=== PATIENT | female | born 1960 | race Caucasian/White ===

== ENCOUNTER 2017-06-22 10:53 | Emergency (ER) | payer BC, SELFPAY ==
[2017-06-22 10:53] VITALS: BP 147/91; PULSE 93; RESP 18; TEMP 36.6; O2SAT 95; BMI 33.1
--- NOTE | 2017-06-22 12:43 | ED.DCSUM_ITS ---
- ER Visit Summary Date of Service: 06/22/17 Chief Complaint: Nosebleed History of Present Illness: The patient is a [address] Mcnair. Reports that she began having bleeding from the left side of her nose this morning at 8 AM. This began after she blew her nose. She reports she has had a cold and has been blowing her nose frequently recently. She reports she has not had a nosebleed for quite some time. She denies any bruising or bleeding. She denies any trauma to her nose. Physical Examination: Vitals: Stable. Afebrile. General: Well-nourished and well-developed. Head: Normocephalic atraumatic. Nose: No active bleeding at this time. Dried blood in the left nares. No visualized source of the bleeding after having her blow her nose. Neck: Supple, no lymphadenopathy. No JVD. Nontender. Cardiovascular: Regular rate and rhythm. No murmurs. Respiratory: No respiratory distress. Clear to auscultation bilaterally. Abdominal: Soft, nontender, nondistended, normal bowel sounds. No guarding, rebound, or peritoneal signs. Back: Nontender. Extremities: Nontender, no edema. Skin: Normal color, no rash. Neurologic: Alert and oriented ?3. Cranial nerves II through XII are intact. Normal strength and sensation. Psych: Normal affect. Emergency Department Course and Treatment: Patient was observed over the course of 2 hours in the emergency department. She ambulated about without any difficulty. She has had no further bleeding. I did discuss with the fact that I cannot rule out she will continue to bleed at home. She is refused packing. Treatment Plan: Patient will be discharged instructions follow-up Dr. Kern as needed. Return to the emergency department for any worsening symptoms. Disposition: To home in improved and stable condition. Impression: 1. Epistaxis on left, resolved. This note was generated with [employer] dictation software. It may contain incorrect words, spelling, and punctuation that were not noted in review of the chart prior to signing ED Disposition - Plan for ED Patient: Disposition: Home or Assisted Living Chief Complaint: Nosebleed Instructions: Nosebleed Prescriptions: Oxymetazoline 0.05% [Afrin (BKC)] 1 spray NASAL BID #1 bottle Referrals: Guillermo Kern MD [STAFF PHYSICIAN] - As Needed
[2017-06-22] MEDS: Mixture 30 ML Bottle TOPICAL (12:44)
== END 2017-06-22 13:09 | disposition home or self-care (01) ==
LOC: ED 12:12
PROVIDERS: Emergency Provider Emergency Medicine; Family Provider Internal Medicine; PCP Internal Medicine
DX: R04.0 Epistaxis (principal)
CPT/HCPCS: 99282

== ENCOUNTER → 2017-06-30 10:57 | Outpatient (CLI) | payer BC, SELFPAY ==
[2017-06-30 11:56] LABS: Absolute Neutrophil Count 4.6 X10^3/uL (2.0-7.7); Basophil# 0.02 X10^3/uL; Basophil% 0.3 % (0-1); Eosinophil# 0.17 X10^3/uL; Eosinophils% 2.6 % (0-5); Hematocrit 43.1 % (37-47); Hemoglobin 13.4 g/dl (12.0-15.0); Lymphocyte % 18.6 % (19-41); Mean Corp Hgb Conc 31.1 g/gl (32-36); Mean Corpuscular Volume 93.3 fL (81-99); Mean Platelet Vol. 9.3 fl (6.2-12.0); Monocyte# 0.47 X10^3/uL; Monocyte% 7.3 % (0-10); Neutrophil # 4.59 X10^3/uL (2.7-7.7); Platelet Count 269 K/mm3 (150-450); RBC Distribution Width CV 13.7 % (11.6-14.6); RBC Distribution Width SD 46.5 fl (35.1-43.9); Red Blood Count 4.62 M/mm3 (4.2-5.4); White Blood Count 6.5 K/mm3 (4.4-11.0)
[2017-06-30 11:57] LABS: POSITIVE COUNT NO; POSITIVE DIFFERENTIAL NO
[2017-06-30 12:31] LABS: Cholesterol 211 mg/dL (200); High Density Lipoprotein 53 mg/dL; Triglycerides 147 mg/dL; Very Low Density Lipoprotein 29 mg/dL (5-40)
== END ==
PROVIDERS: Family Provider Internal Medicine; PCP Internal Medicine; Visit Provider Internal Medicine
DX: Z00.00 Encounter for general adult medical examination without abnormal findings (principal)
CPT/HCPCS: 36415; 80061; 85025

== ENCOUNTER 2017-07-28 10:41 | Day surgery (SDC) | payer BC, SELFPAY ==
--- NOTE | 2017-07-24 16:26 | EKG12_ITS ---
Test Reason : PRE-OP Blood Pressure : / mmHG Vent. Rate : 085 BPM Atrial Rate : 085 BPM P-R Int : 154 ms QRS Dur : 096 ms QT Int : 358 ms P-R-T Axes : 057 -18 045 degrees QTc Int : 426 ms Normal sinus rhythm Leftward axis Confirmed by TONJA PEÑA, LUIS MANUEL ([id number]), editor in chief ALBANIA JOYA ([id number]) on 07/27/2017 12:47:17 PM Referred By: Noemi Barrera Confirmed By:LUIS MANUEL EVANGELISTA MD
[2017-07-24 16:42] LABS: Anion Gap 5 (5-15); BUN 26 mg/dL (7-18); BUN/Creat Ratio 34.6 RATIO (10-20); Calcium,Total 9.1 mg/dL (8.5-10.1); Chloride 106 mmol/L (98-107); Creatinine, Serum 0.75 mg/dL (0.55-1.02); EST Glomerular Filtration Rate 85 mL/min (>60); Est Glom Filt Rate - Afr Amer 103 mL/min (>60); Glucose 89 mg/dL (74-106); Potassium 3.8 mmol/L (3.5-5.1); Sodium Level 140 mmol/L (136-145)
[2017-07-28] VITALS (11 sets, daily range): BP systolic 97–141; BP diastolic 65–90; PULSE 55–76; RESP 16; TEMP 36.1–36.7; O2SAT 91–100; BMI 32.8
--- NOTE | 2017-07-28 08:31 | OP.PCM_ITS ---
Problem List (1) Female stress incontinence Status: Acute (2) Uterine prolapse Status: Chronic Report of Operation Date of Procedure: 07/28/17 Pre-Operative Diagnosis: uterovaginal prolapse and female stress incontinence Post-Operative Diagnosis: same Surgery/Procedure Performed:: Total vaginal hysterectomy, bilateral salpingectomy, uterosacral ligament suspension, anterior and posterior colporrhaphy, midurethral sling and cystoscopy Description of Surgical Findings:: The patient was taken to the operating room where general anesthesia was initiated. The patient was placed in dorsal lithotomy position and prepped and draped in sterile fashion. A surgical time out occurred. A Scott catheter was placed in the patient's bladder. A weighted speculum was placed in the patient's vagina. A curved Katie was used to retract the anterior vaginal wall and bladder out of the field. The cervix was grasped with two Kriss traction forceps. The cervix was then injected with 0.25% marcaine mixed with epinephrine. A circumferential incision with a 10 blade scalpel was then made incising the vagina mucosa down to the body of the cervix. The posterior vaginal epithelium was then dissected off the cervix until the peritoneum of the pouch of Alec was reached. This was then grasped and cut with Osuna scissors entering the peritoneal cavity. A long weighted speculum was then placed in the posterior cul-de-sac. Attention was then turned to the anterior vaginal wall epithelium which was grasped with pickups and dissected, along with the bladder, off of the cervix and the uterus until the peritoneal reflection was visualized. This was then grasped with pickups and incised with Metzenbaum scissors, entering the peritoneal cavity anteriorly. The scott bulb was palpated to confirm that the bladder was not perforated. The Katie was then used to retract the bladder out of the operative field. A curved Lay clamp was then used to clamp, cut and suture ligate the uterosacral ligament on the patient's left side. This was repeated on the contralateral side. Next, the vessels of the broad ligament including the uterine vessels were clamped, cut and suture ligated bilaterally. Finally, the utero-ovarian ligament was clamped cut and suture ligated; first with a tie on a passer and then with a Lay stitch. The uterus and cervix were passed off the sterile field and sent to pathology. With two Breisky Navratil retractors placed anteriorly and posteriorly in the vagina, the bowel was packed out of the cul-de-sac using a moist Kerlex sponge. A 0-Maxon with an HGU-46 needle on a long needle gas truck driver was passed through the uterosacral ligament on the patients right side. This was followed by a 2- 0 prolene suture using an SH needle. This was repeated on the contralateral side. The instruments and packing were removed from the vagina. The patient was given 5 mg of Lasix IV and 5 cc of Indigo Rector. Cystoscopy was then performed while holding tension on the uterosacral ligament suspensions sutures. Bilateral efflux of blue urine was seen from ureteral orifices. The vaginal epithelium overlying the anterior vaginal wall was grasped with two Allis clamps, injected with 0.25% Marcaine with epinephrine and a midline incision was made over the herniation of the anterior vaginal wall. The underlying pubocervical fascia was dissected off the overlying vaginal epithelium until the herniation of the pubocervical fascia was completely exposed. Hemostasis was achieved with electrosurgical cautery. The herniation was repaired in the traditional fashion using imbricating horizontal mattress sutures of 2-O PDS on a CT-1 needle. Once the herniation was completely repaired, the redundant vaginal epithelium was excised and the incision was closed with a running, locking 3-O vicryl suture. Excellent hemostasis was noted. The sutures were then bought through the corners of the vaginal cuff. The cuff was closed with interrupted 0-vicryl sutures. The uterosacral ligament sutures were then tied, elevating the vaginal vault. The vaginal epithelium overlying the mid-urethra was grasped with two Allis clamps, injected with 0.25% Marcaine with epinephrine and a 1.5 cm midline incision was made over the mid urethra using a 15 blade scalpel. Tunnels were dissected bilaterally to the pubic rami and the Advantage Fit trocars were passed through the tunnels on the right side, through the space of Retzius and out the skin at at the pubic symphysis. This was repeated on the patient's left side. Cystoscopy was performed and there was no evidence of bladder or urethral injury. The sling was then drawn up through the space of Retzius and out the skin at the pubic symphysis. Tension was adjusted by placing a Wangensteen forceps between the sling and the urethra. Once adequate tension was adjusted, the plastic sheaths were removed. The redundant sling was trimmed at the skin edges and the skin was repaired with Indermil. The vaginal epithelium was repaired with a running 3-0 Vicryl suture. The vagina was packed with Kerlex gauze soaked in estrogen cream. Anesthesia was discontinued. All needle, instrument, and sponge counts were correct x 2. The patient was taken to recovery room in stable condition draining clear urine from her scott catheter. printed circuit board layout designer: Sofya Broussard Type of Anesthesia:: General Special Medications: .25% marcaine with epinephrine Specimen's removed: uterus, cervix and bilateral fallopian tubes Drains: Scott to PACU Estimated Blood Loss (mL): 100 mL Fluids Replaced: 1300 mL Grafts/Implants Used: Shy Desera sling - Complications none - Admit VTE Documentation VTE Present on Admission: No VTE Mechan Device Prophylaxis: SCD's VTE Pharm Prophylaxis ordered?: Yes
[2017-07-28] MEDS: Phenazopyridine 95 MG Tablet 190 MG PO (11:19)
[2017-07-28] MEDS: Cefazolin 2 GM in 0.9% Normal Saline 100 ML IV (12:36)
--- NOTE | 2017-07-28 13:20 | HYST_PTH ---
PATIENT: ELIAS CARY LOC: [facility] [place] U#:[id number] AGE/SX: 57/F ROOM: RE07/28/[address]: Dr. Noemi Barrera MD : 1960 BED: DIS: 07/28/2017 SPEC #: [id number] RECD: 07/31/17 09:18 STATUS: MIAN RERaymundo #: [id number] PAPITO: 07/28/17 13:[address]: Noemi Barrera DEPT: SURGICAL PATHOLOGY RECD BY: Cruz Childs ENTERED: 07/31/17 10:33 SP TYPE: HYSTERECT OTHR DR: Dr. Sapna Mcnair MD Tissues: Uterus, NOS Procedures: Surgery Specimen Level V HEADER OPERATION: Hysterectomy, total, vaginal salpingectomy, USLF, A&P repair PRE-OP DIAGNOSIS: Uterovaginal prolapse, stress urinary TISSUE SUBMITTED: Uterus, bilateral fallopian tubes, vaginal mucosa MICROSCOPIC DIAGNOSIS Uterus, bilateral fallopian tubes and vaginal mucosa, total vaginal hysterectomy, bilateral salpingectomy and A & P repair: Cervix ? mild chronic cystic cervicitis. Endometrium ? proliferative endometrium. Endometrial polyp ? benign endometrial polyp with simple cystic hyperplasia without atypia. Myometrium ? focal adenomyosis. - A minute intramural leiomyoma (0.2 cm in greatest dimension). Portion bilateral fallopian tubes - no pathologic diagnosis. Vaginal mucosa ? fragments of squamous mucosa with reactive changes. SJ:dee 08/01/17 MICROSCOPIC DESCRIPTION Slides are reviewed. GROSS DESCRIPTION Received in fixative is one container labeled with the patient's name and designated uterus, bilateral fallopian tubes, vaginal mucosa. The specimen consists of a hysterectomy specimen consisting of uterus with cervix, detached small pieces of bilateral fallopian tubes and two pieces of mucosal tissue. The uterus with cervix weighs 48 gm and measures 7.5 x 4.5 x 3.5 cm. The serosal surface is focally ragged. The external os is markedly stenotic. The ectocervical mucosa is unremarkable. The endocervical canal is markedly stenotic and measures 2.5 cm in length. The endocervical mucosa is unremarkable. Sections of the cervix reveal a few cysts filled with mucoid material. The endometrial canal measures 4 cm in length and up to 1.5 cm in diameter. The endometrial cavity shows a polyp which is bulbous at the distal end. The polyp measures 4 cm in length and 0.5 to 1.2 cm in diameter. The bulbous distal end measures 1 cm in diameter. The myometrial wall underneath the polyp is not indurated. The polyp is attached at the fundus. The endometrium measures <0.1 cm in thickness. One of the portions of fallopian tubes measures 1.5 x 1 x 0.5 cm. The fimbrial end is not identified. The second fallopian tube including fimbrial end measures 2 cm in length and 0.5 cm in diameter. Sections of both fallopian tubes do not reveal any mass lesion. Also received are two detached pieces of miranda mucosal tissue measuring in aggregate 4 x 3 x 0.5 cm. No mucosal lesion is identified. Numerous instrumentation segura are noted. Fountain Manager sections are submitted in 11 cassettes as follows: 1 - anterior cervix, 2 - posterior cervix, 3 & 4 - anterior uterine wall, 5 & 6 - posterior uterine wall, 7 & 8 ? entire endometrial polyp with underlying uterine wall, 9 & 10 ? bilateral fallopian tubes, entirely submitted with each cassette containing one fallopian tube, 11 ? mucosal tissue. / GARO:dee 07/31/17 TC:5 CPT: 25641
[2017-07-28] MEDS: Bupiv/Epi 0.5% Mpf 30 ML Vial (14:20)
--- NOTE | 2017-07-28 14:44 | PCM.DC.VHY ---
Discharge Activity: Return to Normal Activity May shower in (days): 1 May resume sexual activity in: 6 weeks Call your doctor if your incision/area has: Continuous Slow Oozing, Sudden Increased Bleeding, Increased Pain/ Swelling, Increased Redness, Foul Smelling Discharge, Swelling at the incision site Call your doctor if you observe: Fever of 101 or Higher, Coldness, Increased Pain, Numbness or Tingling, Change in Color, Inability to urinate, Inability to have a bowel movement, Using more than one pad per hour, Swelling in the ankles Allergies/Adverse Reactions: Allergies Sulfa (Sulfonamide Antibiotics) Allergy (Mild, Verified 07/05/17 16:59) unknown acetaminophen [From Vicodin] Allergy (Verified 07/21/17 15:04) Vomiting hydrocodone [From Vicodin] Allergy (Verified 07/21/17 15:04) Vomiting Medications to take at Discharge ibuprofen 200 mg tablet 200 mg PO ONCE PRN 03/20/17 triamterene 37.5 mg-hydrochlorothiazide 25 mg tablet 1 tab PO QDAY #90 tab 04/06/17 amlodipine 10 mg tablet 10 mg PO QDAY #90 tab 05/11/17 Primary Care Physician: Sapna Mcnair MD [Primary Care Provider] - Please Follow Up With: Noemi Barrera MD When: 6 weeks Proposed Discharge Date: 07/28/17
== END 2017-07-28 20:02 | disposition home or self-care (01) ==
LOC: SDC 10:43 → AC 10:43
PROVIDERS: Family Provider Internal Medicine; PCP Internal Medicine; Visit Provider Obstetrics & Gynecology
PROC: (CPT 58260; principal; 2017-07-28 13:00)
DX: N72 Inflammatory disease of cervix uteri (principal); N84.0 Polyp of corpus uteri; N80.0 Endometriosis of uterus; D25.1 Intramural leiomyoma of uterus; N39.3 Stress incontinence (female) (male); I10 Essential (primary) hypertension; M19.90 Unspecified osteoarthritis, unspecified site; Z87.891 Personal history of nicotine dependence; Z79.899 Other long term (current) drug therapy
CPT/HCPCS: 57260; 57288; 58262; 58400; 36415; 80048; 88307; 93005; J7120; C1758; C1771; J1940; J2405

== ENCOUNTER → 2017-08-11 11:55 | Outpatient (CLI) | payer BC, SELFPAY | PROVIDERS: Family Provider Internal Medicine; PCP Internal Medicine; Visit Provider Obstetrics & Gynecology | DX: N30.00 Acute cystitis without hematuria (principal) | CPT/HCPCS: 87077; 87086; 87088; 87186 ==

== ENCOUNTER 2018-02-24 11:57 | Emergency (ER) | payer BC, SELFPAY ==
[2018-02-24 11:57] VITALS: BMI 32.9
[2018-02-24 11:58] VITALS: BP 161/100; PULSE 106; RESP 14; TEMP 37.6; O2SAT 96; BMI 31.7
--- NOTE | 2018-02-24 12:17 | ED.VISSUMM ---
- ER Visit Summary Date of Service: 02/24/18 Chief Complaint: Fever and bilateral flank pain History of Present Illness: The patient is a 57 F with fever that is subjective but noted at an urgent care to be 101 and bilateral flank pain since yesterday. She denies any urinary symptoms other than some frequency. She has no shortness of breath she has an intermittent cough that has been chronic and has not changed. She has slight rhinorrhea. She has no rash. She has no midline back pain. No recent sick contacts. No recent travel. Physical Examination: Not appear in acute distress, she appears well and nontoxic. Slightly dry mucous membranes, no obvious facial deformity. There is postnasal drip with swollen nasal turbinates and rhinorrhea. She has bilateral TM erythema with a bulging TM on No C-spine tenderness supple neck. No lymphadenopathy Regular rate and rhythm without any obvious murmurs Clear lungs bilaterally speaking in full sentences without any obvious respiratory distress Abdomen soft and nontender no guarding or rebound Patient has bilateral CVA tenderness. She has no midline pain over her lumbar or thoracic region. Moves all extremities without any difficulty or pain. Skin does not show any obvious rashes or lesions, no trauma. Alert oriented ?3 with no gross focal deficit Emergency Department Course and Treatment: Patient had an unremarkable workup in the emergency department. Urinalysis was unremarkable chest x-ray is unremarkable. She appears well. She did have a fever therefore I will treated. She has bilateral otitis media which will also treat with a azithromycin. Disposition: Discharged stable condition Impression: Fever Upper respiratory infection This note was generated with [employer] dictation software. It may contain incorrect words, spelling, and punctuation that were not noted in review of the chart prior to signing ED Disposition - Plan for ED Patient: Chief Complaint: Fever Referrals: Sapna Mcnair MD [Primary Care Provider] -
[2018-02-24] MEDS: 0.9% Normal Saline 1,000 ML 1000 ML IV (12:46)
[2018-02-24 12:49] LABS: Absolute Lymphocyte Count 0.58 X10^3/ul (0.83-4.51); Absolute Neutrophil Count 10.2 X10^3/uL (2.0-7.7); Basophil# 0.02 X10^3/uL; Basophil% 0.2 % (0-1); Differential Indicated SCAN CRITERIA MET; Eosinophil# 0.02 X10^3/uL; Eosinophils% 0.2 % (0-5); Hematocrit 43.6 % (37-47); Hemoglobin 14.4 g/dl (12.0-15.0); Lymphocyte # 0.58 X10^3/ul (4.0); Lymphocyte % 5.1 % (19-41); Mean Corpuscular Hgb 29.6 pg (27.0-32.0); Mean Corpuscular Volume 89.5 fL (81-99); Mean Platelet Vol. 8.8 fl (6.2-12.0); Monocyte# 0.42 X10^3/uL; Monocyte% 3.7 % (0-10); Neutrophil # 10.22 X10^3/uL (2.7-7.7); Neutrophil % 90.7 % (47-70); POSITIVE COUNT NO; POSITIVE DIFFERENTIAL YES; POSITIVE MORPHOLOGY NO; Platelet Count 214 K/mm3 (150-450); RBC Distribution Width CV 13.2 % (11.6-14.6); Red Blood Count 4.87 M/mm3 (4.2-5.4); White Blood Count 11.3 K/mm3 (4.4-11.0)
[2018-02-24 13:01] LABS: ALB/GLOB Ratio 1.1 RATIO (0.9-2.4); AST(SGOT) 13 U/L (15-37); Alanine Aminotransfer ALT/SGPT 20 U/L (13-56); Alkaline Phosphatase 138 U/L (45-117); Anion Gap 7 (5-15); BUN 13 mg/dL (7-18); BUN/Creat Ratio 18.7 RATIO (10-20); Calcium,Total 9.1 mg/dL (8.5-10.1); Chloride 101 mmol/L (98-107); EST Glomerular Filtration Rate 92 mL/min (>60); Est Glom Filt Rate - Afr Amer 112 mL/min (>60); Estimated Creatinine Clearance 80.75 ml/min; Globulin 3.6 g/dL (2.2-4.2); Glucose 92 mg/dL (74-106); Potassium 3.8 mmol/L (3.5-5.1); Protein, Total 7.6 g/dL (6.4-8.2); Sodium Level 135 mmol/L (136-145)
[2018-02-24 13:03] LABS: Mucous, Urine 0 SEEN /hpf (<or=2+); Red Blood Cells-Urine 0 SEEN /hpf (0-5); White Blood Cells 0 SEEN /hpf (0-5)
[2018-02-24 13:06] LABS: Color, Urine Yellow (Yellow); Glucose, Dipstick Normal (Normal); Ketone-Dipstick Negative (Negative); Leukocyte Esterase-Dipstick Negative /ul (Negative); Nitrite-Dipstick Negative (Negative); Occult Blood-Urine Negative /ul (Negative); Protein-Dipstick Negative (Negative); Specific Gravity, Urine 1.005 (1.002-1.030); Urine Bilirubin Dipstick Negative (Negative); Urine Clarity Clear (Clear); Urine Urobilinogen Normal (Normal); Urine pH 6.5 (5.0 - 8.0)
[2018-02-24 13:14] LABS: Bacteria RARE /hpf (None Seen); Calcium Oxalate Crystals Ur RARE /hpf (<or=2+); Squamous Epithelial Cells - UA 0-5 SEEN /hpf (5-10)
--- NOTE | 2018-02-24 13:35 | RAD_ITS ---
STUDY: X-RAY CHEST REASON FOR EXAM: Female, 57 years old. Fever TECHNIQUE: Frontal and lateral views of the chest. COMPARISON: None. FINDINGS: Pulmonary hyperinflation without acute alveolar disease.. There is no demonstrated pleural abnormality. Normal size heart. Normal mediastinum and gallito. Normal visualized pulmonary arteries. Normal visualized aortic arch and descending thoracic aorta. There are diffuse degenerative changes of the visualized thoracic spine. Normal visualized ribs, clavicles, and shoulders. There is no demonstrated abnormality of the visualized soft tissue structures of the upper abdomen. RAD/Chest PA and Lateral IMPRESSION: Pulmonary hyperinflation without acute alveolar disease. Electronically Signed: Chuy Henry MD at 13:53 EST Tel , Service support ,
[2018-02-24 14:56] VITALS: BP 130/68; PULSE 88; RESP 18; O2SAT 96
[2018-02-24 15:29] VITALS: TEMP 39.2
--- NOTE | 2018-02-24 16:07 | ED.DEP ---
ED Disposition - Plan for ED Patient: Disposition: Home or Assisted Living Chief Complaint: Fever Instructions: ED Upper Resp Infec No Abx Tx Prescriptions: Azithromycin 250 mg PO DAILY #6 tab Referrals: Sapna Mcnair MD [Primary Care Provider] -
[2018-02-24] MEDS: Ibuprofen 600 MG Tablet PO (16:24)
[2018-02-24 16:31] VITALS: BP 134/75; PULSE 106; RESP 15; TEMP 39.2; O2SAT 98
== END 2018-02-24 16:32 | disposition home or self-care (01) ==
PROVIDERS: Emergency Provider Emergency Medicine; Family Provider Internal Medicine; PCP Internal Medicine
DX: J06.9 Acute upper respiratory infection, unspecified (principal); R50.9 Fever, unspecified; H66.93 Otitis media, unspecified, bilateral; I10 Essential (primary) hypertension; Z79.899 Other long term (current) drug therapy
CPT/HCPCS: 71046; 80053; 81001; 85025; 87040; 87086; 87088; 87804; 96360; 96361; 99285; J7030

== ENCOUNTER → 2018-03-23 13:49 | Outpatient (CLI) | payer BC, SELFPAY ==
[2018-03-14 17:19] VITALS: BMI 31.7
--- NOTE | 2018-03-23 13:50 | ART_ITS ---
Reason For Study: Lower Extremity Pain Procedure A bilateral lower extremity continuous wave Doppler with analog waveform analysis and ankle brachial indexes. Left Segmental Pressures Left brachial= 147mmHg. Left dorsalis pedis artery = 172mmHg. Left posterior tibial artery = 175mmHg. The left dorsalis pedis waveforms are triphasic. The left posterior tibial artery waveforms are triphasic. Right Segmental Pressures Right brachial= 137mmHg. Right posterior tibial artery = 180mmHg. Right dorsalis pedis artery = 174mmHg. The right dorsalis pedis waveforms are triphasic. The right posterior tibial artery waveforms are triphasic. Indices The right ankle brachial index by the dorsalis pedis is 1.18. The right ankle brachial index by the posterior tibial artery is 1.22. The left ankle brachial index by the dorsalis pedis is 1.17. The left ankle brachial index by the posterior tibial artery is 1.19. Interpretation Summary Triphasic waveforms are noted at ankle level bilaterally. Resting ankle-brachial indices appear bilaterally normal. There is no evidence of significant arterial occlusive disease. Ordering Physician: Sapna Mcnair Referring Physician: Sapna Mcnair Performed By: Orly Rush RDCS/RVT
== END ==
PROVIDERS: Family Provider Internal Medicine; PCP Internal Medicine; Referring Provider Internal Medicine; Visit Provider Internal Medicine
DX: I73.9 Peripheral vascular disease, unspecified (principal)
CPT/HCPCS: 93922

== ENCOUNTER → 2018-04-19 13:40 | Outpatient (CLI) | payer BC, SELFPAY ==
[2018-04-19 13:34] VITALS: BMI 31.7
--- NOTE | 2018-04-19 13:44 | RAD_ITS ---
STUDY: X-RAY - LEFT KNEE REASON FOR EXAM: Female, 58 years old. Pain TECHNIQUE: 4 view(s) of the knee. COMPARISON: None. FINDINGS: There is moderate osteoarthritis of the knee demonstrated by narrowing of the medial compartment of the knee joint and spurs from the tibial and femoral condyles and from the margins of the patella. There are no acute fractures or dislocations and no knee joint effusion. The quadriceps and patellar tendons are normal. RAD/Knee 4 or More Views IMPRESSION: Moderate osteoarthritis of the left knee. No fracture Electronically Signed: Waldo Sullivan MD at 3:16 EST Tel , Service support ,
--- NOTE | 2018-04-19 13:44 | RAD_ITS ---
STUDY: X-RAY - RIGHT KNEE REASON FOR EXAM: Female, 58 years old. Knee pain TECHNIQUE: 4 view(s) of the knee. COMPARISON: None. FINDINGS: Severe osteoarthritis of the right knee demonstrated prominent spurs from the tibial and femoral condyles and from the margins of the patella. There is also noted along the medial compartment of the knee joint. There is no knee joint effusion. The quadriceps and patellar tendons are normal. There are no fractures RAD/Knee 4 or More Views IMPRESSION: No fracture. Severe osteoarthritis of the right knee Electronically Signed: Waldo Sullivan MD at 3:14 EST Tel , Service support ,
--- OUTSIDE RECORDS SUMMARY | 2018-06-24 08:18 | XMS RPT_ITS ---
:1960 Author Organization OHIP Support Name Relationship Address Phone RANGEL DODSON Unavailable [address] + [place] [address] DEMARCUS NAIDU Unavailable [address] + [place] [address] WAYDA Unavailable [address] + [place] [address] RANGEL DODSON Unavailable [address] + [place] [address] DEMARCUS NAIDU Unavailable [address] + [place] [address] WAYDA Unavailable [address] + [place] [address] RANGEL DODSON Unavailable [address] + [place] [address] DEMARCUS NAIDU Unavailable [address] + [place] [address] WAYDA Unavailable [address] + [place] [address] RANGEL DODSON Unavailable [address] + [place] [address] DEMARCUS NAIDU Unavailable [address] + [place] [address] WAYDA Unavailable [address] + [place] [address] IVORYHAIMY Unavailable [address] + [place] [address] DEMARCUS NAIDU Unavailable [address] + [place] [address] WAYDA Unavailable [address] + [place] [address] RANGEL DODSON Unavailable [address] + [place] [address] DEMARCUS NAIDU Unavailable [address] + [place] [address] WAYDA Unavailable [address] + [address] [place] [address] RANGEL DODSON Unavailable [address] + [place] [address] DEMARCUS NAIDU Unavailable [address] + [place] [address] WAYDA Unavailable [address] + [address] [address] RANGEL DODSON Unavailable [address] + [place] [address] DEMARCUS NAIDU Unavailable [address] + [place] [address] WAYDA Unavailable [address] + [address] [place] [address] RANGEL DODSON Unavailable [address] + [place] [address] DEMARCUS NAIDU Unavailable [address] + [place] [address] WAYDA Unavailable [address] + [address] [place] [address] RANGEL DODSON Unavailable [address] + [place] [address] DEMARCUS NAIDU Unavailable [facility] [address] + [place] [address] WAYDA Unavailable [address] + [address] [place] [address] DODSONRANGEL Unavailable [address] + [place] [address] DEMARCUS NAIDU Unavailable [address] + [place] [address] WAYDA Unavailable [address] + [address] [place] [address] RANGEL DODSON Unavailable [address] + [place] [address] DEMARCUS NAIDU Unavailable [address] + [place] [address] WAYDA Unavailable [address] + [address] [place] [address] RANGEL DODSON Unavailable [address] + [place] [address] DEMARCUS NAIDU Unavailable [address] + [place] [address] WAYDA Unavailable [address] + [address] [place] [address] RANGEL DODSON Unavailable [address] + [place] [address] DEMARCUS NAIDU Unavailable [facility] [address] + [place] [address] WAYDA Unavailable [address] + [address] [place] [address] RANGEL DODSON Unavailable [address] + [place] [address] DEMARCUS NAIDU Unavailable [address] + [place] [address] WAYDA Unavailable [address] + [address] [place] [address] RANGEL DODSON Unavailable [address] + [place] [address] DEMARCUS NAIDU Unavailable [facility] [address] + [place] [address] WAYDA Unavailable [address] + [address] [place] [address] RANGEL DODSON Unavailable [address] + [place] [address] DEMARCUS NAIDU Unavailable [facility] [address] + [place] [address] WAYDA Unavailable [address] + [address] [place] [address] IVORY RANGEL Unavailable [address] + [place] [address] DEMARCUS NAIDU Unavailable Unavailable + WAYDA Unavailable [address] + [address] [place] [address] IVORY RANGEL Unavailable [address] + [place] [address] WAYDA Unavailable [address] + [address] [place] [address] DODSONRANGEL Unavailable [address] + [place] [address] WAYDA Unavailable [address] + [place] [address] Care Team Providers Name Role Phone Oleghe, Efewongbe Attending Unavailable Oleghe, Efewongbe Referring Unavailable Oleghe, Efewongbe Attending Unavailable Oleghe, Efewongbe Referring Unavailable Oleghe, Efewongbe Primary Care Unavailable Oleghe, Efewongbe Attending Unavailable Oleghe, Efewongbe Referring Unavailable Oleghe, Efewongbe Primary Care Unavailable Jean Quintero Attending Unavailable Jean Quintero Referring Unavailable Oleghe, Efewongbe Primary Care Unavailable Lui Mc Attending Unavailable Oleghe, Efewongbe Referring Unavailable Oleghe, Efewongbe Attending Unavailable Oleghe, Efewongbe Referring Unavailable Oleghe, Efewongbe Attending Unavailable Oleghe, Efewongbe Referring Unavailable Jolliff, Evelin Primary Care Unavailable Minerva Castle Attending Unavailable Oleghe, Efewongbe Referring Unavailable Jolliff, Evelin Primary Care Unavailable Beto Phan Attending Unavailable Oleghe, Efewongbe Primary Care Unavailable Oleghe, Efewongbe Attending Unavailable Oleghe, Efewongbe Referring Unavailable Oleghe, Efewongbe Primary Care Unavailable Oleghe, Efewongbe Attending Unavailable Oleghe, Efewongbe Referring Unavailable Oleghe, Efewongbe Primary Care Unavailable [facility] Attending Unavailable [facility], [facility] Referring Unavailable Oleghe, Efewongbe Primary Care Unavailable Cyndi Chang Attending Unavailable Oleghe, Efewongbe Referring Unavailable Oleghe, Efewongbe Primary Care Unavailable Cyndi Chang Attending Unavailable Oleghe, Efewongbe Primary Care Unavailable Cyndi Chang Referring Unavailable Oleghe, Efewongbe Attending Unavailable Oleghe, Efewongbe Referring Unavailable Twin Evangelista Attending Unavailable South, Noemi Referring Unavailable Oleghe, Efewongbe Attending Unavailable Oleghe, Efewongbe Referring Unavailable Oleghe, Efewongbe Primary Care Unavailable Jennifer Byrne Attending Unavailable Oleghe, Efewongbe Referring Unavailable Oleghe, Efewongbe Primary Care Unavailable Oleghe, Efewongbe Attending Unavailable Oleghe, Efewongbe Referring Unavailable Oleghe, Efewongbe Primary Care Unavailable Oleghe, Efewongbe Primary Care Unavailable Twin Oleary Attending Unavailable PROBLEMS PROBLEMS DATE TYPE CONDITION / CODE ATTENDING STATUS SOURCE 04/25/2018 Unknown I10 - Essential Oleghe, Active [place] (primary) [facility] hypertension / Hospital I10(ICD-10) Repository 04/19/2018 Unknown M25.561 - Pain in Lui Mc Active [place] right knee / Community M25.561(ICD-10) Hospital Repository 04/19/2018 Unknown M25.562 - Pain in NikkijarosoLui Active [place] left knee / Community M25.562(ICD-10) Hospital Repository 03/14/2018 Unknown I73.9 - Peripheral Oleghe, Active [place] vascular disease, [facility] unspecified / Hospital I73.9(ICD-10) Repository 12/06/2017 Unknown R06.02 - Shortness Oleghe, Active [place] of breath / [facility] R06.02(ICD-10) Hospital Repository 12/06/2017 Unknown Z12.11 - Encounter Oleghe, Active [place] for screening for [facility] malignant neoplasm Hospital of colon / Repository Z12.11(ICD-10) 09/26/2017 Unknown M17.0 - Bilateral Chicorelli, Active [place] [facility] knee / M17.0(ICD-10) Repository 08/12/2017 Unknown N30.00 - Acute Marcanthony, Active [place] cystitis without [facility] hematuria / Hospital N30.00(ICD-10) Repository 08/11/2017 Unknown R30.0 - Dysuria / Marcanthony, Active [place] R30.0(ICD-10) [facility] Hospital Repository 05/24/2017 Unknown Z12.31 - Encounter Minerva Castle Active [place] for screening [facility] mammogram for Hospital malignant neoplasm Repository of breast / Z12.31(ICD-10) 05/11/2017 Unknown N81.4 - Uterovaginal Oleghe, Active [place] prolapse, [facility] unspecified / Hospital N81.4(ICD-10) Repository PROCEDURES PROCEDURES No Procedure Records FoundRESULTS RESULTS ORTHOPEDIC VISIT Observed: 04/19/2018 Status: F Source: [place] REPORT 4:10 PM [facility] REPOSITORY [facility] Sports Medicine [address] [place] [address] OFFICE VISIT Date of Service: 04/19/18 MR#: [id number] Acct: [id number] Name: ELIAS CARY Rep #: [id number] : 1960 Provider: Lui Mc DO Age/Sex: 58/F Location: [facility] Status: Signed Intake Intake Visit Reasons: BILAT KNEES Is patient in pain?: Yes Allergies Sulfa (Sulfonamide Antibiotics) Allergy (Mild, Verified 04/19/18 14:05) unknown acetaminophen [From Vicodin] Allergy (Verified 04/19/18 14:05) Vomiting hydrocodone [From Vicodin] Allergy (Verified 04/19/18 14:05) Vomiting Medications ibuprofen 200 mg tablet 200 mg PO ONCE PRN 03/20/17 [History Confirmed 03/14/18] triamterene 37.5 mg-hydrochlorothiazide 25 mg tablet 1 tab PO QDAY #90 tab 04/06/17 [Rx Confirmed 03/14/18] amlodipine 10 mg tablet 10 mg PO QDAY #90 tab 09/13/17 [Rx Confirmed 03/14/18] PFSH Medical History Osteoarthritis (Chronic) Hypertension (Chronic) Surgical History History of (Acute) History of tonsillectomy (Acute) Total vaginal hysterectomy, bilateral salpingectomy, uterosa (Acute) S/P (Inactive) S/P tonsillectomy (Inactive) Family History Mother Heart disease Hypertension Father Heart disease Hypertension Social History Smoking Status: Former smoker how long ago did patient quit smokin alcohol intake: current alcohol intake frequency: holidays/special occasions only details: social substance use type: does not use, painkillers caffeine: Yes what type of physical activity do you participate in: none seatbelt use: always do you feel safe at home: Yes additional social history: - Phumarichuy Childs HPI BILAT KNEES: Chief Complaint: bilateral knee pain Details: ELIAS CARY is a 58 year old F here today for bilateral knee pain, left greater than right. She complains of left leg pain as well, prox and distal to the knee. She does have braces but it increases her swelling. She wear compression socks. Her last injection was September 2017, they were helpful but she is having more patella grinding with flexion. Denies numbness, tingling or other associated symptoms. She has had injections previously. Ortho Exam Left Knee Swelling: No Stability: NML: Anterior Drawer, NML: Posterior Drawer, NML: Varus 0 Patella Grind: Yes KNEE: positive patellar grind. bakers cyst. full knee extension and 100 knee flexion. 4mm medial gaping with medial stress. Supplemental Info Personally reviewed patients bilateral knee xrays from 04/19/18. Her left knee is bone on bone medial compartment with varus deformity, moderate to severe PF OA. Right knee is bone on bone medial compartment with varus deformity, moderate to severe PF OA. Assessment AND Plan Problems 1. Primary osteoarthritis of both knees M17.0 Plan Explained the total knee replacement surgery procedure and recovery with the patient. Due to failed conservative treatment she is a candidate for a TKA. She will be able to go home following her procedure or the TCU. Patient will do home PT until 2 week then she will do outpatient PT. Spoke with the patient about the importance of range of motion within the first 6 weeks post op. Patient has no active dental infections, but should have dental clearance prior to her surgery. Patient wished to proceed with surgery. Reviewed the pre-operative plans with the patient. Risks and benefits of the procedure were fully explained, including but not limited to infection, neurovascular injury, continued pain, stiffness, need for further surgery, re-injury, DVT, PE, general risks of anesthesia, and loss of limb or life. The patient understands all the risks and does wish to proceed with written consent. Follow up following her 2 week post op or sooner if pain, swelling, numbness or associated symptoms, or concerns develop. All questions answered. Patient in agreement of plan. Orders Orders: Coding Level of Care Code Off vis,est,level 3 Diagnoses Primary osteoarthritis of both knees M17.0 Osteoarthritis type: primary 04/19/18 1610 <Electronically signed by Lui Mc DO> Date Lui Mc DO Cosigner Signature: Date (if applicable) CC: KNEE 4 OR MORE Observed: 04/19/2018 Status: F Source: [place] VIEWS 1:44 PM [facility] REPOSITORY [facility] Imaging Services [address] [place] [address] Knee 4 or More Views MR#: [id number] Acct: [id number] Name: ELIAS CARY Rep #: [id number] : 1960 F 58 From: Waldo Sullivan MD PCP: Sapna Mcnair MD Status: REG CLI Study: Knee 4 or More Views Date of Exam: 04/19/18 Exam# [id number] Ordering Dr: Jean Quintero STUDY: X-RAY - RIGHT KNEE REASON FOR EXAM: Female, 58 years old. Knee pain TECHNIQUE: 4 view(s) of the knee. COMPARISON: None. FINDINGS: Severe osteoarthritis of the right knee demonstrated prominent spurs from the tibial and femoral condyles and from the margins of the patella. There is also noted along the medial compartment of the knee joint. There is no knee joint effusion. The quadriceps and patellar tendons are normal. There are no fractures RAD/Knee 4 or More Views IMPRESSION: No fracture. Severe osteoarthritis of the right knee Electronically Signed: Waldo Sullivan MD at 3:14 EST Tel , Service support , CC: DEJA Quintero; Sapna cMnair MD Icing Machine Operator: Signed KNEE 4 OR MORE Observed: 04/19/2018 Status: F Source: [place] VIEWS 1:44 PM [facility] REPOSITORY [facility] Imaging Services [address] [place] [address] Knee 4 or More Views MR#: [id number] Acct: [id number] Name: ELIAS CARY Rep #: [id number] : 1960 F 58 From: Waldo Sullivan MD PCP: Sapna Mcnair MD Status: REG CLI Study: Knee 4 or More Views Date of Exam: 04/19/18 Exam# [id number] Ordering Dr: Jean Quintero STUDY: X-RAY - LEFT KNEE REASON FOR EXAM: Female, 58 years old. Pain TECHNIQUE: 4 view(s) of the knee. COMPARISON: None. FINDINGS: There is moderate osteoarthritis of the knee demonstrated by narrowing of the medial compartment of the knee joint and spurs from the tibial and femoral condyles and from the margins of the patella. There are no acute fractures or dislocations and no knee joint effusion. The quadriceps and patellar tendons are normal. RAD/Knee 4 or More Views IMPRESSION: Moderate osteoarthritis of the left knee. No fracture Electronically Signed: Waldo Sullivan MD at 3:16 EST Tel , Service support , CC: DEJA Quintero; Sapna Mcnair MD Icing Machine Operator: Signed ARTERIAL Observed: 03/23/2018 Status: F Source: [place] 6:49 PM [facility] REPOSITORY [facility] Cardiovascular Services [address] [place] [address] Ankle Brachial Index 03/23/18 1353 MR#: [id number] Acct: [id number] Name: ELIAS CARY Rep #: [id number] : 1960 57 From: Aba Benitez MD Attending Dr: Sapna Mcnair MD Status: REG CLI Ordering Dr: Sapna Mcnair MD Date: 03/23/18 Location: [facility] Sex: F C Admitted: Reason For Study: Lower Extremity Pain Procedure A bilateral lower extremity continuous wave Doppler with analog waveform analysis and ankle brachial indexes. Left Segmental Pressures Left brachial= 147mmHg. Left dorsalis pedis artery = 172mmHg. Left posterior tibial artery = 175mmHg. The left dorsalis pedis waveforms are triphasic. The left posterior tibial artery waveforms are triphasic. Right Segmental Pressures Right brachial= 137mmHg. Right posterior tibial artery = 180mmHg. Right dorsalis pedis artery = 174mmHg. The right dorsalis pedis waveforms are triphasic. The right posterior tibial artery waveforms are triphasic. Indices The right ankle brachial index by the dorsalis pedis is 1.18. The right ankle brachial index by the posterior tibial artery is 1.22. The left ankle brachial index by the dorsalis pedis is 1.17. The left ankle brachial index by the posterior tibial artery is 1.19. Interpretation Summary Triphasic waveforms are noted at ankle level bilaterally. Resting ankle-brachial indices appear bilaterally normal. There is no evidence of significant arterial occlusive disease. Ordering Physician: Sapna Mcnair Referring Physician: Sapna Mcnair Performed By: Orly Rush RDCS/RVT 03/23/181848 Date Aba Benitez MD CC: Sapna Mcnair MD Date Dictated: 03/23/18 1353 Date Transcribed: 03/23/181848 Icing Machine Operator: Signed INTERNAL MEDICINE Observed: 03/14/2018 Status: F Source: [place] OFFICE VISIT 6:09 PM [facility] [address] [place] [address] [place] [address] OFFICE VISIT Date of Service: 03/14/18 MR#: [id number] Acct: [id number] Name: ELIAS CARY Rep #: [id number] : 1960 Provider: Sapna Mcnair MD Age/Sex: 57/F Location: [facility] Status: Signed Intake Vital Signs03/14/18 Body Mass Index (BMI) 31.7 03/14/18 Height 5 ft 5 in 03/14/18 Weight: 193 lb 03/14/18 Body Mass Index (BMI) 32.1 03/14/18 Blood Pressure 137/85 H Intake Visit Reasons: 3 MO FU Chief Complaint: 3 MO FU BP Allergies Sulfa (Sulfonamide Antibiotics) Allergy (Mild, Verified 03/14/18 17:18) unknown acetaminophen [From Vicodin] Allergy (Verified 03/14/18 17:18) Vomiting hydrocodone [From Vicodin] Allergy (Verified 03/14/18 17:18) Vomiting Medications ibuprofen 200 mg tablet 200 mg PO ONCE PRN 03/20/17 [History Confirmed 03/14/18] triamterene 37.5 mg-hydrochlorothiazide 25 mg tablet 1 tab PO QDAY #90 tab 04/06/17 [Rx Confirmed 03/14/18] amlodipine 10 mg tablet 10 mg PO QDAY #90 tab 09/13/17 [Rx Confirmed 03/14/18] PFSH Medical History Osteoarthritis (Chronic) Hypertension (Chronic) Surgical History History of (Acute) History of tonsillectomy (Acute) Total vaginal hysterectomy, bilateral salpingectomy, uterosa (Acute) S/P (Inactive) S/P tonsillectomy (Inactive) Family History Mother Heart disease Hypertension Father Heart disease Hypertension Social History Smoking Status: Former smoker how long ago did patient quit smokin alcohol intake: current alcohol intake frequency: holidays/special occasions only details: social substance use type: does not use, painkillers caffeine: Yes what type of physical activity do you participate in: none seatbelt use: always do you feel safe at home: Yes additional social history: - Phu Childs HPI HPI Chief Complaint: 3 MO FU BP Details: ELIAS CARY, is a 57yo F who presents to the office today for follow-up. Blood pressure slightly elevated compared to last visit. She does not routinely check this at home. She denies chest pain or shortness of breath. She also reports compliance with the medication. She was referred for PFT during the last visit due to episodes of shortness of breath and wheezing responsive to albuterol. She is yet to get this done she however states that she has only had to use the albuterol inhaler once since her last visit. She reports pain in her legs when walking which is relieved somewhat on standing and stretching. Prior history of smoking however stopped many years ago. No known history of peripheral arterial disease. ROS Const Constitutional: No chills, fatigue, fever(s), frequent falls, malaise, weakness, sleep problems or change in appetite Eyes Eyes: No blurry vision, change in vision, double vision, discharge or visual disturbances ENT ENT: No abnormal hearing, ear pain, ear pressure, tinnitus or dizziness/vertigo Resp Respiratory: No cough, shortness of breath or wheezing Cardio Cardiology: No chest pain at rest, chest pain with exertion, dyspnea on exertion, generalized swelling, irregular heart rhythm, lightheadedness, orthopnea, fast heart rate or palpitations Gastro GI: No abdominal pain, change in bowel habits, constipation, diarrhea, nausea/dyspepsia or vomiting Genitourinary-Female: No difficulty urinating, burning urination, painful urination, urinary incontinence, urinary frequency, urinary urgency, urinary hesitancy, urinary retention, Frequent nighttime urination/ nocturia, sexual problems, genital lesions, abnormal vaginal bleeding, pelvic pain, vaginal dryness, vaginal odor or Vaginal Itching Musc Musculoskeletal: No joint pain, back pain, joint swelling, limited range of motion, numbness, tingling or muscle weakness Skin Skin: No change in skin color, itching, rash or wounds Breast Breast: No breast lump or breast pain Neuro Neurology: No frequent falls, weakness, visual disturbances, abnormal hearing, numbness, tingling, unsteady gait/balance, dizziness, loss of vision or memory loss Psych Psychiatric: No change in appetite, No memory loss, No anxiety, No depression, No Thoughts of harming yourself/Others Endo Endocrine: No fatigue, heat intolerance, increased thirst/drinking, increased hunger or increased urination Aller/Imm Allergy/Immunologic: No wheezing, itchy eyes or seasonal allergy symptoms Jesu/Lymp Hematologic/Lymphatic: No easy bleeding, easy bruising or enlarged lymph nodes Exam Const General: cooperative, no acute distress Orientation: alert, awake, oriented x3 HENTX Head: atraumatic, normocephalic Ears: hearing grossly normal bilaterally Resp Effort AND Inspection: normal respiratory effort, able to speak in complete sentences Auscultation: Bilateral: Clear to Auscultation Cardio Rate: regular rate Rhythm: regular rhythm Heart Sounds: S1 normal, S2 normal GI Palpation: soft, no hepatosplenomegaly Musc Musculoskeletal: No muscle weakness Neuro General: alert, awake, oriented x3, moves all extremities, CN's II-XI intact bilaterally Extrem Other: Loss of hair bilaterally. Psych Appearance: grossly normal Mental Status: mental status grossly normal Affect: normal affect Assessment AND Plan 1. Shortness of breath R06.02 Plan Stable. No worsening. Has only had to use her inhaler once since her last visit. Yet to get her lung function test done, she was advised to. Advised to call with concerns or worsening symptoms. 2. Hypertension I10 Plan Appears mildly elevated. Reports compliance with her medication. Advised to keep a blood pressure log. Continue current medication for now. Continue lifestyle and dietary modifications. Follow-up at next visit. 3. Claudication I73.9 Plan Chronic history of pain on walking resolved by rest. No known history of peripheral arterial disease. SHARRI studies ordered. Follow-up with results. Orders Orders: 4. Healthcare maintenance Z00.00 Plan Recent hysterectomy secondary to uterine prolapse no Pap smears required. Mammogram ordered during her last visit yet to have this done, she was encouraged to. Again advised to follow-up for screening colonoscopy. Advised to follow-up with dermatology for yearly screening. This note was generated with [employer] software. It may contain incorrect words, spelling, and punctuation that were not noted in checking the note before signing. Coding Level of Care Code Off vis,est,level 4 Diagnoses Shortness of breath R06.02 Hypertension I10 Claudication I73.9 Healthcare maintenance Z00.00 03/14/18 1809 <Electronically signed by Sapna Mcnair MD> Date Sapna Mcnair MD Cosigner Signature: Date (if applicable) CC: EMERGENCY DEPARTMENT Observed: 02/24/2018 Status: F Source: [place] SUMMARY 5:37 PM [facility] REPOSITORY [facility] Medical Records Department [address] [place] [address] Emergency Department Summary 02/24/18 1217 MR#: [id number] Acct: [id number] Name: ELIAS CARY Rep #: [id number] : 1960 57 From: Twin Oleary MD PCP: Sapna Mcnair MD Status: DEP ER - ER Visit Summary Date of Service: 02/24/18 Chief Complaint: Fever and bilateral flank pain History of Present Illness: The patient is a 57 F with fever that is subjective but noted at an urgent care to be 101 and bilateral flank pain since yesterday. She denies any urinary symptoms other than some frequency. She has no shortness of breath she has an intermittent cough that has been chronic and has not changed. She has slight rhinorrhea. She has no rash. She has no midline back pain. No recent sick contacts. No recent travel. Physical Examination: Not appear in acute distress, she appears well and nontoxic. Slightly dry mucous membranes, no obvious facial deformity. There is postnasal drip with swollen nasal turbinates and rhinorrhea. She has bilateral TM erythema with a bulging TM on No C-spine tenderness supple neck. No lymphadenopathy Regular rate and rhythm without any obvious murmurs Clear lungs bilaterally speaking in full sentences without any obvious respiratory distress Abdomen soft and nontender no guarding or rebound Patient has bilateral CVA tenderness. She has no midline pain over her lumbar or thoracic region. Moves all extremities without any difficulty or pain. Skin does not show any obvious rashes or lesions, no trauma. Alert oriented 3 with no gross focal deficit Emergency Department Course and Treatment: Patient had an unremarkable workup in the emergency department. Urinalysis was unremarkable chest x-ray is unremarkable. She appears well. She did have a fever therefore I will treated. She has bilateral otitis media which will also treat with a azithromycin. Disposition: Discharged stable condition Impression: Fever Upper respiratory infection This note was generated with [employer] dictation software. It may contain incorrect words, spelling, and punctuation that were not noted in review of the chart prior to signing ED Disposition - Plan for ED Patient: Chief Complaint: Fever Referrals: Sapna Mcnair MD [Primary Care Provider] - What to do if you have Problems For any increased pain, shortness of breath, bleeding, nausea or vomiting, chest pain, or any unexpected problems, contact your Primary Care Provider. Call [facility] ([phone]) or report to the closest Emergency Room. Call 911 if necessary. 02/24/18 1737 <Electronically signed by Twin Oleary MD> Date Twin Oleary MD Cosigner Signature (If Indicated): Date CC: Sapna Mcnair MD DISCHARGE INSTRUCTION Observed: 02/24/2018 Status: F Source: [facility] 4:09 PM [facility] REPOSITORY [facility] Medical Records Department [address] [place] [address] Discharge Instruction 02/24/18 1607 MR#: [id number] Acct: [id number] Name: ELIAS CARY Rep #: [id number] : 1960 57 From: Twin Oleary MD PCP: Sapna Mcnair MD Status: REG ER ED Disposition - Plan for ED Patient: Disposition: Home or Assisted Living Chief Complaint: Fever Instructions: ED Upper Resp Infec No Abx Tx Prescriptions: Azithromycin 250 mg PO DAILY #6 tab Referrals: Sapna Mcnair MD [Primary Care Provider] - What to do if you have Problems For any increased pain, shortness of breath, bleeding, nausea or vomiting, chest pain, or any unexpected problems, contact your Primary Care Provider. Call [facility] ([phone]) or report to the closest Emergency Room. Call 911 if necessary. 02/24/18 1609 <Electronically signed by Twin Oleary MD> Date Twin Oleary MD Cosigner Signature (If Indicated): Date CC: Sapna Mcnair MD Observed: 02/24/2018 Status: F Source: [place] CULTURE, BLOOD (WB) 1:00 PM [facility] REPOSITORY BC No growth in 5 days. Performed By: #### M200.1000 #### [facility] [address] [place], [place], [address] Observed: 02/24/2018 Status: F Source: [place] INFLUENZA A+B (RAPID 12:50 PM [facility]) REPOSITORY FLU A/B Rapid Negative test results should be confirmed by culture. Order Rapid Viral Culture for Influenzae A+B ([id number]) if clinically indicated. Influenza Ag, Direct Presumptive NEGATIVE for Influenza A/B Antigen (See Note) Performed By: #### M101.0101 #### [facility] [address] [place], [address] URINALYSIS, COMPLETE Collected: 02/24/2018 Status: F Source: [place] 12:40 PM [facility] REPOSITORY Order Comment: Has pt arrived? Y How was Urine Obtained? CLEAN CATCH TYPE CODE TESTS RESULT OUT OF RANGE REFERENCE UNITS LAB L400.3000 Yellow COLOR Normal Yellow LAB L400.3050 Clear Normal CLARITY Clear LAB L400.3200 Normal mg/dl Normal GLUCOSE, UR Normal LAB L400.3300 Negative mg/dL Normal BILIRUBIN URINE Negative LAB L400.3400 Negative mg/dl Normal KETONE UR Negative LAB L400.3465 1.002-1.030 Normal SP.GR. DIPSTX 1.005 LAB L400.3550 5.0 - 8.0 pH UR Normal 6.5 LAB L400.3600 Negative mg/dl PROT Normal DIPSTX Negative LAB L400.3700 Normal mg/dl Normal UROBILI Normal LAB L400.3750 Negative Normal NITRITE UR Negative LAB L400.3780 Negative /ul Normal OCCULT BLOOD-UR Negative LAB L400.3800 Negative /ul LEUK Normal ESTERASE Negative LAB L400.4050 0-5 /hpf WBC 0 Normal SEEN LAB L400.4100 0-5 /hpf 0 Normal RBC-UA SEEN LAB L400.4150 5-10 /hpf SQUAM Normal EPI 0-5 SEEN LAB L400.4300 None Seen /hpf Normal BACTERIA RARE LAB L400.4350 <or=2+ /hpf 0 Normal MUCUS, URINE SEEN LAB L400.4700 <or=2+ /hpf CA OX Normal CRYSTAL RARE Performed By: #### L400.0001 #### [facility] [address] [place], [place], [address] Observed: 02/24/2018 Status: F Source: [place] CULTURE, URINE 12:40 PM [facility] REPOSITORY Has pt arrived? Y Urine Culture Below infection level. ORGANISM 1: Mixed Gram Positive Organisms Seth Count 1000-10,000 Performed By: #### M100.0650 #### [facility] [address] [place], [address] CBC W/DIFF, AUTOMATED Collected: 02/24/2018 Status: F Source: [place] 12:35 PM [facility] REPOSITORY TYPE CODE TESTS RESULT OUT OF RANGE REFERENCE UNITS LAB L100.1000 4.4-11.0 K/mm3 High WBC 11.3 LAB L100.1200 4.2-5.4 M/mm3 Normal RBC 4.87 LAB L100.1300 12.0-15.0 g/dl Normal HGB 14.4 LAB L100.1400 37-47 % Normal HCT 43.6 LAB L100.1500 81-99 fL Normal MCV 89.5 LAB L100.1600 27.0-32.0 pg Normal MCH 29.6 LAB L100.1700 32-36 g/gl Normal MCHC 33.0 LAB L100.1810 11.6-14.6 % Normal RDW CV 13.2 LAB L100.1820 35.1-43.9 fl Normal RDW SD 43.0 LAB L100.1900 150-450 K/mm3 Normal PLT 214 LAB L100.2000 6.2-12.0 fl Normal MPV 8.8 LAB L100.2100 47-70 % High NEUT% 90.7 LAB L100.2200 19-41 % Low LY% 5.1 LAB L100.2300 0-10 % Normal MONO% 3.7 LAB L100.2400 0-5 % Normal EO% 0.2 LAB L100.2500 0-1 % Normal BASO% 0.2 LAB L100.2550 0.0-0.9 % Normal IM GRAN % 0.100 Result Comment: IG% - Immature Granulocytes (promyelocytes, myelocytes and metamyelocytes) > 1% indicates that a LEFT SHIFT is Present. LAB L100.2620 2.0-7.7 X10 3/uL High Absolute Neut 10.2 LAB L100.2720 0.83-4.51 X10 3/ul Low Absolute Lymph 0.58 Performed By: #### L100.0100 #### [facility] [address] [place], [place], [address] COMPREHENSIVE METABOLIC Collected: 02/24/2018 Status: F Source: [place] CHANDRAKANT 12:35 PM [facility] REPOSITORY TYPE CODE TESTS RESULT OUT OF RANGE REFERENCE UNITS LAB L501.0100 74-106 mg/dL Normal GLU 92 Result Comment: Please note revised GLUCOSE reference range effective 2017. LAB L501.1000 7-18 mg/dL Normal BUN 13 LAB L501.1100 0.55-1.02 mg/dL Normal CREAT,SERUM 0.70 Result Comment: The validity of the calculated GFR AND GFRAA in patients over 70 years has not been determined. Clinical correlation is essential. LAB L501.1110 >60 mL/min Normal EST GFR 92 Result Comment: Non- GFR Calc LAB L501.1115 >60 mL/min Normal EST GFR - AA 112 Result Comment: GFR Calc LAB L501.1255 ml/min Normal Estimated CRCL 80.75 LAB L501.1300 10-20 RATIO Normal BUN/CRE 18.7 LAB L501.1500 6.4-8. g/dL Normal 2 T PROT 7.6 LAB L501.1800 3.2-5. g/dL Normal 0 ALB 4.0 LAB L501.1950 2.2-4. g/dL Normal 2 GLOB 3.6 LAB L501.2000 0.9-2. RATIO Normal 4 A/G 1.1 LAB L501.2200 8.5-10 mg/dL Normal .1 CA 9.1 LAB L501.4100 15-37 U/L Low AST 13 LAB L501.4305 45-117 U/L High ALK P 138 LAB L501.4405 13-56 U/L Normal ALT 20 LAB L501.4600 0.20-1 mg/dL Normal .00 T BILI 0.60 LAB L501.5300 136-14 mmol/L Low 5 NA 135 LAB L501.5600 3.5-5. mmol/L Normal 1 K 3.8 LAB L501.5900 98-107 mmol/L Normal CL 101 LAB L501.6100 21.0-3 mmol/L Normal 2.0 CO2 27.0 LAB L501.6200 5-15 Normal GAP 7 Performed By: #### L500.4050 #### [facility] [address] [place], [address] Observed: 02/24/2018 Status: F Source: [place] CULTURE, BLOOD (WB) 12:35 PM [facility] REPOSITORY BC No growth in 5 days. Performed By: #### M200.1000 #### [facility] [address] [place], [place], [id number] CHEST PA AND LATERAL Observed: 02/24/2018 Status: F Source: [place] 12:17 PM [facility] REPOSITORY [facility] Imaging Services [address] [place] [address] Chest PA and Lateral MR#: [id number] Acct: [id number] Name: ELIAS CARY Rep #: [id number] : 1960 F 57 From: Chuy Henry MD PCP: Sapna Mcnair MD Status: REG ER Study: Chest PA and Lateral Date of Exam: 02/24/18 Exam# [id number] Ordering Dr: Twin Oleary MD STUDY: X-RAY CHEST REASON FOR EXAM: Female, 57 years old. Fever TECHNIQUE: Frontal and lateral views of the chest. COMPARISON: None. FINDINGS: Pulmonary hyperinflation without acute alveolar disease.. There is no demonstrated pleural abnormality. Normal size heart. Normal mediastinum and gallito. Normal visualized pulmonary arteries. Normal visualized aortic arch and descending thoracic aorta. There are diffuse degenerative changes of the visualized thoracic spine. Normal visualized ribs, clavicles, and shoulders. There is no demonstrated abnormality of the visualized soft tissue structures of the upper abdomen. RAD/Chest PA and Lateral IMPRESSION: Pulmonary hyperinflation without acute alveolar disease. Electronically Signed: hCuy Henry MD at 13:53 EST Tel , Service support , CC: Sapna Mcnair MD; Twin Oleary MD Icing Machine Operator: Signed INTERNAL MEDICINE Observed: 12/07/2017 Status: F Source: [place] OFFICE VISIT 3:44 PM [facility] Internal Medicine [address] [place] [address] [place] [address] OFFICE VISIT Date of Service: 12/06/17 MR#: [id number] Acct: [id number] Name: ELIAS CARY Rep #: [id number] : 1960 Provider: Sapna Mcnair MD Age/Sex: 57/F Location: [facility] Status: Signed Intake Vital Signs12/06/17 Height 5 ft 5 in 12/06/17 Weight: 193 lb 12/06/17 Body Mass Index (BMI) 32.1 12/06/17 Blood Pressure 117/82 Intake Visit Reasons: 3 MO FU Chief Complaint: 3 MO FU BP Is patient in pain?: No Allergies Sulfa (Sulfonamide Antibiotics) Allergy (Mild, Verified 12/06/17 18:04) unknown acetaminophen [From Vicodin] Allergy (Verified 12/06/17 18:04) Vomiting hydrocodone [From Vicodin] Allergy (Verified 12/06/17 18:04) Vomiting Medications ibuprofen 200 mg tablet 200 mg PO ONCE PRN 03/20/17 [History Confirmed 12/06/17] triamterene 37.5 mg-hydrochlorothiazide 25 mg tablet 1 tab PO QDAY #90 tab 04/06/17 [Rx Confirmed 12/06/17] amlodipine 10 mg tablet 10 mg PO QDAY #90 tab 09/13/17 [Rx Confirmed 12/06/17] PFSH Medical History Osteoarthritis (Chronic) Hypertension (Chronic) Surgical History History of (Acute) History of tonsillectomy (Acute) Total vaginal hysterectomy, bilateral salpingectomy, uterosa (Acute) S/P (Inactive) S/P tonsillectomy (Inactive) Family History Mother Heart disease Hypertension Father Heart disease Hypertension Social History Smoking Status: Former smoker how long ago did patient quit smokin alcohol intake: current alcohol intake frequency: holidays/special occasions only details: social substance use type: does not use, painkillers caffeine: Yes what type of physical activity do you participate in: none seatbelt use: always do you feel safe at home: Yes additional social history: - Phu Childs HPI HPI Chief Complaint: 3 MO FU BP Details: ELIAS CARY, is a 57yo F who presents to the office today for follow-up of her chronic medical conditions. She reports 2 episodes of shortness of breath which was sudden in onset and she is associated with chest tightness. Relieved after using his son's inhaler. Denies any prior history of COPD or asthma. Had a prior history of smoking however, stopped smoking several years ago. 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 She feels well otherwise denies chills, fever or weight changes. She is also concerned about worsening knee pain. Currently follows up with Dr. Houston and has had knee injections ROS Const Constitutional: No chills, fatigue, fever(s), frequent falls, malaise, weakness, sleep problems or change in appetite Eyes Eyes: No blurry vision, change in vision, double vision, discharge or visual disturbances ENT ENT: No abnormal hearing, ear pain, ear pressure, tinnitus or dizziness/vertigo Resp Respiratory: Positive for cough and shortness of breath; no wheezing Cardio Cardiology: No chest pain at rest, chest pain with exertion, shortness of breath, dyspnea on exertion, generalized swelling, irregular heart rhythm, lightheadedness, orthopnea, fast heart rate or palpitations Gastro GI: No abdominal pain, change in bowel habits, constipation, diarrhea, nausea/dyspepsia or vomiting Genitourinary-Female: No difficulty urinating, burning urination, painful urination, urinary incontinence, urinary frequency, urinary urgency, urinary hesitancy, urinary retention, Frequent nighttime urination/ nocturia, sexual problems, genital lesions, abnormal vaginal bleeding, pelvic pain, vaginal dryness, vaginal odor or Vaginal Itching Musc Musculoskeletal: No joint pain, back pain, joint swelling, limited range of motion, numbness, tingling or muscle weakness Skin Skin: No change in skin color, itching, rash or wounds Breast Breast: No breast lump or breast pain Neuro Neurology: No frequent falls, weakness, abnormal hearing, numbness, tingling, unsteady gait/balance, dizziness, loss of vision, memory loss or visual disturbances Psych Psychiatric: No memory loss, No anxiety, No change in appetite, No depression, No Thoughts of harming yourself/Others Endo Endocrine: No fatigue, heat intolerance, increased thirst/drinking, increased hunger or increased urination Aller/Imm Allergy/Immunologic: No wheezing, itchy eyes or seasonal allergy symptoms Jesu/Lymp Hematologic/Lymphatic: No easy bleeding, easy bruising or enlarged lymph nodes Exam Const General: cooperative, no acute distress Orientation: alert, awake, oriented x3 HENMT Head: atraumatic, normocephalic Ears: hearing grossly normal bilaterally Resp Effort AND Inspection: normal respiratory effort, able to speak in complete sentences Auscultation: Bilateral: Clear to Auscultation Cardio Rate: regular rate Rhythm: regular rhythm Heart Sounds: S1 normal, S2 normal GI Palpation: soft, no hepatosplenomegaly Musc Musculoskeletal: No muscle weakness Neuro General: alert, awake, oriented x3, moves all extremities, CN's II-XI intact bilaterally Extrem General: pedal edema bilaterally Psych Appearance: grossly normal Mental Status: mental status grossly normal Affect: normal affect Assessment AND Plan 1. Shortness of breath R06.02 Plan She reports about 2 episodes over the past month associated with chest tightness and relieved with inhalers. No prior history or known history of asthma or COPD. 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 PFTs ordered. Albuterol inhalers as needed. Orders Orders: 2. Osteoarthritis, knee M17.10 Plan Has noted worsening right knee pain. Advised to follow-up with Ortho. May need a knee replacement at this time. 3. Hypertension I10 Plan Optimally controlled. Continue current medication and lifestyle modifications. Orders Orders: 4. Healthcare maintenance Z00.00 Plan Recent hysterectomy secondary to uterine prolapse no Pap smears required. Mammogram ordered. Again referred for screening colonoscopy. Advised to follow-up with dermatology for yearly screening. Plan Detail Other Orders Referrals: Coding Level of Care Code Off vis,est,level 4 Diagnoses Shortness of breath R06.02 Osteoarthritis, knee M17.10 Hypertension I10 Healthcare maintenance Z00.00 12/07/17 1544 <Electronically signed by Sapna Mcnair MD> Date Sapna Mcnair MD Cosigner Signature: Date (if applicable) CC: ORTHOPEDIC VISIT Observed: 09/28/2017 Status: F Source: [place] REPORT 9:10 AM [facility] REPOSITORY [facility] Orthopaedics AND Sports Medicine [address] [place] [address] OFFICE VISIT Date of Service: 09/26/17 MR#: [id number] Acct: [id number] Name: ELIAS CARY Rep #: [id number] : 1960 Provider: Jennifer Byrne DO Age/Sex: 57/F Location: [facility] Status: Signed Intake Intake Visit Reasons: bilateral knee Chief Complaint: Recheck BP Allergies Sulfa (Sulfonamide Antibiotics) Allergy (Mild, Verified 09/26/17 15:38) unknown acetaminophen [From Vicodin] Allergy (Verified 09/26/17 15:38) Vomiting hydrocodone [From Vicodin] Allergy (Verified 09/26/17 15:38) Vomiting Medications ibuprofen 200 mg tablet 200 mg PO ONCE PRN 03/20/17 [History Confirmed 09/13/17] triamterene 37.5 mg-hydrochlorothiazide 25 mg tablet 1 tab PO QDAY #90 tab 04/06/17 [Rx Confirmed 09/13/17] amlodipine 10 mg tablet 10 mg PO QDAY #90 tab 09/13/17 [Rx Confirmed 09/13/17] PFSH Medical History Osteoarthritis (Chronic) Hypertension (Chronic) Total vaginal hysterectomy, bilateral salpingectomy, uterosa (Acute) Surgical History History of (Acute) History of tonsillectomy (Acute) S/P (Inactive) S/P tonsillectomy (Inactive) Family History Mother Heart disease Hypertension Father Heart disease Hypertension Social History Smoking Status: Former smoker how long ago did patient quit smokin alcohol intake: current alcohol intake frequency: holidays/special occasions only details: social substance use type: does not use, painkillers caffeine: Yes what type of physical activity do you participate in: none seatbelt use: always do you feel safe at home: Yes additional social history: - Phu Childs HPI bilateral knee: Details: ELIAS CARY is a 57 year old F here today for bilateral knee pain. She complains of pain over her anterior knee. She has swelling, popping and clicking. Patient has a knee brace which is somewhat helpful. She had an injection on 03/23/17 which was helpful for about 3 months. Ptient has been icing her knee for relief. Patient takes advil for pain. She has a HEP which she has been doing. She would like to discuss her options. She denies any recent xrays or MRI. ROS Const Reports system reviewed and no additional complaints, except as docu Eyes Reports system reviewed and no additional complaints, except as docu ENT Reports system reviewed and no additional complaints, except as docu Card Reports system reviewed and no additional complaints, except as docu Resp Reports system reviewed and no additional complaints, except as docu GI Reports system reviewed and no additional complaints, except as docu Reports system reviewed and no additional complaints, except as docu Musc Reports joint pain, Reports joint swelling Skin/Breast Reports system reviewed and no additional complaints, except as docu Neuro Yes system reviewed and no additional complaints, except as docu Psych Reports system reviewed and no additional complaints, except as docu Endo Reports system reviewed and no additional complaints, except as docu Ortho Exam Right Knee Skin/Wound: Yes CDI Contralateral Normal: No Swelling: Yes Homans Sign: No Knee ROM: Yes ROM-Extension -20 to 0, Yes ROM-Flexion 0-140 Examination: Yes Med jt line tenderness, Yes Pain with flexion, Yes Crepitus Left Knee Skin/Wound: Yes CDI Contralateral Normal: No Swelling: No Homans Sign: No Knee ROM: Yes ROM-Flexion 0-140, Yes ROM-Extension -20 to 0 Examination: Yes med jt line tenderness, Yes Crepitus, Yes Pain with flexion Office Procedures Ortho Injections Injections Yes Knee Bilateral Details: Obtained consent for injection. Under sterile conditions, aspirated 2.5cc from the right and 3cc from the left, injected the patients right and left knee with a 10cc cocktail of 8cc bupivacaine and 2cc kenalog. The patient tolerated the injection well without any noted complication. Patient should call our office if redness develops, pain worsens or if they have any concerns. Office Meds Kenalog Performing Provider: Jennifer Byrne DO Administered by: Jennifer Byrne DO on 09/26/17 16:08 Dose Route Admin Location Lot Number Expiration DateNDC Transportation Broker 2 mg Intra-Articularbilateral knee [id number] 08/01/18 [id number] [employer] Assessment AND Plan 1. Primary osteoarthritis of both knees M17.0 Plan Treatment options today are another steroid injections, need brace for comfort. Gave options for surgeons for TK[facility], Dr Hernandez for staying [place] or Dr Silva at [facility] Follow up in 3-4 months or sooner if pain, swelling, numbness or associated symptoms, or concerns develop. All questions answered. Patient in agreement of plan. Orders Orders: Medications Discontinued: Kenalog (triamcinolone acetonide) Disc2 mg (0.2 mL) Intra- Articular ONCE NS Coleman Elise ontinued Reason: Office Medication has b een Documented as given Coding Level of Care Code Off vis,est,level 3 Diagnoses Primary osteoarthritis of both knees M17.0 Osteoarthritis type: primary Additional Codes athletic training internship.knee ([id number]) 09/28/17 09 <Electronically signed by Jennifer Byrne DO> Date Jennifer Byrne DO Cosigner Signature: Date (if applicable) CC: INTERNAL MEDICINE Observed: 09/14/2017 Status: F Source: [place] OFFICE VISIT 7:03 PM [facility] Internal Medicine [facility] [place] [address] OFFICE VISIT Date of Service: 09/13/17 MR#: [id number] Acct: [id number] Name: ELIAS CARY Rep #: [id number] : 1960 Provider: Sapna Mcnair MD Age/Sex: 57/F Location: [facility] Status: Signed Intake Vital Signs09/13/17 Height 5 ft 5 in 09/13/17 Weight: 201 lb 09/13/17 Body Mass Index (BMI) 33.4 09/13/17 Blood Pressure 148/96 Intake Visit Reasons: 2 MO FU R/S FROM 09/06/17 Chief Complaint: Recheck BP Is patient in pain?: Yes (Knees) Pain scale (1-10): 8 Allergies Sulfa (Sulfonamide Antibiotics) Allergy (Mild, Verified 09/13/17 18:01) unknown acetaminophen [From Vicodin] Allergy (Verified 09/13/17 18:01) Vomiting hydrocodone [From Vicodin] Allergy (Verified 09/13/17 18:01) Vomiting Medications ibuprofen 200 mg tablet 200 mg PO ONCE PRN 03/20/17 [History Confirmed 09/13/17] triamterene 37.5 mg-hydrochlorothiazide 25 mg tablet 1 tab PO QDAY #90 tab 04/06/17 [Rx Confirmed 09/13/17] amlodipine 10 mg tablet 10 mg PO QDAY #90 tab 09/13/17 [Rx Confirmed 09/13/17] PFSH Medical History Osteoarthritis (Chronic) Hypertension (Chronic) Total vaginal hysterectomy, bilateral salpingectomy, uterosa (Acute) Surgical History History of (Acute) History of tonsillectomy (Acute) S/P (Inactive) S/P tonsillectomy (Inactive) Family History Mother Heart disease Hypertension Father Heart disease Hypertension Social History Smoking Status: Former smoker how long ago did patient quit smokin alcohol intake: current alcohol intake frequency: holidays/special occasions only details: social substance use type: does not use, painkillers caffeine: Yes what type of physical activity do you participate in: none seatbelt use: always do you feel safe at home: Yes additional social history: - Phu Childs HPI HPI Chief Complaint: Recheck BP Details: ELIAS CARY, is a 57yo F who presents to the office today for follow-up of her blood pressure. She has no acute complaints at this time. Blood pressure appears to be little better controlled today. ROS Const Constitutional: No chills, fatigue, fever(s), frequent falls, malaise, weakness, sleep problems or change in appetite Eyes Eyes: No blurry vision, change in vision, double vision, discharge or visual disturbances ENT ENT: No abnormal hearing, ear pain, ear pressure, tinnitus or dizziness/vertigo Resp Respiratory: No cough, shortness of breath or wheezing Cardio Cardiology: Positive for dyspnea on exertion; no chest pain at rest, chest pain with exertion, shortness of breath, generalized swelling, irregular heart rhythm, lightheadedness, orthopnea, fast heart rate or palpitations Gastro GI: No abdominal pain, change in bowel habits, constipation, diarrhea, nausea/dyspepsia or vomiting Genitourinary-Female: No difficulty urinating, burning urination, painful urination, urinary incontinence, urinary frequency, urinary urgency, urinary hesitancy, urinary retention, Frequent nighttime urination/ nocturia, sexual problems, genital lesions, abnormal vaginal bleeding, pelvic pain, vaginal dryness, vaginal odor or Vaginal Itching Musc Musculoskeletal: Positive for joint pain (Knees); no back pain, joint swelling, limited range of motion, numbness, tingling or muscle weakness Skin Skin: No change in skin color, itching, rash or wounds Breast Breast: No breast lump or breast pain Neuro Neurology: No frequent falls, weakness, abnormal hearing, numbness, tingling, unsteady gait/balance, dizziness, loss of vision, memory loss or visual disturbances Psych Psychiatric: No memory loss, No anxiety, No change in appetite, No depression, No Thoughts of harming yourself/Others Endo Endocrine: No fatigue, heat intolerance, increased thirst/drinking, increased hunger or increased urination Aller/Imm Allergy/Immunologic: No wheezing, itchy eyes or seasonal allergy symptoms Jesu/Lymp Hematologic/Lymphatic: No easy bleeding, easy bruising or enlarged lymph nodes Exam Const General: cooperative, no acute distress Orientation: alert, awake, oriented x3 HENMT Head: atraumatic, normocephalic Ears: hearing grossly normal bilaterally Resp Effort AND Inspection: normal respiratory effort, able to speak in complete sentences Auscultation: Bilateral: Clear to Auscultation Cardio Rate: regular rate Rhythm: regular rhythm Heart Sounds: S1 normal, S2 normal GI Palpation: soft, no hepatosplenomegaly Musc Musculoskeletal: No muscle weakness Neuro General: alert, awake, oriented x3, moves all extremities, CN's II-XI intact bilaterally Extrem General: pedal edema bilaterally Psych Appearance: grossly normal Mental Status: mental status grossly normal Affect: normal affect Assessment AND Plan 1. Hypertension I10 Plan Repeat blood pressure taken by me was 130/80 mmHg. Continue current medications. Continue lifestyle modifications. Follow-up in 3 months. 2. Osteoarthritis M1. Plan Follows up with Dr. Millan. Has noticed some worsening of the bilateral knee arthritis. Advised to follow-up with Ortho. Will follow. This note was generated with [employer] dictation software. It may contain incorrect words, spelling, and punctuation that were not noted in checking the note before signing. Plan Detail Other Medications Refilled: Follow Up 3 Months Coding Level of Care Code Off vis,est,level 3 Diagnoses Hypertension I10 Osteoarthritis M19.90 09/14/17 1903 <Electronically signed by Sapna Mcnair MD> Date Sapna Mcnair MD Cosigner Signature: Date (if applicable) CC: Observed: 08/11/2017 Status: F Source: [place] CULTURE, URINE 11:56 AM [facility] REPOSITORY Urine Culture ORGANISM 1: Escherichia coli Seth Count >100,000 Escherichia coli: REACTION Amoxacillin/Clavulanic Acid $ 4 S Ampicillin $ >=32 R Ampicillin/Sulbactam $ 8 S Cefazolin $ <=4 S Cefepime $ <=1 S Ceftriaxone $ <=1 S Ciprofloxacin $ <=0.25 S ESBL - Ertapenim $$$ <=0.5 S Gentamicin $ <=1 S Imipenem *NF <=0.25 S Levofloxacin $ <=0.12 S Nitrofurantoin $ <=16 S Piperacillin/Tazobactam $$ <=4 S Tobramycin $ <=1 S Trimethoprim/Sulfametho $ >=320 R (NF) indicates non-formulary drug at [facility]. Approval by Infectious Disease Specialist required before non-formulary drugs may be ordered and/or dispensed. Performed By: #### M100.0650 #### [facility] [address] [place], [address] APPEALS OFFICER OFFICE VISIT Observed: 08/11/2017 Status: F Source: [place] REPORT 10:32 AM [facility] [address] [place] [address] OFFICE VISIT Date of Service: 08/11/17 MR#: [id number] Acct: [id number] Name: ELIAS CARY Rep #: [id number] : 1960 Provider: Cyndi Chang MD Age/Sex: 57/F [place] [facility] [place]: Signed Intake Vital Signs08/11/17 Height 5 ft 5 in 08/11/17 Weight: 194 lb 08/11/17 Body Mass Index (BMI) 32.3 08/11/17 Blood Pressure 126/86 08/11/17 Temperature 100.0 F Intake Visit Reasons: Dysuria- 2 weeks post op hyst Chief Complaint: Dysuria, 2 week post op ([facility]) Auto Hauler Required: No Is patient in pain?: Yes Allergies Sulfa (Sulfonamide Antibiotics) Allergy (Mild, Verified 08/11/17 09:47) unknown acetaminophen [From Vicodin] Allergy (Verified 08/11/17 09:47) Vomiting hydrocodone [From Vicodin] Allergy (Verified 08/11/17 09:47) Vomiting Medications ibuprofen 200 mg tablet 200 mg PO ONCE PRN 03/20/17 [History Confirmed 08/11/17] triamterene 37.5 mg-hydrochlorothiazide 25 mg tablet 1 tab PO QDAY #90 tab 04/06/17 [Rx Confirmed 08/11/17] amlodipine 10 mg tablet 10 mg PO QDAY #90 tab 05/11/17 [Rx Confirmed 08/11/17] ciprofloxacin 500 mg tablet 500 mg PO BID 7 Days #14 tab 08/11/17 [Rx Confirmed 08/11/17] Is last menstrual period known: No Post menopausal: No Patient : No : No PFSH Medical History Osteoarthritis (Chronic) Hypertension (Chronic) Total vaginal hysterectomy, bilateral salpingectomy, uterosa (Acute) Surgical History History of (Acute) History of tonsillectomy (Acute) S/P (Inactive) S/P tonsillectomy (Inactive) Family History Mother Heart disease Hypertension Father Heart disease Hypertension Social History Smoking Status: Former smoker how long ago did patient quit smokin alcohol intake: current alcohol intake frequency: holidays/special occasions only details: social substance use type: does not use, painkillers caffeine: Yes what type of physical activity do you participate in: none seatbelt use: always do you feel safe at home: Yes additional social history: - Phu Childs HPI Dysuria- 2 weeks post op hyst: Details: ELIAS CARY is a 57 year old who presents for uti symptoms post hyst and prolapse repair. low grade fever tolerating po with minimal nausea. no cva tenderness Pregancy History 7 Elective abortions Hx Para 6 Spontaneous abortions Past Pregnancies Del. DateName GA/Weeks Outcome Route Bth WeighInfant GeLabor LgtAnesthesiDel LocatProvider FOB t n h a n Exam Const General: cooperative, healthy appearing, comfortable, no acute distress GI Inspection: normal to inspection Palpation: soft, nontender Results BMSUA Office Urine Color STRAW Last Edit by Radha Quiles on 08/11/17 10:08 Office Urine Clarity Cloudy Last Edit by Radha Quiles on 08/11/17 10:08 Assessment AND Plan Problems 1. Acute cystitis without hematuria N30.00 Plan urine culture sent. cipro ordered. ouptatin versus inpatient management discussed phenergan offered and delcined. Orders Orders: Medications New: Coding Level of Care Code Off vis,est,level 3 Diagnoses Acute cystitis without hematuria N30.00 Urinary tract infection type: acute cystitis Hematuria presence: without hematuria 08/11/17 1032 <Electronically signed by Cyndi Chang MD> Date Cyndi Chang MD Cosigner Signature: Date (if applicable) CC: OPERATIVE REPORT Observed: 07/28/2017 Status: F Source: [place] 2:51 PM [facility] REPOSITORY [facility] Medical Records Department [address] [place] [address] Operative Report 07/28/17 0830 MR#: [id number] Acct: [id number] Name: ELIAS CARY Rep #: [id number] : 1960 57 From: Noemi Barrera MD PCP: Sapna Mcnair MD Status: REG [facility] [place] Location: [facility] [place] [id number] Problem List (1) Female stress incontinence Status: Acute (2) Uterine prolapse Status: Chronic Report of Operation Date of Procedure: 07/28/17 Pre-Operative Diagnosis: uterovaginal prolapse and female stress incontinence Post-Operative Diagnosis: same Surgery/Procedure Performed:: Total vaginal hysterectomy, bilateral salpingectomy, uterosacral ligament suspension, anterior and posterior colporrhaphy, midurethral sling and cystoscopy Description of Surgical Findings:: The patient was taken to the operating room where general anesthesia was initiated. The patient was placed in dorsal lithotomy position and prepped and draped in sterile fashion. A surgical time out occurred. A Scott catheter was placed in the patient's bladder. A weighted speculum was placed in the patient's vagina. A curved [place] was used to retract the anterior vaginal wall and bladder out of the field. The cervix was grasped with two Kriss traction forceps. The cervix was then injected with 0.25% marcaine mixed with epinephrine. A circumferential incision with a 10 blade scalpel was then made incising the vagina mucosa down to the body of the cervix. The posterior vaginal epithelium was then dissected off the cervix until the peritoneum of the pouch of Alec was reached. This was then grasped and cut with Osuna scissors entering the peritoneal cavity. A long weighted speculum was then placed in the posterior cul-de-sac. Attention was then turned to the anterior vaginal wall epithelium which was grasped with pickups and dissected, along with the bladder, off of the cervix and the uterus until the peritoneal reflection was visualized. This was then grasped with pickups and incised with Metzenbaum scissors, entering the peritoneal cavity anteriorly. The scott bulb was palpated to confirm that the bladder was not perforated. The [place] was then used to retract the bladder out of the operative field. A curved Lay clamp was then used to clamp, cut and suture ligate the uterosacral ligament on the patient's left side. This was repeated on the contralateral side. Next, the vessels of the broad ligament including the uterine vessels were clamped, cut and suture ligated bilaterally. Finally, the utero-ovarian ligament was clamped cut and suture ligated; first with a tie on a passer and then with a Lay stitch. The uterus and cervix were passed off the sterile field and sent to pathology. With two Breisky Navratil retractors placed anteriorly and posteriorly in the vagina, the bowel was packed out of the cul-de-sac using a moist Kerlex sponge. A 0-Maxon with an HGU-46 needle on a long needle front loader residential driver was passed through the uterosacral ligament on the patients right side. This was followed by a 2-0 prolene suture using an SH needle. This was repeated on the contralateral side. The instruments and packing were removed from the vagina. The patient was given 5 mg of Lasix IV and 5 cc of Indigo Bethel. Cystoscopy was then performed while holding tension on the uterosacral ligament suspensions sutures. Bilateral efflux of blue urine was seen from ureteral orifices. The vaginal epithelium overlying the anterior vaginal wall was grasped with two Allis clamps, injected with 0.25% Marcaine with epinephrine and a midline incision was made over the herniation of the anterior vaginal wall. The underlying pubocervical fascia was dissected off the overlying vaginal epithelium until the herniation of the pubocervical fascia was completely exposed. Hemostasis was achieved with electrosurgical cautery. The herniation was repaired in the traditional fashion using imbricating horizontal mattress sutures of 2-O PDS on a CT-1 needle. Once the herniation was completely repaired, the redundant vaginal epithelium was excised and the incision was closed with a running, locking 3-O vicryl suture. Excellent hemostasis was noted. The sutures were then bought through the corners of the vaginal cuff. The cuff was closed with interrupted 0-vicryl sutures. The uterosacral ligament sutures were then tied, elevating the vaginal vault. The vaginal epithelium overlying the mid-urethra was grasped with two Allis clamps, injected with 0.25% Marcaine with epinephrine and a 1.5 cm midline incision was made over the mid urethra using a 15 blade scalpel. Tunnels were dissected bilaterally to the pubic rami and the Advantage Fit trocars were passed through the tunnels on the right side, through the space of Retzius and out the skin at at the pubic symphysis. This was repeated on the patient's left side. Cystoscopy was performed and there was no evidence of bladder or urethral injury. The sling was then drawn up through the space of Retzius and out the skin at the pubic symphysis. Tension was adjusted by placing a Wangensteen forceps between the sling and the urethra. Once adequate tension was adjusted, the plastic sheaths were removed. The redundant sling was trimmed at the skin edges and the skin was repaired with Indermil. The vaginal epithelium was repaired with a running 3-0 Vicryl suture. The vagina was packed with Kerlex gauze soaked in estrogen cream. Anesthesia was discontinued. All needle, instrument, and sponge counts were correct x 2. The patient was taken to recovery room in stable condition draining clear urine from her scott catheter. cook dinner: Sofya Broussard Type of Anesthesia:: General Special Medications: .25% marcaine with epinephrine Specimen's removed: uterus, cervix and bilateral fallopian tubes Drains: Scott to PACU Estimated Blood Loss (mL): 100 mL Fluids Replaced: 1300 mL Grafts/Implants Used: Shy Desera sling - Complications none - Admit VTE Documentation VTE Present on Admission: No VTE Mechan Device Prophylaxis: SCD's VTE Pharm Prophylaxis ordered?: Yes 07/28/17 1451 <Electronically signed by Noemi Barrera MD> Date Noemi Barrera MD CC: Sapna Mcnair MD; MD Noemi Barrera Signed DISCHARGE INSTRUCTION Observed: 07/28/2017 Status: F Source: [place] 2:46 PM [facility] REPOSITORY [facility] Medical Records Department [address] [place] [address] Instructions for Home/Discharge Instructions 07/28/17 1444 MR#: [id number] Acct: [id number] Name: ELIAS CARY Rep #: [id number] : 1960 57 From: Noemi Barrera MD PCP: Sapna Mcnair MD Status: REG [facility] [place] Discharge Activity: Return to Normal Activity May shower in (days): 1 May resume sexual activity in: 6 weeks Call your doctor if your incision/area has: Continuous Slow Oozing, Sudden Increased Bleeding, Increased Pain/ Swelling, Increased Redness, Foul Smelling Discharge, Swelling at the incision site Call your doctor if you observe: Fever of 101 or Higher, Coldness, Increased Pain, Numbness or Tingling, Change in Color, Inability to urinate, Inability to have a bowel movement, Using more than one pad per hour, Swelling in the ankles Allergies/Adverse Reactions: Allergies Sulfa (Sulfonamide Antibiotics) Allergy (Mild, Verified 07/05/17 16:59) unknown acetaminophen [From Vicodin] Allergy (Verified 07/21/17 15:04) Vomiting hydrocodone [From Vicodin] Allergy (Verified 07/21/17 15:04) Vomiting Medications to take at Discharge ibuprofen 200 mg tablet 200 mg PO ONCE PRN 03/20/17 triamterene 37.5 mg-hydrochlorothiazide 25 mg tablet 1 tab PO QDAY #90 tab 04/06/17 amlodipine 10 mg tablet 10 mg PO QDAY #90 tab 05/11/17 Primary Care Physician: Sapna Mcnair MD [Primary Care Provider] - Please Follow Up With: Noemi Barrera MD When: 6 weeks Proposed Discharge Date: 07/28/17 07/28/17 1446 <Electronically signed by Noemi Barrera MD> Date Noemi Barrera MD CC: Sapna Mcnair MD HYSTERECTOMY SPECIMEN Observed: 07/28/2017 Status: F Source: [place] 1:20 PM [facility] REPOSITORY Patient: ELIAS CARY : 1960 (57/F) Acct Num: [id number] Phys: Noemi Barrera MD Unit Num: [id number] Loc: [facility] [place] Specimen: [id number] Received: 07/31/17917 Spec Type: HYSTERECT TISSUES TISSUES: Uterus, NOS GROSS DESCRIPTION Received in fixative is one container labeled with the patient's name and designated uterus, bilateral fallopian tubes, vaginal mucosa. The specimen consists of a hysterectomy specimen consisting of uterus with cervix, detached small pieces of bilateral fallopian tubes and two pieces of mucosal tissue. The uterus with cervix weighs 48 gm and measures 7.5 x 4.5 x 3.5 cm. The serosal surface is focally ragged. The external os is markedly stenotic. The ectocervical mucosa is unremarkable. The endocervical canal is markedly stenotic and measures 2.5 cm in length. The endocervical mucosa is unremarkable. Sections of the cervix reveal a few cysts filled with mucoid material. The endometrial canal measures 4 cm in length and up to 1.5 cm in diameter. The endometrial cavity shows a polyp which is bulbous at the distal end. The polyp measures 4 cm in length and 0.5 to 1.2 cm in diameter. The bulbous distal end measures 1 cm in diameter. The myometrial wall underneath the polyp is not indurated. The polyp is attached at the fundus. The endometrium measures <0.1 cm in thickness. One of the portions of fallopian tubes measures 1.5 x 1 x 0.5 cm. The fimbrial end is not identified. The second fallopian tube including fimbrial end measures 2 cm in length and 0.5 cm in diameter. Sections of both fallopian tubes do not reveal any mass lesion. Also received are two detached pieces of miranda mucosal tissue measuring in aggregate 4 x 3 x 0.5 cm. No mucosal lesion is identified. Numerous instrumentation segura are noted. Taker Down sections are submitted in 11 cassettes as follows: 1 - anterior cervix, 2 - posterior cervix, 3 AND 4 - anterior uterine wall, 5 AND 6 - posterior uterine wall, 7 AND 8 entire endometrial polyp with underlying uterine wall, 9 AND 10 bilateral fallopian tubes, entirely submitted with each cassette containing one fallopian tube, 11 mucosal tissue. / GARO:dee 07/31/17 TC:5 CPT: 81592 HEADER OPERATION: Hysterectomy, total, vaginal salpingectomy, USLF, A AND P repair PRE-OP DIAGNOSIS: Uterovaginal prolapse, stress urinary TISSUE SUBMITTED: Uterus, bilateral fallopian tubes, vaginal mucosa MICROSCOPIC DESCRIPTION Slides are reviewed. MICROSCOPIC DIAGNOSIS Uterus, bilateral fallopian tubes and vaginal mucosa, total vaginal hysterectomy , bilateral salpingectomy and A AND P repair: Cervix mild chronic cystic cervicitis. Endometrium proliferative endometrium. Endometrial polyp benign endometrial polyp with simple cystic hyperplasia without atypia. Myometrium focal adenomyosis. - A minute intramural leiomyoma (0.2 cm in greatest dimension). Portion bilateral fallopian tubes - no pathologic diagnosis. Vaginal mucosa fragments of squamous mucosa with reactive changes. SJ:dee 08/01/17 Signed Titi Jain 08/01/17 <signature on file> Performed By: #### PHYST #### [facility] [address] [place], [address] 12 LEAD ELECTROCARDIOGRAM Observed: 07/27/2017 Status: F Source: [place] 12:47 PM [facility] REPOSITORY [facility] Cardiovascular Services [address] [place] [address] 12 Lead EKG 07/24/17 1608 MR#: [id number] Acct: [id number] Name: ELIAS CARY Rep #: [id number] : 1960 57 From: Twin Evangelista MD Attending Dr: Noemi Barrera MD Status: PRE NCC Ordering Dr: Sapna Mcnair MD Date: 07/24/17 Location: [facility] [place] Sex: F C Admitted: Test Reason : PRE-OP Blood Pressure : / mmHG Vent. Rate : 085 BPM Atrial Rate : 085 BPM P-R Int : 154 ms QRS Dur : 096 ms QT Int : 358 ms P-R-T Axes : 057 -18 045 degrees QTc Int : 426 ms Normal sinus rhythm Leftward axis Confirmed by TONJA PEÑA, TWIN ([id number]), film editor ALBAN[place] JOYA ([id number]) on 07/27/2017 12:47:17 PM Referred By: Noemi Barrera Confirmed By:TWIN EVANGELISTA MD 07/27/17 1247 Date Twin Evangelista MD CC: Sapna Mcnair MD; MD Noemi Barrera Signed BASIC METABOLIC Collected: 07/24/2017 Status: F Source: [place] PROFILE (BMP) 3:53 PM [facility] REPOSITORY TYPE CODE TESTS RESULT OUT OF RANGE REFERENCE UNITS LAB L501.0100 74-106 mg/dL Normal GLU 89 Result Comment: Please note revised GLUCOSE reference range effective 2017. LAB L501.1000 7-18 mg/dL High BUN 26 LAB L501.1100 0.55-1.02 mg/dL Normal CREAT,SERUM 0.75 Result Comment: The validity of the calculated GFR AND GFRAA in patients over 70 years has not been determined. Clinical correlation is essential. LAB L501.1110 >60 mL/min Normal EST GFR 85 Result Comment: Non- GFR Calc LAB L501.1115 >60 mL/min Normal EST GFR - AA 103 Result Comment: GFR Calc LAB L501.1300 10-20 RATIO High BUN/CRE 34.6 LAB L501.2200 8.5-10.1 mg/dL CA Normal 9.1 LAB L501.5300 136-145 mmol/L NA Normal 140 LAB L501.5600 3.5-5.1 mmol/L K Normal 3.8 LAB L501.5900 98-107 mmol/L CL Normal 106 LAB L501.6100 21.0-32.0 mmol/L Normal CO2 29.0 LAB L501.6200 5-15 Normal GAP 5 Performed By: #### L500.2500 #### [facility] [address] [place], [address] INTERNAL MEDICINE Observed: 07/07/2017 Status: F Source: [place] OFFICE VISIT 1:04 PM [facility] REPOSITORY [facility] [address] [place] [address] [place] [address] OFFICE VISIT Date of Service: 07/05/17 MR#: [id number] Acct: [id number] Name: ELIAS CARY Kareem Rep #: [id number] : 1960 Provider: Sapna Mcnair MD Age/Sex: 57/F Location: [facility] [place] Status: Signed Intake Vital Signs07/05/17 Body Mass Index (BMI) 32.9 07/05/17 Blood Pressure 151/99 04/04/18 Height 5 ft 5 in 07/05/17 Weight: 205 lb 07/05/17 Body Mass Index (BMI) 34.1 07/05/17 Blood Pressure 137/84 Intake Visit Reasons: 6 WK F/U Chief Complaint: Follow up BP Is patient in pain?: No Allergies Sulfa (Sulfonamide Antibiotics) Allergy (Mild, Verified 07/05/17 16:59) unknown Medications ibuprofen 200 mg tablet 200 mg PO ONCE PRN 03/20/17 [History Confirmed 07/05/17] triamterene 37.5 mg-hydrochlorothiazide 25 mg tablet 1 tab PO QDAY #90 tab 04/06/17 [Rx Confirmed 07/05/17] amlodipine 10 mg tablet 10 mg PO QDAY #90 tab 05/11/17 [Rx Confirmed 07/05/17] omeprazole 40 mg capsule,delayed release 40 mg PO ONCE PRN 05/11/17 [History Confirmed 07/05/17] PFSH Medical History Osteoarthritis (Chronic) Hypertension (Chronic) Surgical History History of (Acute) History of tonsillectomy (Acute) S/P (Inactive) S/P tonsillectomy (Inactive) Family History Mother Heart disease Hypertension Father Heart disease Hypertension Social History Smoking Status: Former smoker how long ago did patient quit smokin alcohol intake: current alcohol intake frequency: holidays/special occasions only substance use type: does not use what type of physical activity do you participate in: none HPI HPI Chief Complaint: Follow up BP Details: ELIAS CARY, is a 57yo F who presents to the office today for follow-up. She has no acute complaints at this time. Blood pressure today is better controlled at 137/84 mmHg. She is currently on amlodipine and hydrochlorothiazide triamterene. She reports compliance with her medication and for the most part her diet. ROS Const Constitutional: Positive for sleep problems; no anorexia, body ache, chills, fever(s), decreased energy, malaise, night sweats, weight change, other, snoring, weakness, frequent falls, headache(s), abnormal sleep pattern, change in appetite, excessive sweating or fatigue Eyes Eyes: No blurry vision, change in vision, double vision, discharge, dry eyes, bulging eyes, floaters, eye pain, light sensitivity, spots in vision, tunnel vision, other or visual disturbances ENT ENT: Positive for sore throat and ear pressure; no ear pain, ear discharge, hearing loss, tinnitus, dizziness/vertigo, balance problems, nosebleed/epistaxis, nasal congestion, nasal obstruction, nose pain, sinus pressure, sinus pain, nasal discharge, post nasal drip, facial pain, dental pain, dry mouth, bad breath, hoarseness, mouth lesions, mouth pain, difficulty swallowing, neck pain, abnormal hearing, headache(s), other, lip swelling, throat swelling or tongue swelling Resp Respiratory: Positive for cough; no chest congestion, excessive phlegm production, hemoptysis, pain on inspiration, shortness of breath, pain with cough, snoring, stridor, other, wheezing or change in phlegm color Cardio Cardiology: No chest pain at rest, chest pain with exertion, leg pain with exertion, dyspnea on exertion, generalized swelling, irregular heart rhythm, lightheadedness, orthopnea, radiating jaw, neck or arm pain, fast heart rate, slow heart rate, palpitations, other, excessive sweating or shortness of breath Gastro GI: No abdominal pain, belching, bloating, change in bowel habits, change in stool character, coffee ground emesis, constipation, cramping, diarrhea, heartburn, difficulty swallowing, feeling full early, excessive flatus, incontinent of stools, Vomiting blood/hematemesis, blood in stool, loose stools, Black,tarry stools, nausea/dyspepsia, pain with swallowing, vomiting or other Genitourinary-Female: No difficulty urinating, burning urination, painful urination, urinary incontinence, urinary frequency, urinary urgency, urinary hesitancy, urinary retention, blood in urine, Frequent nighttime urination/ nocturia, post void dribbling, suprapubic fullness, side pain, sexual problems, genital lesions, genital itching, hot flashes, abnormal periods, abnormal vaginal bleeding, absent period, painful periods, light periods, heavy periods, difficulty getting , painful intercourse, pelvic pain, vaginal dryness, vaginal odor, Vaginal Itching or other Musc Musculoskeletal: Positive for back pain and joint pain; no deformity, joint swelling, limited range of motion, loss of height, muscle cramps, muscle weakness, decreased muscle mass, body aches, neck pain, radiating pain into limb, stiffness, other, abnormal walking, numbness or tingling Skin Skin: No acne, hair loss, change in hair, nail changes, boil, change in skin color, dry skin, redness, excessive hair growth, yellowing of the skin, lesions, rash, skin pain, skin ulcer, sores, skin swelling, wounds, other or itching Breast Breast: No change in breast shape, breast lump, breast pain, breast skin changes, breast swelling, nipple discharge or other Neuro Neurology: Positive for dizziness; no abnormal walking, abnormal hearing, abnormal movements, abnormal speech, unsteady gait/balance, weakness, frequent falls, headache(s), lack of coordination, loss of vision, numbness, tingling, visual disturbances, restless legs, fainting, tremor(s), other, behavioral changes, confusion or memory loss Psych Psychiatric: No abnormal sleep pattern, No lack of enjoyment, No anxiety, No behavioral changes, No change in appetite, No confusion, No depression, No difficulty concentrating, No hopelessness, No irritability, No memory loss, No mood swings, No panic attacks, No paranoia, No Thoughts of harming yourself/Others, No hallucinations, No other Endo Endocrine: No change in body appearance, cold intolerance, excessive sweating, fatigue, flushing, heat intolerance, increased thirst/drinking, increased hunger, increased urination or other Aller/Imm Allergy/Immunologic: No food intolerance, itchy eyes, lip swelling, seasonal allergy symptoms, throat swelling, tongue swelling, hives, wheezing or other Jesu/Lymp Hematologic/Lymphatic: No easy bleeding, easy bruising, enlarged lymph nodes or other Exam Const General: cooperative, no acute distress Orientation: alert, awake, oriented x3 HENMT Head: atraumatic, normocephalic Ears: hearing grossly normal bilaterally Resp Effort AND Inspection: normal respiratory effort, able to speak in complete sentences Auscultation: Bilateral: Clear to Auscultation Cardio Rate: regular rate Rhythm: regular rhythm Heart Sounds: S1 normal, S2 normal GI Palpation: soft, no hepatosplenomegaly Musc Musculoskeletal: No muscle weakness Neuro General: alert, awake, oriented x3, moves all extremities, CN's II-XI intact bilaterally Extrem General: pedal edema bilaterally Psych Appearance: grossly normal Mental Status: mental status grossly normal Affect: normal affect Assessment AND Plan 1. Hypertension I10 Plan Better controlled, however still room for improvement. Continue current medications. Lifestyle modifications again discussed. EKG ordered Follow-up in 2 months. Orders Orders: 2. Uterine prolapse N81.4 Plan Following up with APPEALS OFFICER. Scheduled for surgery on 28 July. Will follow 3. Osteoarthritis M19.90 Plan Of heat and knees. Follows up with Ortho. Continue current management. This note was generated with [employer] software. It may contain incorrect words, spelling, and punctuation that were not noted in checking the note before signing. Plan Detail Follow Up 2 Months Coding Level of Care Code Off vis,est,level 3 Diagnoses Hypertension I10 Uterine prolapse N81.4 Osteoarthritis M19.90 07/07/17 1304 <Electronically signed by Sapna Mcnair MD> Date Sapna Mcnair MD Cosigner Signature: Date (if applicable) CC: CBC W/DIFF, AUTOMATED Collected: 06/30/2017 Status: F Source: [place] 11:04 AM [facility] REPOSITORY Order Comment: Order Date: 02/02/17 Order Info: [id number] - *CBC with Differential Comments: Reason: TYPE CODE TESTS RESULT OUT OF RANGE REFERENCE UNITS LAB L100.1000 4.4-11.0 K/mm3 Normal WBC 6.5 LAB L100.1200 4.2-5.4 M/mm3 Normal RBC 4.62 LAB L100.1300 12.0-15.0 g/dl Normal HGB 13.4 LAB L100.1400 37-47 % Normal HCT 43.1 LAB L100.1500 81-99 fL Normal MCV 93.3 LAB L100.1600 27.0-32.0 pg Normal MCH 29.0 LAB L100.1700 32-36 g/gl Low MCHC 31.1 LAB L100.1810 11.6-14.6 % Normal RDW CV 13.7 LAB L100.1820 35.1-43.9 fl High RDW SD 46.5 LAB L100.1900 150-450 K/mm3 Normal PLT 269 LAB L100.2000 6.2-12.0 fl Normal MPV 9.3 LAB L100.2100 47-70 % High NEUT% 71.0 LAB L100.2200 19-41 % Low LY% 18.6 LAB L100.2300 0-10 % Normal MONO% 7.3 LAB L100.2400 0-5 % Normal EO% 2.6 LAB L100.2500 0-1 % Normal BASO% 0.3 LAB L100.2550 0.0-0.9 % Normal IM GRAN % 0.200 Result Comment: IG% - Immature Granulocytes (promyelocytes, myelocytes and metamyelocytes) > 1% indicates that a LEFT SHIFT is Present. LAB L100.2620 2.0-7.7 X10 3/uL Normal Absolute Neut 4.6 LAB L100.2720 0.83-4.51 X10 3/ul Normal Absolute Lymph 1.20 Performed By: #### L100.0100 #### [facility] [address] [place], [address] LIPID PROFILE Collected: 06/30/2017 Status: F Source: [place] 11:04 AM [facility] REPOSITORY Order Comment: Order Date: 02/02/17 Order Info: [id number] - *Lipid Profile Comments: Fasting 12 hours, may have water. TYPE CODE TESTS RESULT OUT OF RANGE REFERENCE UNITS LAB L501.4900 200 mg/dL High CHOL 211 Result Comment: <200 mg/dL Desirable 200-240 mg/dL Borderline >240 mg/dL High Risk LAB L501.5000 mg/dL Normal TRIG 147 Result Comment: The drugs N-Acetylcysteine and Metamizole may falsely depress this assay. Serum Triglycerides Reference Interval Normal <150 mg/dL Borderline high 150 - 199 mg/dL High 200 - 499 mg/dL Very High > or = 500 mg/dL LAB L501.6400 mg/dL Normal HDL 53 Result Comment: The drugs N-Acetylcysteine and Metamizole may falsely depress this assay. Reference Range HDL <40 mg/dL Low HDL Cholesterol HDL >or= 60 mg/dL High HDL Cholesterol LAB L501.6500 0-130 mg/dL Normal LDL 129 LAB L501.6600 5-40 mg/dL Normal VLDL 29 Performed By: #### L500.4100 #### [facility] [address] [place], [address] EMERGENCY DEPARTMENT Observed: 06/22/2017 Status: F Source: [place] SUMMARY 5:05 PM [facility] REPOSITORY [facility] Medical Records Department [address] [place] [address] Emergency Department Summary 06/22/17 1241 MR#: [id number] Acct: [id number] Name: ELIAS CARY Rep #: [id number] : 1960 57 From: Beto Phan MD PCP: Sapna Mcnair MD Status: DEP ER - ER Visit Summary Date of Service: 06/22/17 Chief Complaint: Nosebleed History of Present Illness: The patient is a [address] Mcnair. Reports that she began having bleeding from the left side of her nose this morning at 8 AM. This began after she blew her nose. She reports she has had a cold and has been blowing her nose frequently recently. She reports she has not had a nosebleed for quite some time. She denies any bruising or bleeding. She denies any trauma to her nose. Physical Examination: Vitals: Stable. Afebrile. General: Well-nourished and well-developed. Head: Normocephalic atraumatic. Nose: No active bleeding at this time. Dried blood in the left nares. No visualized source of the bleeding after having her blow her nose. Neck: Supple, no lymphadenopathy. No JVD. Nontender. Cardiovascular: Regular rate and rhythm. No murmurs. Respiratory: No respiratory distress. Clear to auscultation bilaterally. Abdominal: Soft, nontender, nondistended, normal bowel sounds. No guarding, rebound, or peritoneal signs. Back: Nontender. Extremities: Nontender, no edema. Skin: Normal color, no rash. Neurologic: Alert and oriented 3. Cranial nerves II through XII are intact. Normal strength and sensation. Psych: Normal affect. Emergency Department Course and Treatment: Patient was observed over the course of 2 hours in the emergency department. She ambulated about without any difficulty. She has had no further bleeding. I did discuss with the fact that I cannot rule out she will continue to bleed at home. She is refused packing. Treatment Plan: Patient will be discharged instructions follow- up Dr. Kern as needed. Return to the emergency department for any worsening symptoms. Disposition: To home in improved and stable condition. Impression: 1. Epistaxis on left, resolved. This note was generated with [employer] dictation software. It may contain incorrect words, spelling, and punctuation that were not noted in review of the chart prior to signing ED Disposition - Plan for ED Patient: Disposition: Home or Assisted Living Chief Complaint: Nosebleed Instructions: Nosebleed Prescriptions: Oxymetazoline 0.05% [Afrin (BKC)] 1 spray NASAL BID #1 bottle Referrals: Guillermo Kern MD [STAFF PHYSICIAN] - As Needed What to do if you have Problems For any increased pain, shortness of breath, bleeding, nausea or vomiting, chest pain, or any unexpected problems, contact your Primary Care Provider. Call [facility] ([phone]) or report to the closest Emergency Room. Call 911 if necessary. 06/22/17 9542 <Electronically signed by Beto Phan MD> Date Beto Phan MD Cosigner Signature (If Indicated): Date CC: Sapna Mcnair MD APPEALS OFFICER OFFICE VISIT Observed: 05/24/2017 Status: F Source: [place] REPORT 3:34 PM [facility] REPOSITORY [facility] [address] [place] [address]. [address] [place] [address] OFFICE VISIT Date of Service: 05/24/17 MR#: [id number] Acct: [id number] Name: ELIAS CARY Rep #: [id number] : 1960 Provider: NINI Castle Age/Sex: 57/F Location: [facility] Status: Signed Intake Vital Signs05/24/17 Height 5 ft 5 in 05/24/17 Weight: 199 lb 2 oz 05/24/17 Body Mass Index (BMI) 33.1 05/24/17 Blood Pressure 161/103 Intake Visit Reasons: UTERUS IS HANGING DOWN LOW Chief Complaint: Uterus issues Is patient in pain?: Yes (pubic pressure ) Pain scale (1-10): 2 Allergies Sulfa (Sulfonamide Antibiotics) Allergy (Mild, Verified 03/23/17 09:50) unknown Medications ibuprofen 200 mg tablet 200 mg PO ONCE PRN 03/20/17 [History Confirmed 05/10/17] triamterene 37.5 mg-hydrochlorothiazide 25 mg tablet 1 tab PO QDAY #90 tab 04/06/17 [Rx Confirmed 05/10/17] amlodipine 10 mg tablet 10 mg PO QDAY #90 tab 05/11/17 [Rx Confirmed 05/11/17] omeprazole 40 mg capsule,delayed release 40 mg PO ONCE PRN 05/11/17 [History Confirmed 05/10/17] Is last menstrual period known: No Post menopausal: Yes PFSH Medical History Osteoarthritis (Chronic) Hypertension (Chronic) Surgical History History of (Acute) History of tonsillectomy (Acute) S/P (Inactive) S/P tonsillectomy (Inactive) Family History Mother Heart disease Hypertension Father Heart disease Hypertension Social History Smoking Status: Former smoker how long ago did patient quit smokin alcohol intake: current alcohol intake frequency: holidays/special occasions only substance use type: does not use what type of physical activity do you participate in: none HPI UTERUS IS HANGING DOWN LOW: Details: ELIAS CARY is a 57 year old who presents for protrusion from vagina X 1 month. Denies discomfort or bleeding. 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 No longer sexually active. Pregancy History 7 Elective abortions Hx Para 6 Spontaneous abortions Exam Const General: cooperative, no acute distress Nutritional Appearance: average body habitus Orientation: oriented x3 External Female Exam: normal external appearance Other: Anterior vaginal wall noted at introitus. Midline cystocele with enterocele. Cervix 4cm above introitus. Uterus and adnexa normal. Assessment AND Plan Problems 1. Cystocele with incomplete uterovaginal prolapse N81.2 Plan Discussed with patient pessary vs surgical intervention. She is not interested in pessary use. Will refer to Dr. Noemi Barrera and will make arrangement for Dr. Chang to do case with her if they proceed with surgery. Orders Orders: Referrals: Coding Level of Care Code Off vis,new,level 3 Diagnoses Cystocele with incomplete uterovaginal prolapse N81.2 05/24/17 1534 <Electronically signed by Minerva GONSALEZ> Date Minerva GONSALEZ Cosigner Signature: Date (if applicable) CC: INTERNAL MEDICINE Observed: 05/12/2017 Status: F Source: [place] OFFICE VISIT 1:48 PM [facility] Internal Medicine [address] [place] [address] OFFICE VISIT Date of Service: 05/11/17 MR#: [id number] Acct: [id number] Name: ELIAS CARY Rep #: [id number] : 1960 Provider: Sapna Mcnair MD Age/Sex: 57/F Location: [facility] Status: Signed Intake Vital Signs05/11/17 Height 5 ft 5 in Intake Visit Reasons: 3 M FU Chief Complaint: follow-up visit Is patient in pain?: No Allergies Sulfa (Sulfonamide Antibiotics) Allergy (Mild, Verified 03/23/17 09:50) unknown Medications ibuprofen 200 mg tablet 200 mg PO ONCE PRN 03/20/17 [History Confirmed 05/10/17] triamterene 37.5 mg-hydrochlorothiazide 25 mg tablet 1 tab PO QDAY #90 tab 04/06/17 [Rx Confirmed 05/10/17] amlodipine 10 mg tablet 10 mg PO QDAY #90 tab 05/11/17 [Rx Confirmed 05/11/17] omeprazole 40 mg capsule,delayed release 40 mg PO ONCE PRN 05/11/17 [History Confirmed 05/10/17] PFSH Medical History Osteoarthritis (Chronic) Hypertension (Chronic) Surgical History History of (Acute) History of tonsillectomy (Acute) S/P (Inactive) S/P tonsillectomy (Inactive) Family History Mother Heart disease Hypertension Father Heart disease Hypertension Social History Smoking Status: Former smoker how long ago did patient quit smokin alcohol intake: current alcohol intake frequency: holidays/special occasions only substance use type: does not use what type of physical activity do you participate in: none HPI HPI Chief Complaint: follow-up visit Details: ELIAS CARY, is a 57yo F who presents to the office today for follow up of her chronic medical conditions. She has a history of hypertension and is currently on Amlodipine and Triamterene - HCTZ. She reports compliance with her medication however, her blood pressure is still not optimally controlled. She however is concerned about a fullness in her perineal area. This is notes particularly on wiping. She denies any known precipitating factors ans also denies any history of bleeding. She has noted slight increase in her frequency of urination but denies burning or incontinence. ROS Const Constitutional: No weight change, body ache, chills, fatigue, sleep problems, fever(s), change in appetite, snoring, weakness, frequent falls, headache(s) or excessive sweating Eyes Eyes: No change in vision, eye pain, light sensitivity or blurry vision ENT ENT: Positive for nasal congestion; no headache(s), abnormal hearing, tinnitus, sore throat or neck pain Resp Respiratory: No snoring, shortness of breath or wheezing Cardio Cardiology: No excessive sweating, chest pain at rest, chest pain with exertion, shortness of breath, dyspnea on exertion, palpitations, orthopnea or lightheadedness Gastro GI: Positive for diarrhea; no abdominal pain, change in bowel habits, constipation, vomiting, nausea/dyspepsia or cramping Genitourinary-Female: Positive for urinary frequency Musc Musculoskeletal: No neck pain, abnormal walking, joint pain, back pain, limited range of motion, numbness or tingling Skin Skin: Positive for lesions (lump close to her vaginal opening); no redness, dry skin, itching, wounds or rash Neuro Neurology: No weakness, frequent falls, headache(s), abnormal hearing, abnormal walking, numbness, tingling, abnormal speech, dizziness or memory loss Psych Psychiatric: No change in appetite, No memory loss, No anxiety, No depression, No Thoughts of harming yourself/Others Endo Endocrine: No fatigue, excessive sweating, cold intolerance, increased thirst/drinking, heat intolerance, flushing or increased hunger Aller/Imm Allergy/Immunologic: No wheezing, itchy eyes, hives or seasonal allergy symptoms Jesu/Lymp Hematologic/Lymphatic: No easy bleeding, easy bruising or enlarged lymph nodes Exam Const General: cooperative, comfortable, no acute distress Orientation: alert, awake, oriented x3 HENMT Head: normal to inspection, atraumatic, normocephalic Ears: hearing grossly normal bilaterally Resp Effort AND Inspection: able to speak in complete sentences, normal respiratory effort Auscultation: Bilateral: Clear to Auscultation Cardio Rate: regular rate Heart Sounds: S1 normal, S2 normal GI Palpation: soft, no hepatosplenomegaly Other: Protrusion noted through vaginal Os. Reducible. Neuro General: awake, alert, oriented x3, moves all extremities, CN's II-XI intact bilaterally Extrem General: no clubbing, cyanosis or edema Psych Appearance: grossly normal Mental Status: mental status grossly normal Mood: congruent mood Affect: normal affect Assessment AND Plan 1. Uterine prolapse N81.4 Plan Protrusion noted through the viagina. Non tender and reducible. Referred to Dr. Chang. Will follow. Orders Referrals: 2. Hypertension I10 Plan Not optimally controlled. Will increase Amlodipine to 10mg daily. Continue other medications. Life style modification discussed. Follow up at next visit. This note was generated with [employer] software. It may contain incorrect words, spelling, and punctuation that were not noted in checking the note before signing. Patient Instructions Plan Detail Other Medications Changed: Follow Up 6 Weeks Coding Level of Care Code Off vis,est,level 3 Diagnoses Uterine prolapse N81.4 Hypertension I10 05/12/17 1348 <Electronically signed by Sapna Mcnair MD> Date Sapna Mcnair MD Cosigner Signature: Date (if applicable) CC: ALLERGIES ALLERGIES DATE TYPE / CODE NAME / CODE REACTION SEVERITY SOURCE 04/25/2018 Drug Sulfa Unknown [place] [facility] Allergy/4160 (Sulfonamide Hospital 23993(SNOMED Antibiotics)/ Repository CT) [id number](RX NORM) 04/25/2018 Drug hydrocodone/F Vomiting Unknown [facility] Allergy/4160 [id number](RXN Hospital 46615(SNOMED ORM) Repository CT) 04/25/2018 Drug acetaminophen Vomiting Unknown [facility] Allergy/4160 /[id number](R Hospital 59458(SNOMED XNORM) Repository CT) ENCOUNTERS ENCOUNTERS ADMIT/DISCHARGE ACCOUNT ADMITTING ENCOUNTER LOCATION SOURCE NUMBER CLASS 04/25/2018/ [id number] Ambulatory BMSBuilding:B [place] 9 4 [facility] Repository 04/19/2018/ [id number] Ambulatory BMSBuilding:B [place] 9 3 [facility] Repository 04/19/2018 [id number] Ambulatory [place] 5 [facility] ing:HPRAD Repository 03/28/2018 [id number] Ambulatory [place] 1 [facility] ing:PSN Repository 03/23/2018 [id number] Ambulatory [place]ie [place] 0 [facility] ing:CVS Repository 03/14/2018/ [id number] Ambulatory BMSBuilding:B [place] 8 3 [facility] Repository 02/24/2018/ [id number] Emergency [place] 8 2 [facility] ing:ED Repository 12/06/2017/ [id number] Ambulatory BMSBuilding:B [place] 8 5 [place] Repository 09/26/2017/ [id number] Ambulatory BMSBuilding:B [place] 8 2 [place] Repository 09/13/2017/ [id number] Ambulatory BMSBuilding:B [place] 8 2 [place] Repository 09/06/2017 [id number] Ambulatory BMSBuilding:B [place] 8 [place] Repository 08/11/2017 [id number] Ambulatory [place] 0 [facility] ing:LABSPEC Repository 08/11/2017/ [id number] Ambulatory BMSBuilding:B [place] 8 1 [place] Repository 07/28/2017/ [id number] Ambulatory [place] 8 6 [facility] ing:SDCRoom: Repository MS315 07/24/2017 [id number] Ambulatory BMSBuilding:W [place] 5 [facility] Repository 07/05/2017/ [id number] Ambulatory BMSBuilding:B [place] 8 1 [place] Repository 06/30/2017 [id number] Ambulatory [place] 5 [facility] ing:MTLAB Repository 06/22/2017/ [id number] Emergency E[place]ie [place] 8 4 [facility] ing:ED Repository 05/24/2017/ [id number] Ambulatory BMSBuilding:B [place] 8 2 [place] Repository 05/11/2017/ [id number] Ambulatory BMSBuilding:B [place] 8 1 [place] Repository PAYERS PAYERS ENCOUNTER GUARANTOR PAYER SUBSCRIBER SOURCE 04/25/2018 ELIAS CARY702 Primary [facility] RADHA[facility] [address]Wbq: y Number: [id number] Hospital [id number] Repository () Date:4791-53-03[id number] [place] [address]WQ: 04/25/2018 Secondary NOT GIVENUNK [place] Insurance:SELF PAY [facility] Number: Effective Repository Date:2018-04-20 04/19/2018 ELIAS DAMON Primary ELIAS A [place] [address], Insurance:ANTHEMPolic [place]: [place] [address]Vhs: y Number: [id number] Hospital [id number] Repository (HP) Date:4443-28-58[id number] [place] [address]HK: 04/19/2018 Secondary NOT GIVENUNK [place] Insurance:SELF PAY [facility] Number: Effective Repository Date:2018-04-04 04/19/2018 ELIAS DAMON Primary ELIAS A [place] [address], Insurance:ANTHEMPolic [place]: [place] [address]Qzx: y Number: [id number] Hospital [id number] Repository (HP) Date:6545-27-72[address], [place] [address]LS: 04/19/2018 Secondary NOT GIVENUNK [place] Insurance:SELF PAY [facility] Number: Effective Repository Date:2018-04-19 03/28/2018 ELIAS DAMON Primary ELIAS A [place] [address], Insurance:ANTHEMPolic [place]: [place] [address]Qsu: y Number: [id number] Hospital [id number] Repository (HP) Date:6695-33-31[id number] [place] [address]UC: 03/28/2018 Secondary NOT GIVENUNK [place] Insurance:SELF PAY [facility] Number: Effective Repository Date:2017-12-11 03/23/2018 ELIAS DAMON Primary ELIAS A [place] [address], Insurance:ANTHEMPolic [place]: [place] [address]Byf: y Number: [id number] Hospital [id number] Repository (HP) Date:8677-30-01[id number] [place] [address]YC: 03/23/2018 Secondary NOT GIVENUNK [place] Insurance:SELF PAY [facility] Number: Effective Repository Date:2018-03-15 03/14/2018 ELIAS DAMON Primary ELIAS A [place] [address], Insurance:ANTHEMPolic [place]: [place] [address]Ctm: y Number: [id number] Hospital [id number] Repository (HP) Date:4318-85-92[address]NC[address] [place] [address]KS: 03/14/2018 Secondary NOT GIVENUNK [place] Insurance:SELF PAY [facility] Number: Effective Repository Date:2018-03-14 02/24/2018 ELIAS JAMESON2 Primary ELIAS A [place] [address], Insurance:ANTHEMPolic [place]: [place] [address]Zjp: y Number: [id number] Hospital [id number] Repository (HP) Date:7198-94-81[address]ZDTIYZO [place] [address]GW: 02/24/2018 Secondary NOT GIVENUNK [place] Insurance:SELF PAY [facility] Number: Effective Repository Date:2018-02-24 12/06/2017 ELIAS DAMON Primary ELIAS A [place] [address], Insurance:ANTHEMPolic [place]: [place] [address]Sic: y Number: [id number] [facility] [id number] Repository (HP) Date:3574-14-54WL [address]ZXBZG, [place] [address]UX: 12/06/2017 Secondary NOT GIVENUNK [place] Insurance:SELF PAY [facility] Number: Effective Repository Date:2017-12-06 09/26/2017 ELIAS DAMON Primary ELIAS A Estephanie [place], Insurance:ANTHEMPolic [place]: [place] [address]Tua: y Number: [id number] Hospital [id number] Repository (HP) Date:2520-58-59JP [address] [address]EC: 09/26/2017 Secondary NOT GIVENUNK [place] Insurance:SELF PAY [facility] Number: Effective Repository Date:2017-09-26 09/13/2017 ELIAS CARY702 Primary ELIAS A Estephanie [place], Insurance:ANTHEMPolic [place]: [place] [address]Zpp: y Number: [id number] Hospital [id number] Repository (HP) Date:5656-53-98YX [address] [address]QN: 09/13/2017 Secondary NOT GIVENUNK [place] Insurance:SELF PAY [facility] Number: Effective Repository Date:2017-09-13 09/06/2017 ELIAS CARY702 Primary ELIAS A [place], Insurance:ANTHEMPolic [place]: [place] [address]Zov: y Number: [id number] Hospital [id number] Repository (HP) Date:0845-75-27PI [address]IKQJLWO, [place] [address]AK: 09/06/2017 Secondary NOT GIVENUNK Estephanie Insurance:SELF PAY [facility] Number: Effective Repository Date:2017-07-05 08/11/2017 ELIAS CARY702 Primary ELIAS A [place], Insurance:ANTHEMPolic [place]: [place] [address]Lhr: y Number: [id number] Hospital [id number] Repository (HP) Date:0585-32-63VA [address]VNYCDCI, [place] [address]UV: 08/11/2017 Secondary NOT GIVENUNK Estephanie Insurance:SELF PAY [facility] Number: Effective Repository Date:2017-08-11 08/11/2017 ELIAS DAMON Primary ELIAS A [place], Insurance:ANTHEMPolic [place]: [place] [address]Ian: y Number: [id number] Hospital [id number] Repository (HP) Date:3170-20-60VJ [address]DSMJXXJ, [place] [address]RS: 08/11/2017 Secondary NOT GIVENUNK Estephanie Insurance:SELF PAY [facility] Number: Effective Repository Date:2017-08-11 07/28/2017 ELIAS DAMON Primary ELIAS A [place], Insurance:ANTHEMPolic [place]: [place] [address]Tpx: y Number: [id number] Hospital [id number] Repository (HP) Date:4600-18-99XE [address]VYZSTX[address] [address]FQ: 07/28/2017 Secondary NOT GIVENUNK [place] Insurance:SELF PAY [facility] Number: Effective Repository Date:2017-06-05 07/24/2017 ELIAS DAMON Primary ELIAS A [place], Insurance:ANTHEMPolic [place]: [place] [address]Xqt: y Number: [id number] Hospital [id number] Repository (HP) Date:8631-62-29TD [address]MFPWUJ[address] [address]XI: 07/24/2017 Secondary NOT GIVENUNK [place] Insurance:SELF PAY [facility] Number: Effective Repository Date:2017-07-24 07/05/2017 ELIAS DAMON Primary ELIAS A Estephanie [place], Insurance:ANTHEMPolic [place]: [place] [address]Fqm: y Number: [id number] Hospital [id number] Repository (HP) Date:6361-10-15AE [address]KPXVRRRT[address] [address]PY: 07/05/2017 Secondary NOT GIVENUNK [place] Insurance:SELF PAY [facility] Number: Effective Repository Date:2017-07-05 06/30/2017 ELIAS DAMON Primary ELIAS A E[place]phan[place], Insurance:ANTHEMPolic [place]: [place] [address]Avq: y Number: [id number] Hospital [id number] Repository () Date:9828-48-94YT [address] [place] [address]QJ: 06/30/2017 Secondary NOT GIVENUNK [place] Insurance:SELF PAY [facility] Number: Effective Repository Date:2017-06-30 06/22/2017 ELIAS DAMON Primary ELIAS A [place], Insurance:ANTHEMPolic [place]: [place] [address]Mdo: y Number: [id number] Hospital [id number] Repository (HP) Date:5702-92-30UW [address]GQQSZPA, [place] [address]IZ: 06/22/2017 Secondary NOT GIVENUNK [place] Insurance:SELF PAY [facility] Number: Effective Repository Date:2017-06-22 05/24/2017 ELIAS DAMON Primary ELIAS CARYDOB: [place], Insurance:ANTHEMPolic [id number] [facility] [place] [address]Ewy: y Number: [facility] [id number] Repository (HP) Date:7683-49-56CJ [address]ZJZLZ[address], [place] [address]QD: 05/24/2017 Secondary NOT GIVENUNK Estephanie Insurance:SELF PAY [facility] Number: Effective Repository Date:2017-05-15 05/11/2017 ELIAS DAMON Primary ELIAS CARYDOB: [place], Insurance:ANTHEMPolic [id number] [facility] [place] [address]Rrf: y Number: [facility] [id number] Repository (HP) Date:6925-24-91VH [address]WAY, [place] [address]BP: 05/11/2017 Secondary NOT GIVENUNK Estephanie Insurance:SELF PAY [facility] Number: Effective Repository Date:2017-03-04
== END ==
PROVIDERS: Family Provider Internal Medicine; PCP Internal Medicine; Referring Provider Physician Assistant; Visit Provider Physician Assistant
DX: M25.561 Pain in right knee (principal); M25.562 Pain in left knee
CPT/HCPCS: 73564

== ENCOUNTER 2018-07-16 05:28 | Emergency (ER) | payer BC, SELFPAY ==
[2018-07-10 14:22] VITALS: BMI 31.6
[2018-07-16 05:29] VITALS: BP 174/104; PULSE 104; RESP 15; TEMP 36.7; O2SAT 97; BMI 31.6
[2018-07-16 05:41] LABS: Bedside Glucose 113 mg/dL (70-110)
[2018-07-16 05:42] VITALS: BP 131/90; PULSE 93; RESP 17; O2SAT 95
--- NOTE | 2018-07-16 05:43 | CT_ITS ---
STUDY: CT BRAIN WITHOUT CONTRAST REASON FOR EXAM: Female, 58 years old. Right-sided facial numbness and droop this morning. Right shoulder and neck pain last night. RADIATION DOSAGE (If Supplied By Facility): CTDIvol = ( 44.99 ) mGy, DLP = ( 779.24 ) mGycm TECHNIQUE: Transaxial CT imaging of the brain was performed without administration of intravenous contrast material. Individualized dose optimization techniques were used for this CT. COMPARISON: No relevant priors. FINDINGS: Normal soft tissue structures. Normal calvarium. Normal size ventricles and extra-axial spaces for the patient's age. Normal white matter tracts of the cerebral hemispheres. Normal basal ganglia and thalami. Normal brainstem. Normal cerebellum. There is no intracranial hemorrhage. There are no findings of an acute ischemic infarction. Normal visualized paranasal sinuses. CT/Brain/Head without Contrast IMPRESSION: Normal unenhanced CT scan of the brain. If there is a high clinical suspicion of an acute infarction and further imaging is warranted, consider MRI with diffusion weighted images. N.B. : The above information has been verbally conveyed by Daniel Chi MD to Guillermo Franco MD, on 07/16/2018 06:07:43 (ET). Electronically Signed: Daniel Chi MD at 6:08 EDT , Service support ,
[2018-07-16 05:54] LABS: Absolute Lymphocyte Count 1.78 X10^3/ul (0.83-4.51); Absolute Neutrophil Count 6.2 X10^3/uL (2.0-7.7); Basophil# 0.03 X10^3/uL; Basophil% 0.3 % (0-1); Eosinophil# 0.27 X10^3/uL; Hematocrit 41.1 % (37-47); Hemoglobin 13.1 g/dl (12.0-15.0); Lymphocyte # 1.78 X10^3/ul (4.0); Mean Corp Hgb Conc 31.9 g/gl (32-36); Mean Corpuscular Hgb 29.4 pg (27.0-32.0); Mean Corpuscular Volume 92.2 fL (81-99); Mean Platelet Vol. 8.9 fl (6.2-12.0); Monocyte# 0.64 X10^3/uL; Monocyte% 7.2 % (0-10); Neutrophil # 6.17 X10^3/uL (2.7-7.7); Neutrophil % 69.4 % (47-70); POSITIVE COUNT NO; POSITIVE DIFFERENTIAL NO; POSITIVE MORPHOLOGY NO; Platelet Count 241 K/mm3 (150-450); RBC Distribution Width CV 14.2 % (11.6-14.6); RBC Distribution Width SD 47.5 fl (35.1-43.9); Red Blood Count 4.46 M/mm3 (4.2-5.4); White Blood Count 8.9 K/mm3 (4.4-11.0)
[2018-07-16 05:58] VITALS: BP 136/86; PULSE 89; RESP 18; O2SAT 95
[2018-07-16 06:02] LABS: Prothrombin Time (Protime)PT. 13.2 SECONDS (11.7-14.9)
[2018-07-16 06:12] LABS: ALB/GLOB Ratio 1.1 RATIO (0.9-2.4); AST(SGOT) 20 U/L (15-37); Alanine Aminotransfer ALT/SGPT 32 U/L (13-56); Albumin, Serum 3.9 g/dL (3.2-5.0); Alkaline Phosphatase 127 U/L (45-117); Anion Gap 7 (5-15); BUN 25 mg/dL (7-18); BUN/Creat Ratio 34.7 RATIO (10-20); Calcium,Total 8.8 mg/dL (8.5-10.1); Chloride 108 mmol/L (98-107); Creatinine, Serum 0.72 mg/dL (0.55-1.02); EST Glomerular Filtration Rate 89 mL/min (>60); Est Glom Filt Rate - Afr Amer 107 mL/min (>60); Estimated Creatinine Clearance 77.57 ml/min; Globulin 3.7 g/dL (2.2-4.2); Glucose 114 mg/dL (74-106); Potassium 3.6 mmol/L (3.5-5.1); Protein, Total 7.6 g/dL (6.4-8.2); Sodium Level 143 mmol/L (136-145)
--- NOTE | 2018-07-16 06:23 | ED.VISSUMM ---
- ER Visit Summary Date of Service: 07/16/18 Chief Complaint: Right facial weakness History of Present Illness: The patient is a 58 F who presents with right facial weakness that began today. Patient states she woke up at approximately 4 AM and noted some weakness in the right side of her face. Patient denies any extremity weakness or paresthesias. Patient states she is having difficulty closing her right eye. Patient denies any visual changes. Patient denies any chest pain or shortness of breath. Patient does admit to mild headache. Physical Examination: Vital signs are stable. Patient is afebrile. Patient is in no acute distress. Cranial nerves II through XII are intact except for right facial weakness including the forehead. There are no sensory deficits noted. There are no visual changes or deficits noted. Strength is 5/5 bilaterally upper and lower extremities. There are no sensory deficits noted. Heart was regular rate and rhythm. Lungs are clear and equal bilaterally. Abdomen is soft and nontender. Test Results: CT scan of the brain was obtained. There is no acute intracranial abnormality. This was interpreted by the radiologist. CBC, conference of metabolic profile, and PT with INR were obtained and were all essentially within normal limits. Emergency Department Course and Treatment: Patient was given a dose of prednisone here. Since the patient is scheduled for a left total knee replacement with Dr. Mc tomorrow, I discussed the case with Dr. John. He will reschedule the patient's surgery. Patient was instructed to call the office today and reschedule her knee surgery. Patient understood and was agreeable with the plan. All questions were answered. Disposition: Discharge home Impression: Hahn's palsy This note was generated with [employer] dictation software. It may contain incorrect words, spelling, and punctuation that were not noted in review of the chart prior to signing ED Disposition - Plan for ED Patient: Disposition: Home or Assisted Living Diagnosis: Hahn's palsy Instructions: ED [place] Palsy Prescriptions: predniSONE tablet 60 mg PO DAILY #15 tab Referrals: Sapna Mcnair MD [Primary Care Provider] - 3-5 Days Additional Instructions: Call Dr. John's office today to reschedule your knee surgery.
[2018-07-16 06:45] VITALS: BP 130/92; PULSE 89; RESP 18; O2SAT 93
[2018-07-16 07:09] VITALS: BP 133/89; PULSE 89; RESP 18; O2SAT 93
[2018-07-16] MEDS: predniSONE 20 MG Tablet 60 MG PO (07:13)
[2018-07-16 07:14] VITALS: BP 133/89; PULSE 85; RESP 18; O2SAT 95
== END 2018-07-16 07:15 | disposition home or self-care (01) ==
PROVIDERS: Emergency Provider Emergency Medicine; Family Provider Internal Medicine; PCP Internal Medicine
DX: G51.0 Bell's palsy (principal); I10 Essential (primary) hypertension; Z79.899 Other long term (current) drug therapy
CPT/HCPCS: 70450; 80053; 82962; 85025; 85610; 99285; A4216

== ENCOUNTER 2018-08-07 10:19 | Inpatient (IN) | payer BC, SELFPAY ==
[2018-06-20 17:25] VITALS: BMI 31.7
[2018-07-10 14:22] VITALS: BP 107/68; PULSE 89; RESP 16; TEMP 36.5; O2SAT 94; BMI 31.6
--- NOTE | 2018-07-10 14:29 | SDCEKG_ITS ---
Test Reason : Blood Pressure : / mmHG Vent. Rate : 080 BPM Atrial Rate : 080 BPM P-R Int : 152 ms QRS Dur : 094 ms QT Int : 368 ms P-R-T Axes : 044 -18 027 degrees QTc Int : 424 ms Normal sinus rhythm Leftward [place] Poor R-Wave Progression Confirmed by TONJA PEÑA, LUIS MANUEL ([id number]), news videotape editor NELLA MOLINA ([id number]) on 07/11/2018 1:22:01 PM Referred By: Lui Mc Confirmed By:LUIS MANUEL EVANGELISTA MD
[2018-07-10 14:55] LABS: Hematocrit 40.4 % (37-47); Hemoglobin 13.1 g/dl (12.0-15.0); Mean Corp Hgb Conc 32.4 g/gl (32-36); Mean Corpuscular Hgb 29.4 pg (27.0-32.0); Mean Corpuscular Volume 90.8 fL (81-99); Mean Platelet Vol. 8.9 fl (6.2-12.0); Platelet Count 290 K/mm3 (150-450); RBC Distribution Width CV 14.1 % (11.6-14.6); RBC Distribution Width SD 46.5 fl (35.1-43.9); Red Blood Count 4.45 M/mm3 (4.2-5.4); White Blood Count 8.6 K/mm3 (4.4-11.0)
[2018-07-10 14:57] LABS: Scan Indicated on CBC? Y/N NO
[2018-07-10 15:42] LABS: Anion Gap 4 (5-15); BUN 23 mg/dL (7-18); BUN/Creat Ratio 31.2 RATIO (10-20); Chloride 105 mmol/L (98-107); Creatinine, Serum 0.74 mg/dL (0.55-1.02); EST Glomerular Filtration Rate 86 mL/min (>60); Est Glom Filt Rate - Afr Amer 104 mL/min (>60); Estimated Creatinine Clearance 75.48 ml/min; Glucose 84 mg/dL (74-106); Sodium Level 137 mmol/L (136-145)
[2018-07-27 15:54] VITALS: BMI 31.4
[2018-08-07] VITALS (12 sets, daily range): BP systolic 104–128; BP diastolic 67–84; PULSE 70–88; RESP 14–18; TEMP 36.3–36.9; O2SAT 93–98; BMI 31.6
[2018-08-07] MEDS: Meloxicam 7.5 MG Tablet PO (06:55)
[2018-08-07] MEDS: Pregabalin 75 MG Capsule PO (06:55)
[2018-08-07] MEDS: Acetaminophen 500 MG Tablet PO (06:55)
[2018-08-07] MEDS: oxyCODONE HCl Cr 10 MG Tablet PO (07:02)
[2018-08-07] MEDS: Cefazolin 2 GM in 0.9% Normal Saline 100 ML IV ×2 (08:28→17:07)
[2018-08-07] MEDS: Bupivacaine Mpf 0.5% 30 ML VIAL (09:40)
[2018-08-07] MEDS: Betamethasone/Betamethasone 30 MG/5 ML Vial (09:40)
[2018-08-07] MEDS: Morphine 4 MG/ML Syringe (09:40)
--- NOTE | 2018-08-07 10:21 | RAD_ITS ---
STUDY: X-RAY - LEFT KNEE REASON FOR EXAM: Female, 58 years old. Total knee replacement. TECHNIQUE: AP and lateral view(s) of the knee. COMPARISON: Comparison is made with prior study dated October 17, 2018. FINDINGS: The patient is status post total knee replacement. There is good alignment. Postoperative soft tissue changes. RAD/Knee 1 or 2 Views IMPRESSION: Status post total knee replacement. There is good alignment. Postoperative changes. Electronically Signed: Wu Silver, at 12:39 EDT , Service support ,
--- NOTE | 2018-08-07 10:39 | OP.PCM_ITS ---
Report of Operation Date of Procedure: 08/07/18 Description of Surgical Findings:: Preoperative diagnosis: Left knee DJD Postoperative diagnosis: Same Procedure: Left total knee arthroplasty Implant: [place] triathlon cemented left femoral component size 4, cemented tibial baseplate size 4, cemented asymmetric patella size 0.9, polyethylene X3 size 9 CS Anesthesia: Spinal with adductor canal block Tourniquet time: 67 minutes at 300 mmHg Complications: None Condition: Stable to PACU Estimated blood loss: 75 cc Indication for procedure: This is a 58 with long standing degenerative joint disease of the knee who has failed conservative treatment and wished to proceed with elective total knee arthroplasty. Risk benefits and alternatives were reviewed including; risk of bleeding, infection, nerve artery and tissue damage, continued pain, postoperative stiffness, venous thromboembolism, need for postoperative rehabilitation, mechanical feel to the knee, and expected postoperative course. Procedure: The patient was met in the preoperative holding area. The operative extremity was identified by both patient and physician and was marked. Patient was met by anesthesia. An adductor canal block was placed by anesthesia was postoperatively the patient was brought back to the operating room on a wheeled cart and transferred to the operating table in the supine position. Anesthesia was started. A well-padded tourniquet was placed on the operative extremity. The patient was prepped and draped in the usual sterile fashion. A timeout was called to ensure the proper patient procedure and extremity were being contemplated. An Esmarch was used to exsanguinate the extremity. The tourniquet was inflated. A 10 blade scalpel was used to make a midline incision down through the skin and subcutaneous tissue. Skin retractors placed. Bovie was used to perform meticulous hemostasis. full-thickness flaps were elevated medial and lateral along the joint capsule. A deep blade scalpel was used to perform a medial parapatellar arthrotomy. The knee was brought to full extension. A Bovie was used to release the soft tissues off the most proximal aspect of the medial tibial plateau a three-quarter inch curved osteotome was also used for this process. The infrapatellar fat pad was excised. The fat pad was excised partially anterior lateral portion the anterior medial was elevated from the femur. the patella was everted. The knee was brought into flexion. An intramedullary drill was used followed by flexible intramedullary guide patrick. The distal femoral cutting block was placed and set to remove 8 mm of bone and 5 degrees of valgus. The block was secured with pins and an oscillating saw was used to complete the distal femoral cut. During this, and all bony cuts retractors were used to protect the collateral ligaments. At this point a femoral sizer was used to measure the AP dimension of the femur. The sizer block was pinned in 3 degrees of external rotation. The sizing block was removed and the appropriately sized 4-in-1 cutting block was placed over the previously made pinholes. It was checked with an iram wing and the block was secured with pins. An oscillating saw was used to complete the anterior cut followed by the posterior cut followed by the posterior chamfer cut followed by the anterior chamfer cut. The block was removed as well as the fragments. A ronguer was used to remove excess osteophytes. The medial and lateral meniscus were excised as well as the ACL. At this point a PCL retractor was placed and an intramedullary drill was passed down the tibial canal followed by a solid intramedullary guide patrick. The tibial cutting block was attached and set to remove 9 mm of bone from the high side. This was checked with an external alignment drop patrick for slope and tilt. It was pinned into place. An oscillating saw was used to complete the tibial plateau cut and the block was removed. A large osteotome was used to elevate the fragment and a Keri and a Bovie were used to free the fragment from the surrounding soft tissue. A rongeur was once again used to remove osteophytes a lamina canvas goods maker was used to evaluate the posterior capsular structures. A three-quarter inch curved osteotome was used to remove posterior osteophytes. A spacer block was inserted in both extension and flexion to ensure adequate spacing. Trials were inserted full extension and flexion were achieved in varus and valgus stability throughout range of motion were seen, balancing techniques were performed. At this point the attention was turned towards the patella. A caliper was used to ensure sufficient bone stock to remove 10 mm of bone. A reamer was used to perform this task. Lug holes were made for the appropriate-sized patella. The patella trial was inserted and there was good patellar tracking with knee range of motion. The tibial baseplate was allowed to float into rotation and was marked on the tibial plateau with a Bovie. Lug holes were made in the femur and trials were removed. The tibial baseplate was then sized and its preparation was completed with a fin punch. The knee was thoroughly irrigated. A posterior capsular injection was performed with our standard cocktail. The knee was brought into flexion and irrigated again. The tibial baseplate was cemented. Excess cement was removed with curettes. The polyethylene component was inserted. The femoral component was cemented. The knee was brought into full extension and placed on a bump. The patellar component was cemented. At this point a Betadine rinse was placed and thoroughly irrigated after a few minutes. This was followed by an Iricept rinse which was allowed to sit for 1 minute and then thoroughly irrigated.At this point all gloves were changed. The knee was thoroughly irrigated the joint capsule was closed with #1 Ethibond. Tourniquet was let down followed by 0 Vicryl and 2-0 Vicryl in the subcutaneous tissues. followed by elijah in the skin. Dressing was applied in the form of Xeroform 4 x 4 ABD web roll and an Marc wrap from the foot to the groin. The patient tolerated the procedure well, all counts were correct patient was brought back to the PACU in stable condition.
[2018-08-07] MEDS: Lactated Ringers 1,000 ML 125 ML IV ×2 (11:23→20:37)
[2018-08-07] MEDS: Acetaminophen 500 MG Tablet 1000 MG PO ×2 (13:20→21:23)
[2018-08-07] MEDS: oxyCODONE 5 MG Tablet PO (13:21)
[2018-08-07] MEDS: Ondansetron 4 MG/2 ML Vial IV (15:27)
[2018-08-07] MEDS: Ketorolac 15 MG/ML Vial IV (20:36)
[2018-08-07] MEDS: Senna/Docusate Sodium 1 Tablet 2 TABLET PO (21:23)
[2018-08-07] MEDS: Gabapentin 100 MG Capsule PO (21:30)
[2018-08-08] VITALS (8 sets, daily range): BP systolic 102–122; BP diastolic 58–72; PULSE 66–94; RESP 16–18; TEMP 36.6–37.3; O2SAT 94–97
[2018-08-08] MEDS: Cefazolin 2 GM in 0.9% Normal Saline 100 ML IV (00:43)
[2018-08-08] MEDS: Lactated Ringers 1,000 ML 125 ML IV (04:54)
[2018-08-08] MEDS: Acetaminophen 500 MG Tablet 1000 MG PO ×3 (05:03→21:22)
[2018-08-08] MEDS: Gabapentin 100 MG Capsule PO ×3 (05:04→21:22)
[2018-08-08 06:01] LABS: Hematocrit 31.6 % (37-47); Hemoglobin 9.8 g/dl (12.0-15.0); Mean Corpuscular Hgb 28.9 pg (27.0-32.0); Mean Corpuscular Volume 93.2 fL (81-99); Mean Platelet Vol. 8.8 fl (6.2-12.0); Platelet Count 230 K/mm3 (150-450); RBC Distribution Width CV 13.7 % (11.6-14.6); Red Blood Count 3.39 M/mm3 (4.2-5.4); White Blood Count 8.6 K/mm3 (4.4-11.0)
[2018-08-08 06:04] LABS: Scan Indicated on CBC? Y/N NO
[2018-08-08 06:30] LABS: Anion Gap 5 (5-15); BUN 15 mg/dL (7-18); BUN/Creat Ratio 24.2 RATIO (10-20); Calcium,Total 8.5 mg/dL (8.5-10.1); Chloride 106 mmol/L (98-107); Creatinine, Serum 0.62 mg/dL (0.55-1.02); EST Glomerular Filtration Rate 106 mL/min (>60); Est Glom Filt Rate - Afr Amer 128 mL/min (>60); Estimated Creatinine Clearance 90.08 ml/min; Glucose 106 mg/dL (74-106); Potassium 4.2 mmol/L (3.5-5.1); Sodium Level 141 mmol/L (136-145)
[2018-08-08] MEDS: Glucerna Shake 120 ML LIQUID PO ×2 (07:55→18:21)
--- NOTE | 2018-08-08 10:09 | PCM.PN.ORT ---
Subjective: Patient seen and examined. Complains of upper posterior calf tenderness over the night dressing was taken down by nursing. She still has hypersensitivity in the area she denies any chest pain shortness of breath fevers or chills her pain is otherwise controlled - Physical Exam General: Alert, Oriented x3, Cooperative Extremities: - - Dressing removed incision well approximated elijah intact no significant drainage no significant ecchymosis she is hypersensitivity to the skin in the posterior calf her compartment however is soft she has only mild discomfort with ankle range of motion neurovascular intact EHL tibialis anterior gastrocsoleus intact sensation to light touch there is no sign of infection Vital Signs Temp Pulse Resp BP Pulse Ox 98.7 F 71 16 107/66 97 08/08/18 07:57 08/08/18 07:57 08/08/18 07:57 08/08/18 07:57 08/08/18 07:57 Oxygen Flow Rate (L/min) 2 Oxygen Delivery Method Nasal Cannula Weight: 190 lb 4.143 oz Body Mass Index (BMI) 31.6 Finger Stick Blood Glucose 113 Intake and Output for Last 24 Hours 08/06/18 08/07/18 08/08/18 23:59 23:59 23:59 Intake Total 3421 / 3421 1778 / 1778 Output Total 850 / 850 Balance 2571 / 2571 1778 / 1778 Laboratory Tests Past 24 Hrs 08/08/18 08/08/18 05:38 05:38 WBC 8.6 RBC 3.39 L Hgb 9.8 L Hct 31.6 L MCV 93.2 MCH 28.9 MCHC 31.0 L RDW 13.7 RDW Differential 45.0 H Plt Count 230 MPV 8.8 Sodium 141 Potassium 4.2 Chloride 106 Carbon Dioxide 30.0 Anion Gap 5 BUN 15 Creatinine 0.62 Estim Creat Clear Calc 90.08 Est GFR (MDRD) Af Amer 128 Est GFR (MDRD) Non-Af 106 BUN/Creatinine Ratio 24.2 H Glucose 106 Calcium 8.5 Medical Necessity - Tobacco Use Smoking Status: Former smoker Tobacco Use: Non-smoker Assessment/Plan All Active Problems (Last Reviewed 07/27/18 @ 15:54 by Amy Carmona) Female stress incontinence (Acute) Postop day #1 left total knee arthroplasty begin daily dressing changes since dressing was taken down cleaned with Betadine and replace ABD pad daily Will reevaluate calf tenderness tomorrow if worsens may consider ultrasound Vital signs stable labs reviewed PT OT weightbearing as tolerated we will continue SCDs NAHUN townsend and Eliquis 2.5 mg twice daily plan for likely discharge tomorrow home health care
[2018-08-08] MEDS: Triamterene 37.5MG/Hctz 25MG Capsule 1 CAP PO (10:20)
[2018-08-08] MEDS: 0.9% NaCl Peripheral Flush Adult/Peds IV ×2 (10:20→18:21)
[2018-08-08] MEDS: amLODIPine 10 MG Tablet PO (10:20)
[2018-08-08] MEDS: Ketorolac 15 MG/ML Vial IV ×2 (10:20→18:21)
[2018-08-08] MEDS: Senna/Docusate Sodium 1 Tablet 2 TABLET PO ×2 (10:20→21:22)
[2018-08-08] MEDS: Lisinopril 10 MG Tablet PO (10:20)
[2018-08-08] MEDS: APIXABAN 2.5 MG TABLET PO ×2 (10:20→21:22)
[2018-08-08] MEDS: oxyCODONE 5 MG Tablet PO ×3 (10:32→21:21)
--- NOTE | 2018-08-08 11:15 | CASEMGMT ---
BO TORRES Face to Face with patient for initial transition planning/care coordination assessment. RN CM introduced self and role at [facility]. Patient lying in bed, alert and oriented. Patient willing to participate in assessment and is able to answer all questions appropriately. Care providers, pharmacy, and demographics verified. Patient wishes to discharge home with [facility] for therapy. Patient would like [facility]. Patient states she has no further needs or concerns at this time. CM to follow for discharge planning needs that may arise. RN MELISSA sent referral to [facility] and they are able to accept the patient. PCP: Xu Specialists: yoon Mc Pharmacy: [facility] Insurance: [employer] Prescription Benefit: yes Living Will/HPOA: none LNOK: Daughter Living Arrangements: Patient lives with family in 2 story home with bed and bath on first floor. Patient was independent prior to surgery Transportation: family DME/HHC: Patient has walker. Denied previous HHC. Disposition Plan: Patient to discharge home with [facility], family support, and follow-up plans in place. Pati CHOWDARY, RN, CM
[2018-08-09 03:04] VITALS: BP 114/71; PULSE 71; RESP 18; TEMP 36.6; O2SAT 98
[2018-08-09 05:49] LABS: Hematocrit 29.9 % (37-47); Hemoglobin 9.2 g/dl (12.0-15.0); Mean Corp Hgb Conc 30.8 g/gl (32-36); Mean Corpuscular Hgb 29.3 pg (27.0-32.0); Mean Corpuscular Volume 95.2 fL (81-99); Mean Platelet Vol. 8.8 fl (6.2-12.0); Platelet Count 203 K/mm3 (150-450); RBC Distribution Width CV 13.9 % (11.6-14.6); RBC Distribution Width SD 45.9 fl (35.1-43.9); Red Blood Count 3.14 M/mm3 (4.2-5.4)
[2018-08-09] MEDS: Gabapentin 100 MG Capsule PO (05:49)
[2018-08-09] MEDS: Acetaminophen 500 MG Tablet 1000 MG PO (05:49)
[2018-08-09 05:59] LABS: Scan Indicated on CBC? Y/N NO
[2018-08-09] MEDS: oxyCODONE 5 MG Tablet PO ×2 (07:16→11:18)
--- NOTE | 2018-08-09 07:26 | VDLE_ITS ---
Procedure LEFT Exam performed portable in patient room. GSV is normal. A preliminary report was called and/or faxed CFV is compressible, spontaneous, phasic, to MS3. competent, and demonstrates normal augmentation. FV is compressible, spontaneous, phasic, competent and demonstrates normal augmentation. POP V is compressible, spontaneous, phasic, competent and demonstrates normal augmentation. T/P Trunk is compressible. PTV is compressible. LT PerV is compressible. Interpretation Summary Deep veins of the left lower extremity are patent and compressible segmentally. There is no evidence of left lower extremity deep vein thrombosis. Valvular competence appears intact within the proximal deep venous system on the left . The left greater saphenous vein appears patent and compressible segmentally. Ordering Physician: Lui Mc Referring Physician: Sapna Mcnair Performed By: Pati Nash RVT
--- NOTE | 2018-08-09 07:35 | DCINST_ITS ---
Discharge Diet: No Restrictions Additional Activity Instructions:: Ice and elevate next week while not ambulating. Encourage ambulation weightbearing as tolerated. Encourage FULL knee extension and flexion 1 time EVERY time you get up and down and MULTIPLE times per day. Begin showering postop day #3. Remove the dressing prior to s hower gently wash with warm water and antibacterial soap then pat dry place ABD pad and NAHUN hose over top. This is to be done daily. If not showering daily must clean incision and change dressing daily. Do not allow animals near incision keep clean. Follow anticoagulation recommendations. Call Dr. Mc with any concerns. Call your doctor if you observe: Fever of 101 or Higher, Change in Color, Shortness of breath, Chest pain Allergies/Adverse Reactions: Allergies Sulfa (Sulfonamide Antibiotics) Allergy (Mild, Verified 07/27/18 15:52) unknown acetaminophen [From Vicodin] Allergy (Verified 07/27/18 15:52) Vomiting hydrocodone [From Vicodin] Allergy (Verified 07/27/18 15:52) Vomiting Medications to take at Discharge Amlodipine Besylate [Norvasc] 10 mg PO QDAY 07/10/18 Lisinopril [Prinivil] 10 mg PO DAILY 07/10/18 Triamterene 37.5MG/Hctz 25MG [Maxzide 37.5 mg-25 mg Tablet] 1 tab PO QDAY 07/10/18 Gabapentin [Neurontin] 100 mg PO TID 08/07/18 Apixaban [Eliquis] 2.5 mg PO BID 14 Days #28 tablet 08/09/18 Oxycodone [Oxyir] 5 - 10 mg PO Q4H PRN PRN #60 tablet 08/09/18 The following prescriptions were given: Oxycodone [Oxyir] 5 - 10 mg PO Q4H PRN PRN #60 tablet PRN Reason: Mod-Severe Pain (4-01/10) Apixaban [Eliquis] 2.5 mg PO BID 14 Days #28 tablet Primary Care Physician: Sapna Mcnair MD [Primary Care Provider] - Test Results: Test results from this visit will be discussed in further detail at your follow- up appointment, if applicable. Please Follow Up With: Lui Mc DO - 2 weeks
--- NOTE | 2018-08-09 07:35 | PCM.DC.SUM ---
Discharge Date and Diagnosis Date of Admission: 08/07/18 Date of Discharge: 08/09/18 - Secondary Discharge Diagnosis Chronic Problems (Last Reviewed 07/27/18 @ 15:54 by Amy Carmona) Osteoarthritis of left knee (Chronic) Claudication (Chronic) Shortness of breath (Chronic) Uterine prolapse (Chronic) Osteoarthritis (Chronic) Hypertension (Chronic) Bilateral knee pain (Chronic) Prepatellar bursitis, unspecified knee (Chronic) Chondromalacia of both patellae (Chronic) Osteoarthritis, knee (Chronic) Polyosteoarthritis (Chronic) Hospital Course and Treatment Summary of Care Provided: The patient is a 58 year old F who has long history of degenerative joint disease to the knee who has failed conservative treatment and wished to undergo elective total knee arthroplasty. Patient underwent the A4 mentioned procedure on the admission date without any intraoperative complications. She did receive pre-and postoperative antibiotics which were discontinued within 23 hours postoperatively. She did receive spinal anesthesia as well as an adductor canal block postoperatively her pain was controlled with IV and transition to p.o. pain medication she will be discharged home with oxycodone and will continue Tylenol as well. She had minimal intraoperative blood loss and tranexamic acid was administered there was no need for postoperative blood transfusion her vital signs remained stable. She was started on both mechanical and chemical DVT per prophylaxis postoperatively in the form of SCDs NAHUN hose and Eliquis 2.5 mg twice daily for which she will continue for 2 additional weeks post hospital discharge. Her dressing was changed on postop day 1 without any concerning signs she will begin showering on postop day #3 and will change her dressing daily at this point. She will follow-up in the office in 2 weeks. she was having upper posterior calf tenderness on day number one that continued to day number 2 so we will check and ultrasound prior to discharge if positive we will adjust her anticoagulation. t No intrahospital complications. [] - Physical Exam Vital Signs Temp Pulse Resp BP Pulse Ox 97.8 F 71 18 114/71 98 08/09/18 03:04 08/09/18 03:04 08/09/18 03:04 08/09/18 03:04 08/09/18 03:04 Oxygen Flow Rate (L/min) 2 Oxygen Delivery Method Nasal Cannula Weight: 190 lb 4.143 oz Body Mass Index (BMI) 31.6 Finger Stick Blood Glucose 113 Intake and Output for Last 24 Hours 08/07/18 08/08/18 08/09/18 23:59 23:59 23:59 Intake Total 3421 / 3421 2778 / 2778 500 / 500 Output Total 850 / 850 Balance 2571 / 2571 2778 / 2778 500 / 500 Laboratory Tests Past 24 Hrs 08/09/18 05:24 WBC 7.0 RBC 3.14 L Hgb 9.2 L Hct 29.9 L MCV 95.2 MCH 29.3 MCHC 30.8 L RDW 13.9 RDW Differential 45.9 H Plt Count 203 MPV 8.8 Discharge Diet: No Restrictions May shower in (days): 1 Weight Bearing Status: Weight bearing as tolerated Additional Activity Instructions:: Ice and elevate next week while not ambulating. Encourage ambulation weightbearing as tolerated. Encourage FULL knee extension and flexion 1 time EVERY time you get up and down and MULTIPLE times per day. Begin showering postop day #3. Remove the dressing prior to shower gently wash with warm water and antibacterial soap then pat dry place ABD pad and NAHUN hose over top. This is to be done daily. If not showering daily must clean incision and change dressing daily. Do not allow animals near incision keep clean. Follow anticoagulation recommendations. Call Dr. Mc with any concerns. Call your doctor if you observe: Fever of 101 or Higher, Change in Color, Shortness of breath, Chest pain Suture Line Care: Avoid Pulling/Pushing Home Medications: Medications to take at Discharge Amlodipine Besylate [Norvasc] 10 mg PO QDAY 07/10/18 Lisinopril [Prinivil] 10 mg PO DAILY 07/10/18 Triamterene 37.5MG/Hctz 25MG [Maxzide 37.5 mg-25 mg Tablet] 1 tab PO QDAY 07/10/18 Gabapentin [Neurontin] 100 mg PO TID 08/07/18 Apixaban [Eliquis] 2.5 mg PO BID 14 Days #28 tablet 08/09/18 Oxycodone [Oxyir] 5 - 10 mg PO Q4H PRN PRN #60 tablet 08/09/18 Following Prescrptions Were Given to Patient: Oxycodone [Oxyir] 5 - 10 mg PO Q4H PRN PRN #60 tablet PRN Reason: Mod-Severe Pain (4-01/10) Apixaban [Eliquis] 2.5 mg PO BID 14 Days #28 tablet Primary Care Physician: Sapna Mcnair MD [Primary Care Provider] - Please Follow Up With: Lui Mc DO - 2 weeks Medical Necessity - Tobacco Use Smoking Status: Former smoker Tobacco Use: Non-smoker Meaningful Use Info Meaningful Use Diagnoses (Choose all that apply): None applicable
--- NOTE | 2018-08-09 07:41 | PCM.PN.ORT ---
Subjective: Seen and examined doing well. Denies chest pain shortness of breath fevers chills nausea vomiting. Continues to have posterior calf tenderness and pain - Physical Exam Musculoskeletal: - - Incision looks well no signs of infection no significant drainage no significant joint effusion she is exquisitely tender in the posterior calf and the superficial skin she is neurovascularly intact her compartments are soft Vital Signs Temp Pulse Resp BP Pulse Ox 97.8 F 71 18 114/71 98 08/09/18 03:04 08/09/18 03:04 08/09/18 03:04 08/09/18 03:04 08/09/18 03:04 Oxygen Flow Rate (L/min) 2 Oxygen Delivery Method Nasal Cannula Weight: 190 lb 4.143 oz Body Mass Index (BMI) 31.6 Finger Stick Blood Glucose 113 Intake and Output for Last 24 Hours 08/07/18 08/08/18 08/09/18 23:59 23:59 23:59 Intake Total 3421 / 3421 2778 / 2778 500 / 500 Output Total 850 / 850 Balance 2571 / 2571 2778 / 2778 500 / 500 Laboratory Tests Past 24 Hrs 08/09/18 05:24 WBC 7.0 RBC 3.14 L Hgb 9.2 L Hct 29.9 L MCV 95.2 MCH 29.3 MCHC 30.8 L RDW 13.9 RDW Differential 45.9 H Plt Count 203 MPV 8.8 Medical Necessity - Tobacco Use Smoking Status: Former smoker Tobacco Use: Non-smoker Assessment/Plan All Active Problems (Last Reviewed 07/27/18 @ 15:54 by Amy Carmona) Female stress incontinence (Acute) POD#2 left tka will check doppler US prior to Discharge anticoagulation may need to be adjusted if positive. Continue current care with DC planning home HHC FU 2wk nursing to call me with US results prior to discharge.
[2018-08-09 07:55] VITALS: O2SAT 92
[2018-08-09 08:06] VITALS: BP 93/75; PULSE 88; RESP 18; TEMP 36.9; O2SAT 97
[2018-08-09] MEDS: Glucerna Shake 120 ML LIQUID PO ×2 (08:12→11:20)
[2018-08-09 09:05] VITALS: PULSE 92
--- NOTE | 2018-08-09 09:40 | NURSING ---
CALLED WITH U/S RESULTS ON LT LEG: NEGATIVE. NO NEW ORDERS.
[2018-08-09 10:11] VITALS: BP 127/82
[2018-08-09] MEDS: Triamterene 37.5MG/Hctz 25MG Capsule 1 CAP PO (10:13)
[2018-08-09] MEDS: Lisinopril 10 MG Tablet PO (10:13)
[2018-08-09] MEDS: APIXABAN 2.5 MG TABLET PO (10:13)
[2018-08-09] MEDS: amLODIPine 10 MG Tablet PO (10:13)
[2018-08-09] MEDS: Senna/Docusate Sodium 1 Tablet 2 TABLET PO (10:13)
[2018-08-09 10:16] VITALS: BP 103/69; PULSE 88; RESP 18; O2SAT 98
== END 2018-08-09 13:12 | disposition home or self-care (01) | DRG 470 ==
PROVIDERS: Anesthesiology; Admitting Provider Orthopaedic Surgery; Family Provider Internal Medicine; PCP Internal Medicine; Referring Provider Orthopaedic Surgery; Visit Provider Orthopaedic Surgery
PROC: 0SRD0J9 Replacement of Left Knee Joint with Synthetic Substitute, Cemented, Open Approach (ICD-10-PCS; CPT 27447; principal; 2018-08-07 07:45)
DX: M17.12 Unilateral primary osteoarthritis, left knee (principal); I10 Essential (primary) hypertension; Z87.891 Personal history of nicotine dependence
CPT/HCPCS: 36415; 73560; 80048; 85027; 87081; 93005; 93971; 97110; 97162; 97166; 97530; 97535; C1776; J7120; A4216; J0702; J2405; J3490

== ENCOUNTER → 2018-09-12 | Outpatient (CLI) | payer BC, SELFPAY ==
[2018-08-28 13:53] VITALS: BMI 31.6
[2018-09-12 15:54] LABS: Absolute Lymphocyte Count 1.38 X10^3/ul (0.83-4.51); Absolute Neutrophil Count 6.4 X10^3/uL (2.0-7.7); Basophil# 0.03 X10^3/uL; Basophil% 0.4 % (0-1); Eosinophil# 0.22 X10^3/uL; Eosinophils% 2.6 % (0-5); Hematocrit 39.5 % (37-47); Hemoglobin 12.4 g/dl (12.0-15.0); Lymphocyte # 1.38 X10^3/ul (4.0); Lymphocyte % 16.1 % (19-41); Mean Corp Hgb Conc 31.4 g/gl (32-36); Mean Corpuscular Hgb 29.1 pg (27.0-32.0); Mean Corpuscular Volume 92.7 fL (81-99); Monocyte# 0.56 X10^3/uL; Monocyte% 6.5 % (0-10); Neutrophil # 6.36 X10^3/uL (2.7-7.7); Neutrophil % 74.3 % (47-70); POSITIVE COUNT NO; POSITIVE DIFFERENTIAL NO; POSITIVE MORPHOLOGY NO; Platelet Count 292 K/mm3 (150-450); RBC Distribution Width CV 13.4 % (11.6-14.6); RBC Distribution Width SD 45.1 fl (35.1-43.9); Red Blood Count 4.26 M/mm3 (4.2-5.4); White Blood Count 8.6 K/mm3 (4.4-11.0)
[2018-09-12 18:40] LABS: Anion Gap 7 (5-15); BUN 18 mg/dL (7-18); Calcium,Total 9.2 mg/dL (8.5-10.1); Chloride 106 mmol/L (98-107); Creatinine, Serum 0.86 mg/dL (0.55-1.02); EST Glomerular Filtration Rate 73 mL/min (>60); Est Glom Filt Rate - Afr Amer 88 mL/min (>60); Glucose 90 mg/dL (74-106); Potassium 3.8 mmol/L (3.5-5.1); Sodium Level 143 mmol/L (136-145)
== END | disposition home or self-care (01) ==
LOC: MTLAB 14:34
PROVIDERS: Family Provider Internal Medicine; PCP Internal Medicine; Referring Provider Internal Medicine; Visit Provider Internal Medicine
DX: I10 Essential (primary) hypertension (principal); D64.9 Anemia, unspecified
CPT/HCPCS: 36415; 80048; 85025

== ENCOUNTER 2018-10-17 11:00 | Outpatient (RCR) | payer BC, SELFPAY ==
[2018-08-22 10:25] VITALS: BMI 31.6
--- NOTE | 2018-08-30 11:20 | HP.PTEVAL_ITS ---
Patient's Visit Information ELIAS CARY is a 58 year old F referred to Physical Therapy by Lui Mc DO with a diagnosis of L TKA. Date of Evaluation: 08/22/18 Physical Therapist: Javon Alejandre DPT - Visit Plan Frequency: 2-3x /Week Duration: 4-6 Weeks Plan: Start with ROM, edema control, quad/glute med activation. Progress to functional strengthening and tolerance as able. May use vaso/ice. - Subjective Findings: Pt. is here today for her initial evaluation with diagnosis of L TKA. DOS: 08/07/18. Pt. was recieving HH PT for ~2 weeks. Pt. arrives today using FWW. PT. reports she is not taking any pain meds at this point in time. Pt. has had her elijah removed. Pt. reports having increased pain with walking, and difficulty sleeping. No calf pain noted. Pt. denies fever and chills. Pt. reports being compliant with walking and exercises in her home. Pt. works on [employer]. Pt. lives by her self, but is getting rides with sister. Pt. is hopeful to increase her strength and progress back to all recreational/work activties without limitations. - Pain L knee Pain Intensity (Out of 10): 3 Pain Intensity Range: 2, 8 - Objective POSTURE: Pt. stands with FWW, but is able to stand without. Pt. does have increased wt. shift to R side. PALPATION: Pt. has mild redness along incision, no signs of infection. Pt. has no calf pain, negative madhavi's sign. Pt. has well healing incision. NEURO: normal throughout bilateral LEs. Normal senstaion and DTR bilaterally. ROM: L knee 0-5-92deg. PT. has tight HS bilaterally. MMT: RLE- 4/5 throughout. LLE- ankle 5/5 throughout; knee- ext 3/5 (did not add in over pressure), flexon 4/5; hip- flexion 3/5, abd 3+/5, ext 3+/5. GAIT: Pt. a mbulates with proper wt. shift between bilateral LEs. Pt. has decreased knee flexon during swing phase of LLE and decreased TKE during stance phase of LLE. STAIRS: Pt. completes with step to pattern loading RLE only. - Goals Goal 1:: Pt. to be I with HEP. Goal Time Frame: 4-6 Weeks Goal 2:: Pt. to have increased L knee ROM to 0-0-120deg allowing for increased tolerance to stair negotiation. Goal Time Frame: 4-6 Weeks Goal 3:: Pt. to have increased LLE strength increased to atleast 4/5 throughout allowing for icnreased ability to complete all functional mobility. Goal Time Frame: 4-6 Weeks Goal 4:: Pt. to ambulate with least RD vs no AD with normal gait pattern. Goal Time Frame: 4-6 Weeks Goal 5:: Pt. to negotiate steps with reciprocal pattern with use of 1 HR without LOB. Goal Time Frame: 4-6 Weeks Goal 6:: Pt. to sleep throughout the night without increase in symptoms. Goal Time Frame: 2-4 Weeks - Rehabilitation Potential Physical Therapy Diagnosis: Pt. has signs and symptoms consistent with L TKA, DOS 08/07/18. Pt. has subsequent hypomobility, weakness, and difficutly walking. Pt. would benefit from PT to address above limiitations progressing back to work and recreational activities. Rehabilitation Potential: Good - Anticipated Interventions Patient/Client Instruction: Educate patient on: Condition, Plan of Care, Risk Factors, Benefits of Fitness Program For the Purpose of:: To improve decision making, To facilitate caregiver knowledge, To improve self management, To prevent re-injury, To improve ability to perform tasks related to life management, To improve tolerance to ADL's Therapeutic Exercise to Include: Strength training, Power training, Endurance training, Balance training, Postural training, Flexibilty training, Gait and locomotor training, Passive ROM, Active ROM, Dynamic Lumbar Stabilization For the Purpose of:: To decrease pain, To decrease swelling/inflammation, To increase ROM, To improve nutrient delivery to tissue, To increase oxygenation perfusion, To improve muscle performance and motor function, To improve gait and locomotor functions, To improve health of tissue, To decrease soft tissue restriction, To increase flexibility/ROM, To improve balance, To improve safety with gait, To assume or resume ADL's Manual Therapy Techniques to Include: Mobilization, Passive ROM For the Purpose of:: To decrease pain, To decrease swelling/inflammation IF ES: Yes Cryotherapy (ice pack, ice massage): Yes For the Purpose of:: To decrease pain, To decrease swelling/inflammation, To increase ROM, To improve nutrient delivery to tissue Thank you for the opportunity to evaluate your patient. For Medicare and Medicare HMO plans, please review the plan of care and approve it. It will need to be FAXED BACK to us at [phone] for Medicare purposes. For Medicare only, by signing this I certify the plan of care. Please let me know if there are questions or concerns regarding this plan of care. Physician Signature: Date:
--- NOTE | 2019-03-06 14:31 | HP.PTDCSUM ---
HP - PT D/C Summary It has been my pleasure to treat ELIAS CARY under orders from Lui Mc DO, for the diagnosis of L TKA for a total of 20 visit(s). Discharge Date: Please see the following information for a summary of their discharge status. - Subjective Subjective: Pt. repoirts being 95% better overall. Pt. reports no issues with walking. Pt. is HEP compliant. - Pain L knee Pain Intensity (Out of 10): 0 knee Pain Intensity (Out of 10): 0 - Overall Improvement % Improvement: 95 - Objective Objective/Function: ROM: 0-0-119deg. MMT: 4+/5 throughout without increase in symptoms. Pt. is walking without AD with good mechanics. Pt. reports occassional 1/10 pain with taking a bad step. STAIRS: reciprocal pattern with use of 1 HR. Pt. reports mild increas in symptoms with descending. Pt. is sleeping without issues. - Goals Goal 1:: Pt. to be I with HEP. Goal Progress: Goal Met Goal 2:: Pt. to have increased L knee ROM to 0-0-120deg allowing for increased tolerance to stair negotiation. Goal 3:: Pt. to have increased LLE strength increased to atleast 4/5 throughout allowing for icnreased ability to complete all functional mobility. Goal Progress: Progressing Goal 4:: Pt. to ambulate with least RD vs no AD with normal gait pattern. Goal Progress: Goal Met Goal 5:: Pt. to negotiate steps with reciprocal pattern with use of 1 HR without LOB. Goal Progress: Goal Met Goal 6:: Pt. to sleep throughout the night without increase in symptoms. Goal Progress: Goal Met - Plan Plan: DC to HEP at this point in time. - D/C Information Discharge Comments: Pt. did very well with PT. She has good ROM and good strengthen. Pt. is back to most functional mobility and is steadily improving. Pt. will be DC to HEP at this point in time. If there are questions or concerns regarding this patient's physical therapy, please feel free to call me at [phone]. Thank you for the referral of this patient. Sincerely, Javon Alejandre DPT
== END 2018-10-17 19:00 | disposition home or self-care (01) ==
LOC: PT 11:00
PROVIDERS: Family Provider Internal Medicine; PCP Internal Medicine; Referring Provider Orthopaedic Surgery; Visit Provider Orthopaedic Surgery
DX: Z96.652 Presence of left artificial knee joint (principal)
CPT/HCPCS: 97014; 97016; 97110; 97161; 97530; G0283

== ENCOUNTER → 2019-05-21 | Outpatient (CLI) | payer BC, SELFPAY ==
[2019-05-21 08:28] VITALS: BMI 31.9
[2019-05-21 10:43] LABS: White Blood Cells 0 SEEN /hpf (0-5)
--- NOTE | 2019-05-21 10:58 | VDLE_ITS ---
Reason For Study: Swelling RIGHT LEFT CFV is compressible, spontaneous, phasic, GSV is normal. competent and demonstrates normal CFV is compressible, spontaneous, phasic, augmentation. competent, and demonstrates normal Procedure augmentation. Exam performed in department. FV is compressible, spontaneous, phasic, A preliminary report was called and/or faxed competent and demonstrates normal to Mumtaz. augmentation. POP V is compressible, spontaneous, phasic, competent and demonstrates normal augmentation. T/P Trunk is compressible. PTV is compressible. LT PerV is compressible. Interpretation Summary Deep veins of the left lower extremity are patent and compressible segmentally. There is no evidence of left lower extremity deep vein thrombosis. Valvular competence appears intact within the proximal deep venous system on the left . The left great saphenous vein appears patent and compressible segmentally. Ordering Physician: Trino Pandya Referring Physician: Sapna Mcnair Performed By: Pati Nash RVT
[2019-05-21 12:29] LABS: Color, Urine Yellow (Yellow); Glucose, Dipstick Normal (Normal); Ketone-Dipstick Negative (Negative); Leukocyte Esterase-Dipstick Negative /ul (Negative); Nitrite-Dipstick Negative (Negative); Occult Blood-Urine 10 /ul (Negative); Protein-Dipstick 15 mg/dl (Negative); Urine Bilirubin Dipstick Negative (Negative); Urine Clarity Clear (Clear); Urine Urobilinogen Normal (Normal)
[2019-05-21 13:05] LABS: Bacteria RARE /hpf (None Seen); Mucous, Urine RARE /hpf (<or=2+); Red Blood Cells-Urine 0-5 SEEN /hpf (0-5); Squamous Epithelial Cells - UA 0-5 SEEN /hpf (5-10)
== END | disposition home or self-care (01) ==
PROVIDERS: PCP Internal Medicine; Visit Provider Nurse Practitioner Family
DX: M79.662 Pain in left lower leg (principal); R30.0 Dysuria
CPT/HCPCS: 81001; 87086; 93971

== ENCOUNTER → 2019-08-28 | Outpatient (CLI) | payer BC, SELFPAY ==
[2019-05-21 08:28] VITALS: BMI 31.9
--- NOTE | 2019-08-28 13:12 | RAD_ITS ---
STUDY: X-RAY - RIGHT KNEE REASON FOR EXAM: Female, 59 years old. Bilateral knee pain TECHNIQUE: 4 view(s) of the knee. COMPARISON: April 19, 2018 FINDINGS: Normal visualized distal femur. Normal visualized proximal tibia and fibula. Normal proximal tibiofibular articulation. There is severe degenerative arthrosis of the medial femorotibial compartment with severe joint space narrowing. There is mild degenerative arthrosis of the lateral femorotibial compartment. There is moderate degenerative arthrosis of the patellofemoral articulation. The soft tissue structures are unremarkable. RAD/Knee 4 or More Views IMPRESSION: Degenerative arthrosis. Electronically Signed: Isi Thurman MD at 22:30 EDT Tel , Service support ,
--- NOTE | 2019-08-28 13:12 | RAD_ITS ---
STUDY: X-RAY - LEFT KNEE REASON FOR EXAM: Bilateral knee pain. TECHNIQUE: 4 view(s) of the knee. COMPARISON: Radiographs 08/07/2018. FINDINGS: There is a left total knee arthroplasty without evidence of complication. There is soft tissue swelling. RAD/Knee 4 or More Views IMPRESSION: Uncomplicated left total knee arthroplasty. Electronically Signed: Yung Mata MD at 10:01 EDT Tel , Service support ,
== END | disposition home or self-care (01) ==
LOC: HPRAD 13:12
PROVIDERS: PCP Internal Medicine; Referring Provider Orthopaedic Surgery; Visit Provider Orthopaedic Surgery
DX: M25.561 Pain in right knee (principal); M25.562 Pain in left knee
CPT/HCPCS: 73564

== ENCOUNTER → 2019-09-11 | Outpatient (CLI) | payer BC, SELFPAY ==
[2019-09-11 15:50] VITALS: BMI 31.9
[2019-09-12 07:47] LABS: SARS-COV-2 TOTAL ABS Nonreactive (Nonreactive)
== END | disposition home or self-care (01) ==
LOC: BIMLAB 16:34
PROVIDERS: PCP Internal Medicine; Referring Provider Nurse Practitioner Family; Visit Provider Nurse Practitioner Family
DX: Z11.59 Encounter for screening for other viral diseases (principal)
CPT/HCPCS: 86769; G2023

== ENCOUNTER → 2019-09-18 | Outpatient (CLI) | payer BC, SELFPAY ==
[2019-05-21 08:28] VITALS: BMI 31.9
[2019-09-13 14:50] VITALS: BMI 31.9
--- NOTE | 2019-09-18 16:48 | CT_ITS ---
Study: CT of the right lower extremity without contrast Previous study: None. CLINICAL HISTORY: Right knee pain PROCEDURE: Multiple computed tomographic images of the right lower extremity were obtained at 0.625 mm thick slices in the direct axial projection. 2.5 mm coronal and sagittal reconstructions of the right hip were obtained. Radiation dose: Total exam DLP: 1153.42 FINDINGS: The osseous structures and articular surfaces of the right hip appear within normal limits. Soft tissues of the right hip area are unremarkable. Coronal and sagittal reconstructed images of the knee region were not obtained. Axial images demonstrate hypertrophic changes of the anterior and posterior femoral condylar regions. There are degenerative changes with joint space narrowing of the patellofemoral compartment. There are hypertrophic degenerative changes of the medial and lateral aspects of the tibial plateau. No suprapatellar effusion is seen. There is no evidence of fracture or lytic or blastic osseous process. Soft tissues of the visualized leg appear within normal limits. CT/Extremity Lower without Contra IMPRESSION: Degenerative changes of the right knee as detailed above. No free intraarticular calcifications are seen. Electronically Signed: Casper Arce MD at 20:32 EDT , Service support ,
== END | disposition home or self-care (01) ==
LOC: CT 16:48
PROVIDERS: PCP Internal Medicine; Referring Provider Orthopaedic Surgery; Visit Provider Orthopaedic Surgery
DX: M17.10 Unilateral primary osteoarthritis, unspecified knee (principal)
CPT/HCPCS: 73700

== ENCOUNTER 2019-09-26 05:30 | Day surgery (SDC) | payer BC, SELFPAY ==
[2019-05-21 08:28] VITALS: BMI 31.9
[2019-09-11 17:16] LABS: Absolute Lymphocyte Count 1.44 X10^3/uL (0.83-4.51); Absolute Neutrophil Count 4.4 X10^3/uL (2.0-7.7); Basophil# 0.03 X10^3/uL; Basophil% 0.5 % (0-1); Eosinophil# 0.14 X10^3/uL; Eosinophils% 2.2 % (0-5); Hematocrit 40.9 % (37-47); Lymphocyte # 1.44 X10^3/ul (4.0); Lymphocyte % 22.3 % (19-41); Mean Corp Hgb Conc 31.8 g/dL (32-36); Mean Corpuscular Hgb 29.5 pg (27.0-32.0); Mean Corpuscular Volume 92.7 fL (81-99); Mean Platelet Vol. 9.4 fl (6.2-12.0); Monocyte# 0.46 X10^3/uL; Monocyte% 7.1 % (0-10); NRBC Flagged by Analyzer 0 % (0-5); Neutrophil # 4.38 X10^3/uL (2.7-7.7); Neutrophil % 67.6 % (47-70); Platelet Count 276 K/mm3 (150-450); RBC Distribution Width CV 13.3 % (11.6-14.6); RBC Distribution Width SD 45.6 fl (35.1-43.9); Red Blood Count 4.41 M/mm3 (4.2-5.4); White Blood Count 6.5 K/mm3 (4.4-11.0)
[2019-09-11 17:40] LABS: Prothrombin Time (Protime)PT. 12.5 SECONDS (11.7-14.9)
[2019-09-11 17:41] LABS: Partial Thromboplast Time 29.1 Seconds (24.1-36.2)
[2019-09-11 18:30] LABS: AST(SGOT) 10 U/L (15-37); Alanine Aminotransfer ALT/SGPT 20 U/L (13-56); Albumin, Serum 3.9 g/dL (3.2-5.0); Alkaline Phosphatase 109 U/L (45-117); Bilirubin, Direct 0.09 mg/dL (0.00-0.30); Globulin 3.3 g/dL (2.2-4.2); Magnesium 2.3 mg/dL (1.6-2.6); Protein, Total 7.2 g/dL (6.4-8.2)
[2019-09-11 18:31] LABS: Anion Gap 7 (5-15); BUN 27 mg/dL (7-18); BUN/Creat Ratio 30.6 RATIO (10-20); Calcium,Total 9.2 mg/dL (8.5-10.1); Chloride 110 mmol/L (98-107); Creatinine, Serum 0.88 mg/dL (0.55-1.02); EST Glomerular Filtration Rate 70 mL/min (>60); Est Glom Filt Rate - Afr Amer 84 mL/min (>60); Glucose 127 mg/dL (74-106); Potassium 3.8 mmol/L (3.5-5.1); Sodium Level 144 mmol/L (136-145)
[2019-09-13 14:50] VITALS: BMI 31.9
[2019-09-26] VITALS (20 sets, daily range): BP systolic 91–139; BP diastolic 61–83; PULSE 74–99; RESP 16; TEMP 35.9–36.6; O2SAT 90–98; BMI 32.1
[2019-09-26] MEDS: Lactated Ringers 1,000 ML 100 ML IV (06:16)
[2019-09-26] MEDS: Scopolamine 1mg/72hr Patch 1 PATCH TRANSDERM. (06:17)
[2019-09-26] MEDS: Acetaminophen 500 MG Tablet 1000 MG PO ×2 (06:17→13:58)
[2019-09-26] MEDS: Gabapentin 600 MG Tablet PO (06:17)
[2019-09-26 06:31] LABS: Bedside Glucose 79 mg/dL (70-110)
[2019-09-26 06:49] LABS: Magnesium 1.9 mg/dL (1.6-2.6)
[2019-09-26] MEDS: Cefazolin 2 GM in 0.9% Normal Saline 100 ML IV (07:26)
[2019-09-26] MEDS: Lidocaine/D5W 2,000 MG/250 ML IV.SOLN 2000 MG (07:42)
[2019-09-26] MEDS: Epinephrine (1 mg/ml) 1 MG/ML VIAL (09:26)
[2019-09-26] MEDS: Bupivacaine Mpf 0.5% 30 ML VIAL (09:26)
[2019-09-26] MEDS: Betamethasone/Betamethasone 30 MG/5 ML Vial (09:26)
[2019-09-26] MEDS: 0.9% Normal Saline (Pres. free 10 ML Vial (09:26)
[2019-09-26] MEDS: Lactated Ringers 1,000 ML 500 ML IV (09:50)
--- NOTE | 2019-09-26 09:54 | DCINST_ITS ---
Discharge Diet: No Restrictions Weight Bearing Status: Weight bearing as tolerated Call your doctor if you observe: Shortness of breath, Chest pain Additional Instructions: Ice and elevate one week while not ambulating. Ambulation is encouraged. Weightbearing as tolerated. Use assistive devise for stability. Encourage FULL knee extension and flexion 1 time EVERY time you get up and down and MULTIPLE times per day. No showering 72 hours after surgery. Begin showering postop day #3. Remove the dressing prior to shower and gently wash with warm water and antibacterial soap then pat dry and place abdominal pad (or plain gauze) and NAHUN hose over top. This is to be done daily. Do not submerge for 3 weeks. If not showering daily after the initial 72 hours then you must clean incision and change dressing daily. Do not allow animals near the incision area. Keep clean. Follow anticoagulation recommendations as prescribed. Do not take any NSAIDs while on blood thinner. Do not take any additional narcotic pain medication other than what was perscribed on you surgery day without discussing with physician. Start physical therapy. If you are not currently scheduled for physical therapy or you are unsure of appointment time please call office [facility] to arrange. Call Dr. Mc with any concerns. Allergies/Adverse Reactions: Allergies Sulfa (Sulfonamide Antibiotics) Allergy (Mild, Verified 09/26/19 05:42) unknown hydrocodone [From Vicodin] Allergy (Verified 09/26/19 05:42) Vomiting Medications to take at Discharge Triamterene 37.5MG/Hctz 25MG [Maxzide 37.5 mg-25 mg Tablet] 1 tab PO QDAY 07/10/18 lisinopril 10 mg tablet 10 mg PO DAILY #90 tab 09/07/18 comp.stocking,thigh,long,large See Rx Instructions .ROUTE .MEDSUPPLY #2 ea 11/21/18 amlodipine 10 mg tablet 10 mg PO QDAY #90 tab 12/28/18 Oxybutynin [Ditropan] 5 mg PO QHS 09/10/19 Acetaminophen [Tylenol] 1,000 mg PO Q8 #100 tab 09/26/19 Apixaban [Eliquis] 2.5 mg PO BID #30 tab 09/26/19 Cephalexin [Keflex] 1,000 mg PO Q8 #4 cap 09/26/19 Ondansetron HCl [Zofran] 4 mg PO Q6H PRN PRN 5 Days #20 tab 09/26/19 Oxycodone [Oxyir] 5 - 10 mg PO Q4H PRN PRN #60 tab 09/26/19 The following prescriptions were given: Apixaban [Eliquis] 2.5 mg PO BID #30 tab Transmission Status: Sent to [id number] Cephalexin [Keflex] 1,000 mg PO Q8 #4 cap Transmission Status: Sent to [id number] Oxycodone [Oxyir] 5 - 10 mg PO Q4H PRN PRN #60 tab PRN Reason: Pain Score 4-10/10 Transmission Status: Sent to [facility] Acetaminophen [Tylenol] 1,000 mg PO Q8 #100 tab Transmission Status: Sent to [facility] Ondansetron HCl [Zofran] 4 mg PO Q6H PRN PRN 5 Days #20 tab PRN Reason: Nausea Transmission Status: Sent to [id number] Primary Care Physician: Sapna Mcnair MD [Primary Care Provider] - Test Results: Test results from this visit will be discussed in further detail at your follow- up appointment, if applicable. Please Follow Up With: Lui Mc DO - 2 weeks
--- NOTE | 2019-09-26 09:54 | HP.PCM_ITS ---
History and Physical Date of Admission: 09/26/19 Intake Intake Visit Reasons: LEFT KNEE Is patient in pain?: Yes Allergies Sulfa (Sulfonamide Antibiotics) Allergy (Mild, Verified 08/28/19 13:03) unknown acetaminophen [From Vicodin] Allergy (Verified 08/28/19 13:03) Vomiting hydrocodone [From Vicodin] Allergy (Verified 08/28/19 13:03) [facility]iting [facility] Social History (Updated 08/28/19 @ 13:[address] Lui Mc, ) Smoking Status: Former smoker Tobacco: How many years used: 20 how long ago did patient quit smokin alcohol intake: never details: social substance use type: does not use, painkillers caffeine: Yes what type of physical activity do you participate in: none seatbelt use: always do you feel safe at home: Yes additional social history: - [employer] HPI LEFT KNEE: Chief Complaint: New complaint is right knee pain 1 year follow-up left knee total knee Details: Parts of this documentation were recorded by a scribe, this documentation accurately reflects the service provided and the decisions made by me, Dr. Lui Mc DO 08/28/19 [id number]. ELIAS CARY is a 59 year old F here today for s/p Left total knee arthroplasty dos 08/07/18. Patient notes that she is doing well. She continues to have some painAnd stiffness however it is much better than preoperatively and she is happy with it. She notes that she continues to have Intermittent swelling. Patient also has a numb patch over her lateral knee. She notes that she has Severe right knee pain. Patient notes that she has had right knee pain for many years with no known injury. She has pain over her anterior knee. She has popping in her right knee. Patient has increased pain with ambulation.She complains of knee instability. She denies any bracing. Patient denies any physical therapy or injection. Patients last xrays were in 04/2018. ROS Musc Reports joint pain, Reports joint swelling, Reports limited joint movement, Reports stiffness Skin/Breast Reports system reviewed and no additional complaints, except as docu Neuro Yes system reviewed and no additional complaints, except as docu Ortho Exam Right Knee Skin/Wound: Yes CDI, No erythema, No ecchymosis, No swelling Knee ROM: Yes ROM-Flexion 0-140 (120) Examination: Yes Med jt line tenderness Stability: NML: Anterior Drawer, NML: Posterior Drawer, 2+: Valgus 0 Apprehension with Lateral Translation: No Patella Grind: Yes KNEE: prominent varicose veins Left Knee Skin/Wound: Yes healed, Yes swelling Knee ROM: Yes ROM-Extension -20 to 0, Yes ROM-Flexion 0-140 (113) KNEE: no signs of infection Supplemental Info 08/28/2019 x-ray right knee advanced arthrosis [id number] worse medial and patellofemoral compartment 08/28/2019 x-ray left knee: Status post total knee arthroplasty without any concerning signs Assessment & Plan Problems 1. Primary osteoarthritis of right knee M17.11 2. History of arthroplasty of left knee Z96.652 Plan Spoke with her about the numbness over her lateral left knee and it will continue to improve over time. Spoke with the patient about the surgery procedure and the advancements since her left total knee replacement. Patient wanted to proceed with surgery. Spoke with her about the iovera. She will need a CT scan for robotic templating for TKA. Reviewed the pre-operative plans with the patient. Risks and benefits of the procedure were fully explained, including but not limited to infection, ne urovascular injury, continued pain, arthritis, stiffness, need for further surgery, re-injury, DVT, PE, general risks of anesthesia, and loss of limb or life. The patient understands all the risks and does wish to proceed with written consent. She is unable to take nsaids 7 days prior to surgery. Patient is a candidate for the same day surgery. She has no new dental issues. Follow up for 2 week post op appt or sooner if pain, swelling, numbness or associated symptoms, or concerns develop. All questions answered. Patient in agreement of plan. Orders Orders: Knee 4 or More Views Today M25.561, M25.562 Knee 4 or More Views Today M25.561, M25.562 Knee 4 or More Views Today M25.561, M25.562 Coding Level of Care Code Off vis,est,level 4 Diagnoses Primary osteoarthritis of right knee M17.11 ??Osteoarthritis type: primary History of arthroplasty of left knee Z96.652 I have re-examined the patient. There are no clinical changes since date of exam Procedure Criteria COVID Risk Discussion: [In addition to standard risk risk of COVID-19 exposure and potential consequences including respiratory failure ventilation and patient wishes to assume this risk secondary to ongoing progressive worsening symptoms that are limiting activities of daily living.]
--- NOTE | 2019-09-26 10:40 | RAD_ITS ---
STUDY: X-RAY - RIGHT KNEE REASON FOR EXAM: Female, 59 years old. Post op right knee TECHNIQUE: 2 view(s) of the knee. COMPARISON: 08/28/2019 FINDINGS: Patient is status post replacement of the right knee. Components demonstrate anatomic alignment. No plain film evidence of postoperative complication. Normal postoperative soft tissue swelling and subcutaneous emphysema. RAD/Knee 1 or 2 Views IMPRESSION: Replaced right knee joint demonstrates anatomic alignment. No plain film evidence of postoperative complication Electronically Signed: Josh Lacy MD at 11:03 EDT , Service support ,
[2019-09-26] MEDS: Ketorolac 30 MG/ML Syringe IV (10:43)
[2019-09-26] MEDS: Cefazolin 1 GM/50 ML BAG IV (10:58)
--- NOTE | 2019-09-26 14:31 | OP.PCM_ITS ---
Report of Operation Date of Procedure: 09/26/19 Description of Surgical Findings:: Preoperative diagnosis: Right knee DJD Postoperative diagnosis: Same Procedure: Right total knee arthroplasty CT guided Robotic Assisted Implant: Brian triathlon press fit femoral component size 2, press-fit tibial baseplate size 3, press fit asymmetric patella size , polyethylene X3 size 11 Anesthesia: Spinal with adductor canal block Tourniquet time: 12 minutes at 300 mmHg Complications: None Condition: Stable to PACU Estimated blood loss: 125 cc Indication for procedure: This is a 59-year-old female with long standing degenerative joint disease of the knee, who had a 14 degree varus deformity and flexion contracture preoperatively who has failed conservative treatment and wished to proceed with elective total knee arthroplasty. Risk benefits and alternatives were reviewed including; risk of bleeding, infection, nerve artery and tissue damage, continued pain, postoperative stiffness, venous thromboembolism, need for postoperative rehabilitation, mechanical feel to the knee, and expected postoperative course. The operative CT and templating was performed with component sizing Procedure: The patient was met in the preoperative holding area. The operative extremity was identified by both patient and physician and was marked. Patient was met by anesthesia. An adductor canal block was placed by anesthesia postoperatively the patient was brought back to the operating room on a wheeled cart and transferred to the operating table in the supine position. Anesthesia was started. A well-padded tourniquet was placed on the operative extremity. The patient was prepped and draped in the usual sterile fashion. A timeout was called to ensure the proper patient procedure and extremity were being contemplated. An Esmarch was used to exsanguinate the extremity. The tourniquet was inflated. A 10 blade scalpel was used to make a midline incision down through the skin and subcutaneous tissue. Skin retractors placed. Bovie was used to perform meticulous hemostasis. full-thickness flaps were elevated medial and lateral along the joint capsule. A deep blade scalpel was used to perform a medial parapatellar arthrotomy. The knee was brought to full extension. A Bovie was used to release the soft tissues off the most proximal aspect of the medial tibial plateau a three-quarter inch curved osteotome was also used for this process. The infrapatellar fat pad was excised. The fat pad was excised partially anterior lateral portion the anterior medial was elevated from the femur. At this point our intra-articular femoral array was placed of a 45 degree angle proximal and posterior to the medial epicondyle. Our tibial array was placed greater than 1 hands breath below the incision at a 20 degree angle stab incisions were used for this case were attached and checked with the robotic software. Tourniquet was let down. At this point registration segura were taken throughout the knee as well as checkpoints placed in the femur and tibia once the knee was registered then tensioned the medial and lateral ligaments in extension and 90 degrees of flexion. We then used these numbers to adjust our components within parameters to balance the knee in both flexion and extension once this was done on our monitor we then proceeded with using the robotic arm to make our tibial plateau cut and anterior posterior and chamfer cuts on the femur we then trialed and achieved the desired plan with a well- balanced knee. Lug holes were drilled in the femur the tibia preparation was completed with a fin punch and the patella was prepared by first using a caliper to ensure sufficient bone stock and a patellar reamer to remove the desired amount of bone locals were drilled for an asymmetric poly-. We then brought the knee through range of motion with excellent patellar tracking. We thoroughly irrigated the knee with a trial components were removed a posterior capsular injection with her standard cocktail was performed the aqua Mantis was also used to aid in hemostasis. Betadine rinse was allowed to sit and washed out components were press-fit into place. Aricept rinse was then used followed by several more rate liters of irrigation after it was allowed to sit. Joint capsule was closed with #1 Ethibond [id number] followed by Vicryl in the subcutaneous tissues staple in the skin arrays and checkpoints were removed prior to closure all counts were correct stab incisions were closed with a stable standard dressing in the form of Mepilex for the main incision Xeroform 4 x 4 and Tegaderm over pin site holes. Thigh-high NAHUN hose applied over top of dressing. Patient tolerated the procedure well and was directed to PACU in stable condition no intraoperative complications
[2019-09-26] MEDS: Lactated Ringers 1,000 ML 125 ML IV (14:39)
--- NOTE | 2019-09-26 16:14 | SUR.PHASEII ---
PT. UP WORKING WITH PHYSICAL THERAPY IN BATHROOM AND HAD EMESIS.
[2019-09-26] MEDS: Ondansetron 4 MG/2 ML Vial IV (16:33)
--- NOTE | 2019-09-26 16:38 | SUR.PHASEII ---
500 cc lr bolus running. using bag already hanging
[2019-09-26] MEDS: oxyCODONE 5 MG Tablet PO (18:19)
== END 2019-09-26 18:39 | disposition home or self-care (01) ==
LOC: SDC 05:31 → AC 05:31
PROVIDERS: Anesthesiology; PCP Internal Medicine; Referring Provider Orthopaedic Surgery; Visit Provider Orthopaedic Surgery
PROC: 0SRC0JZ Replacement of Right Knee Joint with Synthetic Substitute, Open Approach (ICD-10-PCS; CPT 27447; principal; 2019-09-26 07:00)
DX: M17.11 Unilateral primary osteoarthritis, right knee (principal); I10 Essential (primary) hypertension; Z11.59 Encounter for screening for other viral diseases; Z87.891 Personal history of nicotine dependence; Z96.652 Presence of left artificial knee joint; Z79.899 Other long term (current) drug therapy
CPT/HCPCS: 01402; 27447; 36415; 73560; 80048; 80076; 82962; 83735; 85025; 85610; 85730; 86850; 86900; 86901; 87081; 87635; 93005; 97161; 97166; C1776; G2023; J7120; J0702; J2405; J3475; J3490; U0003

== ENCOUNTER → 2019-11-06 10:45 | Outpatient (CLI) | payer BC, SELFPAY ==
[2019-10-09 10:55] VITALS: BMI 32.1
--- NOTE | 2019-11-06 10:46 | RAD_ITS ---
STUDY: X-RAY - RIGHT KNEE REASON FOR EXAM: Female, 59 years old. Postop TECHNIQUE: 4 view(s) of the knee. COMPARISON: 09/26/19 FINDINGS: There is no evidence of fracture or dislocation. There are stable postsurgical changes from right knee arthroplasty with intact hardware in satisfactory alignment. There are no radiodense foreign bodies. RAD/Knee 4 or More Views IMPRESSION: Stable postsurgical changes from right knee arthroplasty with intact hardware in satisfactory alignment. No fracture or dislocation. Electronically Signed: Randall Mcduffie, at 19:29 EDT Tel , Service support ,
== END ==
PROVIDERS: PCP Internal Medicine; Referring Provider Orthopaedic Surgery; Visit Provider Orthopaedic Surgery
DX: Z47.89 Encounter for other orthopedic aftercare (principal)
CPT/HCPCS: 73564

== ENCOUNTER 2019-12-16 10:00 | Outpatient (RCR) | payer BC, SELFPAY ==
[2019-05-21 08:28] VITALS: BMI 31.9
[2019-09-26 06:09] VITALS: BMI 32.1
--- NOTE | 2019-09-27 14:09 | HP.PTEVAL ---
Patient's Visit Information ELIAS CARY is a 59 year old F referred to Physical Therapy by Dr. Lui Mc DO with a diagnosis of S/P R TKR on 09-26-2019. Date of Evaluation: 09/27/19 Physical Therapist: CHUCK Cox - Visit Plan Frequency: 3x /Week Duration: 2 Months Plan: 3X/ week for 8 weeks for R knee AROM, PROM, AAROM, strengthening of hip and knee, gait training, functional activities such as stairs or curb steps with HEP and ice as needed. HEP: heel slides, QS, AP, and SLR - Subjective Pt has surgery yesterday, September 26, 2019. She had a nerve block as well. She went home last night about 6:30 and did ok. She has 4 steps into the house with a railing or her walker. Everything else is on one floor. She has grown kids that live with her and help her out. She sleeps in her chair right now in the living room. Pt reports that she is able to bend this knee easier than her L TKR and this one was done with the robot. She is sleeping as usual. SHe is taking her pain meds and blood thinner. She has been doing some ankle pumps at home. - Pain R knee pain Pain Intensity (Out of 10): 8 - Objective Gait: walked back to the treatment area with a rolling walker and good stride, good heel to toe pattern and some bend of the R knee with gait. R knee girth measurments: 39.6, 44.6, 48.6. L knee girth measurements: 37.3, 42.9, 43.8. Pt is able to light AA SLR 2 X 10 with some increase muscle burn. R knee AROM: -2 degrees from full extension and 82 degrees flexion. Pt was able to ride the nu-step X 5 min to increase circulation - Goals Goal 1:: I HEP Goal Time Frame: 6-8 Weeks Goal 2:: Increase R knee AROM 0-120 degrees R knee flexion Goal Time Frame: 6-8 Weeks Goal 3:: Be able to walk without an AD with normal stride and equal weightbearing through B LE's Goal Time Frame: 6-8 Weeks Goal 4:: Be able to go up and down stairs recip with 1 handrail wtih no signs of weakness Goal Time Frame: 6-8 Weeks - Rehabilitation Potential Rehabilitation Potential: Good - Anticipated Interventions Patient/Client Instruction: Educate patient on: Condition, Plan of Care For the Purpose of:: To decrease pain, To decrease swelling/inflammation, To increase ROM, To improve nutrient delivery to tissue, To increase oxygenation perfusion, To improve muscle performance and motor function, To improve ability to perform ADL's, To increase tolerance to activity/condition/position, To improve performance and independence with ADL's, To decrease level of supervision to perform tasks, To improve ability of physical actions for home/community/work/leisure, To improve gait and locomotor functions, To improve health of tissue, To decrease soft tissue restriction, To increase flexibility/ROM, To improve balance Therapeutic Exercise to Include: Strength training, Balance training, Postural training, Flexibilty training, Gait and locomotor training, Passive ROM, Active ROM For the Purpose of:: To decrease pain, To decrease swelling/inflammation, To increase ROM, To improve nutrient delivery to tissue, To increase oxygenation perfusion, To improve muscle performance and motor function, To improve ability to perform ADL's, To increase tolerance to activity/condition/position, To improve performance and independence with ADL's, To decrease level of supervision to perform tasks, To improve ability of physical actions for home/community/work/leisure, To improve gait and locomotor functions, To decrease soft tissue restriction, To increase flexibility/ROM, To improve endurance, To improve balance Functional Training to Include: Gait training For the Purpose of:: To improve gait and locomotor functions Cryotherapy (ice pack, ice massage): Yes For the Purpose of:: To decrease pain, To decrease swelling/inflammation Thank you for the opportunity to evaluate your patient. For Medicare and Medicare HMO plans, please review the plan of care and approve it. It will need to be FAXED BACK to us at [phone] for Medicare purposes. For Medicare only, by signing this I certify the plan of care. Please let me know if there are questions or concerns regarding this plan of care. Physician Signature: Date:
--- NOTE | 2019-10-28 12:11 | HP.PTREVAL_ITS ---
Dr. Lui Mc, DO, It has been my pleasure to treat ELIAS CARY over the last 14 visits for S/P R TKR on 09-26-2019. Please see the progress note below for an update on the physical therapy plan of care! Subjective: Pt reports that she has no pain but her knee feels heavy and stiff today. She is walking around at home and into the dept today without the walker. RTD on the . Last couple of nights it has hurt at night but she is up on her feet more. Objective/Function: 0-115 degrees. stairs up and down recip with 2 hand rails with some hesitency. Walks with decrease knee flexion with gait Plan Plan: Add Leg Press and squats next visit. 3X/ week for 8 weeks for R knee AROM, PROM, AAROM, strengthening of hip and knee, gait training, functional activities such as stairs or curb steps with HEP and ice as needed. HEP: heel slides, QS, AP, and SLR Goals Goal 1:: I HEP Goal Time Frame: 6-8 Weeks Goal 2:: Increase R knee AROM 0-120 degrees R knee flexion Goal Time Frame: 6-8 Weeks Goal Progress: Progressing Goal 3:: Be able to walk without an AD with normal stride and equal weightbearing through B LE's Goal Time Frame: 6-8 Weeks Goal Progress: Progressing Goal 4:: Be able to go up and down stairs recip with 1 handrail wtih no signs of weakness Goal Time Frame: 6-8 Weeks Goal Progress: Progressing Anticipated Interventions Patient/Client Instruction: Educate patient on: Condition, Plan of Care For the Purpose of:: To decrease pain, To decrease swelling/inflammation, To increase ROM, To improve nutrient delivery to tissue, To increase oxygenation perfusion, To improve muscle performance and motor function, To improve ability to perform ADL's, To increase tolerance to activity/condition/position, To impro ve performance and independence with ADL's, To decrease level of supervision to perform tasks, To improve ability of physical actions for home/community/work/leisure, To improve gait and locomotor functions, To improve health of tissue, To decrease soft tissue restriction, To increase flexibility/ROM, To improve balance Therapeutic Exercise to Include: Strength training, Balance training, Postural training, Flexibilty training, Gait and locomotor training, Passive ROM, Active ROM For the Purpose of:: To decrease pain, To decrease swelling/inflammation, To increase ROM, To improve nutrient delivery to tissue, To increase oxygenation perfusion, To improve muscle performance and motor function, To improve ability to perform ADL's, To increase tolerance to activity/condition/position, To improve performance and independence with ADL's, To decrease level of supervision to perform tasks, To improve ability of physical actions for home/community/work/leisure, To improve gait and locomotor functions, To decrease soft tissue restriction, To increase flexibility/ROM, To improve endurance, To improve balance Functional Training to Include: Gait training For the Purpose of:: To improve gait and locomotor functions Cryotherapy (ice pack, ice massage): Yes For the Purpose of:: To decrease pain, To decrease swelling/inflammation Please do not hesitate to contact me at [phone] by phone or if you have questions or concerns regarding this new plan of care! Sincerely, Emilee Massey, MPT
--- NOTE | 2019-12-16 10:28 | HP.PTEVAL ---
Patient's Visit Information ELIAS CARY is a 59 year old F referred to Physical Therapy by Dr. Lui Mc DO with a diagnosis of S/P R TKR on 09-26-2019. Date of Evaluation: 09/27/19 Physical Therapist: CHUCK Cox - Visit Plan Frequency: 3x /Week Duration: 2 Months Plan: DC PT to HEP - Subjective Pt has surgery yesterday, September 26, 2019. She had a nerve block as well. She went home last night about 6:30 and did ok. She has 4 steps into the house with a railing or her walker. Everything else is on one floor. She has grown kids that live with her and help her out. She sleeps in her chair right now in the living room. Pt reports that she is able to bend this knee easier than her L TKR and this one was done with the robot. She is sleeping as usual. SHe is taking her pain meds and blood thinner. She has been doing some ankle pumps at home. - Pain R knee pain Pain Intensity (Out of 10): 1 Comment: stiff and sore - Objective Gait: walked back to the treatment area with a rolling walker and good stride, good heel to toe pattern and some bend of the R knee with gait. R knee girth measurments: 39.6, 44.6, 48.6. L knee girth measurements: 37.3, 42.9, 43.8. Pt is able to light AA SLR 2 X 10 with some increase muscle burn. R knee AROM: -2 degrees from full extension and 82 degrees flexion. Pt was able to ride the nu-step X 5 min to increase circulation - Goals Goal 1:: I HEP Goal Time Frame: 6-8 Weeks Goal 2:: Increase R knee AROM 0-120 degrees R knee flexion Goal Time Frame: 6-8 Weeks Goal 3:: Be able to walk without an AD with normal stride and equal weightbearing through B LE's Goal Time Frame: 6-8 Weeks Goal 4:: Be able to go up and down stairs recip with 1 handrail wtih no signs of weakness Goal Time Frame: 6-8 Weeks - Rehabilitation Potential Rehabilitation Potential: Good - Anticipated Interventions Patient/Client Instruction: Educate patient on: Condition, Plan of Care For the Purpose of:: To decrease pain, To decrease swelling/inflammation, To increase ROM, To improve nutrient delivery to tissue, To increase oxygenation perfusion, To improve muscle performance and motor function, To improve ability to perform ADL's, To increase tolerance to activity/condition/position, To improve performance and independence with ADL's, To decrease level of supervision to perform tasks, To improve ability of physical actions for home/community/work/leisure, To improve gait and locomotor functions, To improve health of tissue, To decrease soft tissue restriction, To increase flexibility/ROM, To improve balance Therapeutic Exercise to Include: Strength training, Balance training, Postural training, Flexibilty training, Gait and locomotor training, Passive ROM, Active ROM For the Purpose of:: To decrease pain, To decrease swelling/inflammation, To increase ROM, To improve nutrient delivery to tissue, To increase oxygenation perfusion, To improve muscle performance and motor function, To improve ability to perform ADL's, To increase tolerance to activity/condition/position, To improve performance and independence with ADL's, To decrease level of supervision to perform tasks, To improve ability of physical actions for home/community/work/leisure, To improve gait and locomotor functions, To decrease soft tissue restriction, To increase flexibility/ROM, To improve endurance, To improve balance Functional Training to Include: Gait training For the Purpose of:: To improve gait and locomotor functions Cryotherapy (ice pack, ice massage): Yes For the Purpose of:: To decrease pain, To decrease swelling/inflammation Thank you for the opportunity to evaluate your patient. For Medicare and Medicare HMO plans, please review the plan of care and approve it. It will need to be FAXED BACK to us at [phone] for Medicare purposes. For Medicare only, by signing this I certify the plan of care. Please let me know if there are questions or concerns regarding this plan of care. Physician Signature: Date:
--- NOTE | 2020-01-22 12:37 | HP.PTDCSUM ---
It has been my pleasure to treat ELIAS CARY referred by Dr. Lui Mc DO, with the diagnosis of S/P R TKR on 09-26-2019 for a total of 30 visit(s). Discharge Date: 12/16/19 Please see the following information for a summary of their discharge status. Subjective: Pt RTD on Mon and she will probably be ready to go back on . Her R is still stiff and swells from time to time. She can do most things but still painful and swollen. It also bothers her across her LB. Her back catches. 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 R knee pain Pain Intensity (Out of 10): 1 % Improvement: 90 Objective/Function: R knee AROM: 0-120 degrees R knee flexion. Stairs : up and down recip with 1 hand rail.... seems to be a little harder to ascend leading with her L. Gait: normal gait pattern with smooth non antalgic gait. Goal 1:: I HEP Goal Progress: Goal Met Goal 2:: Increase R knee AROM 0-120 degrees R knee flexion Goal Progress: Goal Met Goal 3:: Be able to walk without an AD with normal stride and equal weightbearing through B LE's Goal Progress: Goal Met Goal 4:: Be able to go up and down stairs recip with 1 handrail wtih no signs of weakness Goal Progress: Progressing Plan: DC PT to HEP Discharge Comments: DC PT to HEP If there are questions or concerns regarding this patient's physical therapy, please feel free to call me at [phone]. Thank you for the referral of this patient. Sincerely, Emilee Massey, MPT
== END 2019-12-16 19:00 | disposition home or self-care (01) ==
LOC: PT 10:00
PROVIDERS: PCP Internal Medicine; Referring Provider Orthopaedic Surgery; Visit Provider Orthopaedic Surgery
DX: Z47.1 Aftercare following joint replacement surgery (principal); Z96.651 Presence of right artificial knee joint
CPT/HCPCS: 97110; 97161; 97530

== ENCOUNTER → 2020-02-10 | Outpatient (CLI) | payer BC, SELFPAY ==
[2019-12-18 07:55] VITALS: BMI 32.1
== END | disposition home or self-care (01) ==
LOC: LABSPEC 17:37
PROVIDERS: PCP Internal Medicine; Referring Provider Internal Medicine; Visit Provider Internal Medicine
DX: Z20.828 Contact with and (suspected) exposure to other viral communicable diseases (principal)
CPT/HCPCS: 87635; C9803; U0003

== ENCOUNTER 2020-04-24 05:53 | Emergency (ER) | payer BC, SELFPAY ==
[2020-04-24 05:54] VITALS: BP 198/121; PULSE 92; RESP 18; TEMP 36.8; O2SAT 97; BMI 34.5
[2020-04-24 06:04] VITALS: BP 179/129
--- NOTE | 2020-04-24 06:16 | CT_ITS ---
HEADACHE SINCE LAST NIGHT TECHNIQUE: Multiple axial images were obtained of the brain without intravenous contrast. A radiation dose optimization technique was used for this scan. IV Contrast dosage and agent: None. COMPARISON: July 16, 2018 FINDINGS: # of images incl. paperwork: 244 INFARCT: None HEMORRHAGE: None PARENCHYMAL ATTENUATION:Normal for age MASS: None MIDLINE SHIFT: None BASAL CISTERNS: Patent VENTRICLES: Normal in size and configuration for age PARANASAL SINUSES:Clear MASTOID AIR CELLS: Clear ORBITS:No acute pathology CALVARIUM: No acute pathology OTHER TISSUES: No acute pathology ASPECTS Score for Acute Strokes: 10 CT/Brain/Head without Contrast IMPRESSION: No acute intracranial pathology. If symptoms persist consider mri for further evaluation if clinically indicated. Individualized dose optimization techniques were used for this CT. at 0658 Reported and signed by: Rosario Box DO Electronically Signed: Rosario Box DO at 6:57 EST Tel , Service support ,
--- NOTE | 2020-04-24 06:16 | RAD_ITS ---
HISTORY: patient with severe headache and chest tightness that started last night prior to going to sleep. patient states her dogs got into a fight last night which is when this pain started. EXAM: XR Chest 1 View: COMPARISON: February 24, 2018 FINDINGS: # of images incl. paperwork: 1 Calcific plaque in the aortic arch Minimal linear blunting in the left lower lobe is different but similar in appearance to the previous study in May BE the same scarring and/or atelectasis within the left lower lobe but with a different projection between AP and PA Heart is not enlarged. No acute osseous pathology perceived. Pulmonary vascularity is distinct. No effusions. RAD/Chest 1 View (Portable) IMPRESSION: No change. No acute disease.. at 0642 Reported and signed by: Alec Woodard MD Electronically Signed: Alec Woodard MD at 6:41 EST Tel , Service support ,
--- NOTE | 2020-04-24 06:16 | EKG12_ITS ---
Test Reason : CP Blood Pressure : / mmHG Vent. Rate : 085 BPM Atrial Rate : 085 BPM P-R Int : 156 ms QRS Dur : 096 ms QT Int : 386 ms P-R-T Axes : 038 -23 031 degrees QTc Int : 459 ms Normal sinus rhythm Normal ECG Confirmed by ZACKARY PEÑA, LUCY ([id number]), editor book JAYSON DELACRUZ ([id number]) on 04/28/2020 10:47:54 AM Referred By: DOLLY Confirmed By:LUCY RAYMUNDO MD
--- NOTE | 2020-04-24 06:18 | ED.VIS.GEN ---
History of Present Illness Chief Complaint: Headache Informant: Patient Narrative: Patient stated she started having a headache last night gradual onset after breaking up a fight between her dogs. Frontal and posterior head aching. She tried some ibuprofen with moderate relief of symptoms. She stated that she laid down to go to bed and was able to sleep for a while and woke up and the headache was still there. She does have history of remote migraine several years ago. She does not get frequent headaches anymore. Light slightly bothers her eye. She has some nausea with. Current severity is moderate. She had to break up another fight with her dogs this morning which exacerbated her headache. She stated when the fight Between her dog she also had some anxiety and chest discomfort afterwards. She describes a heaviness in her chest afterwards. This went away. It came back again this morning when she broke up the dogs. She has no cardiac history. She stated she did take her blood pressure and it was elevated at home which concerned her. She has not been taking her blood pressure medications which are amlodipine lisinopril for the last 3 weeks. She has got a chance to go to the pharmacy to get a refill. She has never had a stress test or heart or heart cath. No history of cerebral aneurysms. Negative CT of the head in 2019. Denies any pulmonary embolism risk factors. 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 (5) Claudication Status: Chronic (6) Hypertension Status: Chronic (7) Osteoarthritis Status: Chronic (8) Osteoarthritis of left knee Status: Chronic (9) Osteoarthritis, knee Status: Chronic (10) Polyosteoarthritis Status: Chronic (11) Prepatellar bursitis, unspecified knee Status: Chronic (12) Shortness of breath Status: Chronic (13) Uterine prolapse Status: Chronic Past Medical History - Allergies and Home Meds Allergies/Adverse Reactions: Allergies Sulfa (Sulfonamide Antibiotics) Allergy (Mild, Verified 04/24/20 05:58) unknown hydrocodone [From Vicodin] Allergy (Verified 04/24/20 05:58) Vomiting Primary Care Physician: Sapna Mcnair MD [Primary Care Provider] - Prior records reviewed: Yes Past Medical History: - - See problem list Surgical History: noncontributory Lives: With Family Smoking Status: Former smoker Alcohol: None Drugs: None Review of Systems General: Denies: Chills, Fever, Sweats Eyes: Denies: Visual changes - bilaterally, Diplopia ENT: Denies: Rhinorrhea, Sore throat Cardiovascular: Reports: Chest pain. Denies: Palpitations Respiratory: Denies: Dyspnea, Cough, Dyspnea on exertion Gastrointestinal: Denies: Abdominal pain, Nausea, Vomiting, Diarrhea, Melena, Hematochezia Genitourinary: Denies: Dysuria, Hematuria, Frequency Musculoskeletal: Denies: Back pain, Extremity Pain Skin: Denies: Rash, Wounds Neurological: Reports: Headache. Denies: Weakness, Numbness Physical Exam Vital Signs/Narrative: Vital Signs Temp Pulse Resp BP Pulse Ox 04/24/20 06:04 179/129 H 04/24/20 05:54 98.2 F 92 18 198/121 H 97 General: Well nourished, Well developed, No Acute Distress Head: Normocephalic, Atraumatic Eyes: Perrl, EOMI ENT: Moist mucous membranes, No rhinorrhea Neck: Supple, Nontender Cardiovascular: Regular rate, Regular rhythm, No murmurs Respiratory: No distress, CTA bilaterally, Chest nontender Abdomen: Soft, Nontender, Nondistended, Normal bowel sounds Back: Nontender, Normal Inspection Extremities: Nontender, No edema Skin: Normal color, No rash Neurological: Alert, Oriented x3, Cranial nerves II-XII grossly intact, Normal Strength, Normal Sensation Psychological: Normal affect, Normal Mood Diagnostic/Tx/Re-eval - Medical Decision Making EKG obtained upon arrival shows normal sinus rhythm at a rate of 85 by my interpretation. No acute ischemia. IV established and patient given Toradol for her headache. CT head obtained. Lab work and chest x-ray obtained. Patient given a dose of labetalol for her elevated blood pressure. It is 179/129 upon arrival. Lab work shows a normal CBC BMP and troponin. This is a troponin that is greater than 6 hours old. My interpretation the chest x-ray shows chronic changes with no acute findings. CT head negative without any acute findings. Evaluation the patient is resting comfortably. Her headache is resolved. Her blood pressures down to 150 systolic. I feel this is likely blood pressure related. Probably some anxiety on top of that as well given the fact that her dogs were fighting. I do not think she has an acute coronary syndrome PE or dissection or head bleed. Her heart score is 2. I feel she can go home and follow-up as an outpatient. She will be given a new prescription for her her amlodipine and lisinopril and she will start taking this today. ED Disposition - Plan for ED Patient: Disposition: Home or Assisted Living Diagnosis: Hypertension, Headache, Chest pain at rest Instructions: ED Chest Pain, Noncardiac, ED Hypertension, Established, ED Headache Unspecified Prescriptions: Amlodipine [Norvasc] 10 mg PO DAILY #30 tab Prescription Printed Lisinopril [Zestril] 10 mg PO DAILY #30 tab Prescription Printed Referrals: Sapna Mcnair MD [Primary Care Provider] -
[2020-04-24 06:23] LABS: Absolute Lymphocyte Count 0.77 X10^3/uL (0.83-4.51); Absolute Neutrophil Count 6.2 X10^3/uL (2.0-7.7); Basophil# 0.02 X10^3/uL; Basophil% 0.3 % (0-1); Eosinophils% 1.3 % (0-5); Hematocrit 44.9 % (37-47); Hemoglobin 14.5 g/dL (12.0-15.0); Lymphocyte # 0.77 X10^3/ul (4.0); Lymphocyte % 10.2 % (19-41); Mean Corp Hgb Conc 32.3 g/dL (32-36); Mean Corpuscular Hgb 29.1 pg (27.0-32.0); Mean Corpuscular Volume 90.2 fL (81-99); Mean Platelet Vol. 9.1 fl (6.2-12.0); Monocyte# 0.39 X10^3/uL; Monocyte% 5.2 % (0-10); NRBC Flagged by Analyzer 0 % (0-5); Neutrophil # 6.24 X10^3/uL (2.7-7.7); Neutrophil % 82.6 % (47-70); Platelet Count 248 K/mm3 (150-450); RBC Distribution Width CV 12.9 % (11.6-14.6); Red Blood Count 4.98 M/mm3 (4.2-5.4); White Blood Count 7.6 K/mm3 (4.4-11.0)
[2020-04-24] MEDS: 0.9% Normal Saline 1,000 ML 999 ML IV (06:24)
[2020-04-24] MEDS: Labetalol (Prefilled) 20 MG/4 ML 10 MG IV (06:25)
[2020-04-24] MEDS: Ketorolac 15 MG/ML Vial IV (06:27)
[2020-04-24 06:48] LABS: Anion Gap 6 (5-15); BUN 17 mg/dL (7-18); BUN/Creat Ratio 20.9 RATIO (10-20); Chloride 104 mmol/L (98-107); Creatinine, Serum 0.81 mg/dL (0.55-1.02); EST Glomerular Filtration Rate 77 mL/min (>60); Est Glom Filt Rate - Afr Amer 93 mL/min (>60); Estimated Creatinine Clearance 64.58 ml/min; Glucose 108 mg/dL (74-106); Potassium 3.6 mmol/L (3.5-5.1); Sodium Level 139 mmol/L (136-145)
[2020-04-24 07:07] VITALS: BP 159/109; PULSE 80; RESP 12; O2SAT 95
[2020-04-24 07:49] VITALS: BP 158/104; PULSE 78; RESP 16; O2SAT 97
== END 2020-04-24 07:51 | disposition home or self-care (01) ==
PROVIDERS: Emergency Provider Emergency Medicine; PCP Internal Medicine
DX: R07.89 Other chest pain (principal); R51.9 Headache, unspecified; I10 Essential (primary) hypertension; M17.12 Unilateral primary osteoarthritis, left knee; Z91.14 Patient's other noncompliance with medication regimen; Z87.891 Personal history of nicotine dependence
CPT/HCPCS: 70450; 71045; 80048; 84484; 85025; 93005; 96361; 96374; 96375; 99284; J7030; A4216

== ENCOUNTER 2020-08-20 09:35 | Inpatient (IN) | payer BC, SELFPAY ==
[2020-08-18 17:15] VITALS: BMI 35.0
[2020-08-20 09:36] VITALS: BP 159/87; PULSE 85; RESP 18; TEMP 36.6; O2SAT 96; BMI 34.8
--- NOTE | 2020-08-20 09:51 | EDS_ITS ---
HPI History of Present Illness Chief Complaint: Bite Narrative Narrative: Patient presents with a right hand cat bite for 5 days. She was started on Augmentin 2 days ago now her wound is worse. She is now feeling pain in her upper arm and right axilla. She is denying any fevers. She has no chest pain or shortness of breath. This is her own cat. ROS ROS ED ROS Narrative Past medical history: Hypertension, osteoarthritis, history of TMJ, otherwise noncontributory. Medications: Reviewed, includes Augmentin Social history: Noncontributory Review of systems: All systems negative except as indicated General: No fever Neck: No neck pain Cardiovascular: No chest pain Respiratory: No shortness of breath or cough Gastrointestinal: No abdominal pain Genitourinary: No dysuria Musculoskeletal: As in HPI Skin: As in HPI Neurological: No memory loss, confusion or any focal weakness Psych: No recent behavioral changes Hematologic: No easy bleeding or easy bruising PFSH PFSH Medical History (Updated 08/20/20 @ 10:[address] Twin Oleary MD) Arthritis Hahn's palsy Fatigue Hypertension Knee pain NECK AND BACK PAIN Osteoarthritis Shortness of breath Home Medications comp.stocking,thigh,long,large #2 ea 11/21/18 [Rx Last Taken Unknown] acetaminophen 1,000 mg PO Q8 #100 tab 09/26/19 [Rx Last Taken Unknown] amlodipine 10 mg PO DAILY #30 tab 04/24/20 [Rx Last Taken Unknown] lisinopril 10 mg PO DAILY #30 tab 04/24/20 [Rx Last Taken Unknown] oxybutynin chloride 5 mg tablet 5 mg PO QHS #90 tab 08/05/20 [Rx Last Taken Unknown] triamterene 37.5 mg-hydrochlorothiazide 25 mg tablet 1 tab PO QDAY #90 tab 08/05/20 [Rx Last Taken Unknown] amoxicillin 875 mg-potassium clavulanate 125 mg tablet 1 tab PO Q12H 10 Days #20 tab 08/18/20 [Rx Last Taken Unknown] Allergy/AdvReac Type Severity Reaction Status Date / Time Sulfa (Sulfonamide Allergy Mild unknown Verified 08/20/20 09:38 Antibiotics) hydrocodone [From Vicodin] Allergy Vomiting Verified 08/20/20 09:38 Family History Mother Heart disease Hypertension Father Heart disease Hypertension Surgical History History of History of tonsillectomy History of total left knee replacement S/P S/P tonsillectomy Total vaginal hysterectomy, bilateral salpingectomy, uterosa Social History Smoking Status: Former smoker Tobacco: How many years used: 20 how long ago did patient quit smokin alcohol intake: never details: social substance use type: does not use and painkillers caffeine: Yes what type of physical activity do you participate in: none seatbelt use: always do you feel safe at home: Yes additional social history: - Phu Amadeo EXAM Physical Exam Narrative Exam Narrative: Physical exam General: Patient appears relatively comfortable in bed. Head: Normocephalic, Atraumatic Eyes: Conjunctiva not pale ENT: Moist mucous membranes Neck: Supple, Nontender, No lymphadenopathy Cardiovascular: Regular rate, Regular rhythm Respiratory: No distress, CTA bilaterally Abdomen: Soft, Nontender, Nondistended Extremities: Right hand reveals good bit of pain around the dorsum of the second MCP region. She does have some pain with flexion of that joint distally she has no pain over the flexor tendon and there is some slight proximal swelling but it is not symmetric. There is slight lymphangitic streaking [facility] to the elbow. Distal sensation and capillary refill is intact. She has quite a bit of pain when I palpate her axilla however I do not feel any actual lymph nodes. Skin: As above Neurological: Alert, Normal Strength, Normal Sensation Const Vital Signs: 08/20/20 09:36 Temperature 98 F Temperature Source Temporal Pulse Rate 85 Respiratory Rate 18 Blood Pressure 159/87 H Blood Pressure Mean 111 Pulse Ox 96 Oxygen Delivery Method Room Air MDM MDM MDM Narrative Medical decision making narrative: Patient has a cat bite however there is no significant signs of flexor tenosynovitis, there is no signs of an abscess, there is pain around the MCP but on evaluation and reevaluation she has minimal pain in the joint most of her pain is on the radial side where there is some redness. Thus I do not believe there is any joint involvement no abscess and she simply has significant infection that failed outpatient treatment I believe she can be admitted to this facility, if she progresses and gets worsen and she needs hand surgeon she can be transferred at this time I do not believe she needs a hand specialist. She was on Augmentin therefore I started her on Levaquin and clindamycin. Lab Data Labs: Laboratory Results - last 24 hr 08/20/20 08/20/20 10:05 10:05 WBC 6.8 RBC 4.36 Hgb 12.7 Hct 40.6 MCV 93.1 MCH 29.1 MCHC 31.3 L RDW Std Deviation 44.7 H RDW Coeff of Jules 13.1 Plt Count 265 MPV 9.0 Immature Gran % (Auto) 0.300 Neut % (Auto) 75.3 H Lymph % (Auto) 13.8 L [place] % (Auto) 8.3 Eos % (Auto) 1.9 Baso % (Auto) 0.4 Absolute Neuts (auto) 5.1 Absolute Lymphs (auto) 0.93 Nucleated RBC % 0 ESR 13 Sodium 141 Potassium 3.9 Chloride 110 H Carbon Dioxide 26.0 Anion Gap 5 BUN 16 Creatinine 0.56 Estim Creat Clear Calc 93.41 Est GFR (MDRD) Af Amer 142 Est GFR (MDRD) Non-Af 117 BUN/Creatinine Ratio 28.5 H Glucose 90 Calcium 8.6 Total Bilirubin 0.50 AST 12 L ALT 19 Alkaline Phosphatase 116 C-React Prot Ext Range 68.30 H Total Protein 6.9 Albumin 3.6 Globulin 3.3 Albumin/Globulin Ratio 1.1 Radiography Diagnostic Testing: Right hand x-ray 3 view interpreted by emergency doctor does not show any bony involvement there is soft tissue swelling. Discharge Plan Dx/Rx/DC Orders Clinical Impression: Cat bite Disposition Disposition: Acute Care [facility]
--- NOTE | 2020-08-20 10:11 | PCM.HP.STD ---
HPI - General General Date of Admission: 08/20/20 Chief Complaint: Swelling of the right hand HPI Narrative ELIAS CARY, is a 60 F who presents swelling and pain involving the right hand. Patient reported being bitten by a cat 5 days prior to her admission. Patient did notice some swelling involving the base of the right fourth finger as well as the dorsal surface of the right hand. Has been seen by her PCP prescribed Augmentin however symptoms did not improve hence decision for patient to present to the emergency department. An assessment of right hand cellulitis following cat bite was made started on broad-spectrum antibiotic therapy admitted to regular nursing floor for further management [facility] Medical History Arthritis Hahn's palsy Fatigue Former smoker HTN (hypertension) Hypertension Knee pain NECK AND BACK PAIN Osteoarthritis Shortness of breath Home Medications comp.stocking,thigh,long,large #2 ea 11/21/18 [Rx Last Taken Unknown] oxybutynin chloride 5 mg tablet 5 mg PO QHS #90 tab 08/05/20 [Rx Last Taken Unknown] triamterene 37.5 mg-hydrochlorothiazide 25 mg tablet 1 tab PO QDAY #90 tab 08/05/20 [Rx Last Taken Unknown] amoxicillin 875 mg-potassium clavulanate 125 mg tablet 1 tab PO Q12H 10 Days #20 tab 08/18/20 [Rx Last Taken Unknown] amlodipine 10 mg PO DAILY 08/20/20 [History Last Taken 08/19/20] ibuprofen 600 mg PO Q8H PRN 08/20/20 [History Last Taken 08/20/20 01:00 400 mg] lisinopril 10 mg PO DAILY 08/20/20 [History Last Taken 08/19/20] multivitamin 1 tab PO DAILY 08/20/20 [History Last Taken 08/19/20] Allergy/AdvReac Type Severity Reaction Status Date / Time Sulfa (Sulfonamide Allergy Mild unknown Verified 08/20/20 09:38 Antibiotics) hydrocodone [From Vicodin] Allergy Vomiting Verified 08/20/20 09:38 Family History Mother Heart disease Hypertension Father Heart disease Hypertension Surgical History History of History of tonsillectomy History of total left knee replacement S/P S/P tonsillectomy Total vaginal hysterectomy, bilateral salpingectomy, uterosa Social History Smoking Status: Former smoker Tobacco: How many years used: 20 how long ago did patient quit smokin alcohol intake: never details: social substance use type: does not use and painkillers caffeine: Yes what type of physical activity do you participate in: none seatbelt use: always do you feel safe at home: Yes additional social history: - Phu FAROOQ Constitutional Constitutional: Denies chills, fever(s) or weight loss Eyes Eyes: Denies change in vision, diplopia or discharge from eye(s) ENT HEENT: Denies dysphagia, epistaxis, nasal discharge or sore throat Cardiovascular Cardiovascular: Denies chest pain, lightheadedness or palpitations Respiratory/Chest Respiratory/Chest: Denies cough, dyspnea or wheezing Gastrointestinal Gastrointestinal: Denies abdominal pain, diarrhea, nausea or vomiting Genitourinary Genitourinary: Denies burning urination, flank pain or hematuria Musculoskeletal Musculoskeletal: Denies arthralgias, joint pain or myalgias Neurologic Neurologic: Denies abnormal gait, focal weakness, seizures or vertigo Psychiatric Psychiatric: Denies hallucinations, homicidal ideation or suicidal ideation Endocrine Endocrinology: Denies cold intolerance, excessive sweating or polydipsia Hematologic/Lymphatic Hematologic/Lymphatic: Denies easy bleeding or easy bruising Allergic/Immunologic Allergic/Immunologic: Denies itchy eyes, rhinitis or hives Vital Signs Vital Signs Vital Signs: 08/20/20 09:36 Temperature 98 F Temperature Source Temporal Pulse Rate 85 Respiratory Rate 18 Blood Pressure 159/87 H Blood Pressure Mean 111 Pulse Ox 96 Oxygen Delivery Method Room Air Physical Exam Narrative GENERAL: cooperative HEENT: Atraumatic; EYES; Anicteric, Normal Conjunctiva NECK; supple, normal thyroid, RESPIRATORY: Diminished to auscultation CARDIOVASCULAR: Regular S1 S2, GI: soft, normoactive bowel sounds, : No Renal angle tenderness; EXTREMITIES: Erythema and swelling involving the base of the forefinger with bite segura on the dorsal surface of the right hand MUSCULOSKELETAL: no muscle waisting NEURO: Awake; no lateralizing signs. SKIN: As described above PSYCH; Flat affect Lab / Micro Data Result Diagrams: 08/20/20 10:05 08/20/20 10:05 Assessment & Plan Assessment/Plan (1) Cat bite: (2) Hypertension: (3) Osteoarthritis: (4) Cellulitis of right hand: PLAN: Patient is a 60-year-old lady presented with a cat bite 1. Cat bite involving the right hand with cellulitis ?Patient had been treated with Augmentin did fail therapy admitted to regular nursing floor started on Rocephin and clindamycin consult placed to infectious disease 2. Hypertension - Blood pressure controlled, home medications continued with dose adjustment as needed 3. Morbid obesity - With a BMI of 33 patient was counseled on weight reduction 4. Generalized osteoarthritis ?Pain meds as needed 5. DVT prophylaxis ?Lovenox Visit Charges Inpatient E&M: 44916 Init Hosp L2
--- NOTE | 2020-08-20 10:12 | NURSING ---
DR MYRIAM COX
[2020-08-20 10:19] LABS: Erythrocyte Sedimentation Rate 13 mm/hr (0-30)
[2020-08-20 10:20] VITALS: BP 159/87; PULSE 98; RESP 18; TEMP 36.7; O2SAT 96
--- NOTE | 2020-08-20 10:20 | RAD_ITS ---
STUDY: X-RAY - RIGHT HAND REASON FOR EXAM: Right hand pain, swelling and draining pus from a cat bite. TECHNIQUE: 3 view(s) of the hand. COMPARISON: None. FINDINGS: Normal radiocarpal articulation. Normal distal radioulnar joint. Normal visualized carpal bones. Normal carpal articulations Normal carpometacarpal articulation of the thumb. Normal second through fifth carpometacarpal joints. Normal metacarpi. Normal metacarpophalangeal joint of the thumb. Normal interphalangeal joint of the thumb. Normal proximal and distal phalanges of the thumb. Normal metacarpophalangeal joints of the second through fifth fingers. There are marginal osteophytes and joint space narrowing of the second, third and fifth distal interphalangeal joints. Normal phalanges of the second through fifth fingers. There is soft tissue swelling at the level of the proximal second finger. RAD/Hand Min 3 Views IMPRESSION: Soft tissue swelling. Arthrosis of the second, third and fifth distal interphalangeal joints. Electronically Signed: Yung Mata MD at 10:43 EDT Tel , Service support ,
[2020-08-20 10:21] LABS: Absolute Lymphocyte Count 0.93 X10^3/uL (0.83-4.51); Absolute Neutrophil Count 5.1 X10^3/uL (2.0-7.7); Basophil# 0.03 X10^3/uL; Basophil% 0.4 % (0-1); Eosinophil# 0.13 X10^3/uL; Eosinophils% 1.9 % (0-5); Hematocrit 40.6 % (37-47); Hemoglobin 12.7 g/dL (12.0-15.0); Lymphocyte # 0.93 X10^3/ul (0.83-4.51); Lymphocyte % 13.8 % (19-41); Mean Corp Hgb Conc 31.3 g/dL (32-36); Mean Corpuscular Hgb 29.1 pg (27.0-32.0); Mean Corpuscular Volume 93.1 fL (81-99); Monocyte# 0.56 X10^3/uL; Monocyte% 8.3 % (0-10); NRBC Flagged by Analyzer 0 % (0-5); Neutrophil # 5.08 X10^3/uL (2.7-7.7); Neutrophil % 75.3 % (47-70); Platelet Count 265 K/mm3 (150-450); RBC Distribution Width CV 13.1 % (11.6-14.6); RBC Distribution Width SD 44.7 fl (35.1-43.9); Red Blood Count 4.36 M/mm3 (4.2-5.4); White Blood Count 6.8 K/mm3 (4.4-11.0)
--- NOTE | 2020-08-20 10:22 | NURSING ---
MED SURG KITTOE CAT BITE, FAILURE OF OUTPT TX
[2020-08-20 10:34] LABS: ALB/GLOB Ratio 1.1 RATIO (0.9-2.4); AST(SGOT) 12 U/L (15-37); Alanine Aminotransfer ALT/SGPT 19 U/L (13-56); Albumin, Serum 3.6 g/dL (3.2-5.0); Alkaline Phosphatase 116 U/L (45-117); Anion Gap 5 (5-15); BUN 16 mg/dL (7-18); BUN/Creat Ratio 28.5 RATIO (10-20); Calcium,Total 8.6 mg/dL (8.5-10.1); Chloride 110 mmol/L (98-107); Creatinine, Serum 0.56 mg/dL (0.55-1.02); EST Glomerular Filtration Rate 117 mL/min (>60); Est Glom Filt Rate - Afr Amer 142 mL/min (>60); Estimated Creatinine Clearance 93.41 ml/min; Globulin 3.3 g/dL (2.2-4.2); Glucose 90 mg/dL (74-106); Potassium 3.9 mmol/L (3.5-5.1); Protein, Total 6.9 g/dL (6.4-8.2); Sodium Level 141 mmol/L (136-145)
[2020-08-20] MEDS: levoFLOXacin IV 500 MG/100 ML BAG 100 MG IV (10:53)
[2020-08-20 10:55] VITALS: BP 160/87; PULSE 82; RESP 18; TEMP 37; O2SAT 99
[2020-08-20 11:28] VITALS: BMI 33.0
[2020-08-20 11:31] VITALS: BP 129/80; PULSE 78; RESP 18; TEMP 36.8; O2SAT 99
[2020-08-20] MEDS: Lactated Ringers 1,000 ML 125 ML IV (12:03)
[2020-08-20] MEDS: amLODIPine 10 MG Tablet PO (12:40)
[2020-08-20] MEDS: Multivitamins,Therapeutic Tablet 1 TABLET PO (12:40)
[2020-08-20] MEDS: Ibuprofen 600 MG Tablet PO ×2 (12:40→21:13)
[2020-08-20] MEDS: Lisinopril 10 MG Tablet PO (12:40)
[2020-08-20] MEDS: Triamterene 37.5MG/Hctz 25MG Capsule 1 CAP PO (13:10)
[2020-08-20 17:48] VITALS: BP 134/77; PULSE 86; RESP 18; TEMP 36.7; O2SAT 96
[2020-08-20 19:59] VITALS: BP 131/72; PULSE 81; RESP 16; TEMP 37.4; O2SAT 95
[2020-08-20] MEDS: Acetaminophen 500 MG Tablet PO (20:06)
[2020-08-20] MEDS: Oxybutynin 5 MG Tablet PO (21:13)
[2020-08-21 02:10] VITALS: BP 111/68; PULSE 61; RESP 16; TEMP 36.7; O2SAT 94
[2020-08-21] MEDS: Acetaminophen 500 MG Tablet PO ×3 (02:45→20:36)
[2020-08-21 04:48] LABS: Absolute Lymphocyte Count 1.28 X10^3/uL (0.83-4.51); Absolute Neutrophil Count 4.6 X10^3/uL (2.0-7.7); Basophil# 0.03 X10^3/uL; Basophil% 0.4 % (0-1); Eosinophil# 0.27 X10^3/uL; Hemoglobin 11.6 g/dL (12.0-15.0); Lymphocyte # 1.28 X10^3/ul (0.83-4.51); Lymphocyte % 18.9 % (19-41); Mean Corp Hgb Conc 31.4 g/dL (32-36); Mean Corpuscular Hgb 28.9 pg (27.0-32.0); Mean Corpuscular Volume 92.3 fL (81-99); Mean Platelet Vol. 8.9 fl (6.2-12.0); Monocyte# 0.59 X10^3/uL; Monocyte% 8.7 % (0-10); NRBC Flagged by Analyzer 0 % (0-5); Neutrophil # 4.55 X10^3/uL (2.7-7.7); Neutrophil % 67.4 % (47-70); Platelet Count 240 K/mm3 (150-450); RBC Distribution Width CV 12.9 % (11.6-14.6); RBC Distribution Width SD 43.9 fl (35.1-43.9); Red Blood Count 4.01 M/mm3 (4.2-5.4); White Blood Count 6.8 K/mm3 (4.4-11.0)
[2020-08-21 05:22] LABS: Anion Gap 6 (5-15); BUN 18 mg/dL (7-18); BUN/Creat Ratio 26.4 RATIO (10-20); Chloride 106 mmol/L (98-107); Creatinine, Serum 0.68 mg/dL (0.55-1.02); EST Glomerular Filtration Rate 94 mL/min (>60); Est Glom Filt Rate - Afr Amer 114 mL/min (>60); Estimated Creatinine Clearance 80.16 ml/min; Glucose 106 mg/dL (74-106); Sodium Level 139 mmol/L (136-145)
[2020-08-21] MEDS: Ibuprofen 600 MG Tablet PO ×3 (05:35→23:53)
--- NOTE | 2020-08-21 07:50 | PN.HOSP_ITS ---
Subjective Subjective Patient is a 60-year-old lady presented with a cat bite. Patient was started on broad-spectrum antibiotic therapy admitted to regular nursing floor for subsequent management Objective Data Objective Data Vital Signs: Vital Signs Temp Pulse Resp BP Pulse Ox 98.0 F 61 16 111/68 94 08/21/20 02:10 08/21/20 02:10 08/21/20 02:10 08/21/20 02:10 08/21/20 02:10 Oxygen Delivery Method Room Air Weight: 90.1 kg Body Mass Index (BMI) 33.0 Intake & Output: Intake and Output for Last 24 Hours 08/19/20 08/20/20 08/21/20 23:59 23:59 23:59 Intake Total 1700.42 / 1700.42 106 / 106 Balance 1700.42 / 1700.42 106 / 106 Lab / Micro Data Result Diagrams: 08/21/20 04:30 08/21/20 04:30 Labs: Laboratory Results - last 24 hr 08/20/20 08/20/20 08/21/20 10:05 10:05 04:30 WBC 6.8 6.8 RBC 4.36 4.01 L Hgb 12.7 11.6 L Hct 40.6 37.0 MCV 93.1 92.3 MCH 29.1 28.9 MCHC 31.3 L 31.4 L RDW Std Deviation 44.7 H 43.9 RDW Coeff of Jules 13.1 12.9 Plt Count 265 240 MPV 9.0 8.9 Immature Gran % (Auto) 0.300 0.600 Neut % (Auto) 75.3 H 67.4 Lymph % (Auto) 13.8 L 18.9 L Reagan % (Auto) 8.3 8.7 Eos % (Auto) 1.9 4.0 Baso % (Auto) 0.4 0.4 Absolute Neuts (auto) 5.1 4.6 Absolute Lymphs (auto) 0.93 1.28 Nucleated RBC % 0 0 ESR 13 Sodium 141 Potassium 3.9 Chloride 110 H Carbon Dioxide 26.0 Anion Gap 5 BUN 16 Creatinine 0.56 Estim Creat Clear Calc 93.41 Est GFR (MDRD) Af Amer 142 Est GFR (MDRD) Non-Af 117 BUN/Creatinine Ratio 28.5 H Glucose 90 Calcium 8.6 Magnesium Total Bilirubin 0.50 AST 12 L ALT 19 Alkaline Phosphatase 116 C-React Prot Ext Range 68.30 H Total Protein 6.9 Albumin 3.6 Globulin 3.3 Albumin/Globulin Ratio 1.1 08/21/20 04:30 WBC RBC Hgb Hct MCV MCH MCHC RDW Std Deviation RDW Coeff of Jules Plt Count MPV Immature Gran % (Auto) Neut % (Auto) Lymph % (Auto) Reagan % (Auto) Eos % (Auto) Baso % (Auto) Absolute Neuts (auto) Absolute Lymphs (auto) Nucleated RBC % ESR Sodium 139 Potassium 4.0 Chloride 106 Carbon Dioxide 27.0 Anion Gap 6 BUN 18 Creatinine 0.68 Estim Creat Clear Calc 80.16 Est GFR (MDRD) Af Amer 114 Est GFR (MDRD) Non-Af 94 BUN/Creatinine Ratio 26.4 H Glucose 106 Calcium 9.0 Magnesium 2.0 Total Bilirubin AST ALT Alkaline Phosphatase C-React Prot Ext Range Total Protein Albumin Globulin Albumin/Globulin Ratio Radiography Diagnostic Testing: Radiology Impression Hand X-Ray 08/20/20 10:20 IMPRESSION: Soft tissue swelling. Arthrosis of the second, third and fifth distal interphalangeal joints. Electronically Signed: Yung Mata MD at 10:43 EDT Tel , Service support , Physical Exam Narrative GENERAL: cooperative HEENT: Atraumatic; EYES; Anicteric, Normal Conjunctiva NECK; supple, normal thyroid, RESPIRATORY: Diminished to auscultation CARDIOVASCULAR: Regular S1 S2, GI: soft, normoactive bowel sounds, : No Renal angle tenderness; EXTREMITIES: Erythema and swelling involving the base of the forefinger with bite segura on the dorsal surface of the right hand MUSCULOSKELETAL: no muscle waisting NEURO: Awake; no lateralizing signs. SKIN: As described above PSYCH; Flat affect Assessment & Plan Assessment/Plan (1) Cat bite: (2) Hypertension: (3) Osteoarthritis: (4) Cellulitis of right hand: PLAN: Patient is a 60-year-old lady presented with a cat bite 1. Cat bite involving the right hand with cellulitis ?Patient had been treated with Augmentin did fail therapy admitted to regular nursing floor started on Rocephin and clindamycin consult placed to infectious disease -08/21/2020; remains on broad-spectrum antibiotic therapy and remains significantly swollen. 2. Hypertension - Blood pressure controlled, home medications continued with dose adjustment as needed 3. Morbid obesity - With a BMI of 33 patient was counseled on weight reduction 4. Generalized osteoarthritis ?Pain meds as needed 5. DVT prophylaxis ?Lovenox Visit Charges Inpatient E&M: 70367 Subs Hosp L2
[2020-08-21 08:35] VITALS: BP 113/73; PULSE 69; RESP 18; TEMP 36.7; O2SAT 96
[2020-08-21] MEDS: Multivitamins,Therapeutic Tablet 1 TABLET PO (08:37)
[2020-08-21] MEDS: Lisinopril 10 MG Tablet PO (08:37)
[2020-08-21] MEDS: amLODIPine 10 MG Tablet PO (08:37)
[2020-08-21] MEDS: Triamterene 37.5MG/Hctz 25MG Capsule 1 CAP PO (08:38)
--- NOTE | 2020-08-21 10:30 | CASEMGMT ---
RN CM Face to Face with patient for initial transition planning/care coordination assessment. RN CM introduced self and role at [facility]. Patient lying in bed, alert and oriented. Patient willing to participate in assessment and is able to answer all questions appropriately. Care providers, pharmacy, and demographics verified. Patient wishes to discharge home, denies need for home health at this time. Patient states she has no further needs or concerns at this time. CM to follow for discharge planning needs that may arise. PCP: Xu Specialists: Jesusita Schroeder Pharmacy: [facility] Insurance: Upplication Prescription Benefit: yes Living Will/HPOA: none LNOK: son, sister Living Arrangements: Patient lives with son in a 2 story home with bed and bath on the first floor. Patient states she is independent at home. Transportation: self, sister DME/HHC: Patient states she has shower chair, cane, walker at home. Patient has had previous HHC with [facility]. Disposition Plan: Patient to discharge home with family support and follow-up plans in place. Pati CHOWDARY, RN, CM
--- NOTE | 2020-08-21 13:34 | PCM.CONS.GEN ---
Assessment & Plan Assessment/Plan (1) Cat bite: (2) Cellulitis of right hand: PLAN: Improving, will narrow to unasyn to avoid risks associated with clinda. Likely augmentin was just slow to control the infection. If she is improved by tomorrow, recommend home with one more week po augmentin. Recommended she get covid vaccine after discharge. Will follow as needed, thank you HPI Consult Data Date of Consult: 08/21/20 HPI Narrative HPI Narrative: ELIAS CARY, is a 60 F, R handed, got bit by her indoor cat on 08/15 on her R hand. Cat is up to date on shots, acting normally. Bite josé blood, she washed with soap, water, used peroxide. Progressive R hand pain, swelling, redness. Went to urgent care 08/18, given augmentin, hand worsened, came to ED 08/20, admitted on clinda after dose of ceftriaxone. Hand improved, pain/redness/ROM improving. No fever, no n/v/d. Has not gotten covid shot after her sister had tongue swelling after her dose. Full ROS performed and neg except as noted above. [facility] Medical History Arthritis Hahn's palsy Fatigue Former smoker HTN (hypertension) Hypertension Knee pain NECK AND BACK PAIN Osteoarthritis Shortness of breath Home Medications comp.stocking,thigh,long,large #2 ea 11/21/18 [Rx Last Taken Unknown] oxybutynin chloride 5 mg tablet 5 mg PO QHS #90 tab 08/05/20 [Rx Last Taken Unknown] triamterene 37.5 mg-hydrochlorothiazide 25 mg tablet 1 tab PO QDAY #90 tab 08/05/20 [Rx Last Taken 08/19/20] amoxicillin 875 mg-potassium clavulanate 125 mg tablet 1 tab PO Q12H 10 Days #20 tab 08/18/20 [Rx Last Taken 08/20/20 07:00] amlodipine 10 mg PO DAILY 08/20/20 [History Last Taken 08/19/20] ibuprofen 600 mg PO Q8H PRN 08/20/20 [History Last Taken 08/20/20 01:00 400 mg] lisinopril 10 mg PO DAILY 08/20/20 [History Last Taken 08/19/20] multivitamin 1 tab PO DAILY 08/20/20 [History Last Taken 08/19/20] Allergy/AdvReac Type Severity Reaction Status Date / Time Sulfa (Sulfonamide Allergy Mild unknown Verified 08/20/20 09:38 Antibiotics) hydrocodone [From Vicodin] Allergy Vomiting Verified 08/20/20 09:38 Family History Mother Heart disease Hypertension Father Heart disease Hypertension Surgical History History of History of tonsillectomy History of total left knee replacement S/P S/P tonsillectomy Total vaginal hysterectomy, bilateral salpingectomy, uterosa Social History Smoking Status: Former smoker Tobacco: How many years used: 20 how long ago did patient quit smokin alcohol intake: never details: social substance use type: does not use and painkillers caffeine: Yes what type of physical activity do you participate in: none seatbelt use: always do you feel safe at home: Yes additional social history: - Phu Childs Physical Exam Const alert, oriented x3 and no apparent distress General Appearance: cooperative Exam Limitations: no limitations HEENT normocephalic and head/scalp atraumatic Eyes PERRL and EOMs intact bilaterally Neck supple and No nodes Resp normal air movement and clear to auscultation bilaterally Cardio regular rate and regular rhythm GI normal to inspection, nondistended, normoactive bowel sounds Extremity no clubbing, cyanosis or edema Skin Skin Narrative: R hand over 2nd MCP some redness and swelling, no drainage Neuro CN's II-XII intact bilaterally Lab / Micro Data Result Diagrams: 08/21/20 04:30 08/21/20 04:30 Labs: Laboratory Results - last 24 hr 08/21/20 08/21/20 04:30 04:30 WBC 6.8 RBC 4.01 L Hgb 11.6 L Hct 37.0 MCV 92.3 MCH 28.9 MCHC 31.4 L RDW Std Deviation 43.9 RDW Coeff of Jules 12.9 Plt Count 240 MPV 8.9 Immature Gran % (Auto) 0.600 Neut % (Auto) 67.4 Lymph % (Auto) 18.9 L [place] % (Auto) 8.7 Eos % (Auto) 4.0 Baso % (Auto) 0.4 Absolute Neuts (auto) 4.6 Absolute Lymphs (auto) 1.28 Nucleated RBC % 0 Sodium 139 Potassium 4.0 Chloride 106 Carbon Dioxide 27.0 Anion Gap 6 BUN 18 Creatinine 0.68 Estim Creat Clear Calc 80.16 Est GFR (MDRD) Af Amer 114 Est GFR (MDRD) Non-Af 94 BUN/Creatinine Ratio 26.4 H Glucose 106 Calcium 9.0 Magnesium 2.0
[2020-08-21 14:02] VITALS: BP 128/78; PULSE 81; RESP 16; TEMP 36.7; O2SAT 96
[2020-08-21 20:28] VITALS: BP 124/85; PULSE 71; RESP 18; TEMP 36.8; O2SAT 93
[2020-08-21] MEDS: Oxybutynin 5 MG Tablet PO (22:59)
[2020-08-22 03:05] VITALS: BP 107/70; PULSE 62; RESP 18; TEMP 36.8; O2SAT 92
[2020-08-22] MEDS: Acetaminophen 500 MG Tablet PO (03:13)
[2020-08-22 06:54] LABS: Absolute Lymphocyte Count 1.44 X10^3/uL (0.83-4.51); Absolute Neutrophil Count 4.4 X10^3/uL (2.0-7.7); Basophil# 0.03 X10^3/uL; Basophil% 0.5 % (0-1); Hematocrit 40.9 % (37-47); Lymphocyte # 1.44 X10^3/ul (0.83-4.51); Lymphocyte % 21.8 % (19-41); Mean Corp Hgb Conc 31.8 g/dL (32-36); Mean Corpuscular Hgb 29.1 pg (27.0-32.0); Mean Corpuscular Volume 91.7 fL (81-99); Monocyte# 0.54 X10^3/uL; Monocyte% 8.2 % (0-10); NRBC Flagged by Analyzer 0 % (0-5); Neutrophil # 4.38 X10^3/uL (2.7-7.7); Neutrophil % 66.2 % (47-70); Platelet Count 270 K/mm3 (150-450); RBC Distribution Width SD 43.5 fl (35.1-43.9); Red Blood Count 4.46 M/mm3 (4.2-5.4); White Blood Count 6.6 K/mm3 (4.4-11.0)
--- NOTE | 2020-08-22 07:16 | DS.PCM_ITS ---
Providers Date of Admission: 08/20/20 Primary Care Physician: Dr. Sapna Mcnair MD Consultations 08/20/20 11:08 Consult: Infectious Disease Routine Consulting Provider: Oliver Ochoa Reason for Consult: cat bite EMERGENT Consult: No MD Notified: Yes Date Notified:: 08/20/20 Time Notified: 11:08 Method of Notification: office Reason For Visit: CAT BITE Diagnosis Discharge Diagnosis (1) Cat bite: Status: Acute Code(s): W55.01XA - Bitten by cat, initial encounter (2) Cellulitis of right hand: Status: Acute Code(s): L03.113 - Cellulitis of right upper limb Medications at Discharge Home Medications comp.stocking,thigh,long,large #2 ea 11/21/18 oxybutynin chloride 5 mg tablet 5 mg PO QHS #90 tab 08/05/20 triamterene 37.5 mg-hydrochlorothiazide 25 mg tablet 1 tab PO QDAY #90 tab 08/05/20 amoxicillin 875 mg-potassium clavulanate 125 mg tablet 1 tab PO Q12H 10 Days #20 tab 08/18/20 amlodipine 10 mg PO DAILY 08/20/20 ibuprofen 600 mg PO Q8H PRN 08/20/20 lisinopril 10 mg PO DAILY 08/20/20 multivitamin 1 tab PO DAILY 08/20/20 Hospital Course Summary of Care Provided Minutes Spent on Discharge: 32 Hospital Course: Patient is a 60-year-old lady presented with a cat bite 1.? Cat bite involving the right hand with cellulitis ?Patient had been treated with Augmentin did fail therapy admitted to regular nursing floor started on Rocephin and clindamycin consult placed to infectious disease -08/21/2020; remains on broad-spectrum antibiotic therapy and remains significantly swollen. -08/22/2020; patient antibiotic therapy was changed to Unasyn after patient was seen in consultation by ID Dr. Ochoa. Recommended for resumption of Augmentin on discharge. Patient was instructed to present back to the ED if the swelling worsening or develop persistent fever chills. 2.? Hypertension - Blood pressure controlled, home medications continued with dose adjustment as needed 3.? Morbid obesity - With a BMI of 33 patient was counseled on weight reduction 4.? Generalized osteoarthritis ?Pain meds as needed 5.? DVT prophylaxis ?Lovenox Physical Exam Narrative GENERAL: cooperative HEENT: Atraumatic; EYES; Anicteric, Normal Conjunctiva NECK; supple, normal thyroid, RESPIRATORY: Diminished to auscultation CARDIOVASCULAR: Regular S1 S2, GI: soft, normoactive bowel sounds, : No Renal angle tenderness; EXTREMITIES: Erythema and swelling involving the base of the forefinger with significant reduction in the swelling compared to when she was admitted MUSCULOSKELETAL: no muscle waisting NEURO: Awake; no lateralizing signs. SKIN: As described above PSYCH; Flat affect ABG / Lab / Microbiology Data Result Diagrams: 08/22/20 06:22 08/22/20 06:22 Laboratory: Laboratory Results - last 24 hr 08/22/20 06:22 WBC 6.6 RBC 4.46 Hgb 13.0 Hct 40.9 MCV 91.7 MCH 29.1 MCHC 31.8 L RDW Std Deviation 43.5 RDW Coeff of Jules 13.0 Plt Count 270 MPV 9.0 Immature Gran % (Auto) 0.300 Neut % (Auto) 66.2 Lymph % (Auto) 21.8 [place] % (Auto) 8.2 Eos % (Auto) 3.0 Baso % (Auto) 0.5 Absolute Neuts (auto) 4.4 Absolute Lymphs (auto) 1.44 Nucleated RBC % 0 D/C Instructions Discharge Diet: No restrictions Discharge Activity: Return to Normal Activity Call your doctor if you observe: Fever of 101 or Higher, Change in Color, Shortness of breath, Fainting spells, Chest pain and Uncontrolled pain Meaningful Use Info Meaningful Use Diagnoses (Choose all that apply): None applicable Discharge Plan Admission Admit Date/Time: 08/20/20 10:20 Primary Reason for Your Visit: CAT BITE Attending Provider: Harinder Mcdonough Primary Care Provider: Sapna Mcnair Consulting Providers: Oliver Ochoa Instructions Forms: Work / School Excuse Discharge Orders/Prescriptions Prescriptions: Continued (DME) comp.stocking,thigh,long,large Misc See Rx Instructions .ROUTE .MEDSUPPLY Qty: 2 RF: 0 oxybutynin chloride 5 mg tablet 5 mg PO QHS Qty: 90 RF: 2 triamterene-hydrochlorothiazid 37.5-25 mg tablet 1 tab PO QDAY Qty: 90 RF: 3 amoxicillin-pot clavulanate [Augmentin] 875-125 mg tablet 1 tab PO Q12H 10 Days Qty: 20 RF: 0 multivitamin Tablet 1 tab PO DAILY RF: 0 ibuprofen 600 mg Tablet 600 mg PO Q8H PRN (Reason: Pain) RF: 0 amlodipine 10 MG tablet 10 mg PO DAILY RF: 0 lisinopril 10 MG tablet 10 mg PO DAILY RF: 0 Referrals / Follow Up: Sapna Mcnair MD [Primary Care Provider] - In 1 Week Disposition Disposition (needs filled in before D/C Order can be placed): Home, self care Visit Charges Inpatient E&M: 25705 Disch Hosp
[2020-08-22 07:18] LABS: Anion Gap 7 (5-15); BUN 24 mg/dL (7-18); Chloride 107 mmol/L (98-107); Creatinine, Serum 0.75 mg/dL (0.55-1.02); EST Glomerular Filtration Rate 84 mL/min (>60); Est Glom Filt Rate - Afr Amer 102 mL/min (>60); Estimated Creatinine Clearance 72.68 ml/min; Glucose 93 mg/dL (74-106); Potassium 4.4 mmol/L (3.5-5.1); Sodium Level 140 mmol/L (136-145)
[2020-08-22] MEDS: Multivitamins,Therapeutic Tablet 1 TABLET PO (08:26)
[2020-08-22] MEDS: Ibuprofen 600 MG Tablet PO (08:26)
[2020-08-22] MEDS: Triamterene 37.5MG/Hctz 25MG Capsule 1 CAP PO (08:26)
[2020-08-22] MEDS: amLODIPine 10 MG Tablet PO (08:26)
[2020-08-22] MEDS: Lisinopril 10 MG Tablet PO (08:26)
[2020-08-22 08:30] VITALS: BP 131/87; PULSE 72; RESP 18; TEMP 36.8; O2SAT 97
--- NOTE | 2020-08-22 09:55 | PCM.DC ---
Discharge Instructions Diet Discharge Diet: No restrictions Activity Discharge Activity: Return to Normal Activity Dressing / Incision Call your doctor if you observe: Fever of 101 or Higher, Change in Color, Shortness of breath, Fainting spells, Chest pain and Uncontrolled pain Follow Up Care Test Results: Test results from this visit will be discussed in further detail at your follow-up appointment, if applicable. Discharge Plan Admission Admit Date/Time: 08/20/20 10:20 Primary Reason for Your Visit: CAT BITE Attending Provider: Harinder Mcdonough Primary Care Provider: Sapna Mcnair Consulting Providers: Oliver Ochoa Instructions Forms: Work / School Excuse Discharge Orders/Prescriptions Prescriptions: Continued (DME) comp.stocking,thigh,long,large Misc See Rx Instructions .ROUTE .MEDSUPPLY Qty: 2 RF: 0 oxybutynin chloride 5 mg tablet 5 mg PO QHS Qty: 90 RF: 2 triamterene-hydrochlorothiazid 37.5-25 mg tablet 1 tab PO QDAY Qty: 90 RF: 3 amoxicillin-pot clavulanate [Augmentin] 875-125 mg tablet 1 tab PO Q12H 10 Days Qty: 20 RF: 0 multivitamin Tablet 1 tab PO DAILY RF: 0 ibuprofen 600 mg Tablet 600 mg PO Q8H PRN (Reason: Pain) RF: 0 amlodipine 10 MG tablet 10 mg PO DAILY RF: 0 lisinopril 10 MG tablet 10 mg PO DAILY RF: 0 Referrals / Follow Up: Sapna Mcnair MD [Primary Care Provider] - In 1 Week Disposition Disposition (needs filled in before D/C Order can be placed): Home, self care
== END 2020-08-22 10:53 | disposition home or self-care (01) | DRG 603 ==
LOC: ED 10:23 → MS3 10:31
PROVIDERS: Admitting Provider Internal Medicine; Emergency Provider Emergency Medicine; PCP Internal Medicine; Visit Provider Internal Medicine
DX: L03.113 Cellulitis of right upper limb (principal); I10 Essential (primary) hypertension; E66.01 Morbid (severe) obesity due to excess calories; Z68.33 Body mass index [BMI] 33.0-33.9, adult; M15.9 Polyosteoarthritis, unspecified; W55.01XA Bitten by cat, initial encounter; Y93.89 Activity, other specified; Y92.89 Other specified places as the place of occurrence of the external cause; Y99.8 Other external cause status; Z87.891 Personal history of nicotine dependence
CPT/HCPCS: 36415; 73130; 80048; 80053; 83735; 85025; 85652; 86140; 87040; 99284; J7050; J7120; A4216; J0295

== ENCOUNTER → 2020-08-25 16:18 | Outpatient (CLI) | payer BC, SELFPAY ==
[2020-08-25 15:58] VITALS: BMI 33.0
[2020-08-25 16:58] LABS: Absolute Lymphocyte Count 1.42 X10^3/uL (0.83-4.51); Absolute Neutrophil Count 7.9 X10^3/uL (2.0-7.7); Basophil# 0.03 X10^3/uL; Basophil% 0.3 % (0-1); Eosinophil# 0.16 X10^3/uL; Eosinophils% 1.6 % (0-5); Hematocrit 40.5 % (37-47); Hemoglobin 12.9 g/dL (12.0-15.0); Lymphocyte # 1.42 X10^3/ul (0.83-4.51); Mean Corp Hgb Conc 31.9 g/dL (32-36); Mean Corpuscular Hgb 28.9 pg (27.0-32.0); Mean Corpuscular Volume 90.8 fL (81-99); Monocyte# 0.64 X10^3/uL; Monocyte% 6.3 % (0-10); NRBC Flagged by Analyzer 0 % (0-5); Neutrophil # 7.85 X10^3/uL (2.7-7.7); Neutrophil % 77.3 % (47-70); Platelet Count 315 K/mm3 (150-450); RBC Distribution Width CV 12.8 % (11.6-14.6); RBC Distribution Width SD 42.7 fl (35.1-43.9); Red Blood Count 4.46 M/mm3 (4.2-5.4); White Blood Count 10.2 K/mm3 (4.4-11.0)
[2020-08-25 17:17] LABS: Erythrocyte Sedimentation Rate 22 mm/hr (0-30)
[2020-08-25 17:25] LABS: AST(SGOT) 17 U/L (15-37); Alanine Aminotransfer ALT/SGPT 31 U/L (13-56); Albumin, Serum 3.7 g/dL (3.2-5.0); Alkaline Phosphatase 127 U/L (45-117); Anion Gap 8 (5-15); BUN 21 mg/dL (7-18); BUN/Creat Ratio 38.9 RATIO (10-20); Calcium,Total 9.2 mg/dL (8.5-10.1); Chloride 107 mmol/L (98-107); Creatinine, Serum 0.54 mg/dL (0.55-1.02); EST Glomerular Filtration Rate 123 mL/min (>60); Est Glom Filt Rate - Afr Amer 148 mL/min (>60); Globulin 3.7 g/dL (2.2-4.2); Glucose 86 mg/dL (74-106); Potassium 3.8 mmol/L (3.5-5.1); Protein, Total 7.4 g/dL (6.4-8.2); Sodium Level 141 mmol/L (136-145)
== END ==
PROVIDERS: PCP Internal Medicine; Referring Provider Nurse Practitioner Family; Visit Provider Nurse Practitioner Family
DX: L03.113 Cellulitis of right upper limb (principal); W55.01XA Bitten by cat, initial encounter
CPT/HCPCS: 36415; 80053; 85025; 85652; 86140; 87070; 87075; 87077; 87186; 87205

== ENCOUNTER → 2020-09-03 16:17 | Outpatient (CLI) | payer BC, SELFPAY ==
[2020-09-02 16:38] VITALS: BMI 33.4
--- NOTE | 2020-09-03 16:20 | RAD_ITS ---
STUDY: X-RAY - RIGHT HAND REASON FOR EXAM: Infected cat bite of the right hand. TECHNIQUE: 3 view(s) of the hand, the films are mismarked with a left marker. COMPARISON: Radiographs 08/20/2020. FINDINGS: Normal radiocarpal articulation. Normal distal radioulnar joint. Normal visualized carpal bones. Normal carpal articulations Normal carpometacarpal articulation of the thumb. Normal second through fifth carpometacarpal joints. Normal metacarpi. Normal metacarpophalangeal joint of the thumb. Normal interphalangeal joint of the thumb. Normal proximal and distal phalanges of the thumb. Normal metacarpophalangeal joints of the second through fifth fingers. There is joint space narrowing of the distal interphalangeal joints. Normal phalanges of the second through fifth fingers. There is increased soft tissue swelling at the radial aspect of the second metacarpophalangeal joint. RAD/Hand Min 3 Views IMPRESSION: Increased soft tissue swelling adjacent to the second metacarpophalangeal joint without demonstrated active bone destruction. Arthrosis of the distal interphalangeal joints. Electronically Signed: Yung Mata MD at 10:41 EDT Tel , Service support ,
== END ==
PROVIDERS: PCP Internal Medicine; Referring Provider Nurse Practitioner Family; Visit Provider Nurse Practitioner Family
DX: S61.451A Open bite of right hand, initial encounter (principal); W55.01XA Bitten by cat, initial encounter
CPT/HCPCS: 73130

== ENCOUNTER 2020-09-10 13:49 | Inpatient (IN) | payer BC, SELFPAY ==
[2020-09-09 15:50] VITALS: BMI 33.4
[2020-09-10 13:51] VITALS: BP 145/92; PULSE 100; RESP 17; TEMP 36.1; O2SAT 94; BMI 32.5
--- NOTE | 2020-09-10 14:18 | RAD_ITS ---
STUDY: X-RAY - LEFT HAND REASON FOR EXAM: Female, 60 years old. Swelling TECHNIQUE: 3 view(s) of the hand. COMPARISON: Comparison is made with prior study dated 09/03/2020. FINDINGS: Normal radiocarpal articulation. Normal distal radioulnar joint. Normal visualized carpal bones. Normal carpal articulations Normal carpometacarpal articulation of the thumb. Normal second through fifth carpometacarpal joints. Normal metacarpi. Normal metacarpophalangeal joint of the thumb. Normal interphalangeal joint of the thumb. Normal proximal and distal phalanges of the thumb. Normal metacarpophalangeal joints of the second through fifth fingers. There is articular joint space narrowing of the proximal and distal interphalangeal joints of the second through fifth fingers, but without erosive changes or periarticular soft tissue swelling. Normal phalanges of the second through fifth fingers. Soft tissue swelling overlying the second metacarpal phalangeal joint.. RAD/Hand Min 3 Views IMPRESSION: Soft tissue swelling overlying the second metacarpal phalangeal joint.. Electronically Signed: Wu Silver MD at 15:21 EDT , Service support ,
--- NOTE | 2020-09-10 14:21 | EX.ED.UPPERE ---
HPI History of Present Illness Chief Complaint: Wound Detail of Chief Complaint: Patient has a wound to left hand x3 weeks Informant: patient Narrative Narrative: Patient presents to the emergency department with a cat bite to the left hand that occurred 3 weeks ago. Patient was seen in the emergency department 2 days after the cat bite and admitted for 2 days for IV antibiotics. She was sent home on Augmentin. Patient followed up with her primary care physician who then switched her over to Cipro which she is still currently on. Patient states that for the last week she has had drainage from the wound that is been purulent. She has noted increased swelling to the area. Patient was referred by her primary care physician to [facility] for orthopedic hand follow-up however they told her that they would not see her in the office and she needed to go to the emergency department. Patient denies fevers or chills or sweats. Prior similar symptoms: No PFSH PFSH Medical History Arthritis Hahn's palsy Fatigue Former smoker HTN (hypertension) Hypertension Knee pain NECK AND BACK PAIN Osteoarthritis Shortness of breath Home Medications comp.stocking,thigh,long,large #2 ea 11/21/18 [Rx Last Taken Unknown] oxybutynin chloride 5 mg tablet 5 mg PO QHS #90 tab 08/05/20 [Rx Last Taken Unknown] triamterene 37.5 mg-hydrochlorothiazide 25 mg tablet 1 tab PO QDAY #90 tab 08/05/20 [Rx Last Taken 08/19/20] ibuprofen 600 mg PO Q8H PRN 08/20/20 [History Last Taken 08/20/20 01:00 400 mg] multivitamin 1 tab PO DAILY 08/20/20 [History Last Taken 08/19/20] amlodipine 10 mg tablet 10 mg PO DAILY #90 tab 08/27/20 [Rx Last Taken Unknown] lisinopril 10 mg tablet 10 mg PO DAILY #90 tab 08/27/20 [Rx Last Taken Unknown] ciprofloxacin HCl 500 mg tablet 500 mg PO BID #14 tab 09/02/20 [Rx Last Taken Unknown] Allergy/AdvReac Type Severity Reaction Status Date / Time Sulfa (Sulfonamide Allergy Mild unknown Verified 09/10/20 13:50 Antibiotics) hydrocodone [From Vicodin] Allergy Vomiting Verified 09/10/20 13:50 Family History Mother Heart disease Hypertension Father Heart disease Hypertension Surgical History History of History of tonsillectomy History of total left knee replacement S/P S/P tonsillectomy Total vaginal hysterectomy, bilateral salpingectomy, uterosa Social History Smoking Status: Former smoker Tobacco: How many years used: 20 how long ago did patient quit smokin alcohol intake: never details: social substance use type: does not use and painkillers caffeine: Yes what type of physical activity do you participate in: none seatbelt use: always do you feel safe at home: Yes additional social history: - Phu Childs ROS ROS ED Constitutional Constitutional ED: Reports systems reviewed and no addt'l complaints, except as documented; Denies body ache(s), change in weight or chills Eyes Eyes: Denies acute decrease in peripheral vision, change in vision, double vision or loss of vision ENT ENT ED: Reports none; Denies ear pain, lip swelling, loss taste/smell, neck pain, otalgia or sore throat Cardiovascular Cardiovascular: Reports none; Denies abdominal pain, chest pain with activity, leg edema, lightheadedness, palpitations, rapid heart rate or syncope Respiratory/Chest Respiratory/Chest: Reports none; Denies change in mental status, dry cough, dyspnea, hemoptysis, shortness of breath at rest or shortness of breath with exertion Gastrointestinal Gastrointestinal: Reports none; Denies abdominal pain, change in stool character, diarrhea, hematemesis, hematochezia, melena, rectal bleeding or vomiting Genitourinary Genitourinary ED: Reports none; Denies abdominal discomfort, anuria, dysuria, genital pain or polyuria Musculoskeletal Musculoskeletal: Reports none; Denies arthralgias, back pain, difficulty walking, extremity pain, muscle weakness or myalgias Integumentary Reports none and other Details: Left hand wound ; Denies abscess or rash Neurologic Neurologic: Reports none; Denies abnormal gait, confusion, focal weakness, frequent falls, headache(s), loss of vision, numbness, paresthesias, radicular pain, vertigo or weakness Psychiatric Psychiatric: Reports systems reviewed and no addt'l complaints, except as documented and none; Denies behavioral changes, confusion, difficulty concentrating, hallucinations, suicidal ideation, tactile hallucinations or visual hallucinations Endocrine Endocrinology: Denies none, cold intolerance, excessive sweating, fatigue or heat intolerance Hematologic/Lymphatic Hematologic/Lymphatic: Reports none; Denies anemia, easy bleeding or easy bruising Allergic/Immunologic Allergic/Immunologic ED: Denies as per HPI, none, lip swelling, mouth swelling, throat swelling, tongue swelling or hives EXAM Physical Exam Const Vital Signs: 09/10/20 13:51 Temperature 96.9 F L Temperature Source Temporal Pulse Rate 100 Respiratory Rate 17 Blood Pressure 145/92 H Blood Pressure Mean 109 Pulse Ox 94 Oxygen Delivery Method Room Air Positive well nourished and well developed General Appearance ED: well developed and NAD HEENT Reports TM's clear and moist mucous membranes normocephalic and atraumatic; Negative for trauma or tenderness Tympanic Membrane ED: Yes TM's clear Eyes PERRL and EOMs intact bilaterally General Eye ED: Negative for pale conjunctiva or scleral icterus Neck no lymphadenopathy, supple and no JVD General: Negative for tenderness Chest Wall inspection of chest normal and palpation of chest normal Chest: Negative for tenderness Resp normal respiratory effort and clear to auscultation bilaterally Effort and Inspection: Negative for respiratory distress or pain with movement Auscultation: Negative for rhonchi, wheezes or diminished lung sounds Cardio regular rate, regular rhythm, S1 normal heart sound, S2 normal heart sound and no murmurs Peripheral Pulses: pulses 2+ throughout GI normal to inspection, nondistended, normoactive bowel sounds, soft to palpation, non-tender, non-distended and no masses Back/Spine no CVA tenderness and no thoracic nor lumbar tenderness Extremity Extremity Narrative: Left hand-patient has noted soft tissue swelling about the second MCP joint with a wound to the dorsum of the MCP joint that is draining some purulent debris. There is surrounding erythema. She has limited range of motion in flexion and extension at the MCP joint. Neurovascular intact distally. General Extremety ED: Yes edema General Extremity: edema Neuro oriented x3, CN's II-XII intact bilaterally, no sensory deficits noted and gait normal Sensorium / Orientation: awake, alert, oriented to person, oriented to place and oriented to time Motor Exam: strength 5/5 throughout and strength abnormal Psych mental status grossly normal Skin no rashes or lesions noted and no wounds MDM MDM MDM Narrative Medical decision making narrative: Patient case was discussed with who will see patient in consultation for operative intervention. Patient will be admitted to hospital. I discussed case with hospitalist will evaluate patient for admission. Concern is that patient's wound is not improving and continues to have purulent drainage. It appears that she did grow out Pseudomonas from her last wound culture. Patient was started initially on Unasyn and then started on Levaquin. Lab Data Attestation: I reviewed the patient's lab results. Radiography Diagnostic Testing: Three-view x-rays of left hand obtained showed no foreign bodies and no evidence of osteomyelitis. Radiology in agreement. Discharge Plan Triage Chief Complaint: Wound ED Provider: Amanda White Dx/Rx/DC Orders Clinical Impression: Cat bite, Cellulitis of finger of left hand Prescriptions: No Action (DME) comp.stocking,thigh,long,large Misc See Rx Instructions .ROUTE .MEDSUPPLY Qty: 2 RF: 0 oxybutynin chloride 5 mg tablet 5 mg PO QHS Qty: 90 RF: 2 triamterene-hydrochlorothiazid 37.5-25 mg tablet 1 tab PO QDAY Qty: 90 RF: 3 amlodipine 10 mg tablet 10 mg PO DAILY Qty: 90 RF: 3 lisinopril 10 mg tablet 10 mg PO DAILY Qty: 90 RF: 2 ciprofloxacin HCl 500 mg tablet 500 mg PO BID Qty: 14 RF: 0 multivitamin Tablet 1 tab PO DAILY RF: 0 ibuprofen 600 mg Tablet 600 mg PO Q8H PRN (Reason: Pain) RF: 0 Primary Care Provider: Sapna Mcnair Referrals: Sapna Mcnair MD [Primary Care Provider] - Disposition Disposition: Acute Care Hospital [facility]
[2020-09-10 14:43] LABS: Absolute Lymphocyte Count 1.08 X10^3/uL (0.83-4.51); Absolute Neutrophil Count 5.7 X10^3/uL (2.0-7.7); Basophil# 0.04 X10^3/uL; Basophil% 0.5 % (0-1); Eosinophil# 0.17 X10^3/uL; Eosinophils% 2.3 % (0-5); Hemoglobin 13.3 g/dL (12.0-15.0); Lymphocyte # 1.08 X10^3/ul (0.83-4.51); Lymphocyte % 14.4 % (19-41); Mean Corp Hgb Conc 31.7 g/dL (32-36); Mean Corpuscular Volume 91.7 fL (81-99); Mean Platelet Vol. 9.1 fl (6.2-12.0); Monocyte% 6.6 % (0-10); NRBC Flagged by Analyzer 0 % (0-5); Neutrophil # 5.71 X10^3/uL (2.7-7.7); Neutrophil % 75.9 % (47-70); Platelet Count 323 K/mm3 (150-450); RBC Distribution Width CV 13.1 % (11.6-14.6); Red Blood Count 4.58 M/mm3 (4.2-5.4); White Blood Count 7.5 K/mm3 (4.4-11.0)
[2020-09-10 14:47] LABS: Erythrocyte Sedimentation Rate 9 mm/hr (0-30)
[2020-09-10 14:58] LABS: Anion Gap 6 (5-15); BUN 22 mg/dL (7-18); BUN/Creat Ratio 30.7 RATIO (10-20); CRP 5.77 mg/L (0.0-3.0); Calcium,Total 9.2 mg/dL (8.5-10.1); Chloride 108 mmol/L (98-107); Creatinine, Serum 0.72 mg/dL (0.55-1.02); EST Glomerular Filtration Rate 89 mL/min (>60); Est Glom Filt Rate - Afr Amer 107 mL/min (>60); Estimated Creatinine Clearance 78.76 ml/min; Glucose 118 mg/dL (74-106); Potassium 4.2 mmol/L (3.5-5.1); Sodium Level 143 mmol/L (136-145)
--- NOTE | 2020-09-10 16:09 | NURSING ---
MED SURG SONIAERI CAT BITE, CELLULITIS LEFT HAND
[2020-09-10 16:15] VITALS: BP 122/79; PULSE 69; RESP 18; TEMP 36.8; O2SAT 99
[2020-09-10] MEDS: levoFLOXacin IV 750 MG/150 ML BAG 100 MG IV (16:24)
--- NOTE | 2020-09-10 17:04 | PCM.HP.STD ---
HPI - General General Date of Admission: 09/10/20 HPI Narrative ELIAS CARY, is a 60 F who presents with purulence coming from her right hand. Patient was bitten by her cat 3 weeks ago and was subsequently admitted for couple days here and discharged with Augmentin. Patient has had purulence coming from her right hand at the bite site and called the [facility] with [facility] who advised her to come to the hospital. Patient received a Levaquin in the emergency room. [facility] Medical History Arthritis Hahn's palsy Fatigue Former smoker HTN (hypertension) Hypertension Knee pain NECK AND BACK PAIN Osteoarthritis Shortness of breath Home Medications comp.stocking,thigh,long,large #2 ea 11/21/18 [Rx Last Taken Unknown] oxybutynin chloride 5 mg tablet 5 mg PO QHS #90 tab 08/05/20 [Rx Last Taken 09/09/20] triamterene 37.5 mg-hydrochlorothiazide 25 mg tablet 1 tab PO QDAY #90 tab 08/05/20 [Rx Last Taken 09/10/20] multivitamin 1 tab PO DAILY 08/20/20 [History Last Taken 2 Days Ago ~09/08/20] amlodipine 10 mg tablet 10 mg PO DAILY #90 tab 08/27/20 [Rx Last Taken 09/10/20] lisinopril 10 mg tablet 10 mg PO DAILY #90 tab 08/27/20 [Rx Last Taken 09/10/20] ciprofloxacin HCl 500 mg tablet 500 mg PO BID #14 tab 09/02/20 [Rx Last Taken 09/10/20] ibuprofen 400 - 600 mg PO Q8H PRN 09/10/20 [History Last Taken 09/10/20 01:00] Allergy/AdvReac Type Severity Reaction Status Date / Time Sulfa (Sulfonamide Allergy Mild unknown Verified 09/10/20 13:50 Antibiotics) hydrocodone [From Vicodin] Allergy Vomiting Verified 09/10/20 13:50 Family History Mother Heart disease Hypertension Father Heart disease Hypertension Surgical History History of History of tonsillectomy History of total left knee replacement S/P S/P tonsillectomy Total vaginal hysterectomy, bilateral salpingectomy, uterosa Social History Smoking Status: Former smoker Tobacco: How many years used: 20 how long ago did patient quit smokin alcohol intake: never details: social substance use type: does not use and painkillers caffeine: Yes what type of physical activity do you participate in: none seatbelt use: always do you feel safe at home: Yes additional social history: - Phu Childs ROS ROS Narrative Patient stated that she did have some lymphangitis of her arm initially but that is since resolved. All review of systems were negative except as mentioned above in the history of present illness and the other review of systems. Vital Signs Vital Signs Vital Signs: 09/10/20 13:51 09/10/20 16:15 Temperature 36.1 C L 36.8 C Temperature Source Temporal Oral Pulse Rate 100 69 Respiratory Rate 17 18 Blood Pressure 145/92 H 122/79 H Blood Pressure Mean 109 93 Pulse Ox 94 99 Oxygen Delivery Method Room Air Room Air Weight Weight: 91.3 kg Body Mass Index (BMI) 32.5 Physical Exam Const alert General Appearance: cooperative HEENT normocephalic and moist oral mucous membranes Eyes PERRL Neck no lymphadenopathy Resp normal respiratory effort and clear to auscultation bilaterally Cardio regular rate, regular rhythm, S1 normal heart sound and S2 normal heart sound GI normal to inspection, nondistended, normoactive bowel sounds, soft to palpation, non-tender and non-distended Extremity Extremity Narrative: On the thumb side portion of her right MCP, patient does have purulence. Patient does have erythema and mild induration around that area as well. Neurovascularly intact in the right hand. Results Lab / Micro Data Result Diagrams: 09/10/20 14:30 09/10/20 14:30 Labs: Laboratory Results - last 24 hr 09/10/20 09/10/20 14:30 14:30 WBC 7.5 RBC 4.58 Hgb 13.3 Hct 42.0 MCV 91.7 MCH 29.0 MCHC 31.7 L RDW Std Deviation 44.0 H RDW Coeff of Jules 13.1 Plt Count 323 MPV 9.1 Immature Gran % (Auto) 0.300 Neut % (Auto) 75.9 H Lymph % (Auto) 14.4 L [place] % (Auto) 6.6 Eos % (Auto) 2.3 Baso % (Auto) 0.5 Absolute Neuts (auto) 5.7 Absolute Lymphs (auto) 1.08 Nucleated RBC % 0 ESR 9 Sodium 143 Potassium 4.2 Chloride 108 H Carbon Dioxide 29.0 Anion Gap 6 BUN 22 H Creatinine 0.72 Estim Creat Clear Calc 78.76 Est GFR (MDRD) Af Amer 107 Est GFR (MDRD) Non-Af 89 BUN/Creatinine Ratio 30.7 H Glucose 118 H Calcium 9.2 C-React Prot Ext Range 5.77 H Micro: Microbiology 09/10/20 14:37 Gram Stain - Final Wound - Hand Radiology Impression Hand X-Ray 09/10/20 14:18 IMPRESSION: Soft tissue swelling overlying the second metacarpal phalangeal joint.. Electronically Signed: Wu Silver MD at 15:21 EDT , Service support , Assessment & Plan Assessment/Plan (1) Cellulitis of finger of left hand: PLAN: 1. Right hand cellulitis Failed outpatient antibiotics Concern for an underlying abscess Dr. Molina was contacted by the emergency room and steadily plan take the patient to the OR on the Patient did have pansensitive Pseudomonas previous culture Will continue with Levaquin as she has received in the emergency room but also add vancomycin for the time being Patient is medically cleared to proceed with surgery with no additional preop testing check MRI to eval for osteomyelitis 2. VTE prophylaxis with SCDs for now. Chemical prophylaxis held in light of the upcoming surgery. Charges/Coding Visit Charges Inpatient E&M: 53239 Init Hosp L2
[2020-09-10 17:08] VITALS: BP 121/83; PULSE 74; RESP 16; TEMP 36.9; O2SAT 97
[2020-09-10 17:11] VITALS: BMI 32.3
--- NOTE | 2020-09-10 17:16 | MRI_ITS ---
STUDY: MRI RIGHT HAND REASON FOR EXAM: Right hand abscess of the second metacarpophalangeal joint from cat bite 3 weeks ago. TECHNIQUE: Standardized fat and water weighted pulse sequences were obtained in all 3 orthogonal planes. COMPARISON: Radiographs 09/10/2020. FINDINGS: There is a focal fluid collection at the radial aspect of the second metacarpophalangeal joint (T2 sagittal images 27-29; inversion recovery axial images 12-16) measuring approximately 1.9 x 0.6 x 1.3 cm (AP x transverse x length) consistent with abscess. There is also edema in the subcutis adipose space of the second finger. There is bone edema of the second metacarpal head/neck and base/proximal diaphysis of the second proximal phalanx (inversion recovery coronal images 8-12) with corresponding mild decreased T1 bone marrow signal (T1 coronal images 9-12), suggestive of osteomyelitis. Otherwise, unremarkable visualized phalanges and visualized metacarpals. Normal flexor and extensor tendons. There is a small effusion of the second metacarpophalangeal joint (inversion recovery axial images 11, 12). Otherwise, unremarkable metacarpophalangeal joints. Normal second through fifth proximal interphalangeal joints and interphalangeal joint of the first digit. There is chondral thinning and small marginal osteophytes of the second through fifth distal interphalangeal joints (T1 coronal images 6-11) consistent with arthrosis. There is edema in the palmar interosseous musculature adjacent to the distal second metacarpal (inversion recovery axial image 10). MRI/Upper Ext/No Jt/ wo IMPRESSION: Soft tissue abscess at the radial aspect of the second metacarpophalangeal joint with signal alteration of the distal second metacarpal and proximal second proximal phalanx suggestive of osteomyelitis. Small effusion of the second metacarpophalangeal joint, possibly representing septic arthritis. Edema in the palmar interosseous musculature adjacent to the distal second metacarpal. Electronically Signed: Yung Mata MD at 7:23 EDT Tel , Service support ,
--- NOTE | 2020-09-10 19:01 | PCM.CONS.GEN ---
Assessment & Plan Assessment/Plan (1) Open wound of right index finger due to cat bite: (2) Cat bite: (3) Cellulitis of right index finger: (4) Abscess of finger of right hand: (5) Former smoker: (6) Finger osteomyelitis, right: PLAN: X-ray right hand reviewed. MRI reviewed. There is suspected osteomyelitis involving the base of right index finger (MP joint). Patient has a complex cat bite radial aspect MP joint right hand. She has been on oral antibiotics and IV antibiotics without resolution of her symptomatology. She has developed an abscess and operative intervention is necessary. Cat bites are puncture wounds and can injure underlying tendons, nerves, and joints. Surgery will be done under general anesthesia and tourniquet control. Tissue will be sent to Pathology for analysis to rule out carcinoma and to Microbiology for culture. A positive culture will necessitate antibiotic therapy. If the bite extends down to the bone, then a partial ostectomy for osteomyelitis will be done. The wound will be left open and postoperative wound care will be with Silver dressing changes. Depending on the culture results, IV antibiotics may be necessary. Anticipate increased metabolic demands from the infection. Encourage nutritional supplementation with protein to help the healing process. Will encourage range of motion exercises to minimize stiffness. If stiffness develops, then will send the patient to OT for range of motion exercises, strengthening, and edema management. Surgery is scheduled for the morning. Patient was informed of the risks and complications of the procedure including alternatives to surgery. These were discussed with the patient personally. Patient voices understanding and wishes to proceed. Some of the risks and complications that were discussed included but were not inclusive of failure to diagnose including symptom relief, pain, infection, numbness, stiffness, loss of digit, RSD (CRPS), need for further surgery, contracture, and wound healing problems. We discussed the current risks associated with COVID-19. While it is understood that there is a community spread of COVID-19, the risk of cr COVID-19 while at [facility] ([facility]) is very low; however, the risk cannot be completely mitigated because of the community spread of the disease. We discussed in detail the risk of exposure to and/or potential harm posed by the COVID-19 virus with having a surgery/procedure at this time versus the risk of delaying the surgery/procedure. It is not possible to know either the risk of delaying the surgery or procedure or chance of getting an infection with perfect accuracy, but a joint decision was made to proceed at this time with the scheduled surgery/procedure as indicated on the consent form. Patient was notified that we will need to comply with any screening or testing [facility] wishes to perform or that surgery may be delayed for any positive results. Discussed with the patient that I was tested for COVID-19 on 10/03/19 which was negative and on 10/17/19 which was negative and on 10/31/19 which was negative and on 11/14/19 which was negative and on 11/28/19 which was negative and on 12/19/19 which was negative and on 01/09/20 which was negative and on 02/13/20 which was negative and on 03/05/20 which was negative and on 03/24/20 which was negative. ? My testing regimen at this time is to be COVID-19 tested every 2 weeks or so.? I received the COVID-19 vaccine (Moderna) on 04/01/20 and the second vaccine dose was received on 04/29/20.? When I was hospitalized on 06/01/20 I was tested for COVID-19 which was negative.? I was also? tested for COVID-19 on 06/16/20 which was negative and on 07/13/20 which was negative. HPI Consult Data Date of Consult: 09/12/20 PCP / Referring MD: Guillermo Richardson DO and Trino Pandya DNP Attending Care Provider: CAR RACER: Dr. Molina. HPI Narrative Reason for Consultation: cat bite abscess radial aspect MP joint right index finger HPI Narrative: 60 F who was admitted for a persistent cat bite infection radial aspect MP joint right index finger. The cat bite occurred about 3 weeks ago and it was her cat. She had been treated with Augmentin and was recently in the hospital for IV antibiotics. She came in now with increasing pain and redness and swelling and intermittent drainage from the cat bite wound. She received Levaquin in the ED. Vancomycin was also added upon admission. Her WBC was 7.5. X-ray of the hand showed soft tissue swelling. MRI was done which showed osteomyelitis. Patient is right hand dominant. I was asked to evaluate this patient for surgical options for treatment. [facility] Medical History (Updated 09/12/20 @ 19:[address] Ankur Molina MD) Abscess of finger of right hand Acute osteomyelitis of metacarpal bone of right hand Arthritis Hahn's palsy Cat bite Cellulitis of right index finger Fatigue Finger osteomyelitis, right Former smoker HTN (hypertension) Hypertension Knee pain NECK AND BACK PAIN Open wound of right index finger due to cat bite Osteoarthritis Shortness of breath Home Medications comp.stocking,thigh,long,large #2 ea 11/21/18 [Rx Last Taken Unknown] oxybutynin chloride 5 mg tablet 5 mg PO QHS #90 tab 08/05/20 [Rx Last Taken 09/09/20] triamterene 37.5 mg-hydrochlorothiazide 25 mg tablet 1 tab PO QDAY #90 tab 08/05/20 [Rx Last Taken 09/10/20] multivitamin 1 tab PO DAILY 08/20/20 [History Last Taken 2 Days Ago ~09/08/20] amlodipine 10 mg tablet 10 mg PO DAILY #90 tab 08/27/20 [Rx Last Taken 09/10/20] lisinopril 10 mg tablet 10 mg PO DAILY #90 tab 08/27/20 [Rx Last Taken 09/10/20] ibuprofen 400 - 600 mg PO Q8H PRN 09/10/20 [History Last Taken 09/10/20 01:00] ciprofloxacin HCl 500 mg PO BID #90 tab 09/12/20 [Rx Last Taken Unknown] doxycycline monohydrate 100 mg PO BID #90 cap 09/12/20 [Rx Last Taken Unknown] gabapentin 300 mg PO BID #60 cap 09/12/20 [Rx Last Taken Unknown] oxycodone-acetaminophen [Percocet] 1 tab PO Q4H PRN 7 Days #40 tab 09/12/20 [Rx Last Taken Unknown] Allergy/AdvReac Type Severity Reaction Status Date / Time Sulfa (Sulfonamide Allergy Mild unknown Verified 09/10/20 13:50 Antibiotics) hydrocodone [From Vicodin] Allergy Vomiting Verified 09/10/20 13:50 Family History Mother Heart disease Hypertension Father Heart disease Hypertension Surgical History History of History of tonsillectomy History of total left knee replacement S/P S/P tonsillectomy Total vaginal hysterectomy, bilateral salpingectomy, uterosa Social History Smoking Status: Former smoker Tobacco: How many years used: 20 how long ago did patient quit smokin alcohol intake: never details: social substance use type: does not use and painkillers caffeine: Yes what type of physical activity do you participate in: none seatbelt use: always do you feel safe at home: Yes additional social history: - Phu Childs ROS ROS Narrative Constitutional: Denies: Chills, Fever, Weight Change HEENT: Denies: Head Aches, Sinus Congestion, Sinus Drainage Cardiovascular: Denies: Chest Pain, Palpitations Respiratory: Denies: Cough, Shortness of breath at rest, Sputum production Gastrointestinal: Denies: Abdominal Pain, Nausea, Vomiting Genitourinary: Denies: Dysuria Musculoskeletal: Denies: Joint Pain, Joint Tenderness Skin: Denies: Rash, Wounds Neurological: Denies: Numbness, Tingling, Focal weakness Psychiatric: Denies: Anxiety, Depression, Homicidal Ideations, Suicidal Ideations Hematologic/ Lymphatic: Denies: Easy Bruising, Easy Bleeding Physical Exam Narrative PHYSICAL EXAMINATION General: Alert, Oriented x3. HEENT: PERRLA, EOMI. Neck: Supple, Nontender. No cervical adenopathy. Lungs: Clear to auscultation. Cardiovascular: Regular rate, No murmurs Abdomen: Soft, Nondistended. Extremities: No edema, Capillary Refill Less than 3 Seconds. Patient is right hand dominant. On the radial aspect MP joint right index finger is a draining cat bite abscess wound. There is surrounding redness extending onto the dorsum of the finger and the volar surface of the finger. Able to extend right index finger against resistance. Flexion is difficult secondary to swelling. Distal tip of the finger is nontender. Some decreased sensation to pinprick on the radial aspect. Fingers are warm with good capillary refill. Radial pulses are palpable. No axillary adenopathy. Neurological: Cranial nerves II-XII grossly intact Psych/Mental Status: Normal Affect, Appropriate Medical Records Data Attestation: I reviewed the patient's medical records Lab / Micro Data Attestation: I reviewed the patient's lab results. Result Diagrams: 09/12/20 07:08 09/12/20 07:08 Labs: Laboratory Results - last 24 hr 09/10/20 09/10/20 14:30 14:30 WBC 7.5 RBC 4.58 Hgb 13.3 Hct 42.0 MCV 91.7 MCH 29.0 MCHC 31.7 L RDW Std Deviation 44.0 H RDW Coeff of Jules 13.1 Plt Count 323 MPV 9.1 Immature Gran % (Auto) 0.300 Neut % (Auto) 75.9 H Lymph % (Auto) 14.4 L [place] % (Auto) 6.6 Eos % (Auto) 2.3 Baso % (Auto) 0.5 Absolute Neuts (auto) 5.7 Absolute Lymphs (auto) 1.08 Nucleated RBC % 0 ESR 9 Sodium 143 Potassium 4.2 Chloride 108 H Carbon Dioxide 29.0 Anion Gap 6 BUN 22 H Creatinine 0.72 Estim Creat Clear Calc 78.76 Est GFR (MDRD) Af Amer 107 Est GFR (MDRD) Non-Af 89 BUN/Creatinine Ratio 30.7 H Glucose 118 H Calcium 9.2 C-React Prot Ext Range 5.77 H Micro: Microbiology 09/10/20 14:37 Gram Stain - Final Wound - Hand Radiology Impression Hand X-Ray 09/10/20 14:18 IMPRESSION: Soft tissue swelling overlying the second metacarpal phalangeal joint.. Electronically Signed: Wu Silver MD at 15:21 EDT , Service support , MRI/Upper Ext/No Jt/ wo IMPRESSION: Soft tissue abscess at the radial aspect of the second metacarpophalangeal joint with signal alteration of the distal second metacarpal and proximal second proximal phalanx suggestive of osteomyelitis. Small effusion of the second metacarpophalangeal joint, possibly representing septic arthritis. Edema in the palmar interosseous musculature adjacent to the distal second metacarpal. Electronically Signed: Yung Mata MD at 7:23 EDT Tel , Service support , Procedure Criteria Type of Procedure Procedure Type: Elective Elective Risks - COVID COVID Risk Discussion: The surgeon/proceduralist and patient have discussed in detail the risk of exposure to and/or potential harm posed by the COVID-19 virus with having a surgery/procedure at this time versus the risk of delaying the surgery/procedure. It is not possible to know either the risk of delaying the surgery or procedure or chance of getting an infection with perfect accuracy, but a joint decision was made between the patient and the surgeon/proceduralist to proceed at this time with the scheduled surgery/procedure as indicated on the consent form. Charges/Coding Visit Charges Inpatient E&M: 93700 Init Hosp L2 (ICD-10 - W55.01xA, S61.250A, L03.011, L02.511, M86.9, Z87.891)
[2020-09-10] MEDS: 0.9% Saline Lock 10 ML Syringe IV (20:53)
[2020-09-10] MEDS: Acetaminophen 325 MG Tablet 650 MG PO (20:57)
[2020-09-10] MEDS: Oxybutynin 5 MG Tablet PO (20:57)
[2020-09-10 21:35] VITALS: BP 111/62; PULSE 77; RESP 16; TEMP 36.6; O2SAT 97
--- NOTE | 2020-09-10 22:27 | PCM.RX.CS ---
Consult Pharmacy has been consulted to manage selected antiobiotic: Vancomycin Type of Consult: New start Suspected Infection: Skin/Soft tissue Prior Doses of Antibiotics Received/Current Regimen: Medications Vancomycin HCl 1,250 mg/ (Sodium Chloride) 275 mls @ 167 mls/hr IV Q12H MADDIE Discontinued Medications Vancomycin HCl 2,000 mg/ (Sodium Chloride) 540 mls @ 250 mls/hr IV X1 ONE Stop: 09/10/20 21:09 Last Admin: 09/10/20 20:53 Dose: 250 mls/hr Labs: Sodium 143 mmol/L (136-145) 09/10/20 14:30 Potassium 4.2 mmol/L (3.5-5.1) 09/10/20 14:30 Chloride 108 mmol/L (98-107) H 09/10/20 14:30 Carbon Dioxide 29.0 mmol/L (21.0-32.0) 09/10/20 14:30 Anion Gap 6 (5-15) 09/10/20 14:30 BUN 22 mg/dL (7-18) H 09/10/20 14:30 Creatinine 0.72 mg/dL (0.55-1.02) 09/10/20 14:30 Est GFR (MDRD) Af Amer 107 mL/min (>60) 09/10/20 14:30 Est GFR (MDRD) Non-Af 89 mL/min (>60) 09/10/20 14:30 BUN/Creatinine Ratio 30.7 RATIO (10-20) H 09/10/20 14:30 Glucose 118 mg/dL (74-106) H 09/10/20 14:30 Microbiology: Microbiology 09/10/20 14:37 Wound - Hand Gram Stain - Final Weight used for dosin.8 kg Estimated Creatinine Clearance: 79 Goal Trough: 15-20 mcg/mL Pharmacy Plan for Drug Dosing: Pharmacy Service will continue to monitor and adjust dosing as required. Follow-Up Labs: Trough Vancomycin Labs to be done on [date and time ordered]: 09/12/20 @0830
[2020-09-11] VITALS (11 sets, daily range): BP systolic 91–124; BP diastolic 63–76; PULSE 52–82; RESP 16–18; TEMP 36.1–37; O2SAT 94–98; BMI 31.8
--- NOTE | 2020-09-11 | DEB_PTH ---
PATIENT: ELIAS CARY LOC: MS3 U#:[id number] AGE/SX: 60/F ROOM: [facility] RE09/10/[address]: Dr. Martin Ruiz MD : 1960 BED: 1 DIS: 09/12/2020 SPEC #: [id number] RECD: 09/11/20 12:52 STATUS: MIAN RERaymundo #: [id number] PAPITO: 09/11/20 00:[address]: Ankur Molina DEPT: SURGICAL PATHOLOGY RECD BY: Cruz Childs ENTERED: 09/14/20 09:46 SP TYPE: MIGUEL TISS OTHR DR: DO Dr. Sapna Sol MD Dr. James A Slaby, MD Dr. Nicholas F Kotsonis, MD Dr. Robert Leininger, MD Tissues: A - Soft tissues, NOS B - Soft tissues, NOS Procedures: Decalcification bone/plaque Surgery Specimen Level III Comments: @ Ordering doctor for SUIII edited from to @ by SHERIEOD at 09/14/20 1229 @ Submitting doctor edited from to @ by SHERIEOD at 09/14/20 1229 HEADER OPERATION: Incision, drainage abscess index finger PRE-OP DIAGNOSIS: Open wound of right index finger due to cat bite, cellulitis TISSUE SUBMITTED: A - Debrided abscess right index finger soft tissue, B - Debrided abscess right index finger bone MICROSCOPIC DIAGNOSIS A. Debrided abscess right index finger soft tissue: Focal ulceration and associated acute and chronic inflammation and abscess formation. B. Debrided abscess right index finger bone: Fragments of bone with acute osteomyelitis. SJ:dee 09/17/2020 MICROSCOPIC DESCRIPTION Slides are reviewed. GROSS DESCRIPTION A - Received in fixative is one container labeled with the patient's name and designated right second finger abscess. The specimen consists of a discoid fragment of miranda skin measuring 1.2 x 1 x 0.2 cm and containing a centrally located ulcer measuring 5 mm in greatest dimension. The specimen is inked, serially sectioned and totally submitted in one cassette. B - Received in fixative is one container labeled with the patient's name and designated debrided abscess right index bone. The specimen consists of multiple irregular fragments of miranda bone that in aggregate measure 1 x 1 x 0.2 cm. The specimen is totally submitted in one cassette after decalcification. / AM:dee 09/14/20 TC:2 CPT: 93263 x2, 77526
[2020-09-11 05:09] LABS: Absolute Lymphocyte Count 1.13 X10^3/uL (0.83-4.51); Basophil# 0.02 X10^3/uL; Basophil% 0.3 % (0-1); Eosinophil# 0.21 X10^3/uL; Eosinophils% 2.6 % (0-5); Hematocrit 39.1 % (37-47); Hemoglobin 12.3 g/dL (12.0-15.0); Lymphocyte # 1.13 X10^3/ul (0.83-4.51); Lymphocyte % 14.2 % (19-41); Mean Corp Hgb Conc 31.5 g/dL (32-36); Mean Corpuscular Hgb 29.4 pg (27.0-32.0); Mean Corpuscular Volume 93.5 fL (81-99); Mean Platelet Vol. 9.3 fl (6.2-12.0); Monocyte% 7.6 % (0-10); NRBC Flagged by Analyzer 0 % (0-5); Neutrophil # 5.95 X10^3/uL (2.7-7.7); Neutrophil % 74.9 % (47-70); Platelet Count 270 K/mm3 (150-450); RBC Distribution Width CV 13.1 % (11.6-14.6); RBC Distribution Width SD 44.8 fl (35.1-43.9); Red Blood Count 4.18 M/mm3 (4.2-5.4); White Blood Count 7.9 K/mm3 (4.4-11.0)
[2020-09-11 05:31] LABS: ALB/GLOB Ratio 1.1 RATIO (0.9-2.4); AST(SGOT) 11 U/L (15-37); Alanine Aminotransfer ALT/SGPT 19 U/L (13-56); Albumin, Serum 3.2 g/dL (3.2-5.0); Alkaline Phosphatase 115 U/L (45-117); Anion Gap 7 (5-15); BUN 18 mg/dL (7-18); BUN/Creat Ratio 25.1 RATIO (10-20); Calcium,Total 8.9 mg/dL (8.5-10.1); Chloride 109 mmol/L (98-107); Creatinine, Serum 0.72 mg/dL (0.55-1.02); EST Glomerular Filtration Rate 88 mL/min (>60); Est Glom Filt Rate - Afr Amer 107 mL/min (>60); Estimated Creatinine Clearance 78.76 ml/min; Globulin 2.9 g/dL (2.2-4.2); Glucose 95 mg/dL (74-106); Potassium 4.2 mmol/L (3.5-5.1); Protein, Total 6.1 g/dL (6.4-8.2); Sodium Level 142 mmol/L (136-145)
--- NOTE | 2020-09-11 06:00 | EKG12_ITS ---
Test Reason : Blood Pressure : / mmHG Vent. Rate : 060 BPM Atrial Rate : 060 BPM P-R Int : 176 ms QRS Dur : 094 ms QT Int : 402 ms P-R-T Axes : 037 -10 015 degrees QTc Int : 402 ms Normal sinus rhythm Normal ECG When compared with ECG of 24-APR-2020 05:59, QT has shortened Confirmed by ZACKARY PEÑA, LUCY ([id number]), editorial clerk NELLA MOLINA ([id number]) on 09/15/2020 9:15:35 AM Referred By: WILLIAM Confirmed By:LUCY RAYMUNDO MD
--- NOTE | 2020-09-11 07:50 | NURSING ---
pt to surgery via bed
--- NOTE | 2020-09-11 08:04 | NURSING ---
wound photo: right hand
--- NOTE | 2020-09-11 09:23 | CASEMGMT ---
Pt screened with [facility] Palliative Care Screening Tool due to readmission. Pt did not meet criteria.
--- NOTE | 2020-09-11 10:16 | PCM.OPRPT ---
Problems Associated Problem List Diagnoses (1) Cat bite: (2) Open wound of right index finger due to cat bite: (3) Cellulitis of right index finger: (4) Abscess of finger of right hand: (5) Former smoker: (6) Acute osteomyelitis of metacarpal bone of right hand: (7) Finger osteomyelitis, right: (8) Septic arthritis of hand, right: Report of Operation Date of Procedure: 09/11/20 Pre-Operative Diagnosis: 1. Cat bite radial aspect MP joint right index finger. 2. Open wound radial aspect MP joint right index finger. 3. Cellulitis MP joint right index finger. 4. Cat bite abscess radial aspect MP joint right index finger. 5. Former smoker. Post-Operative Diagnosis: 1. Cat bite radial aspect MP joint right index finger. 2. Open wound radial aspect MP joint right index finger. 3. Cellulitis MP joint right index finger. 4. Cat bite abscess radial aspect MP joint right index finger. 5. Former smoker. 6. Osteomyelitis MP joint (distal aspect metacarpal articular surface and proximal aspect proximal phalanx articular surface) right index finger. 7. Septic arthritis MP joint right index finger. Surgery/Procedure Performed:: 1. Surgical preparation radial aspect MP joint right index finger with incision and drainage and excisional debridement cat bite abscess. 2. Partial ostectomy MP joint (distal aspect metacarpal articular surface and proximal aspect proximal phalanx articular surface) for osteomyelitis right index finger. 3. Incisional release A1 clayton right index finger. Description of Surgical Findings:: 60 F who was admitted for a persistent cat bite infection radial aspect MP joint right index finger. The cat bite occurred about 3 weeks ago and it was her cat. She had been treated with Augmentin and was recently in the hospital for IV antibiotics. She came in now with increasing pain and redness and swelling and intermittent drainage from the cat bite wound. She received Levaquin in the ED. Vancomycin was also added upon admission. Her WBC was 7.5. X-ray of the hand showed soft tissue swelling. MRI was done which showed osteomyelitis. Patient is right hand dominant. I was asked to evaluate this patient for surgical options for treatment. Patient was informed of the risks and complications of the procedure including alternatives to surgery. These were discussed with the patient personally. Patient voices understanding and wishes to proceed. Some of the risks and complications that were discussed included but were not inclusive of failure to diagnose including symptom relief, pain, infection, numbness, stiffness, loss of digit, RSD (CRPS), need for further surgery, contracture, and wound healing problems. Total tourniquet time - 56 minutes. The skin flap distal length measured 1.5 cm. The skin flap proximal length measured 1 cm. The size of the cat bite wound measured 1.4 x 1.4 x 2.5 cm. Surgeon: Ankur Molina sewage reticulation drafting officer: None Type of Anesthesia: Block,Loda Specimen's removed: 1. Cat bite abscess radial aspect MP joint right index finger to Pathology and Microbiology. 2. Cat bite abscess radial aspect MP joint right index finger bone (distal aspect metacarpal articular surface and proximal aspect proximal phalanx articular surface) to Pathology and Microbiology. Drains: None. Estimated Blood Loss (mL): 10. Description of Procedure: Patient was taken to OR in supine position and was given IV sedation. A Michele Block was then administered to her right upper extremity. The tourniquet was elevated to 250 mmHg. The right hand was prepped and draped in the usual fashion. SCD's were placed for DVT prophylaxis. Perioperative antibiotics were given intravenously. The cat bite wound radial aspect MP joint right index finger was infiltrated with xylocaine and epinephrine for postoperative pain relief. After waiting 5 minutes for the anesthetic to take effect, I proceeded with surgical preparation of the right index finger with a circular incision around the cat bite wound. A lot of fat necrosis was seen. Pus was easily expressed from the cat bite wound. Exudate was present that was debrided with a curette. The cat bite wound extended down to the bone. Surrounding tissue was debrided to get better exposure to the base of the wound. Upon further examination, the MP joint was involved with the infection. The articular surfaces were roughened making it suspicious for osteomyelitis. A rongeur was used and partial ostectomy was done to the distal aspect metacarpal articular surface and the proximal aspect proximal phalanx articular surface to evaluate for osteomyelitis. A rasp was used to smooth out the bony surfaces. There was concern about the infection tracking to the flexor tendons. I extended the wound onto the distal palm. I made to zig zag incisions and dissected the skin flap at the level of the flexor tendon sheath. No inflammation or pus was seen in the flexor tendon sheath. The radial digital nerve was seen and was intact. The base of the wound extended to the posterior aspect of the flexor tendon sheath in the distal palm. In the future, there may be painful scar tissue in this area of the hand. Clinically there may be concern about a trigger finger. Therefore, I proceeded with an incisional release of the A1 clayton to the right index finger to rule that out as a possibility in the future if she becomes symptomatic from the cat bite scar tissue. Half the soft tissue and half the bone was sent to Pathology for analysis to rule out carcinoma and to evaluate for osteomyelitis. Half the soft tissue and half the bone was sent to Microbiology for culture. A positive culture will necessitate antibiotic therapy. The wounds were irrigated with saline. The palmar skin flap was approximated at the distal edge with 5-0 Nylon sutures. The proximal lengths of the flap were left open to allow drainage. The distal length measured 1.5 cm. The proximal length measured 1 cm. The size of the cat bite wound measured 1.4 x 1.4 x 2.5 cm. The tourniquet was released after 56 minutes. Hemostasis was obtained with gauze compression and electrocautery. The wounds were dressed with Mepitel nonadherent dressing followed by 4x4 gauze and Betadine. This was followed by 4x4 gauze in the web spaces and over the the wound followed by dry Kerlix gauze and a compression adonis wrap. Patient tolerated the procedure well and was sent to PACU in satisfactory condition. Patient will be sent upstairs for continued postop care. Will begin Silver dressing changes tomorrow. She can be discharged when tolerating po analgesia. She will followup in the office early next week to monitor the healing of the cat bite abscess wound and to evaluate for finger stiffness that may need OT evaluation. Grafts/Implants Used: None. Complications None. Admit VTE Documentation VTE Present on Admission: No VTE Mechan Device Prophylaxis: SCD's VTE Pharm Prophylaxis ordered?: No Addendum Addendum: Surgery Charges CPT - 59521 ICD-10 - W55.01xA, L02.511, M00.9, L03.011, S61.250A, M86.141, M86.9, Z87.891 [id number] W55.01xA, M86.141, L02.511, M00.9, L03.011, S61.250A, Z87.891 [id number] W55.01xA, M86.9, L02.511, M00.9, L03.011, S61.250A, Z87.891 [id number] W55.01xA, L02.511, M00.9, L03.011, S61.250A, M86.141, M86.9, Z87.891
[2020-09-11] MEDS: levoFLOXacin IV 750 MG/150 ML BAG 100 MG IV (11:21)
[2020-09-11] MEDS: Lisinopril 10 MG Tablet PO (12:31)
[2020-09-11] MEDS: Multivitamins,Therapeutic Tablet 1 TABLET PO (12:31)
[2020-09-11] MEDS: Triamterene 37.5MG/Hctz 25MG Capsule 1 CAP PO (12:31)
[2020-09-11] MEDS: amLODIPine 10 MG Tablet PO (12:31)
--- NOTE | 2020-09-11 14:01 | PCM.CONS.GEN ---
Assessment & Plan Assessment/Plan (1) Abscess of finger of right hand: PLAN: Due to cat bite. Wound cx with pseudomonas. Taken to OR by Dr. Molina, joint involvement reported, OR cxs pending. On vanc/levaquin. Plan will be for 6 weeks po doxy 100mg bid and po cipro 500mg bid, may be able to adjust based on further cx results. ID followup in 2 weeks. Last EKG showed QTC less than 500. Will follow, thank you, d/w Dr. Ruiz. HPI Consult Data Date of Consult: 09/11/20 HPI Narrative HPI Narrative: ELIAS CARY, is a 60 F who presented with R hand infection s/p cat bite. Admitted here, discharged 08/22 on augmentin, a few days later, hand more red/swollen/draining purulence. Saw PCP, cxs sent, cipro added to augmentin. Still with persistent symptoms, came to ED, given vanc/levaquin, taken to OR this AM by Dr. Molina. Feeling ok, no n/v/d. Full ROS performed and neg except as noted above. [facility] Medical History Abscess of finger of right hand Arthritis Hahn's palsy Cat bite Cellulitis of right index finger Fatigue Former smoker HTN (hypertension) Hypertension Knee pain NECK AND BACK PAIN Open wound of right index finger due to cat bite Osteoarthritis Shortness of breath Home Medications comp.stocking,thigh,long,large #2 ea 11/21/18 [Rx Last Taken Unknown] oxybutynin chloride 5 mg tablet 5 mg PO QHS #90 tab 08/05/20 [Rx Last Taken 09/09/20] triamterene 37.5 mg-hydrochlorothiazide 25 mg tablet 1 tab PO QDAY #90 tab 08/05/20 [Rx Last Taken 09/10/20] multivitamin 1 tab PO DAILY 08/20/20 [History Last Taken 2 Days Ago ~09/08/20] amlodipine 10 mg tablet 10 mg PO DAILY #90 tab 08/27/20 [Rx Last Taken 09/10/20] lisinopril 10 mg tablet 10 mg PO DAILY #90 tab 08/27/20 [Rx Last Taken 09/10/20] ciprofloxacin HCl 500 mg tablet 500 mg PO BID #14 tab 09/02/20 [Rx Last Taken 09/10/20] ibuprofen 400 - 600 mg PO Q8H PRN 09/10/20 [History Last Taken 09/10/20 01:00] Allergy/AdvReac Type Severity Reaction Status Date / Time Sulfa (Sulfonamide Allergy Mild unknown Verified 09/10/20 13:50 Antibiotics) hydrocodone [From Vicodin] Allergy Vomiting Verified 09/10/20 13:50 Family History Mother Heart disease Hypertension Father Heart disease Hypertension Surgical History History of History of tonsillectomy History of total left knee replacement S/P S/P tonsillectomy Total vaginal hysterectomy, bilateral salpingectomy, uterosa Social History Smoking Status: Former smoker Tobacco: How many years used: 20 how long ago did patient quit smokin alcohol intake: never details: social substance use type: does not use and painkillers caffeine: Yes what type of physical activity do you participate in: none seatbelt use: always do you feel safe at home: Yes additional social history: - Phu Amadeo Physical Exam Const alert, oriented x3 and no apparent distress General Appearance: cooperative Exam Limitations: no limitations Eyes PERRL and EOMs intact bilaterally Neck supple and No nodes Resp normal air movement and clear to auscultation bilaterally Cardio regular rate and regular rhythm GI normal to inspection, nondistended, normoactive bowel sounds Extremity no clubbing, cyanosis or edema Skin no rashes or lesions noted Skin Narrative: hand bandaged Neuro CN's II-XII intact bilaterally Lab / Micro Data Result Diagrams: 09/11/20 04:30 09/11/20 04:30 Labs: Laboratory Results - last 24 hr 09/10/20 09/10/20 09/11/20 14:30 14:30 04:30 WBC 7.5 7.9 RBC 4.58 4.18 L Hgb 13.3 12.3 Hct 42.0 39.1 MCV 91.7 93.5 MCH 29.0 29.4 MCHC 31.7 L 31.5 L RDW Std Deviation 44.0 H 44.8 H RDW Coeff of Jules 13.1 13.1 Plt Count 323 270 MPV 9.1 9.3 Immature Gran % (Auto) 0.300 0.400 Neut % (Auto) 75.9 H 74.9 H Lymph % (Auto) 14.4 L 14.2 L [place] % (Auto) 6.6 7.6 Eos % (Auto) 2.3 2.6 Baso % (Auto) 0.5 0.3 Absolute Neuts (auto) 5.7 6.0 Absolute Lymphs (auto) 1.08 1.13 Nucleated RBC % 0 0 ESR 9 Sodium 143 Potassium 4.2 Chloride 108 H Carbon Dioxide 29.0 Anion Gap 6 BUN 22 H Creatinine 0.72 Estim Creat Clear Calc 78.76 Est GFR (MDRD) Af Amer 107 Est GFR (MDRD) Non-Af 89 BUN/Creatinine Ratio 30.7 H Glucose 118 H Calcium 9.2 Total Bilirubin AST ALT Alkaline Phosphatase C-React Prot Ext Range 5.77 H Total Protein Albumin Globulin Albumin/Globulin Ratio 09/11/20 04:30 WBC RBC Hgb Hct MCV MCH MCHC RDW Std Deviation RDW Coeff of Jules Plt Count MPV Immature Gran % (Auto) Neut % (Auto) Lymph % (Auto) [place] % (Auto) Eos % (Auto) Baso % (Auto) Absolute Neuts (auto) Absolute Lymphs (auto) Nucleated RBC % ESR Sodium 142 Potassium 4.2 Chloride 109 H Carbon Dioxide 26.0 Anion Gap 7 BUN 18 Creatinine 0.72 Estim Creat Clear Calc 78.76 Est GFR (MDRD) Af Amer 107 Est GFR (MDRD) Non-Af 88 BUN/Creatinine Ratio 25.1 H Glucose 95 Calcium 8.9 Total Bilirubin 0.40 AST 11 L ALT 19 Alkaline Phosphatase 115 C-React Prot Ext Range Total Protein 6.1 L Albumin 3.2 Globulin 2.9 Albumin/Globulin Ratio 1.1 Micro: Microbiology 09/10/20 14:37 Gram Stain - Final Wound - Hand Wound Culture - Preliminary No growth-Final to follow 09/11/20 07:00 SARS-CoV-2 Antigen (Rapid) - Final Mucosa - Nose Radiology Impression Hand X-Ray 09/10/20 14:18 IMPRESSION: Soft tissue swelling overlying the second metacarpal phalangeal joint.. Electronically Signed: Wu Silver MD at 15:21 EDT , Service support , Upper Extremity MRI 09/10/20 17:16 IMPRESSION: Soft tissue abscess at the radial aspect of the second metacarpophalangeal joint with signal alteration of the distal second metacarpal and proximal second proximal phalanx suggestive of osteomyelitis. Small effusion of the second metacarpophalangeal joint, possibly representing septic arthritis. Edema in the palmar interosseous musculature adjacent to the distal second metacarpal. Electronically Signed: Yung Mata MD at 7:23 EDT Tel , Service support ,
--- NOTE | 2020-09-11 14:05 | PN.HOSP_ITS ---
Documented by User: Frank SHORT 09/11/20 14:19 Subjective Subjective Patient is a 60-year-old female comfortably resting in bed, alert and orient x3. Patient is currently recovering from debridement of right hand. Patient does endorse some nausea and mild pain. Denies chest pain, shortness of breath, palpitations, fever, chills, N/V/D. Objective Data Objective Data Vital Signs: Vital Signs Temp Pulse Resp BP Pulse Ox 98.6 F 67 16 106/69 96 09/11/20 12:11 09/11/20 12:11 09/11/20 12:11 09/11/20 12:11 09/11/20 12:11 Oxygen Flow Rate (L/min) 2 Oxygen Delivery Method Room Air Weight: 198 lb 6.656 oz Body Mass Index (BMI) 31.8 Intake & Output: Intake and Output for Last 24 Hours 09/09/20 09/10/20 09/11/20 23:59 23:59 23:59 Intake Total 1022 / 1022 275 / 275 Balance 1022 / 1022 275 / 275 Lab / Micro Data Result Diagrams: 09/11/20 04:30 09/11/20 04:30 Labs: Laboratory Results - last 24 hr 09/10/20 09/10/20 09/11/20 14:30 14:30 04:30 WBC 7.5 7.9 RBC 4.58 4.18 L Hgb 13.3 12.3 Hct 42.0 39.1 MCV 91.7 93.5 MCH 29.0 29.4 MCHC 31.7 L 31.5 L RDW Std Deviation 44.0 H 44.8 H RDW Coeff of Jules 13.1 13.1 Plt Count 323 270 MPV 9.1 9.3 Immature Gran % (Auto) 0.300 0.400 Neut % (Auto) 75.9 H 74.9 H Lymph % (Auto) 14.4 L 14.2 L [place] % (Auto) 6.6 7.6 Eos % (Auto) 2.3 2.6 Baso % (Auto) 0.5 0.3 Absolute Neuts (auto) 5.7 6.0 Absolute Lymphs (auto) 1.08 1.13 Nucleated RBC % 0 0 ESR 9 Sodium 143 Potassium 4.2 Chloride 108 H Carbon Dioxide 29.0 Anion Gap 6 BUN 22 H Creatinine 0.72 Estim Creat Clear Calc 78.76 Est GFR (MDRD) Af Amer 107 Est GFR (MDRD) Non-Af 89 BUN/Creatinine Ratio 30.7 H Glucose 118 H Calcium 9.2 Total Bilirubin AST ALT Alkaline Phosphatase C-React Prot Ext Range 5.77 H Total Protein Albumin Globulin Albumin/Globulin Ratio 09/11/20 04:30 WBC RBC Hgb Hct MCV MCH MCHC RDW Std Deviation RDW Coeff of Jules Plt Count MPV Immature Gran % (Auto) Neut % (Auto) Lymph % (Auto) [place] % (Auto) Eos % (Auto) Baso % (Auto) Absolute Neuts (auto) Absolute Lymphs (auto) Nucleated RBC % ESR Sodium 142 Potassium 4.2 Chloride 109 H Carbon Dioxide 26.0 Anion Gap 7 BUN 18 Creatinine 0.72 Estim Creat Clear Calc 78.76 Est GFR (MDRD) Af Amer 107 Est GFR (MDRD) Non-Af 88 BUN/Creatinine Ratio 25.1 H Glucose 95 Calcium 8.9 Total Bilirubin 0.40 AST 11 L ALT 19 Alkaline Phosphatase 115 C-React Prot Ext Range Total Protein 6.1 L Albumin 3.2 Globulin 2.9 Albumin/Globulin Ratio 1.1 Micro: Microbiology 09/10/20 14:37 Wound - Hand Gram Stain - Final 09/10/20 14:37 Wound - Hand Wound Culture - Preliminary No growth-Final to follow 09/11/20 07:00 Mucosa - Nose SARS-CoV-2 Antigen (Rapid) - Final Radiography Diagnostic Testing: Radiology Impression Hand X-Ray 09/10/20 14:18 IMPRESSION: Soft tissue swelling overlying the second metacarpal phalangeal joint.. Electronically Signed: Wu Silver MD at 15:21 EDT , Service support , Upper Extremity MRI 09/10/20 17:16 IMPRESSION: Soft tissue abscess at the radial aspect of the second metacarpophalangeal joint with signal alteration of the distal second metacarpal and proximal second proximal phalanx suggestive of osteomyelitis. Small effusion of the second metacarpophalangeal joint, possibly representing septic arthritis. Edema in the palmar interosseous musculature adjacent to the distal second metacarpal. Electronically Signed: Yung Mata MD at 7:23 EDT Tel , Service support , Physical Exam Narrative See subjective. Const alert, oriented x3, no apparent distress, average body habitus and healthy appearing HEENT head/scalp atraumatic and moist oral mucous membranes Head and Scalp: normocephalic Eyes PERRL, EOMs intact bilaterally and conjunctivae normal Neck no lymphadenopathy, supple and no JVD Resp normal respiratory effort, no retractions, no use of accessory muscles and clear to auscultation bilaterally Cardio regular rate, regular rhythm, no murmurs and no JVD GI normal to inspection, nondistended, normoactive bowel sounds, soft to palpation, non-tender and non-distended Extremity normal to inspection, full ROM and no clubbing, cyanosis or edema Skin no jaundice Skin Narrative: Bandaging on the right hand status post debridement. Neuro CN's II-XII intact bilaterally Psych affect normal Assessment & Plan Assessment/Plan (1) Abscess of finger of right hand: (2) HTN (hypertension): (3) Female stress incontinence: (4) Uterine prolapse: PLAN: See subjective for patient presentation. 1) cellulitis/abscess. S/p debridement of abscess on radial aspect of right index finger. Vital signs stable and patient is afebrile. CBC demonstrates no leukocytosis. Due to cat bite. Failed outpatient Augmentin therapy. Wound culture with Pseudomonas. MRI demonstrated soft tissue abscess and osteomyelitis of the second MCP. ID following. Plan; continue vancomycin and Levaquin, doxycycline 100 mg p.o. twice daily and ciprofloxacin 5 mg p.o. twice daily x6 weeks will be initiated at discharge, follow-up with ID in 2 weeks, Tylenol as needed, oxycodone as needed. 2) HTN Stable, continue amlodipine and lisinopril. 3) urinary stress incontinence Continue Ditropan. DVT prophylaxis - SCDs Patient seen by Frank Jaquez PA-C, under the supervision of Dr. Ruiz. Documented by User: Dr. Martin Ruiz MD 09/11/20 14:54 Objective Data Lab / Micro Data Result Diagrams: 09/11/20 04:30 09/11/20 04:30 Charges/Coding Addendum Addendum: Dr. Ruiz: I personally reviewed the chart and examined the patient, and agree with the above findings. 60-year-old female presents back to the hospital with persistent infection in her right hand. She was seen several weeks ago with a cat bite and discharged on Augmentin however she did not have significant improvement and went to her PCP who obtained a culture from the purulent ced inage demonstrating a pseudomonal species sensitive to Cipro and Levaquin. She presented back to the hospital yesterday and was found to have an osteomyelitis in her right finger, she is status post washout today and infectious disease was consulted recommending p.o. doxy and Cipro for 6 weeks. We will evaluate her ability to tolerate dressing changes and if stable can plan for discharge in the morning potentially. Visit Charges Inpatient E&M: 71907 Subs Hosp L2
--- NOTE | 2020-09-11 14:27 | CASEMGMT ---
Addendum entered by Elizabeth Dow 09/11/20 15:00: BO TORRES in to pt room. Pt states her sister is able to learn the dressing change. She is available at anytime as she does not work. Henny at [facility] states they will accept pt and is aware of sister who can learn. Pt denies further concerns. Original Note: BO TORRES Readmission Note Previous Admission: 08/20/20-08/22/20 Diagnosis: cat bite DC Disposition: Home Current Admission Diagnosis: cat bite, cellulitis L hand Pt presented to ER from home with purulent drainage from L hand. Pt had planned to see [facility] but has not been seen yet. Pt did follow up with PCP and took medications as ordered. MRI demonstrated soft tissue abscess and osteomyelitis of the second MCP. Dr. Molina consulted and pt went to OR this date. ID saw patient and pt to be dc'd home on po antibiotics x6 wks with follow up. Pt states she will need dressing changes to be completed. She would like [facility] to assist with this. Patient was provided a list of [facility] providers including quality and resource use data and consistent with the patient?s preferred geographic region, medical needs, and insurance network. The patient?s preferred provider is [facility] as she has used them in the past. TC to Henny at [facility] to make aware of referral. She will review and notify CM of acceptance. Plan: Home with [facility] for dressing changes and monitoring.
[2020-09-11] MEDS: oxyCODONE 5 MG Tablet PO ×2 (15:03→19:58)
[2020-09-11] MEDS: Acetaminophen 325 MG Tablet 650 MG PO ×2 (15:04→22:06)
[2020-09-11] MEDS: Ondansetron 4 MG/2 ML Vial IV (19:57)
[2020-09-11] MEDS: 0.9% Saline Lock 10 ML Syringe IV (19:57)
[2020-09-11] MEDS: Oxybutynin 5 MG Tablet PO (20:45)
[2020-09-12] MEDS: oxyCODONE 5 MG Tablet PO ×2 (02:05→11:13)
[2020-09-12] MEDS: 0.9% Saline Lock 10 ML Syringe IV ×2 (02:09→06:25)
[2020-09-12] MEDS: Ondansetron 4 MG/2 ML Vial IV (02:10)
[2020-09-12 02:11] VITALS: BP 118/68; PULSE 66; RESP 16; TEMP 36.8; O2SAT 94
[2020-09-12] MEDS: Ketorolac 15 MG/ML Vial IV (06:25)
[2020-09-12 07:28] LABS: Absolute Lymphocyte Count 1.03 X10^3/uL (0.83-4.51); Absolute Neutrophil Count 5.8 X10^3/uL (2.0-7.7); Basophil# 0.02 X10^3/uL; Basophil% 0.3 % (0-1); Eosinophils% 1.3 % (0-5); Hematocrit 38.2 % (37-47); Hemoglobin 11.9 g/dL (12.0-15.0); Lymphocyte # 1.03 X10^3/ul (0.83-4.51); Lymphocyte % 13.7 % (19-41); Mean Corp Hgb Conc 31.2 g/dL (32-36); Mean Corpuscular Volume 92.9 fL (81-99); Mean Platelet Vol. 8.9 fl (6.2-12.0); Monocyte# 0.58 X10^3/uL; Monocyte% 7.7 % (0-10); NRBC Flagged by Analyzer 0 % (0-5); Neutrophil # 5.77 X10^3/uL (2.7-7.7); Neutrophil % 76.6 % (47-70); Platelet Count 255 K/mm3 (150-450); RBC Distribution Width CV 12.9 % (11.6-14.6); RBC Distribution Width SD 43.9 fl (35.1-43.9); Red Blood Count 4.11 M/mm3 (4.2-5.4); White Blood Count 7.5 K/mm3 (4.4-11.0)
[2020-09-12 07:39] LABS: Anion Gap 4 (5-15); BUN 14 mg/dL (7-18); BUN/Creat Ratio 20.7 RATIO (10-20); Chloride 106 mmol/L (98-107); Creatinine, Serum 0.68 mg/dL (0.55-1.02); EST Glomerular Filtration Rate 95 mL/min (>60); Est Glom Filt Rate - Afr Amer 115 mL/min (>60); Estimated Creatinine Clearance 83.39 ml/min; Glucose 84 mg/dL (74-106); Potassium 3.9 mmol/L (3.5-5.1); Sodium Level 138 mmol/L (136-145)
[2020-09-12 09:04] VITALS: BP 96/62; PULSE 62; RESP 16; TEMP 36.8; O2SAT 94
[2020-09-12] MEDS: Triamterene 37.5MG/Hctz 25MG Capsule 1 CAP PO (09:19)
[2020-09-12] MEDS: Multivitamins,Therapeutic Tablet 1 TABLET PO (09:19)
--- NOTE | 2020-09-12 10:16 | PN.SURG_ITS ---
Subjective Subjective Postop #1 Patient is resting comfortably. She tolerated the Silver dressing change reasonably well without pain medi cation. Objective Data Objective Data Vital Signs: Vital Signs Temp Pulse Resp BP Pulse Ox 98.2 F 62 16 96/62 94 09/12/20 09:04 09/12/20 09:04 09/12/20 09:04 09/12/20 09:04 09/12/20 09:04 Oxygen Flow Rate (L/min) 1.5 Oxygen Delivery Method Room Air Weight: 198 lb 6.656 oz Body Mass Index (BMI) 31.8 Intake & Output: Intake and Output for Last 24 Hours 09/10/20 09/11/20 09/12/20 23:59 23:59 23:59 Intake Total 1022 / 1022 1150 / 1150 150 / 150 Balance 1022 / 1022 1150 / 1150 150 / 150 Lab / Micro Data Attestation: I reviewed the patient's lab results. Result Diagrams: 09/12/20 07:08 09/12/20 07:08 Labs: Laboratory Results - last 24 hr 09/12/20 09/12/20 07:08 07:08 WBC 7.5 RBC 4.11 L Hgb 11.9 L Hct 38.2 MCV 92.9 MCH 29.0 MCHC 31.2 L RDW Std Deviation 43.9 RDW Coeff of Jules 12.9 Plt Count 255 MPV 8.9 Immature Gran % (Auto) 0.400 Neut % (Auto) 76.6 H Lymph % (Auto) 13.7 L [place] % (Auto) 7.7 Eos % (Auto) 1.3 Baso % (Auto) 0.3 Absolute Neuts (auto) 5.8 Absolute Lymphs (auto) 1.03 Nucleated RBC % 0 Sodium 138 Potassium 3.9 Chloride 106 Carbon Dioxide 28.0 Anion Gap 4 L BUN 14 Creatinine 0.68 Estim Creat Clear Calc 83.39 Est GFR (MDRD) Af Amer 115 Est GFR (MDRD) Non-Af 95 BUN/Creatinine Ratio 20.7 H Glucose 84 Calcium 9.0 Micro: Microbiology 09/11/20 09:30 Bone - Finger Gram Stain - Final 09/11/20 09:30 Wound Abcess - Finger Gram Stain - Final 09/10/20 14:37 Wound - Hand Gram Stain - Final 09/10/20 14:37 Wound - Hand Wound Culture - Preliminary No growth-Final to follow 09/11/20 07:00 Mucosa - Nose SARS-CoV-2 Antigen (Rapid) - Final Radiography Diagnostic Testing: Physical Exam HEENT HEENT Narrative: PERRL. EOMI. Extremity Extremity Narrative: Fingers are warm with good capillary refill. Radial pulses are palpable. No axillary adenopathy. Operative dressing removed. Mild swelling present. No active bleeding noted. Wound is stable. No further evidence of infection. Wound redressed with Silver dressing change. Patient tolerated the dressing change reasonably well without pain medication. Assessment & Plan Assessment/Plan (1) Cat bite: (2) Open wound of right index finger due to cat bite: (3) Cellulitis of right index finger: (4) Abscess of finger of right hand: (5) Acute osteomyelitis of metacarpal bone of right hand: (6) Finger osteomyelitis, right: (7) Septic arthritis of hand, right: (8) Former smoker: PLAN: Wound is stable. No active bleeding noted. Wound redressed with Silver dressing change. She tolerated the Silver dressing change reasonably well without pain medication. She thinks she can tolerate the dressing changes at home with oral pain medication (Percocet). The radial digital nerve is intact but is close to the cat bite wound. Anticipate burning nerve pain during the healing process. Operative cultures are negative thus far. Pathology is pending. Patient was seen by Infectious Disesases. He recommended Doxycycline and Cipro. Based on final cultures, antibiotic modification may be necessary. Encourage nutritional supplementation with protein to help the healing process. From my standpoint patient may be discharged today. Home Health to see patient on Monday. Encourage range of motion exercises to minimize stiffness. If stiffness develops, will set her up with OT for range of motion exercises, strengthening, and edema management. Followup my office early next week for a Silver dressing change. Will instruct family on the dressing changes. Wrote scripts for Percocet for pain (40 tabs) and for Neurontin for burning nerve pain (60 tabs) and a refill.
[2020-09-12 10:22] LABS: Vancomycin, Trough Level 16.1 ug/mL (5.0-15.0)
--- NOTE | 2020-09-12 10:50 | PCM.RX.CS ---
Consult Pharmacy has been consulted to manage selected antiobiotic: Vancomycin Type of Consult: New start Suspected Infection: Skin/Soft tissue Labs: Sodium 138 mmol/L (136-145) 09/12/20 07:08 Potassium 3.9 mmol/L (3.5-5.1) 09/12/20 07:08 Chloride 106 mmol/L (98-107) 09/12/20 07:08 Carbon Dioxide 28.0 mmol/L (21.0-32.0) 09/12/20 07:08 Anion Gap 4 (5-15) L 09/12/20 07:08 BUN 14 mg/dL (7-18) 09/12/20 07:08 Creatinine 0.68 mg/dL (0.55-1.02) 09/12/20 07:08 Est GFR (MDRD) Af Amer 115 mL/min (>60) 09/12/20 07:08 Est GFR (MDRD) Non-Af 95 mL/min (>60) 09/12/20 07:08 BUN/Creatinine Ratio 20.7 RATIO (10-20) H 09/12/20 07:08 Glucose 84 mg/dL (74-106) 09/12/20 07:08 Vancomycin Trough 16.1 ug/mL (5.0-15.0) H 09/12/20 08:47 Microbiology: Microbiology 09/11/20 09:30 Bone - Finger Gram Stain - Final 09/11/20 09:30 Wound Abcess - Finger Gram Stain - Final 09/10/20 14:37 Wound - Hand Gram Stain - Final 09/10/20 14:37 Wound - Hand Wound Culture - Preliminary No growth-Final to follow 09/11/20 07:00 Mucosa - Nose SARS-CoV-2 Antigen (Rapid) - Final Goal Trough: 15-20 mcg/mL Pharmacy Plan for Drug Dosing: VANCOMYCIN LEVEL RECEIVED Current Vancomycin Dose: 1250MG Q12H Number of Doses Received: [id number] X1, 1250MG X2 Vancomycin Level: 16.1 MG/DL Hours Since Last Dose: 12 Renal Function: SCR 0.68, CRCL 84 ML/MIN Renal Function Trend: STABLE Lab/Micro: PENDING Vancomycin Plan/Comments: CONTINUE CURRENT REGIMEN, NEXT TROUGH IN 4 DAYS PER POLICY Pending Level: 09/16/20 @ 0830 Pharmacy Service will continue to monitor and adjust dosing as required.
[2020-09-12] MEDS: Acetaminophen 325 MG Tablet 650 MG PO (11:13)
--- NOTE | 2020-09-12 11:28 | PCM.DC ---
Discharge Instructions Diet Discharge Diet: No restrictions Activity Discharge Activity: Return to Normal Activity Dressing / Incision Call your doctor if your incision/area has: Continuous Slow Oozing, Sudden Increased Bleeding, Increased Pain/ Swelling, Increased Redness, Foul Smelling Discharge and Swelling at the incision site Call your doctor if you observe: Fever of 101 or Higher, Coldness, Increased Pain, Numbness or Tingling, Shortness of breath, Dizziness, Chest pain, Increased palpitations (irregular heartbeat), Calf discomfort and Uncontrolled pain Follow Up Care Please Follow Up With: Primary care provider When: Within the next two weeks. Test Results: Test results from this visit will be discussed in further detail at your follow-up appointment, if applicable. Discharge Plan Admission Admit Date/Time: 09/10/20 17:01 Primary Reason for Your Visit: Cat bite/failed outpatient management. Attending Provider: Martin Ruiz Primary Care Provider: Sapna Mcnair Consulting Providers: Ankur Molina ; Oliver Ochoa Discharge Orders/Prescriptions Prescriptions: New oxycodone-acetaminophen [Percocet] 5-325 mg tablet 1 tab PO Q4H PRN (Reason: pain (scale score 7-10)) 7 Days Qty: 40 RF: 0 gabapentin 300 mg capsule 300 mg PO BID Qty: 60 RF: 1 doxycycline monohydrate 100 mg capsule 100 mg PO BID Qty: 90 RF: 0 ciprofloxacin HCl 500 mg tablet 500 mg PO BID Qty: 90 RF: 0 Continued oxybutynin chloride 5 mg tablet 5 mg PO QHS Qty: 90 RF: 2 triamterene-hydrochlorothiazid 37.5-25 mg tablet 1 tab PO QDAY Qty: 90 RF: 3 amlodipine 10 mg tablet 10 mg PO DAILY Qty: 90 RF: 3 lisinopril 10 mg tablet 10 mg PO DAILY Qty: 90 RF: 2 multivitamin Tablet 1 tab PO DAILY RF: 0 ibuprofen 200 mg Tablet 400 - 600 mg PO Q8H PRN (Reason: Pain) RF: 0 Discontinued ciprofloxacin HCl 500 mg tablet 500 mg PO BID Qty: 14 RF: 0 No Action (DME) comp.stocking,thigh,long,large Misc See Rx Instructions .ROUTE .MEDSUPPLY Qty: 2 RF: 0 Referrals / Follow Up: Sapna Mcnair MD [Primary Care Provider] - Within 2 Weeks Ankur Molina MD [STAFF PHYSICIAN] - Within 1 Week Oliver Ochoa MD [STAFF PHYSICIAN] - Within 2 Weeks Disposition Disposition (needs filled in before D/C Order can be placed): Home, self care
[2020-09-12] MEDS: levoFLOXacin IV 750 MG/150 ML BAG 100 MG IV (11:33)
--- NOTE | 2020-09-12 14:26 | PCM.DC.SUM ---
Documented by User: Frank SHORT 09/12/20 14:31 Providers Date of Admission: 09/10/20 Primary Care Physician: Dr. 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 Routine Comment: Consult: Plastic Surgery Routine Consulting Provider: Ankur Molina Reason for Consult: right hand cellulitis EMERGENT Consult: No MD Notified: Yes Date Notified: 09/10/20 Time Notified: 17:11 Method of Notification: Verbal 09/11/20 08:57 Consult: Infectious Disease Routine Consulting Provider: Oliver Ochoa Reason for Consult: Osteo of hand, prior cx with pseudomonas now on levaquin EMERGENT Consult: No MD Notified: Yes Date Notified: 09/11/20 Time Notified: 09:45 Method of Notification: office Reason For Visit: HAND CELLULITIS Diagnosis Discharge Diagnosis (1) Abscess of finger of right hand: Status: Acute Code(s): L02.511 - Cutaneous abscess of right hand (2) HTN (hypertension): Status: Chronic Code(s): I10 - Essential (primary) hypertension (3) Female stress incontinence: Status: Acute Code(s): N39.3 - Stress incontinence (female) (male) (4) Uterine prolapse: Status: Chronic Code(s): N81.4 - Uterovaginal prolapse, unspecified Medications at Discharge Home Medications comp.stocking,thigh,long,large #2 ea 11/21/18 oxybutynin chloride 5 mg tablet 5 mg PO QHS #90 tab 08/05/20 triamterene 37.5 mg-hydrochlorothiazide 25 mg tablet 1 tab PO QDAY #90 tab 08/05/20 multivitamin 1 tab PO DAILY 08/20/20 amlodipine 10 mg tablet 10 mg PO DAILY #90 tab 08/27/20 lisinopril 10 mg tablet 10 mg PO DAILY #90 tab 08/27/20 ibuprofen 400 - 600 mg PO Q8H PRN 09/10/20 ciprofloxacin HCl 500 mg PO BID #90 tab 09/12/20 doxycycline monohydrate 100 mg PO BID #90 cap 09/12/20 gabapentin 300 mg PO BID #60 cap 09/12/20 oxycodone-acetaminophen [Percocet] 1 tab PO Q4H PRN 7 Days #40 tab 09/12/20 Hospital Course Summary of Care Provided Minutes Spent on Discharge: 35 Hospital Course: 1) Cellulitis/Abscess/Osteomyelitis. S/p debridement of abscess on radial aspect of right index finger. Vital signs stable and patient is afebrile. CBC demonstrates no leukocytosis. Due to cat bite. Failed outpatient Augmentin therapy. Wound culture with Pseudomonas. MRI demonstrated soft tissue abscess and osteomyelitis of the second MCP. Plan; initiate doxycycline 100 mg p.o. twice daily and ciprofloxacin 5 mg p.o. twice daily x6 weeks per infectious disease, follow-up with ID in 2 weeks, Percocet and gabapentin as needed for pain per wound management, follow-up with Dr. Molina's office within 1 week. 2) HTN Stable, continue amlodipine and lisinopril. 3) Urinary stress incontinence Continue Ditropan. Patient seen by Frank Jaquez PA-C, under the supervision of Dr. Ruiz. Physical Exam Narrative Patient is a 60-year-old female who is comfortably resting in bed, alert and oriented x3. Patient reports that pain from hand is currently controlled on current pain regimen. Denies chest pain, shortness of breath, palpitations, hemoptysis, fever, chills, N/V/D. Const alert, oriented x3 and no apparent distress HEENT normocephalic, head/scalp atraumatic and hearing grossly normal bilaterally Eyes PERRL, EOMs intact bilaterally and conjunctivae normal Neck no lymphadenopathy, supple and no JVD Resp normal respiratory effort, no retractions, no use of accessory muscles and clear to auscultation bilaterally Cardio regular rate, regular rhythm, no murmurs and no JVD GI normal to inspection, nondistended, normoactive bowel sounds, soft to palpation and non-tender Extremity normal to inspection, full ROM and no clubbing, cyanosis or edema Skin no rashes or lesions noted, no wounds and skin turgor normal Neuro CN's II-XII intact bilaterally Psych affect normal Weight / BMI Weight Weight: 198 lb 6.656 oz Body Mass Index (BMI) 31.8 ABG / Lab / Microbiology Data Result Diagrams: 09/12/20 07:08 09/12/20 07:08 Laboratory: Laboratory Results - last 24 hr 09/12/20 09/12/20 09/12/20 07:08 07:08 08:47 WBC 7.5 RBC 4.11 L Hgb 11.9 L Hct 38.2 MCV 92.9 MCH 29.0 MCHC 31.2 L RDW Std Deviation 43.9 RDW Coeff of Jules 12.9 Plt Count 255 MPV 8.9 Immature Gran % (Auto) 0.400 Neut % (Auto) 76.6 H Lymph % (Auto) 13.7 L [place] % (Auto) 7.7 Eos % (Auto) 1.3 Baso % (Auto) 0.3 Absolute Neuts (auto) 5.8 Absolute Lymphs (auto) 1.03 Nucleated RBC % 0 Sodium 138 Potassium 3.9 Chloride 106 Carbon Dioxide 28.0 Anion Gap 4 L BUN 14 Creatinine 0.68 Estim Creat Clear Calc 83.39 Est GFR (MDRD) Af Amer 115 Est GFR (MDRD) Non-Af 95 BUN/Creatinine Ratio 20.7 H Glucose 84 Calcium 9.0 Vancomycin Trough 16.1 H Microbiology: Microbiology 09/11/20 09:30 Gram Stain - Final Bone - Finger Wound Culture - Preliminary No growth-Final to follow 09/11/20 09:30 Gram Stain - Final Wound Abcess - Finger Wound Culture - Preliminary No growth-Final to follow 09/10/20 14:37 Gram Stain - Final Wound - Hand Wound Culture - Preliminary No growth-Final to follow Microbiology 09/11/20 09:30 Bone - Finger Gram Stain - Final 09/11/20 09:30 Bone - Finger Wound Culture - Preliminary No growth-Final to follow 09/11/20 09:30 Wound Abcess - Finger Gram Stain - Final 09/11/20 09:30 Wound Abcess - Finger Wound Culture - Preliminary No growth-Final to follow 09/10/20 14:37 Wound - Hand Gram Stain - Final 09/10/20 14:37 Wound - Hand Wound Culture - Preliminary No growth-Final to follow 09/11/20 07:00 Mucosa - Nose SARS-CoV-2 Antigen (Rapid) - Final D/C Instructions Discharge Diet: No restrictions Call your doctor if your incision/area has: Continuous Slow Oozing, Sudden Increased Bleeding, Increased Pain/ Swelling, Increased Redness, Foul Smelling Discharge and Swelling at the incision site Call your doctor if you observe: Fever of 101 or Higher, Coldness, Increased Pain, Numbness or Tingling, Shortness of breath, Dizziness, Chest pain, Increased palpitations (irregular heartbeat), Calf discomfort and Uncontrolled pain Please Follow Up With: Primary care provider When: Within the next two weeks. Meaningful Use Info Meaningful Use Diagnoses (Choose all that apply): None applicable Discharge Plan Admission Admit Date/Time: 09/10/20 17:01 Primary Reason for Your Visit: Cat bite/failed outpatient management. Attending Provider: Martin Ruiz Primary Care Provider: Sapna Mcnair Consulting Providers: Ankur Molina ; Oliver Ochoa Instructions Additional Instructions / Restrictions: [facility] [phone] will be doing your dressing changes and teaching your daughter to do dressing changes. Discharge Orders/Prescriptions Prescriptions: New oxycodone-acetaminophen [Percocet] 5-325 mg tablet 1 tab PO Q4H PRN (Reason: pain (scale score 7-10)) 7 Days Qty: 40 RF: 0 gabapentin 300 mg capsule 300 mg PO BID Qty: 60 RF: 1 doxycycline monohydrate 100 mg capsule 100 mg PO BID Qty: 90 RF: 0 ciprofloxacin HCl 500 mg tablet 500 mg PO BID Qty: 90 RF: 0 Continued oxybutynin chloride 5 mg tablet 5 mg PO QHS Qty: 90 RF: 2 triamterene-hydrochlorothiazid 37.5-25 mg tablet 1 tab PO QDAY Qty: 90 RF: 3 amlodipine 10 mg tablet 10 mg PO DAILY Qty: 90 RF: 3 lisinopril 10 mg tablet 10 mg PO DAILY Qty: 90 RF: 2 multivitamin Tablet 1 tab PO DAILY RF: 0 ibuprofen 200 mg Tablet 400 - 600 mg PO Q8H PRN (Reason: Pain) RF: 0 Discontinued ciprofloxacin HCl 500 mg tablet 500 mg PO BID Qty: 14 RF: 0 No Action (DME) comp.stocking,thigh,long,large Misc See Rx Instructions .ROUTE .MEDSUPPLY Qty: 2 RF: 0 Referrals / Follow Up: Sapna Mcnair MD [Primary Care Provider] - Within 2 Weeks Ankur Molina MD [STAFF PHYSICIAN] - Within 1 Week Oliver Ochoa MD [STAFF PHYSICIAN] - Within 2 Weeks Disposition Disposition (needs filled in before D/C Order can be placed): Home, self care Documented by User: Dr. Martin Ruiz MD 09/12/20 15:16 Providers Date of Admission: 09/10/20 Reason For Visit: HAND CELLULITIS Medications at Discharge Home Medications comp.stocking,thigh,long,large #2 ea 11/21/18 oxybutynin chloride 5 mg tablet 5 mg PO QHS #90 tab 08/05/20 triamterene 37.5 mg-hydrochlorothiazide 25 mg tablet 1 tab PO QDAY #90 tab 08/05/20 multivitamin 1 tab PO DAILY 08/20/20 amlodipine 10 mg tablet 10 mg PO DAILY #90 tab 08/27/20 lisinopril 10 mg tablet 10 mg PO DAILY #90 tab 08/27/20 ibuprofen 400 - 600 mg PO Q8H PRN 09/10/20 ciprofloxacin HCl 500 mg PO BID #90 tab 09/12/20 doxycycline monohydrate 100 mg PO BID #90 cap 09/12/20 gabapentin 300 mg PO BID #60 cap 09/12/20 oxycodone-acetaminophen [Percocet] 1 tab PO Q4H PRN 7 Days #40 tab 09/12/20 ABG / Lab / Microbiology Data Result Diagrams: 09/12/20 07:08 09/12/20 07:08 Discharge Plan Admission Admit Date/Time: 09/10/20 17:01 Primary Reason for Your Visit: Cat bite/failed outpatient management. Attending Provider: Martin Ruiz Primary Care Provider: Sapna Mcnair Consulting Providers: Ankur Molina ; Oliver Ochoa Instructions Additional Instructions / Restrictions: [facility] [phone] will be doing your dressing changes and teaching your daughter to do dressing changes. Discharge Orders/Prescriptions Prescriptions: New oxycodone-acetaminophen [Percocet] 5-325 mg tablet 1 tab PO Q4H PRN (Reason: pain (scale score 7-10)) 7 Days Qty: 40 RF: 0 gabapentin 300 mg capsule 300 mg PO BID Qty: 60 RF: 1 doxycycline monohydrate 100 mg capsule 100 mg PO BID Qty: 90 RF: 0 ciprofloxacin HCl 500 mg tablet 500 mg PO BID Qty: 90 RF: 0 Continued oxybutynin chloride 5 mg tablet 5 mg PO QHS Qty: 90 RF: 2 triamterene-hydrochlorothiazid 37.5-25 mg tablet 1 tab PO QDAY Qty: 90 RF: 3 amlodipine 10 mg tablet 10 mg PO DAILY Qty: 90 RF: 3 lisinopril 10 mg tablet 10 mg PO DAILY Qty: 90 RF: 2 multivitamin Tablet 1 tab PO DAILY RF: 0 ibuprofen 200 mg Tablet 400 - 600 mg PO Q8H PRN (Reason: Pain) RF: 0 Discontinued ciprofloxacin HCl 500 mg tablet 500 mg PO BID Qty: 14 RF: 0 No Action (DME) comp.stocking,thigh,long,large Misc See Rx Instructions .ROUTE .MEDSUPPLY Qty: 2 RF: 0 Referrals / Follow Up: Sapna Mcnair MD [Primary Care Provider] - Within 2 Weeks Ankur Molina MD [STAFF PHYSICIAN] - Within 1 Week Oliver Ochoa MD [STAFF PHYSICIAN] - Within 2 Weeks Disposition Disposition (needs filled in before D/C Order can be placed): Home, self care Charges/Coding Addendum Addendum: Dr. Ruiz: I personally reviewed the chart and examined the patient, and agree with the above findings. 60-year-old female presents back to the hospital with persistent infection in her right hand. She was seen several weeks ago with a cat bite and discharged on Augmentin however she did not have significant improvement and went to her PCP who obtained a culture from the purulent drainage demonstrating a pseudomonal species sensitive to Cipro and Levaquin. She presented back to the hospital yesterday and was found to have an osteomyelitis in her right finger, she is status post washout today and infectious disease was consulted recommending p.o. doxy and Cipro for 6 weeks. We will evaluate her ability to tolerate dressing changes and if stable can plan for discharge in the morning potentially. 09/12/2020: Doing well today, she tolerated dressing changes with minimal discomfort. She does have home health care at home who will also be able to show her daughter and her son how to change her dressings. Infectious disease saw her yesterday and recommended 6 weeks of Cipro and doxycycline. ID will monitor cultures as an outpatient and make adjustments as necessary. If she has difficulty managing her dressings at home it was discussed with her that she would need to go to the wound care center a couple times a week to get it changed and monitored. I discussed with her the plan for discharge and she expressed understanding of the risk and benefits of going home. Visit Charges Inpatient E&M: 33121 Disch Hosp
[2020-09-12 14:29] VITALS: BP 110/60; PULSE 81; RESP 16; TEMP 36.7; O2SAT 94
== END 2020-09-12 14:15 | disposition home or self-care (01) | DRG 513 ==
LOC: ED 16:10 → MS3 17:19
PROVIDERS: Physician Assistant; Surgery; Emergency Provider Emergency Medicine; PCP Internal Medicine; Visit Provider Family Medicine
PROC: 0J9J0ZZ Drainage of Right Hand Subcutaneous Tissue and Fascia, Open Approach (ICD-10-PCS; principal; 2020-09-11 08:35)
DX: M86.141 Other acute osteomyelitis, right hand (principal); M00.9 Pyogenic arthritis, unspecified; L02.511 Cutaneous abscess of right hand; L03.011 Cellulitis of right finger; B96.5 Pseudomonas (aeruginosa) (mallei) (pseudomallei) as the cause of diseases classified elsewhere; W55.01XA Bitten by cat, initial encounter; I10 Essential (primary) hypertension; N39.3 Stress incontinence (female) (male); Z79.899 Other long term (current) drug therapy; Z79.2 Long term (current) use of antibiotics; Z87.891 Personal history of nicotine dependence
CPT/HCPCS: 36415; 73130; 73218; 80048; 80053; 80202; 85025; 85652; 86140; 87070; 87075; 87102; 87176; 87205; 87206; 87426; 88304; 88311; 93005; 99283; J7030; J7040; J7050; A4216; J0295; J2405

== ENCOUNTER → 2020-10-07 10:12 | Outpatient (CLI) | payer BC, SELFPAY ==
[2020-09-30 10:08] VITALS: BMI 32.9
[2020-10-07 10:47] LABS: AST(SGOT) 13 U/L (15-37); Alanine Aminotransfer ALT/SGPT 19 U/L (13-56); Albumin, Serum 3.8 g/dL (3.2-5.0); Alkaline Phosphatase 126 U/L (45-117); Bilirubin, Direct 0.14 mg/dL (0.00-0.30); Globulin 3.4 g/dL (2.2-4.2); Protein, Total 7.2 g/dL (6.4-8.2)
== END ==
PROVIDERS: PCP Internal Medicine; Referring Provider Nurse Practitioner Family; Visit Provider Nurse Practitioner Family
DX: M00.9 Pyogenic arthritis, unspecified (principal); M86.10 Other acute osteomyelitis, unspecified site; M86.141 Other acute osteomyelitis, right hand; M86.9 Osteomyelitis, unspecified; B37.89 Other sites of candidiasis
CPT/HCPCS: 36415; 80076

== ENCOUNTER 2020-11-02 17:00 | Outpatient (RCR) | payer BC, SELFPAY ==
[2020-09-23 09:34] VITALS: BMI 32.9
[2020-09-30 10:08] VITALS: BMI 32.9
--- NOTE | 2020-10-07 15:56 | HP.OTEVAL_ITS ---
Patient's Visit Information ELIAS CARY is a 60 year old F, referred to Occupational Therapy by SUNSHINE Mccloud, with a diagnosis of right IF infection. Date of Evaluation: 10/07/20 Occupational Therapist: Claire Merrill, [place]/Kim, CHT - Subjective This 60 year old female was seen for OT eval with dx of cat bite on early September: pt underwent surgery on 09/11/20 where she underwent Surgical preparation radial aspect MP joint right index finger with incision and drainage and excisional debridement cat bite abscess and partial ostectomy MP joint (distal aspect metacarpal articular surface and proximal aspect proximal phalanx articular surface) for osteomyelitis right index finger and incisional release A1 clayton right index finger. pt works [employer]. pt has concerns with returning as she has a lot of grasping and unsure of wt. of the boxes she is moving- pt states she would like to return to her PLOF. - ROM MP: right IF 0/55 left 0/80 PIP: right IF 0/80 left 0/95 DIP: right IF 0/50 left 0/55 - Strength Content Engineer: right 10# left 45# Lateral Pinch: right unable left 4# Tripod Pinch: right unable left 6# - Sensation Sensation Comments: denies - Goals Goal:: pt will demo a right marine architect strength to 40# or greater to return pt to PLOF by d/c. pt will demo a increase in lateral and tripod pinch by 4# or greater to increase pts ind with ALD and IADLs by d/c Goal:: pt will demo increase in MCP Flex to 80* or greater to increase pts ind. with forming composite fist by d/c - Rehabilitation General Assessment: pt 3 weeks and 5 days from OI&D- pt demo with limited ROM, hypertrophic scar and a decrease in pts functional right marine architect and pinch strength-this limits pts ind. with ADLs and IADS. pt would benefit from skilled OT services 2x week for 2-3 weeks to increase pts strength, improver her ROM and decrease scar adhesions to return to her PLOF. Today therapist ed. pt on scar mtg, ROM, PROM and strengthening. Pt demo understanding and agree to POC. Rehabilitation Potential: Good - Anticipated Interventions A/AAROM/PROM, Strengthening, Scar Care, Triggerpoint Release, Desensitization, Modalities, Orthoses, Joint Protection/Energy Conservation, Ergonomic Education - Visit Plan Frequency: 1-2x /Week Duration: 2-4 Weeks TEXT: Thank you for the opportunity to evaluate your patient. For Medicare and Medicare HMO plans, please review the plan of care and approve it. It will need to be FAXED BACK to us at [phone] for Medicare purposes. Please let me know if there are questions or concerns regarding this plan of care. Physician Signature: Date:_
--- NOTE | 2020-11-10 10:13 | HP.OTDCSUM_ITS ---
It has been my pleasure to treat ELIAS CARY under orders from SUNSHINE Mccloud, for the diagnosis of right IF infection for a total of 7 visit(s). Please see the following information for a summary of their discharge status. % Improvement: 100 Objective/Function: R IF: 75*, PIP: 105*. R quality assurance analyst:30#. R lateral: 9#. R 3-jaw: 10#. pt has made good gains with her ROM and strength. pt has met OT goals Patient Goals: Regain Mobility, Regain Strength, Use Hand/Wrist/Arm Normally Again Goal:: pt will demo a right quality assurance analyst strength to 40# or greater to return pt to PLOF by d/c. pt will demo a increase in lateral and tripod pinch by 4# or greater to increase pts ind with ALD and IADLs by d/c Goal:: pt will demo increase in MCP Flex to 80* or greater to increase pts ind. with forming composite fist by d/c Plan: d/c today. Discharge Comments: Pt was seen for 7 visits after a cat bite to increase ROM and strength to return to work. She ahs returned to work and will continue her HEP and continued use of her R hand. Pt stated that it feels better than when she first came to therapy and she is able to use it more. Pt understands and agrees with d/c. If there are questions or concerns regarding this patient's occupational therapy, please fell free to call me at [phone]. Thank you for the referral of this patient. Sincerely, Claire Merrill, OTR/L, CHT
== END 2020-11-02 19:00 | disposition home or self-care (01) ==
LOC: OT 17:00
PROVIDERS: PCP Internal Medicine; Referring Provider Nurse Practitioner Family; Visit Provider Nurse Practitioner Family
DX: M00.9 Pyogenic arthritis, unspecified (principal); M86.141 Other acute osteomyelitis, right hand; S61.250D Open bite of right index finger without damage to nail, subsequent encounter; W55.01XD Bitten by cat, subsequent encounter; Z87.891 Personal history of nicotine dependence
CPT/HCPCS: 97110; 97140; 97166; 97530

== ENCOUNTER 2020-11-19 11:13 | Emergency (ER) | payer BC, SELFPAY ==
[2020-11-19 11:14] VITALS: BP 145/85; PULSE 106; RESP 18; TEMP 36.6; O2SAT 99; BMI 36.6
--- NOTE | 2020-11-19 11:33 | EX.ED.DYSGE1 ---
HPI History of Present Illness Chief Complaint: Lower Extremity Injury Informant: patient Narrative Narrative: Patient is a 60-year-old female who presents to the emergency department for left leg pain, swelling, rash. Her initial symptoms started this morning. She has had cellulitis of her hand before but never on her lower extremities. She denies any injury. Pain is exacerbated with movements and touching the skin. She denies any fevers or chills. No nausea or vomiting. She denies any other rash elsewhere or joint pain or swelling. No urinary symptoms. She has not taken anything for this. [facility] Medical History (Updated 11/19/20 @ 12:[address] Lui Anton, ) Abscess of finger of right hand Acute osteomyelitis of metacarpal bone of right hand Anemia Arthritis Hahn's palsy Carpal tunnel syndrome Cat bite Cellulitis of right index finger Dermatitis Fatigue Finger osteomyelitis, right Former smoker Frequent headaches Health care maintenance HTN (hypertension) Hypertension Knee pain NECK AND BACK PAIN Open wound of right index finger due to cat bite Osteoarthritis Septic arthritis of hand, right Shortness of breath Home Medications comp.stocking,thigh,long,large #2 ea 11/21/18 [Rx Last Taken Unknown] oxybutynin chloride 5 mg tablet 5 mg PO QHS #90 tab 08/05/20 [Rx Last Taken 09/09/20] triamterene 37.5 mg-hydrochlorothiazide 25 mg tablet 1 tab PO QDAY #90 tab 08/05/20 [Rx Last Taken 09/10/20] multivitamin 1 tab PO DAILY 08/20/20 [History Last Taken 2 Days Ago ~09/08/20] amlodipine 10 mg tablet 10 mg PO DAILY #90 tab 08/27/20 [Rx Last Taken 09/10/20] lisinopril 10 mg tablet 10 mg PO DAILY #90 tab 08/27/20 [Rx Last Taken 09/10/20] ibuprofen 400 - 600 mg PO Q8H PRN 09/10/20 [History Last Taken 09/10/20 01:00] gabapentin 300 mg PO BID #60 cap 09/12/20 [Rx Last Taken Unknown] cephalexin 500 mg PO Q6H 10 Days #40 cap 11/19/20 [Rx Last Taken Unknown] Allergy/AdvReac Type Severity Reaction Status Date / Time Sulfa (Sulfonamide Allergy Mild unknown Verified 11/19/20 11:16 Antibiotics) hydrocodone [From Vicodin] Allergy Vomiting Verified 11/19/20 11:16 Family History Mother Heart disease Hypertension Father Heart disease Hypertension Other Arthritis CVA (cerebral vascular accident) Cancer High cholesterol Surgical History History of History of tonsillectomy History of total left knee replacement S/P S/P tonsillectomy Total vaginal hysterectomy, bilateral salpingectomy, uterosa Social History Smoking Status: Former smoker Tobacco: How many years used: 20 how long ago did patient quit smokin alcohol intake: never details: social substance use type: does not use and painkillers caffeine: Yes what type of physical activity do you participate in: none seatbelt use: always do you feel safe at home: Yes additional social history: - Phu Childs Does not take aspirin Does take Ibuprofen as needed ROS ROS ED Constitutional Constitutional ED: Denies chills or fever(s) Eyes Eyes: Denies change in vision Cardiovascular Cardiovascular: Denies chest pain or palpitations Respiratory/Chest Respiratory/Chest: Denies cough or dyspnea Gastrointestinal Gastrointestinal: Denies abdominal pain, nausea or vomiting Genitourinary Genitourinary ED: Denies dysuria, hematuria or urinary frequency Musculoskeletal Musculoskeletal: Reports myalgias; Denies back pain or neck pain Integumentary Reports rash Neurologic Neurologic: Denies dizziness, headache(s) or weakness EXAM Physical Exam Const Vital Signs: 11/19/20 11:14 Temperature 97.9 F Temperature Source Temporal Pulse Rate 106 H Respiratory Rate 18 Blood Pressure 145/85 H Blood Pressure Mean 105 Pulse Ox 99 Oxygen Delivery Method Room Air Positive well nourished and well developed General Appearance ED: well developed and NAD HEENT Reports normocephalic and head/scalp atraumatic Eyes PERRL and EOMs intact bilaterally Neck supple Chest Wall inspection of chest normal Resp normal respiratory effort and clear to auscultation bilaterally Auscultation: Negative for rales, rhonchi or wheezes Cardio regular rate, regular rhythm and no murmurs GI normal to inspection, nondistended, normoactive bowel sounds and non-tender Palpation: soft; Negative for guarding or rebound tenderness present Extremity Extremity Narrative: Left lower extremity is tender to touch. It is mildly swollen compared to the right. There is overlying erythema, warmth. There is some mild erythema to the right lower extremity although no significant tenderness or swelling present. She otherwise is neurovascular intact. Good range of motion of all joints of the lower extremities. Neuro no sensory deficits noted Sensorium / Orientation: alert Motor Exam: strength 5/5 throughout Psych mental status grossly normal MDM MDM MDM Narrative Medical decision making narrative: Patient presents to the emergency department for pain, swelling and rash to left lower extremity. On physical exam she is very tender. On arrival to the emerge department she is mildly tachycardic but on my examination heart rate has returned to normal. She is afebrile. Will check ultrasound lower extremity to evaluate for DVT. Ultrasound for the lower extremity was negative for blood clot. Her white blood cell count is minimally elevated. Lactic acid within normal limits. She is given a first dose of cefepime here for presumed cellulitis. She is given a prescription for Keflex. If she develops any streaking up the leg, inability keep down the antibiotic or developing fever/chills/body aches she needs to return back to the emergency department for reevaluation. She understands and is agreeable this plan. She is discharged home in stable condition. All questions are answered. She is to follow-up with her PCP. Lab Data Labs: Laboratory Results - last 24 hr 11/19/20 11/19/20 11/19/20 12:25 12:25 12:25 WBC 11.9 H RBC 4.25 Hgb 12.5 Hct 39.5 MCV 92.9 MCH 29.4 MCHC 31.6 L RDW Std Deviation 45.8 H RDW Coeff of Jules 13.4 Plt Count 242 MPV 9.4 Immature Gran % (Auto) 0.400 Neut % (Auto) 87.8 H Lymph % (Auto) 5.6 L [place] % (Auto) 5.5 Eos % (Auto) 0.4 Baso % (Auto) 0.3 Absolute Neuts (auto) 10.5 H Absolute Lymphs (auto) 0.67 L Nucleated RBC % 0 Sodium 138 Potassium 4.1 Chloride 106 Carbon Dioxide 27.0 Anion Gap 5 BUN 25 H Creatinine 0.72 Estim Creat Clear Calc 75.70 Est GFR (MDRD) Af Amer 107 Est GFR (MDRD) Non-Af 89 BUN/Creatinine Ratio 35.0 H Glucose 102 Lactic Acid 1.1 Calcium 9.1 Discharge Plan Triage Chief Complaint: Lower Extremity Injury ED Provider: Lui Anton Dx/Rx/DC Orders Clinical Impression: Cellulitis of left lower leg Instructions: ED Cellulitis Prescriptions: New cephalexin 500 mg capsule 500 mg PO Q6H 10 Days Qty: 40 RF: 0 No Action (DME) comp.stocking,thigh,long,large Misc See Rx Instructions .ROUTE .MEDSUPPLY Qty: 2 RF: 0 oxybutynin chloride 5 mg tablet 5 mg PO QHS Qty: 90 RF: 2 triamterene-hydrochlorothiazid 37.5-25 mg tablet 1 tab PO QDAY Qty: 90 RF: 3 amlodipine 10 mg tablet 10 mg PO DAILY Qty: 90 RF: 3 lisinopril 10 mg tablet 10 mg PO DAILY Qty: 90 RF: 2 multivitamin Tablet 1 tab PO DAILY RF: 0 ibuprofen 200 mg Tablet 400 - 600 mg PO Q8H PRN (Reason: Pain) RF: 0 gabapentin 300 mg capsule 300 mg PO BID Qty: 60 RF: 1 Primary Care Provider: Sapna Mcnair Referrals: Sapna Mcnair MD [Primary Care Provider] - 3-5 Days Disposition Disposition: Home, Self Care
--- NOTE | 2020-11-19 11:38 | VDLE_ITS ---
Reason For Study: Swelling Procedure LEFT This is a venous duplex using B-mode, color GSV is normal. flow and spectral Doppler. CFV is compressible, spontaneous, phasic, Exam performed portable in ED. competent, and demonstrates normal A preliminary report was called and/or faxed augmentation. to [facility]. FV is compressible, spontaneous, phasic, competent and demonstrates normal augmentation. POP V is compressible, spontaneous, phasic, competent and demonstrates normal augmentation. T/P Trunk is compressible. PTV is compressible. LT PerV is compressible. VL/Venous Duplex US, Unilateral Interpretation Summary There is no evidence of left lower extremity deep vein thrombosis. Left great s aphenous vein appears patent and compressible segmentally. Ordering Physician: Lui Anton Referring Physician: Sapna Mcnair Performed By: Pati Nash RVT
[2020-11-19 12:34] LABS: Absolute Lymphocyte Count 0.67 X10^3/uL (0.83-4.51); Absolute Neutrophil Count 10.5 X10^3/uL (2.0-7.7); Basophil# 0.04 X10^3/uL; Basophil% 0.3 % (0-1); Eosinophil# 0.05 X10^3/uL; Eosinophils% 0.4 % (0-5); Hematocrit 39.5 % (37-47); Hemoglobin 12.5 g/dL (12.0-15.0); Lymphocyte # 0.67 X10^3/ul (0.83-4.51); Lymphocyte % 5.6 % (19-41); Mean Corp Hgb Conc 31.6 g/dL (32-36); Mean Corpuscular Hgb 29.4 pg (27.0-32.0); Mean Corpuscular Volume 92.9 fL (81-99); Mean Platelet Vol. 9.4 fl (6.2-12.0); Monocyte# 0.66 X10^3/uL; Monocyte% 5.5 % (0-10); NRBC Flagged by Analyzer 0 % (0-5); Neutrophil # 10.45 X10^3/uL (2.7-7.7); Neutrophil % 87.8 % (47-70); Platelet Count 242 K/mm3 (150-450); RBC Distribution Width CV 13.4 % (11.6-14.6); RBC Distribution Width SD 45.8 fl (35.1-43.9); Red Blood Count 4.25 M/mm3 (4.2-5.4); White Blood Count 11.9 K/mm3 (4.4-11.0)
[2020-11-19] MEDS: Ketorolac 15 MG/ML Vial IV (12:41)
[2020-11-19 12:46] LABS: Anion Gap 5 (5-15); BUN 25 mg/dL (7-18); Calcium,Total 9.1 mg/dL (8.5-10.1); Chloride 106 mmol/L (98-107); Creatinine, Serum 0.72 mg/dL (0.55-1.02); EST Glomerular Filtration Rate 89 mL/min (>60); Est Glom Filt Rate - Afr Amer 107 mL/min (>60); Glucose 102 mg/dL (74-106); Potassium 4.1 mmol/L (3.5-5.1); Sodium Level 138 mmol/L (136-145)
[2020-11-19 12:59] LABS: Lactic Acid 1.1 mmol/L (0.4-1.9)
[2020-11-19 13:52] VITALS: BP 140/78; PULSE 81; RESP 16; O2SAT 96
== END 2020-11-19 15:26 | disposition home or self-care (01) ==
PROVIDERS: Emergency Provider Emergency Medicine; PCP Internal Medicine
DX: L03.116 Cellulitis of left lower limb (principal); I10 Essential (primary) hypertension; Z87.891 Personal history of nicotine dependence; Z79.899 Other long term (current) drug therapy
CPT/HCPCS: 80048; 83605; 85025; 87040; 93971; 96365; 96366; 96375; 99283; J7040

== ENCOUNTER → 2020-11-25 14:46 | Outpatient (CLI) | payer BC, SELFPAY ==
[2020-09-30 10:08] VITALS: BMI 32.9
[2020-11-25 17:01] LABS: Absolute Neutrophil Count 8.2 X10^3/uL (2.0-7.7); Basophil# 0.06 X10^3/uL; Basophil% 0.5 % (0-1); Eosinophils% 1.8 % (0-5); Hematocrit 38.5 % (37-47); Lymphocyte % 14.7 % (19-41); Mean Corp Hgb Conc 31.2 g/dL (32-36); Mean Corpuscular Hgb 28.8 pg (27.0-32.0); Mean Corpuscular Volume 92.3 fL (81-99); Mean Platelet Vol. 9.1 fl (6.2-12.0); Monocyte% 6.4 % (0-10); NRBC Flagged by Analyzer 0 % (0-5); Neutrophil # 8.24 X10^3/uL (2.7-7.7); Neutrophil % 75.6 % (47-70); Platelet Count 366 K/mm3 (150-450); RBC Distribution Width CV 13.2 % (11.6-14.6); RBC Distribution Width SD 44.6 fl (35.1-43.9); Red Blood Count 4.17 M/mm3 (4.2-5.4); White Blood Count 10.9 K/mm3 (4.4-11.0)
[2020-11-25 17:13] LABS: ALB/GLOB Ratio 1.3 RATIO (0.9-2.4); AST(SGOT) 15 U/L (15-37); Alanine Aminotransfer ALT/SGPT 31 U/L (13-56); Albumin, Serum 3.8 g/dL (3.2-5.0); Alkaline Phosphatase 122 U/L (45-117); Anion Gap 7 (5-15); BUN 27 mg/dL (7-18); BUN/Creat Ratio 26.2 RATIO (10-20); Bilirubin, Direct 0.06 mg/dL (0.00-0.30); Calcium,Total 8.9 mg/dL (8.5-10.1); Chloride 107 mmol/L (98-107); Creatinine, Serum 1.03 mg/dL (0.55-1.02); EST Glomerular Filtration Rate 58 mL/min (>60); Est Glom Filt Rate - Afr Amer 70 mL/min (>60); Globulin 2.9 g/dL (2.2-4.2); Glucose 96 mg/dL (74-106); Potassium 4.4 mmol/L (3.5-5.1); Protein, Total 6.7 g/dL (6.4-8.2); Sodium Level 142 mmol/L (136-145)
== END ==
PROVIDERS: Nurse Practitioner Family; PCP Internal Medicine; Referring Provider Nurse Practitioner Family; Visit Provider Nurse Practitioner Family
DX: L03.116 Cellulitis of left lower limb (principal); M00.9 Pyogenic arthritis, unspecified; M86.141 Other acute osteomyelitis, right hand; B37.89 Other sites of candidiasis
CPT/HCPCS: 36415; 80053; 82248; 85025

== ENCOUNTER 2020-12-02 17:42 | Inpatient (IN) | payer BC, SELFPAY ==
[2020-12-02 17:44] VITALS: BP 118/82; PULSE 90; RESP 17; TEMP 37.1; O2SAT 96; BMI 33.6
[2020-12-02 18:11] VITALS: BP 118/82; PULSE 90; RESP 17; TEMP 37.1; O2SAT 96
--- NOTE | 2020-12-02 18:44 | EDS_ITS ---
HPI History of Present Illness Chief Complaint: Cellulitis Informant: patient Onset/Context/Timing Onset: Weeks Context: Gradual Onset Timing: Continuous Current Severity: Mild Maximum Severity: Mild Narrative Narrative: 60-year-old female history of hypertension. 2 to 3 weeks ago was diagnosed with left lower leg cellulitis in the emergency department. Had a negative ultrasound to rule out a DVT. She initially was on Keflex then doxycycline and it has gotten no better and possibly worse. She denies any fever or chills. She denies being diabetic. Her primary care physician's office sent her in today for possible admission. Prior similar symptoms: Yes Recent Illness/Hospitalization: No PFSH PFS Medical History Abscess of finger of right hand Acute osteomyelitis of metacarpal bone of right hand Anemia Arthritis Hahn's palsy Carpal tunnel syndrome Cat bite Cellulitis of right index finger Dermatitis Fatigue Finger osteomyelitis, right Former smoker Frequent headaches Health care maintenance HTN (hypertension) Hypertension Knee pain NECK AND BACK PAIN Open wound of right index finger due to cat bite Osteoarthritis Septic arthritis of hand, right Shortness of breath Home Medications comp.stocking,thigh,long,large #2 ea 11/21/18 [Rx Last Taken Unknown] oxybutynin chloride 5 mg tablet 5 mg PO QHS #90 tab 08/05/20 [Rx Last Taken 09/09/20] triamterene 37.5 mg-hydrochlorothiazide 25 mg tablet 1 tab PO QDAY #90 tab 08/05/20 [Rx Last Taken 09/10/20] amlodipine 10 mg tablet 10 mg PO DAILY #90 tab 08/27/20 [Rx Last Taken 09/10/20] lisinopril 10 mg tablet 10 mg PO DAILY #90 tab 08/27/20 [Rx Last Taken 09/10/20] ibuprofen 400 - 600 mg PO Q8H PRN 09/10/20 [History Last Taken 09/10/20 01:00] gabapentin 300 mg PO BID #60 cap 09/12/20 [Rx Last Taken Unknown] cephalexin 500 mg PO Q6H 10 Days #40 cap 11/19/20 [Rx Last Taken Unknown] doxycycline monohydrate 100 mg capsule 100 mg PO BID #20 cap 11/25/20 [Rx Last Taken Unknown] Allergy/AdvReac Type Severity Reaction Status Date / Time Sulfa (Sulfonamide Allergy Mild unknown Verified 12/02/20 17:42 Antibiotics) hydrocodone [From Vicodin] Allergy Vomiting Verified 12/02/20 17:42 Family History Mother Heart disease Hypertension Father Heart disease Hypertension Other Arthritis CVA (cerebral vascular accident) Cancer High cholesterol Surgical History History of History of tonsillectomy History of total left knee replacement S/P S/P tonsillectomy Total vaginal hysterectomy, bilateral salpingectomy, uterosa Social History Smoking Status: Former smoker Tobacco: How many years used: 20 how long ago did patient quit smokin alcohol intake: never details: social substance use type: does not use and painkillers caffeine: Yes what type of physical activity do you participate in: none seatbelt use: always do you feel safe at home: Yes additional social history: - Phu Childs Does not take aspirin Does take Ibuprofen as needed ROS ROS ED ROS Narrative Denies recent illness. Review of Systems ROS Unobtainable: Denies due to encephalopathy Constitutional Constitutional ED: Denies chills or fever(s) Eyes Eyes: Denies change in vision ENT ENT ED: Denies ear pain or sore throat Cardiovascular Cardiovascular: Denies chest pain Respiratory/Chest Respiratory/Chest: Denies cough or dyspnea Gastrointestinal Gastrointestinal: Denies abdominal pain, diarrhea, nausea or vomiting Genitourinary Genitourinary ED: Denies dysuria or hematuria Musculoskeletal Musculoskeletal: Denies myalgias Integumentary Reports rash Neurologic Neurologic: Denies headache(s) Psychiatric Psychiatric: Denies depression Endocrine Endocrinology: Denies polyuria Allergic/Immunologic Allergic/Immunologic ED: Denies urticaria EXAM Physical Exam Narrative Exam Narrative: 60-year-old female no acute distress. Vital signs stable afebrile. Lungs are clear. Heart regular rhythm. Abdomen soft nontender. Mov ing all 4 extremities. Left mid to lower leg has obvious redness. Tenderness to touch. Exam consistent with cellulitis. Left foot neurovascularly intact. There is streaking up to almost her knee. She has had bilateral knee replacements. There is no signs of septic joints or swelling or redness to either joint. There is no redness or tenderness in her left thigh or groin area there is no lymphadenopathy. Const Vital Signs: 12/02/20 17:44 12/02/20 18:11 Temperature 98.8 F 98.8 F Temperature Source Temporal Temporal Pulse Rate 90 90 Respiratory Rate 17 17 Blood Pressure 118/82 H 118/82 H Blood Pressure Mean 94 94 Pulse Ox 96 96 Oxygen Delivery Method Room Air Room Air Positive well nourished, well developed and obese; Negative for unkempt General Appearance ED: well developed and NAD; Negative for unkempt Nutritional Appearance: obese HEENT Reports moist mucous membranes Negative for trauma or tenderness Eyes PERRL and EOMs intact bilaterally Neck no lymphadenopathy, supple and no JVD General: Negative for tenderness Chest Wall inspection of chest normal and palpation of chest normal Resp normal respiratory effort and clear to auscultation bilaterally Auscultation: Negative for rales or rhonchi Cardio regular rate, regular rhythm, S1 normal heart sound, S2 normal heart sound and no murmurs GI normal to inspection, nondistended, normoactive bowel sounds, non-tender, non- distended and no masses Auscultation: normoactive bowel sounds Palpation: soft; Negative for tender or guarding Back/Spine no CVA tenderness Extremity Extremity Narrative: Left lower leg cellulitis. Tender to palpation. General Extremety ED: Yes edema and tenderness General Extremity: edema Neuro oriented x3 Sensorium / Orientation: alert Motor Exam: strength 5/5 throughout Psych mental status grossly normal Appearance: Negative for unkempt Skin no wounds Rashes: rashes noted MDM MDM MDM Narrative Medical decision making narrative: 60-year-old female with left lower leg cellulitis for 2 to 3 weeks that has been resistant to oral antibiotic therapy. Screening labs and x-ray being obtained. Most likely will need to be admitted for IV antibiotics. She will be started on IV Unasyn. Patient doing well repeat exam at 7:53 PM MRI spoke to the hospitalist patient be admitted to [facility]. Lab Data Attestation: I reviewed the patient's lab results. Lab results narrative: CBC shows a white count of 8. Hemoglobin 11.9. BMP shows unremarkable electrolytes gap of 6. Creatinine is 0.94 glucose of 85. Labs: Laboratory Results - last 24 hr 12/02/20 12/02/20 19:20 19:20 WBC 8.8 RBC 4.06 L Hgb 11.9 L Hct 37.4 MCV 92.1 MCH 29.3 MCHC 31.8 L RDW Std Deviation 45.1 H RDW Coeff of Jules 13.2 Plt Count 365 MPV 8.8 Immature Gran % (Auto) 0.600 Neut % (Auto) 65.8 Lymph % (Auto) 24.1 [place] % (Auto) 6.7 Eos % (Auto) 2.2 Baso % (Auto) 0.6 Absolute Neuts (auto) 5.8 Absolute Lymphs (auto) 2.12 Nucleated RBC % 0 Sodium 138 Potassium 4.3 Chloride 105 Carbon Dioxide 27.0 Anion Gap 6 BUN 33 H Creatinine 0.94 Estim Creat Clear Calc 57.99 Est GFR (MDRD) Af Amer 78 Est GFR (MDRD) Non-Af 65 BUN/Creatinine Ratio 35.1 H Glucose 85 Calcium 9.6 Radiography Diagnostic Testing: Left tib-fib x-ray shows no acute abnormality. Interpreted by myself. No signs of osteomyelitis. 2 views AP and lateral. Discharge Plan Dx/Rx/DC Orders Clinical Impression: Cellulitis of left lower leg Disposition Disposition: Acute Care Hospital [facility] [place] [facility]
--- NOTE | 2020-12-02 19:10 | RAD_ITS ---
STUDY: X-RAY - LEFT TIBIA AND FIBULA REASON FOR EXAM: Female, 60 years old. Left lower leg cellulitis. Question osteomyelitis. TECHNIQUE: AP and lateral view(s) of the tibia and fibula were obtained. COMPARISON: None. FINDINGS: There is evidence of a total knee arthroplasty. The tibial component is intact and demonstrates no evidence of loosening from the tibial shaft. The remainder of the tibia is unremarkable. Normal visualized fibula. There is no acute fracture, dislocation or destructive osseous pathology. No dislocation. There is no destructive osseous changes. The soft tissue structures are unremarkable. RAD/Tibia & Fibula 2 Views IMPRESSION: 1. Status post left total knee arthroplasty. Otherwise normal tibia and fibula. Electronically Signed: Radames Granados DO at 19:54 EDT Tel [phone], Service support ,
[2020-12-02 19:37] LABS: Absolute Lymphocyte Count 2.12 X10^3/uL (0.83-4.51); Absolute Neutrophil Count 5.8 X10^3/uL (2.0-7.7); Basophil# 0.05 X10^3/uL; Basophil% 0.6 % (0-1); Eosinophil# 0.19 X10^3/uL; Eosinophils% 2.2 % (0-5); Hematocrit 37.4 % (37-47); Hemoglobin 11.9 g/dL (12.0-15.0); Lymphocyte # 2.12 X10^3/ul (0.83-4.51); Lymphocyte % 24.1 % (19-41); Mean Corp Hgb Conc 31.8 g/dL (32-36); Mean Corpuscular Hgb 29.3 pg (27.0-32.0); Mean Corpuscular Volume 92.1 fL (81-99); Mean Platelet Vol. 8.8 fl (6.2-12.0); Monocyte# 0.59 X10^3/uL; Monocyte% 6.7 % (0-10); NRBC Flagged by Analyzer 0 % (0-5); Neutrophil # 5.78 X10^3/uL (2.7-7.7); Neutrophil % 65.8 % (47-70); Platelet Count 365 K/mm3 (150-450); RBC Distribution Width CV 13.2 % (11.6-14.6); RBC Distribution Width SD 45.1 fl (35.1-43.9); Red Blood Count 4.06 M/mm3 (4.2-5.4); White Blood Count 8.8 K/mm3 (4.4-11.0)
[2020-12-02 19:53] LABS: Anion Gap 6 (5-15); BUN 33 mg/dL (7-18); BUN/Creat Ratio 35.1 RATIO (10-20); Calcium,Total 9.6 mg/dL (8.5-10.1); Chloride 105 mmol/L (98-107); Creatinine, Serum 0.94 mg/dL (0.55-1.02); EST Glomerular Filtration Rate 65 mL/min (>60); Est Glom Filt Rate - Afr Amer 78 mL/min (>60); Estimated Creatinine Clearance 57.99 ml/min; Glucose 85 mg/dL (74-106); Potassium 4.3 mmol/L (3.5-5.1); Sodium Level 138 mmol/L (136-145)
--- NOTE | 2020-12-02 19:55 | PCM.HP.STD ---
[facility] - General General Date of Admission: 12/02/20 Date of Service: 12/02/20 Chief Complaint: Redness of leg HPI Narrative ELIAS CARY, is a 60 F with a significant history of hypertension presents to emergency department with a progressive worsening of redness of her right leg that started about 2-3 weeks ago before presentation. She reports pain in her right leg and some mild increase warmth of the right leg. Patient was at emergency department on 11/19/2020. She was discharged home on oral Keflex. She has completed a dose of Keflex and is currently on doxycycline with only about 4 doses left. However her symptoms has continued to progress and now she has a fluctuant area at the middle of the redness of her leg. She has had blood cultures and ultrasound of the leg that was unremarkable. When her symptoms started she had chills briefly. Her chills has now resolved. [facility] Medical History Abscess of finger of right hand Acute osteomyelitis of metacarpal bone of right hand Anemia Arthritis Hahn's palsy Carpal tunnel syndrome Cat bite Cellulitis of right index finger Dermatitis Fatigue Finger osteomyelitis, right Former smoker Frequent headaches Health care maintenance HTN (hypertension) Hypertension Knee pain NECK AND BACK PAIN Open wound of right index finger due to cat bite Osteoarthritis Septic arthritis of hand, right Shortness of breath Home Medications oxybutynin chloride 5 mg tablet 5 mg PO QHS #90 tab 08/05/20 [Rx Last Taken 12/01/20] amlodipine 10 mg tablet 10 mg PO DAILY #90 tab 08/27/20 [Rx Last Taken 12/02/20 05:00] lisinopril 10 mg tablet 10 mg PO DAILY #90 tab 08/27/20 [Rx Last Taken 12/02/20 05:00] doxycycline monohydrate 100 mg capsule 100 mg PO BID #20 cap 11/25/20 [Rx Last Taken 12/02/20 08:30] fluconazole 400 mg PO DAILY 12/02/20 [History Last Taken 12/01/20] triamterene-hydrochlorothiazid 1 tab PO DAILY 12/02/20 [History Last Taken 12/02/20 05:00] Allergy/AdvReac Type Severity Reaction Status Date / Time Sulfa (Sulfonamide Allergy Mild unknown Verified 12/02/20 17:42 Antibiotics) hydrocodone [From Vicodin] Allergy Vomiting Verified 12/02/20 17:42 Family History Mother Heart disease Hypertension Father Heart disease Hypertension Other Arthritis CVA (cerebral vascular accident) Cancer High cholesterol Surgical History History of History of tonsillectomy History of total left knee replacement S/P S/P tonsillectomy Total vaginal hysterectomy, bilateral salpingectomy, uterosa Social History Smoking Status: Former smoker Tobacco: How many years used: 20 how long ago did patient quit smokin alcohol intake: never details: social substance use type: does not use and painkillers caffeine: Yes what type of physical activity do you participate in: none seatbelt use: always do you feel safe at home: Yes additional social history: - Phu Childs Does not take aspirin Does take Ibuprofen as needed ROS ROS Narrative Constitutional: Denies anorexia and change in weight Eyes: Denies blurry vision, change in eye color, change in vision, discharge from eye(s), double vision, erythema, eye pain, loss of vision or other HEENT: Denies abnormal hearing, dysphagia, ear pain, epistaxis, headache(s), hearing loss, nasal congestion, nasal discharge, post nasal drip, sinus pressure, sore throat or other Cardiovascular: Denies chest pain. Denies dyspnea on exertion, orthopnea and paroxysmal nocturnal dyspnea Respiratory/Chest: Denies cough, excessive phlegm production, shortness of breath with exertion and wheezing Gastrointestinal: Denies abdominal pain, coffee ground emesis, constipation, diarrhea, dyspepsia, hematemesis, hematochezia, loose stools, melena, nausea, vomiting or other Genitourinary: Denies burning urination, difficulty urinating, dysuria, hematuria, nocturia, urinary frequency, urinary hesitancy, urinary incontinence, urinary urgency or other Musculoskeletal: Denies arthralgias, back pain, joint pain, joint stiffness, joint swelling, myalgias, neck pain or other Neurologic: Denies abnormal gait, abnormal speech, confusion, disequilibrium, dizziness, focal weakness, headache(s), numbness, paresthesias, seizure-like activity, seizures, syncope, tingling, tremor(s) or other Psychiatric: Denies anxiety, depression, homicidal ideation, suicidal ideation or other Endocrinology: Denies change in body appearance, cold intolerance, excessive sweating, heat intolerance, polydipsia, polyuria or other Hematologic/Lymphatic: Denies anemia, easy bleeding, easy bruising, lymphadenopathy or other Integumentary: Erythema, swelling and mild increased warmth of right leg. Allergic/Immunologic: Denies rhinitis, hives, eczema, asthma or other Vital Signs Vital Signs Vital Signs: 12/02/20 17:44 12/02/20 18:11 Temperature 98.8 F 98.8 F Temperature Source Temporal Temporal Pulse Rate 90 90 Respiratory Rate 17 17 Blood Pressure 118/82 H 118/82 H Blood Pressure Mean 94 94 Pulse Ox 96 96 Oxygen Delivery Method Room Air Room Air Weight Weight: 91.7 kg Body Mass Index (BMI) 33.6 Physical Exam Narrative Physical exam: General: Well-nourished, well-developed. Head: Normocephalic, atraumatic, no tenderness Eyes: PERRLA, EOMI ENT, no trauma, moist mucous membranes, no rhinorrhea Neck: Nontender, full range of motion, no spinal tenderness, deformities, step-off CVS: Regular rate and rhythm. S1-S2 present. No murmur, gallop or rub. Respiratory : clear to auscultation bilaterally, chest wall nontender, no wheezing Abdomen: Soft, nontender, nondistended, normal bowel sounds, no masses : Deferred Back: Nontender, no CVA tenderness, no midline spinal tenderness, deformities, step-offs Extremities: Nontender full range of motion, no trauma Skin: Erythema, swelling and tenderness of right sultana. Swelling in the center of erythematous area of the right sultana. Mild erythema of the cough and posterior left knee area. Neuro: Alert, oriented, cranial nerves II through XII grossly intact. Psychiatry: Normal mood. Normal affect. Not depressed. Not anxious. Results Lab / Micro Data Result Diagrams: 12/02/20 19:20 12/02/20 19:20 Labs: Laboratory Results - last 24 hr 12/02/20 19:20: WBC 8.8, RBC 4.06 L, Hgb 11.9 L, Hct 37.4, MCV 92.1, MCH 29.3, MCHC 31.8 L, RDW Std Deviation 45.1 H, RDW Coeff of Jules 13.2, Plt Count 365, MPV 8.8, Immature Gran % (Auto) 0.600, Neut % (Auto) 65.8, Lymph % (Auto) 24.1, [place] % (Auto) 6.7, Eos % (Auto) 2.2, Baso % (Auto) 0.6, Absolute Neuts (auto) 5.8, Absolute Lymphs (auto) 2.12, Nucleated RBC % 0 12/02/20 19:20: Sodium 138, Potassium 4.3, Chloride 105, Carbon Dioxide 27.0, Anion Gap 6, BUN 33 H, Creatinine 0.94, Estim Creat Clear Calc 57.99, Est GFR (MDRD) Af Amer 78, Est GFR (MDRD) Non-Af 65, BUN/Creatinine Ratio 35.1 H, Glucose 85, Calcium 9.6 Radiology Impression Tibia/Fibula X-Ray 12/02/20 19:10 IMPRESSION: 1. Status post left total knee arthroplasty. Otherwise normal tibia and fibula. Electronically Signed: Radames Granados DO at 19:54 EDT Tel [phone], Service support , Assessment & Plan Assessment/Plan (1) Cellulitis of left lower leg: (2) Elevated BUN: PLAN: Cellulitis of left lower leg Impression of TBI/fibula x-ray: Status post left total knee arthroplasty. Otherwise normal tibia and fibula. Tibia/fibula x-ray was independently interpreted and agree with radiologist interpretation. Review of records shows that lower extremity venous study done on 11/19/2020 was unremarkable. Blood cultures obtained on 11/19/2020 showed no growth in 5 days. White count is unremarkable. Received Unasyn at emergency department. Will start patient on vancomycin and clindamycin. Trend CBC. Tylenol and ibuprofen ordered. Elevated BUN Review of [facility] department labs showed BUN of 33. Her BUN on 11/19/2020 was 25 and on 11/25/2020 was 25. Her BUN on 09/12/2020 was 14 and 09/11/2020 was 18. Hold home diuretics at this time. Trend BMP. Hypertension Blood pressure is not within goal Continue home amlodipine and lisinopril. Because of elevated BUN would hold home diuretics. As needed hydralazine ordered. Trend blood pressure and adjust blood pressure medications. DVT prophylaxis Subcutaneous Lovenox ordered. Charges/Coding Multi Select Codes Visit Charges Visit Charges: 11974 Init Hosp L3
[2020-12-02 20:17] VITALS: BP 127/81; PULSE 80; RESP 14; TEMP 36.3; O2SAT 96
[2020-12-02 21:32] VITALS: BMI 33.1
[2020-12-02 21:35] VITALS: BP 127/77; PULSE 69; RESP 18; TEMP 37; O2SAT 96
[2020-12-02] MEDS: Oxybutynin 5 MG Tablet PO (22:45)
[2020-12-02] MEDS: 0.9% Saline Lock 10 ML Syringe IV (22:56)
--- NOTE | 2020-12-02 23:06 | PCM.RX.CS ---
Consult Pharmacy has been consulted to manage selected antiobiotic: Vancomycin Type of Consult: New start Suspected Infection: Skin/Soft tissue Prior Doses of Antibiotics Received/Current Regimen: Medications Vancomycin HCl 1,750 mg/ (Sodium Chloride) 535 mls @ 250 mls/hr IV Q24H MADDIE Vancomycin HCl 1,250 mg/ (Sodium Chloride) 275 mls @ 167 mls/hr IV X1 ONE Stop: 12/02/20 23:38 Last Admin: 12/02/20 22:45 Dose: 167 mls/hr Labs: Sodium 138 mmol/L (136-145) 12/02/20 19:20 Potassium 4.3 mmol/L (3.5-5.1) 12/02/20 19:20 Chloride 105 mmol/L (98-107) 12/02/20 19:20 Carbon Dioxide 27.0 mmol/L (21.0-32.0) 12/02/20 19:20 Anion Gap 6 (5-15) 12/02/20 19:20 BUN 33 mg/dL (7-18) H 12/02/20 19:20 Creatinine 0.94 mg/dL (0.55-1.02) 12/02/20 19:20 Est GFR (MDRD) Af Amer 78 mL/min (>60) 12/02/20 19:20 Est GFR (MDRD) Non-Af 65 mL/min (>60) 12/02/20 19:20 BUN/Creatinine Ratio 35.1 RATIO (10-20) H 12/02/20 19:20 Glucose 85 mg/dL (74-106) 12/02/20 19:20 Microbiology: Microbiology 12/02/20 19:22 Nasal Secretion SARS-CoV-2 Antigen (Rapid) - Final Weight used for dosin.4 kg Estimated Creatinine Clearance: 58 Goal Trough: 10-15 mcg/mL Pharmacy Plan for Drug Dosing: Pharmacy Service will continue to monitor and adjust dosing as required. Follow-Up Labs: Trough Vancomycin Labs to be done on [date and time ordered]: 12/04/20 @5764
[2020-12-03 03:58] VITALS: BP 115/78; PULSE 80; RESP 18; TEMP 36.6; O2SAT 94
[2020-12-03 06:49] LABS: Absolute Lymphocyte Count 1.22 X10^3/uL (0.83-4.51); Absolute Neutrophil Count 5.1 X10^3/uL (2.0-7.7); Basophil# 0.05 X10^3/uL; Basophil% 0.7 % (0-1); Eosinophil# 0.27 X10^3/uL; Eosinophils% 3.7 % (0-5); Hematocrit 35.8 % (37-47); Hemoglobin 11.3 g/dL (12.0-15.0); Lymphocyte # 1.22 X10^3/ul (0.83-4.51); Lymphocyte % 16.7 % (19-41); Mean Corp Hgb Conc 31.6 g/dL (32-36); Mean Platelet Vol. 8.8 fl (6.2-12.0); Monocyte# 0.63 X10^3/uL; Monocyte% 8.6 % (0-10); NRBC Flagged by Analyzer 0 % (0-5); Neutrophil # 5.12 X10^3/uL (2.7-7.7); Neutrophil % 69.9 % (47-70); Platelet Count 326 K/mm3 (150-450); RBC Distribution Width CV 13.5 % (11.6-14.6); RBC Distribution Width SD 45.7 fl (35.1-43.9); Red Blood Count 3.89 M/mm3 (4.2-5.4); White Blood Count 7.3 K/mm3 (4.4-11.0)
[2020-12-03 07:20] LABS: Anion Gap 7 (5-15); BUN 24 mg/dL (7-18); BUN/Creat Ratio 33.7 RATIO (10-20); Calcium,Total 8.7 mg/dL (8.5-10.1); Chloride 106 mmol/L (98-107); Creatinine, Serum 0.71 mg/dL (0.55-1.02); EST Glomerular Filtration Rate 89 mL/min (>60); Est Glom Filt Rate - Afr Amer 108 mL/min (>60); Estimated Creatinine Clearance 76.77 ml/min; Glucose 99 mg/dL (74-106); Potassium 4.2 mmol/L (3.5-5.1); Sodium Level 140 mmol/L (136-145)
[2020-12-03 08:13] VITALS: O2SAT 95
[2020-12-03 09:00] VITALS: BP 106/72; PULSE 73; RESP 16; TEMP 36.4; O2SAT 97
[2020-12-03] MEDS: Lisinopril 10 MG Tablet PO (09:03)
[2020-12-03] MEDS: amLODIPine 10 MG Tablet PO (09:03)
--- NOTE | 2020-12-03 10:01 | PCS.PANDOC ---
PANDEMIC DOCUMENTATION INITIATED: Date: 11/16/2020 Time: 190
[2020-12-03] MEDS: 0.9% Saline Lock 10 ML Syringe IV ×3 (11:54→22:58)
--- NOTE | 2020-12-03 11:59 | PCM.PN.HOSP ---
Documented by User: Frank SHORT 12/03/20 12:09 Subjective Subjective Patient is a 60-year-old female comfortably resting in bed, alert and orient x3. Patient reports improvement in her left lower extremity redness, pain and swelling, denies development of any new symptoms since admission. Denies chest pain, shortness of breath, palpitations, hemoptysis, sputum production, fever, chills, N/V/D. Objective Data Objective Data Vital Signs: Vital Signs Temp Pulse Resp BP Pulse Ox 97.5 F L 73 16 106/72 97 12/03/20 09:00 12/03/20 09:00 12/03/20 09:00 12/03/20 09:00 12/03/20 09:00 Oxygen Delivery Method Room Air Weight: 199 lb 4.766 oz Body Mass Index (BMI) 33.1 Intake & Output: Intake and Output for Last 24 Hours 12/01/20 12/02/20 12/03/20 23:59 23:59 23:59 Intake Total 112 / 112 402.75 / 402.75 Balance 112 / 112 402.75 / 402.75 Lab / Micro Data Result Diagrams: 12/03/20 06:20 12/03/20 06:20 Labs: Laboratory Results - last 24 hr 12/02/20 19:20: WBC 8.8, RBC 4.06 L, Hgb 11.9 L, Hct 37.4, MCV 92.1, MCH 29.3, MCHC 31.8 L, RDW Std Deviation 45.1 H, RDW Coeff of Jules 13.2, Plt Count 365, MPV 8.8, Immature Gran % (Auto) 0.600, Neut % (Auto) 65.8, Lymph % (Auto) 24.1, [place] % (Auto) 6.7, Eos % (Auto) 2.2, Baso % (Auto) 0.6, Absolute Neuts (auto) 5.8, Absolute Lymphs (auto) 2.12, Nucleated RBC % 0 12/02/20 19:20: Sodium 138, Potassium 4.3, Chloride 105, Carbon Dioxide 27.0, Anion Gap 6, BUN 33 H, Creatinine 0.94, Estim Creat Clear Calc 57.99, Est GFR (MDRD) Af Amer 78, Est GFR (MDRD) Non-Af 65, BUN/Creatinine Ratio 35.1 H, Glucose 85, Calcium 9.6 12/03/20 06:20: WBC 7.3, RBC 3.89 L, Hgb 11.3 L, Hct 35.8 L, MCV 92.0, MCH 29.0, MCHC 31.6 L, RDW Std Deviation 45.7 H, RDW Coeff of Jules 13.5, Plt Count 326, MPV 8.8, Immature Gran % (Auto) 0.400, Neut % (Auto) 69.9, Lymph % (Auto) 16.7 L, [place] % (Auto) 8.6, Eos % (Auto) 3.7, Baso % (Auto) 0.7, Absolute Neuts (auto) 5.1, Absolute Lymphs (auto) 1.22, Nucleated RBC % 0 12/03/20 06:20: Sodium 140, Potassium 4.2, Chloride 106, Carbon Dioxide 27.0, Anion Gap 7, BUN 24 H, Creatinine 0.71, Estim Creat Clear Calc 76.77, Est GFR (MDRD) Af Amer 108, Est GFR (MDRD) Non-Af 89, BUN/Creatinine Ratio 33.7 H, Glucose 99, Calcium 8.7 Micro: Microbiology 12/02/20 19:22 Nasal Secretion SARS-CoV-2 Antigen (Rapid) - Final Radiography Diagnostic Testing: Radiology Impression Tibia/Fibula X-Ray 12/02/20 19:10 IMPRESSION: 1. Status post left total knee arthroplasty. Otherwise normal tibia and fibula. Electronically Signed: Radames Granados DO at 19:54 EDT Tel [phone], Service support , Physical Exam Const alert, oriented x3 and no apparent distress HEENT head/scalp atraumatic and moist oral mucous membranes Head and Scalp: normocephalic Eyes PERRL, EOMs intact bilaterally and conjunctivae normal Neck no lymphadenopathy, supple and no JVD Resp normal respiratory effort, no retractions, no use of accessory muscles and clear to auscultation bilaterally Cardio regular rate, regular rhythm, no murmurs and no JVD GI normal to inspection, nondistended, normoactive bowel sounds, soft to palpation and non-tender Extremity Extremity Narrative: Redness with pain to palpation on the mid sultana of the left lower extremity. Improved from admission. Skin Skin Narrative: See extremity. Neuro CN's II-XII intact bilaterally Psych affect normal Assessment & Plan Assessment/Plan (1) Cellulitis of left lower leg: (2) Elevated BUN: PLAN: Day 2 Discharge planning: Patient to discharge home, no home health care needs or additional therapies identified. 1) cellulitis of the lower left extremity Redness and pain to palpation still present, although improved on admission. CBC does not demonstrate a leukocytosis. X-ray of the left lower extremity does not demonstrate any destructive osseous change and is otherwise normal around the tibia and fibula of the left lower extremity. Plan; remain admitted overnight, continue vancomycin and clindamycin. 2) HTN Stable, continue amlodipine and lisinopril. 3) elevated BUN Currently 33.7. Review of records shows chronic elevation. Creatinine is within normal limits. Continue to trend BMP. DVT prophylaxis - Lovenox Patient seen by Frank Jaquez PA-C, under the supervision of Dr. Balderas. Documented by User: Dr. Bella Balderas MD 12/03/20 14:30 Objective Data Lab / Micro Data Result Diagrams: 12/03/20 06:20 12/03/20 06:20 Charges/Coding Addendum Addendum: This patient was seen in conjunction with DEJA Aguilar. I have independently interviewed and examined the patient and reviewed pertinent historical, laboratory, and other data. Please refer to DEJA Aguilar's note for his patient's presentation, findings, and recommendations. I have reviewed and his note and concur with his documentation Patient was seen and examined. Denied any new complaints. Physical Exam: Gen: Comfortable, not pale, not jaundiced CVS:HS I +II, regular, no murmurs RESP: Diminished at lung bases GI: BS present and normal, soft, nontender, no palpable organs EXT:No edema ASSESSMENT: 1. Cellulitis of the left leg 2. Hypertension Plan: Continue on IV vancomycin and clindamycin Repeat blood work in am Visit Charges Inpatient E&M: 07623 Subs Hosp L2
[2020-12-03] MEDS: Ibuprofen 400 MG Tablet PO (12:00)
--- NOTE | 2020-12-03 13:00 | CASEMGMT ---
RN MELISSA BLUEPRINT MACHINE OPERATOR CM to room to meet with patient for initial transition planning/care coordination assessment. RN MELISSA introduced self and role at [facility]. Pt voices understanding and consents to assessment at this time. Pt sitting up in bed in no distress at this time. Pt is A/O at this time and answers all questions appropriately. Care providers, pharmacy, and demographics verified/updated at this time. PCP: Dr Mcnair Specialists: none [facility]erred [facility] Insurance: [employer] Prescription Benefit: Yes Living Will/HPOA: Pt does not currently have LW/HCPOA and declines info at this time. Pt made aware that she can contact [facility] as an out-pt and make appt in the future if she decides she would like to talk with someone about this or would like to utilize [facility] social work for advanced directive completion. Given Speech Language Therapist Rac card with information and contact number. Pt expresses understanding. LNOK: Has several children. Sisters, Kelley and Hugh. Living Arrangements: Lives in 2-story home w/3 small steps to enter. [employer]. Son lives w/her. Transportation: Pt states drives self and states no transportation concerns at this time. DME: Denies using any DME and denies needs. Has a shower chair, cane, and walker available, but does not use any of them. HHC/SNF: No hx of SNF. Has had [facility] HHC in the past. Pt wishes to return home and states has no concerns with going home at time of discharge. She denies need for HHC. CM to follow for any discharge planning/needs. Pt voices no concerns/needs at this time. Advised pt to ask for CM if any questions/concerns/needs arise. Voices understanding. PLAN: Home w/discharge plans in place. Samanta CHOWDARY RN, CM
[2020-12-03 14:45] VITALS: BP 109/69; PULSE 73; RESP 16; TEMP 36.2; O2SAT 96
[2020-12-03 16:57] LABS: M R Staph aureus DNA By PCR Negative (Negative); Probe Check PASS; Specimen Processing Control PASS
[2020-12-03] MEDS: Oxybutynin 5 MG Tablet PO (20:17)
[2020-12-03 20:45] VITALS: BP 117/70; PULSE 70; RESP 18; TEMP 36.2; O2SAT 95
[2020-12-04] MEDS: MELATONIN 3 MG TABLET PO (00:39)
[2020-12-04 02:45] VITALS: BP 110/69; PULSE 75; RESP 16; TEMP 36.8; O2SAT 96
[2020-12-04 05:57] LABS: Absolute Lymphocyte Count 1.44 X10^3/uL (0.83-4.51); Absolute Neutrophil Count 3.8 X10^3/uL (2.0-7.7); Basophil# 0.06 X10^3/uL; Eosinophil# 0.27 X10^3/uL; Eosinophils% 4.4 % (0-5); Hematocrit 35.6 % (37-47); Hemoglobin 11.4 g/dL (12.0-15.0); Lymphocyte # 1.44 X10^3/ul (0.83-4.51); Lymphocyte % 23.6 % (19-41); Mean Corpuscular Hgb 29.8 pg (27.0-32.0); Monocyte# 0.49 X10^3/uL; NRBC Flagged by Analyzer 0 % (0-5); Neutrophil # 3.81 X10^3/uL (2.7-7.7); Neutrophil % 62.3 % (47-70); Platelet Count 326 K/mm3 (150-450); RBC Distribution Width CV 13.4 % (11.6-14.6); RBC Distribution Width SD 45.9 fl (35.1-43.9); Red Blood Count 3.83 M/mm3 (4.2-5.4); White Blood Count 6.1 K/mm3 (4.4-11.0)
[2020-12-04 06:28] LABS: Anion Gap 8 (5-15); BUN 26 mg/dL (7-18); BUN/Creat Ratio 37.6 RATIO (10-20); Calcium,Total 8.8 mg/dL (8.5-10.1); Chloride 106 mmol/L (98-107); Creatinine, Serum 0.69 mg/dL (0.55-1.02); EST Glomerular Filtration Rate 92 mL/min (>60); Est Glom Filt Rate - Afr Amer 112 mL/min (>60); Estimated Creatinine Clearance 78.99 ml/min; Glucose 103 mg/dL (74-106); Potassium 4.5 mmol/L (3.5-5.1); Sodium Level 139 mmol/L (136-145)
[2020-12-04 08:00] VITALS: BP 113/81; PULSE 74; RESP 16; TEMP 36.8; O2SAT 98
[2020-12-04 08:14] VITALS: O2SAT 98
[2020-12-04 08:45] VITALS: BP 113/81; PULSE 74; RESP 16; TEMP 36.8; O2SAT 98
[2020-12-04] MEDS: Lisinopril 10 MG Tablet PO (10:36)
[2020-12-04] MEDS: amLODIPine 10 MG Tablet PO (10:36)
[2020-12-04] MEDS: 0.9% Saline Lock 10 ML Syringe IV ×2 (10:42→11:53)
--- NOTE | 2020-12-04 10:50 | PCM.DC ---
Discharge Instructions Diet Discharge Diet: No restrictions Activity Discharge Activity: Return to Normal Activity Weight Bearing Status: Weight bearing as tolerated Dressing / Incision Call your doctor if you observe: Fever of 101 or Higher, Numbness or Tingling, Shortness of breath, Dizziness, Chest pain, Increased palpitations (irregular heartbeat) and Calf discomfort Follow Up Care Please Follow Up With: Primary care provider When: Within the next two weeks. Test Results: Test results from this visit will be discussed in further detail at your follow-up appointment, if applicable. Discharge Plan Admission Admit Date/Time: 12/02/20 23:04 Primary Reason for Your Visit: Left lower extremity cellulitis Attending Provider: Bella Balderas Primary Care Provider: Sapna Mcnair Instructions Patient Instructions: ED Cellulitis Discharge Orders/Prescriptions Prescriptions: New cephalexin 500 mg capsule 500 mg PO Q6H Qty: 24 RF: 0 Continued oxybutynin chloride 5 mg tablet 5 mg PO QHS Qty: 90 RF: 2 amlodipine 10 mg tablet 10 mg PO DAILY Qty: 90 RF: 3 lisinopril 10 mg tablet 10 mg PO DAILY Qty: 90 RF: 2 fluconazole 200 mg tablet 400 mg PO DAILY RF: 0 triamterene-hydrochlorothiazid 37.5-25 mg tablet 1 tab PO DAILY RF: 0 Discontinued doxycycline monohydrate 100 mg capsule 100 mg PO BID Qty: 20 RF: 0 Other Ambulatory Orders: Knee High Subhash Hose (Routine) Location: None Selected Ordered By: Frank SHORT Referrals / Follow Up: Sapna Mcnair MD [Primary Care Provider] - Within 2 Weeks Disposition Disposition (needs filled in before D/C Order can be placed): Home, Self Care
--- NOTE | 2020-12-04 12:43 | PCM.DC.SUM ---
Documented by User: Frank SHORT 12/04/20 12:51 Providers Date of Admission: 12/02/20 Primary Care Physician: Dr. Sapna Mcnair MD Reason For Visit: CELLULITIS OF LEG Diagnosis Discharge Diagnosis (1) Cellulitis of left lower leg: Status: Acute Code(s): L03.116 - Cellulitis of left lower limb (2) Elevated BUN: Status: Acute Code(s): R79.9 - Abnormal finding of blood chemistry, unspecified Medications at Discharge Home Medications oxybutynin chloride 5 mg tablet 5 mg PO QHS #90 tab 08/05/20 amlodipine 10 mg tablet 10 mg PO DAILY #90 tab 08/27/20 lisinopril 10 mg tablet 10 mg PO DAILY #90 tab 08/27/20 fluconazole 400 mg PO DAILY 12/02/20 triamterene-hydrochlorothiazid 1 tab PO DAILY 12/02/20 cephalexin 500 mg PO Q6H #24 cap 12/04/20 Hospital Course Summary of Care Provided Minutes Spent on Discharge: 35 Hospital Course: Disposition: Patient to discharge home, no home health care needs or additional therapies identified. 1) cellulitis of the lower left extremity Redness and pain about the left lower extremity have improved from admission. Left lower extremity does not disappear swollen when compared to the right lower extremity. Right lower extremity is unremarkable. MRSA PCR negative. CBC does not demonstrate a leukocytosis. X-ray of the left lower extremity does not demonstrate any destructive osseous change and is otherwise normal around the tibia and fibula of the left lower extremity. Plan; discharge home, initiate Keflex 500 mg 4 times daily x6 days, follow-up with primary care provider within the next 2 weeks. 2) HTN Stable, continue amlodipine and lisinopril. 3) elevated BUN Currently 33.7. Review of records shows chronic elevation. Creatinine is within normal limits. Continue to trend BMP. Patient seen by Frank Jaquez PA-C, under the supervision of Dr. Balderas. Physical Exam Narrative Patient is a 60-year-old female comfortably resting in chair, alert and orient x3. Patient reports continued improvement in the pain and redness in her left lower extremity. Development of any new symptoms in the past 24 hours. Denies denies chest pain, shortness of breath, palpitations, hemoptysis, sputum production, fever, chills, N/V/D. Const alert, oriented x3 and no apparent distress HEENT normocephalic, head/scalp atraumatic, hearing grossly normal bilaterally and moist oral mucous membranes Eyes PERRL, EOMs intact bilaterally and conjunctivae normal Neck no lymphadenopathy, supple and no JVD Resp normal respiratory effort, no retractions, no use of accessory muscles and clear to auscultation bilaterally Cardio regular rate, regular rhythm, no murmurs and no JVD GI normal to inspection, nondistended, normoactive bowel sounds, soft to palpation and non-tender Extremity Extremity Narrative: Left lower extremity does have some redness about the mid sultana, which has improved from admission. Left leg does not appear swollen when compared to the right. Right lower extremity is unremarkable. Skin Skin Narrative: See extremity. Neuro CN's II-XII intact bilaterally Psych affect normal Weight / BMI Weight Weight: 199 lb 4.766 oz Body Mass Index (BMI) 33.1 ABG / Lab / Microbiology Data Result Diagrams: 12/04/20 05:03 12/04/20 05:03 Laboratory: Laboratory Results - last 24 hr 12/02/20 14:45: MRSA (PCR) Negative 12/04/20 05:03: WBC 6.1, RBC 3.83 L, Hgb 11.4 L, Hct 35.6 L, MCV 93.0, MCH 29.8, MCHC 32.0, RDW Std Deviation 45.9 H, RDW Coeff of Jules 13.4, Plt Count 326, MPV 9.0, Immature Gran % (Auto) 0.700, Neut % (Auto) 62.3, Lymph % (Auto) 23.6, [place] % (Auto) 8.0, Eos % (Auto) 4.4, Baso % (Auto) 1.0, Absolute Neuts (auto) 3.8, Absolute Lymphs (auto) 1.44, Nucleated RBC % 0 12/04/20 05:03: Sodium 139, Potassium 4.5, Chloride 106, Carbon Dioxide 25.0, Anion Gap 8, BUN 26 H, Creatinine 0.69, Estim Creat Clear Calc 78.99, Est GFR (MDRD) Af Amer 112, Est GFR (MDRD) Non-Af 92, BUN/Creatinine Ratio 37.6 H, Glucose 103, Calcium 8.8 Microbiology: Microbiology 12/02/20 19:22 Nasal Secretion SARS-CoV-2 Antigen (Rapid) - Final D/C Instructions Discharge Diet: No restrictions Weight Bearing Status: Weight bearing as tolerated Call your doctor if you observe: Fever of 101 or Higher, Numbness or Tingling, Shortness of breath, Dizziness, Chest pain, Increased palpitations (irregular heartbeat) and Calf discomfort Please Follow Up With: Primary care provider When: Within the next two weeks. Meaningful Use Info Meaningful Use Diagnoses (Choose all that apply): None applicable Discharge Plan Admission Admit Date/Time: 12/02/20 23:04 Primary Reason for Your Visit: Left lower extremity cellulitis Attending Provider: Bella Balderas Primary Care Provider: Sapna Mcnair Instructions Patient Instructions: ED Cellulitis Discharge Orders/Prescriptions Prescriptions: New cephalexin 500 mg capsule 500 mg PO Q6H Qty: 24 RF: 0 Continued oxybutynin chloride 5 mg tablet 5 mg PO QHS Qty: 90 RF: 2 amlodipine 10 mg tablet 10 mg PO DAILY Qty: 90 RF: 3 lisinopril 10 mg tablet 10 mg PO DAILY Qty: 90 RF: 2 fluconazole 200 mg tablet 400 mg PO DAILY RF: 0 triamterene-hydrochlorothiazid 37.5-25 mg tablet 1 tab PO DAILY RF: 0 Discontinued doxycycline monohydrate 100 mg capsule 100 mg PO BID Qty: 20 RF: 0 Other Ambulatory Orders: Knee High Subhash Hose (Routine) Location: None Selected Ordered By: Frank SHORT Referrals / Follow Up: Sapna Mcnair MD [Primary Care Provider] - Within 2 Weeks Disposition Disposition (needs filled in before D/C Order can be placed): Home, Self Care Documented by User: Dr. Bella Balderas MD 12/04/20 14:24 Providers Date of Admission: 12/02/20 Reason For Visit: CELLULITIS OF LEG Medications at Discharge Home Medications oxybutynin chloride 5 mg tablet 5 mg PO QHS #90 tab 08/05/20 amlodipine 10 mg tablet 10 mg PO DAILY #90 tab 08/27/20 lisinopril 10 mg tablet 10 mg PO DAILY #90 tab 08/27/20 fluconazole 400 mg PO DAILY 12/02/20 triamterene-hydrochlorothiazid 1 tab PO DAILY 12/02/20 cephalexin 500 mg PO Q6H #24 cap 12/04/20 ABG / Lab / Microbiology Data Result Diagrams: 12/04/20 05:03 12/04/20 05:03 Discharge Plan Admission Admit Date/Time: 12/02/20 23:04 Primary Reason for Your Visit: Left lower extremity cellulitis Attending Provider: Bella Balderas Primary Care Provider: Sapna Mcnair Instructions Patient Instructions: ED Cellulitis Discharge Orders/Prescriptions Prescriptions: New cephalexin 500 mg capsule 500 mg PO Q6H Qty: 24 RF: 0 Continued oxybutynin chloride 5 mg tablet 5 mg PO QHS Qty: 90 RF: 2 amlodipine 10 mg tablet 10 mg PO DAILY Qty: 90 RF: 3 lisinopril 10 mg tablet 10 mg PO DAILY Qty: 90 RF: 2 fluconazole 200 mg tablet 400 mg PO DAILY RF: 0 triamterene-hydrochlorothiazid 37.5-25 mg tablet 1 tab PO DAILY RF: 0 Discontinued doxycycline monohydrate 100 mg capsule 100 mg PO BID Qty: 20 RF: 0 Other Ambulatory Orders: Knee High Subhash Hose (Routine) Location: None Selected Ordered By: Frank SHORT Referrals / Follow Up: Sapna Mcnair MD [Primary Care Provider] - Within 2 Weeks Disposition Disposition (needs filled in before D/C Order can be placed): Home, Self Care Charges/Coding Addendum Addendum: This patient was seen in conjunction with DEJA Aguilar. I have independently interviewed and examined the patient and reviewed pertinent historical, laboratory, and other data. Please refer to DEJA Aguilar's note for his patient's presentation, findings, and recommendations. I have reviewed and his note and concur with his documentation 60-year-old female past medical history of hypertension who comes in with redness of her right leg 2 to 3 weeks ago. She was seen recently in the ED and discharged home on Keflex. Her redness and pain in the left leg continue to persist. She was admitted to PCU and managed as acute left leg cellulitis. She was managed on IV vancomycin and clindamycin. Patient continued to improve. She was discharged on Keflex to complete 1 week. On the day of discharge, patient was seen and examined. Denied any new complaints. Physical Exam: Gen: Comfortable, not pale, not jaundiced CVS:HS I +II, regular, no murmurs RESP: CTA GI: BS present and normal, soft, nontender, no palpable organs EXT:Left leg cellulitis appeared improved Visit Charges Inpatient E&M: 09447 Disch Hosp
[2020-12-04 13:29] VITALS: BP 130/84; PULSE 70; RESP 18; TEMP 36.8; O2SAT 98
== END 2020-12-04 13:35 | disposition home or self-care (01) | DRG 603 ==
LOC: ED 18:56 → PCU 12-03 03:45
PROVIDERS: Physician Assistant; Admitting Provider Hospitalist; Emergency Provider Emergency Medicine; PCP Internal Medicine; Visit Provider Internal Medicine
DX: L03.116 Cellulitis of left lower limb (principal); I10 Essential (primary) hypertension; R94.4 Abnormal results of kidney function studies; E66.9 Obesity, unspecified; Z79.899 Other long term (current) drug therapy; Z87.891 Personal history of nicotine dependence; Z79.2 Long term (current) use of antibiotics; Z68.33 Body mass index [BMI] 33.0-33.9, adult; Z96.653 Presence of artificial knee joint, bilateral
CPT/HCPCS: 36415; 73590; 80048; 85025; 87426; 87641; 99285; J7040; J7050; A4216; J0295

== ENCOUNTER → 2021-02-12 | Outpatient (CLI) | payer BC, SELFPAY | END | disposition home or self-care (01) | LOC: LABSPEC 10:13 | PROVIDERS: PCP Internal Medicine; Referring Provider Physician Assistant Surgical; Visit Provider Physician Assistant Surgical | DX: Z11.52 Encounter for screening for COVID-19 (principal) | CPT/HCPCS: 87635; U0005; U0003 ==

== ENCOUNTER 2021-03-31 09:45 | Outpatient (RCR) | payer BC, SELFPAY ==
[2021-03-17 09:24] VITALS: BP 141/97; PULSE 85; RESP 16; TEMP 35.8; BMI 33.3
--- NOTE | 2021-03-17 10:45 | PCM.WC.HP ---
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 She states that the end of it it had a small pinhole when she was discharged then when she got home it blew open and she had pus and blood come out for a long time and now it has been open since November of this last year. She feels it is getting bigger. She was seen in her primary care and put on oral antibiotics and given silver sorb gel to put on the wound that has not helped close at all either. Patient has history of vitiligo and cellulitis osteoarthritis hypertension and oeoarthritis . . [facility] Medical History (Reviewed 03/17/21 @ 10:55 by Leanne Zaragoza [employer], [employer]-C) Abscess of finger of right hand Acute osteomyelitis of metacarpal bone of right hand Anemia Arthritis Hahn's palsy Carpal tunnel syndrome Cat bite Cellulitis of left lower leg Cellulitis of right index finger Dermatitis Elevated BUN Fatigue Finger osteomyelitis, right Former smoker Frequent headaches Health care maintenance HTN (hypertension) Hypertension Knee pain NECK AND BACK PAIN Open wound of right index finger due to cat bite Osteoarthritis Septic arthritis of hand, right Shortness of breath Sinusitis Ulcer of left lower extremity with fat layer exposed Home Medications oxybutynin chloride 5 mg tablet 5 mg PO QHS #90 tab 08/05/20 [Rx Last Taken 12/01/20] amlodipine 10 mg tablet 10 mg PO DAILY #90 tab 08/27/20 [Rx Last Taken 12/02/20 05:00] triamterene-hydrochlorothiazid 1 tab PO DAILY 12/02/20 [History Last Taken 12/02/20 05:00] clobetasol 0.05 % topical cream tube TOPICAL DAILY 12/21/20 [History Last Taken Unknown] lisinopril 10 mg tablet 10 mg PO DAILY #90 tab 02/10/21 [Rx Last Taken Unknown] C-Zn-[id number].ginseng-melanie [id number] [Immune Support Complex] 2 tab PO DAILY 03/17/21 [History Last Taken Unknown] Allergy/AdvReac Type Severity Reaction Status Date / Time Sulfa (Sulfonamide Allergy Mild unknown Verified 03/17/21 09:50 Antibiotics) hydrocodone [From Vicodin] Allergy Vomiting Verified 03/17/21 09:50 Family History Mother Heart disease Hypertension Father Heart disease Hypertension Other Arthritis CVA (cerebral vascular accident) Cancer High cholesterol Surgical History History of History of tonsillectomy History of total left knee replacement History of total left knee replacement History of total right knee replacement S/P S/P tonsillectomy Total vaginal hysterectomy, bilateral salpingectomy, uterosa Social History Smoking Status: Former smoker Tobacco: How many years used: 20 how long ago did patient quit smokin alcohol intake: never details: social substance use type: does not use and painkillers caffeine: Yes what type of physical activity do you participate in: none seatbelt use: always do you feel safe at home: Yes additional social history: - Phu Childs Does not take aspirin Does take Ibuprofen as needed ROS ROS Narrative Constitutional: Denies anorexia and change in weight Eyes: Denies blurry vision, change in eye color, change in vision, discharge from eye(s), double vision, erythema, eye pain, loss of vision or other HEENT: Denies abnormal hearing, dysphagia, ear pain, epistaxis, headache(s), hearing loss, nasal congestion, nasal discharge, post nasal drip, sinus pressure, sore throat or other Cardiovascular: Denies chest pain. Denies dyspnea on exertion, orthopnea and paroxysmal nocturnal dyspnea Respiratory/Chest: Denies cough, excessive phlegm production, shortness of breath with exertion and wheezing Gastrointestinal: Denies abdominal pain, coffee ground emesis, constipation, diarrhea, dyspepsia, hematemesis, hematochezia, loose stools, melena, nausea, vomiting or other Genitourinary: Denies burning urination, difficulty urinating, dysuria, hematuria, nocturia, urinary frequency, urinary hesitancy, urinary incontinence, urinary urgency or other Musculoskeletal: Denies arthralgias, back pain, joint pain, joint stiffness, joint swelling, myalgias, neck pain or other Neurologic: Denies abnormal gait, abnormal speech, confusion, disequilibrium, dizziness, focal weakness, headache(s), numbness, paresthesias, seizure-like activity, seizures, syncope, tingling, tremor(s) or other Psychiatric: Denies anxiety, depression, homicidal ideation, suicidal ideation or other Endocrinology: Denies change in body appearance, cold intolerance, excessive sweating, heat intolerance, polydipsia, polyuria or other Hematologic/Lymphatic: Denies anemia, easy bleeding, easy bruising, lymphadenopathy or other Integumentary: Erythema, swelling and mild increased warmth of right leg. Allergic/Immunologic: Denies rhinitis, hives, eczema, asthma or other Integumentary Integumentary: Reports non-healing lesions and skin ulcer Vital Signs Vital Signs Vital Signs: 03/17/21 09:24 Temperature 96.5 F L Temperature Source Temporal Pulse Rate 85 Respiratory Rate 16 Blood Pressure 141/97 H Blood Pressure Mean 111 Blood Pressure Source Monitor Blood Pressure Position Sitting Blood Pressure Location Right Arm Oxygen Delivery Method Room Air Weight Weight: 200 lb Body Mass Index (BMI) 33.3 Physical Exam Narrative Patient is a 60-year-old female comfortably resting in chair, alert and orient x3. Patient reports continued improvement in the pain and redness in her left lower extremity. Development of any new symptoms in the past 24 hours. Denies denies chest pain, shortness of breath, palpitations, hemoptysis, sputum production, fever, chills, N/V/D. Const alert, oriented x3 and no apparent distress HEENT normocephalic, head/scalp atraumatic, hearing grossly normal bilaterally and moist oral mucous membranes Eyes PERRL, EOMs intact bilaterally and conjunctivae normal Neck no lymphadenopathy, supple and no JVD Resp normal respiratory effort, no retractions, no use of accessory muscles and clear to auscultation bilaterally Cardio regular rate, regular rhythm, no murmurs and no JVD GI normal to inspection, nondistended, normoactive bowel sounds, soft to palpation and non-tender Extremity Extremity Narrative: Left lower extremity does have some redness about the mid sultana, which has improved from admission. Left leg does not appear swollen when compared to the right. Right lower extremity is unremarkable. Skin Skin Narrative: See extremity. General Skin Exam: other Varicosities Trauma: other Ulcer Neuro CN's II-XII intact bilaterally Psych affect normal Debridement Note Debridement Note Wound debrided: Left lower leg ulcer nonpressure Laterality: Left Type of Debridement: Excisional debridement Anesthesia Used: 5% Lidocaine Gel Depth: Down to and including healthy tissue and in the subcutaneous layer Percentage of wound debrided: 100 Instrument Used: 5mm curette Tissue Removed: Slough and fibrin Severity: Fat Layer Exposed Amount of bleeding with debridement: Mild Bleeding Controlled with: Compression and gauze Patient tolerated procedure: Patient tolerated procedure well Post-Debridement Measurements and Additional Note: Post-Debridement Measurements/Treatment - Nurse 1 - General Ulcer Assessment Start: 03/17/21 09:22 Freq: Status: Active Protocol: [employer] Activity Type Activity Date Activity User E-Sign Co-Sign Detail Recorded Client Recorded Date Recorded By Document 03/17/21 09:24 [facility] [id number] 03/17/21 09:45 [facility] 03/17/21 09:24 - Today's Visit Information Type of service Initial Visit Arrival Mode Ambulatory Transfer Assistance None Patient Identification Verified (Name & Yes ) Patient Requires Transmission-Based No Precautions Height and Weight Height 5 ft 5 in Weight 200 lb Weight in Pounds 200.0 lbs Weight Measurement Method Estimated by Patient Body Mass Index (BMI) 33.3 BMI Classification Obese BSA - Carlos 1.98 Vital Signs Temperature (97.8 F-99.1 F) 96.5 F L Temperature Source Temporal Pulse Rate (60-100) 85 Pulse Location Monitor Respiratory Rate (12-18) 16 Respiratory rate source Observation Oxygen Delivery Method Room Air Blood Pressure (90/60-120/80) 141/97 H Blood Pressure Mean 111 Source Monitor Position Sitting Blood Pressure Location Right Arm History Since Last Visit- (Skip if this is Patient's initial visit) Left Footwear Regular Shoe Right Footwear Regular Shoe Lower Extremity Assessment/ Foot Assessment/ Toe Nail Assessment Right -Posterior Tibial Palpable No -Posterior Tibial Doppler Monophasic -Dorsalis Pedis Palpable No -Dorsalis Pedis Doppler Monophasic -Hair Growth on Legs Yes -Hair Growth on Toes No -Temperature of Extremity Cool -Other Deformity No -Prior Foot Ulcer No -Charcot Joint No -Prior Amputation No -Thick Yes -Discolored Yes -Deformed No -Improper Length & Hygeine No Left -Posterior Tibial Palpable No -Posterior Tibial Doppler Monophasic -Dorsalis Pedis Palpable Yes -Dorsalis Pedis Doppler Multiphasic -Extremity Color Pale -Hair Growth on Legs Yes -Hair Growth on Toes No -Temperature of Extremity Cool -Other Deformity No -Prior Foot Ulcer No -Charcot Joint No -Prior Amputation No -Thick Yes -Discolored Yes -Deformed No -Improper Length & Hygeine No Neuropathy Assessment Feet - Top Side and Bottom <Entered> (a) Communication Assessment Preferred language Latvian Net Developer With Wcf Required No Able to Read Yes Able to Write Yes Communication Tools None Right Hearing Abillity Normal Left Hearing Abillity Normal Visual Assistive Devices None Teaching Assessment Preferences Verbal,Written, Audio/Visual, Demonstration Barriers to Learning None Readiness To Learn Excellent Willingness to Engage in Self Management High Activies Readiness to Engage in Self Management High Activities Anxiety Level Calm Cooperation Cooperative Perception Coherent Interest in Health Problem Asks Questions Education Importance Acknowledges Need Does Patient Smoke tobacco or other No substances Smoking Status Former smoker Is Patient Diabetic No Functional Assessment Recent Decline in Ability to Perform Denies Any Declines 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/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 Needs that may affect No Treatment Plan Teaching: Wound Center *Welcome to the Wound Center -Person Taught Patient -Teaching Method Discussion -Response to teaching Verbalize understanding Welcome to the Wound Care Center Latvian (a) 1 - + WC - Nurse 1 - General Ulcer Measurement Start: 03/17/21 09:22 Freq: Status: Active Protocol: Activity Type Activity Date Activity User E-Sign Co-Sign Detail Recorded Client Recorded Date Recorded By Document 03/17/21 09:24 [facility] [id number] 03/17/21 09:45 [facility] 03/17/21 09:24 Wound Center Nurse 1 #1- L SULTANA -Combined with other wound No -Current Size (cm) - Length 1.8 -Current Size (cm) - Width 1.1 -Current Size (cm) - Depth 0.1 -Total Square Cm 1.98 -Date of Last Picture (Recall this 03/17/21 field) -Photo Taken Yes -Epithelialization None Present -Tunneling No -Undermining/Tunneling No -Circular Undermining No -Exudate Amt Medium -Exudate Type Serosanguineous -Wound Margin Distinct, Outline Attached -Granulation Amt Small (1-33%) -Granulation Quality Red -Slough/Fibrin Yes -Necrosis Amt Large (67-100%) -Necrotic Tissue Type Adherent Slough -Texture (Tejal-wound Skin Appearance) Assessed, Scarring -Moisture (Tejal-wound Skin Appearance) Assessed -Color (Tejal-wound Skin Appearance) Assessed -Temperature (Tejal-wound Skin No Abnormality Appearance) (Pt Warm) -Tenderness on Palpation (Tejal-wound No Skin Appearance) -Ulcer Cleansing Rinsed/ Irrigated with Saline -Foul Odor after Cleansing No -Anesthetic Used 5% Lidocaine Gel Lower Limb Edema Present Yes Right Calf (cm) 37.6 Right Ankle (cm) 21 Left Calf (cm) 40.3 Left Ankle (cm) 20.5 WC - Nurse 2 - General Ulcer CM Notes Start: 03/17/21 09:22 Freq: Status: Active Protocol: Activity Type Activity Date Activity User E-Sign Co-Sign Detail Recorded Client Recorded Date Recorded By Document 03/17/21 10:10 MW [id number] 03/17/21 10:17 MW 03/17/21 10:10 Wound Center Nurse 2 #1- L SULTANA -Time 10:11 -Correct Patient Yes -Correct Side, Site, Position Yes -Correct Procedure Yes -Procedure Performed Yes -Type of Procedure Debridement -Clinical Debridement Subcutaneous -Tissue Removed Subcutaneous -Post Debridement (cm) - Length 1.9 -Post Debridement (cm) - Width 1.4 -Post Debridement (cm) - Depth 0.3 -Total Square (Post) (cm) 2.66 -Area of Debridement (cm) - Length 1.9 -Area of Debridement (cm) - Width 1.4 -Total Square (Area) (cm) 2.66 -Tunneling No -Undermining/Tunneling No -Circular Undermining No -Wound/Ulcer Outcome Not Healed -Ulcer Cleansing Rinsed/ Irrigated with Saline -Foul Odor after Cleansing No -Bioengineered Tissue No -Bleeding Controlled with Pressure -Offloading No -Treatment Response Procedure Tolerated Well -Debridement - Subq, 1st 20sq cm Yes Pain Scale: 0-10 Numeric Is Patient Pain Free? Yes WC - Nurse 3 - General Ulcer D/C NN Start: 03/17/21 09:22 Freq: Status: Active Protocol: Activity Type Activity Date Activity User E-Sign Co-Sign Detail Recorded Client Recorded Date Recorded By Document 03/17/21 10:30 [facility] [id number] 03/17/21 10:31 [facility] 03/17/21 10:30 Wound Care Nurse 3 #1- L SULTANA -Ulcer Cleansing Rinsed/ Irrigated with Saline -Foul Odor after Cleansing No -Primary Dressing Applied Aquacel Extra, NonAdherent Contact Layer -Other Dressing DRSG PER [place] GLASS ETCHER -Primary Dressing Covered/Secured with Dry Gauze & Roll Gauze, Secured with Tape -Aquacel Extra 1 Left -Tubular Bandage Double Layer -Size of Tubigrip Used Size E -Size E ($) 2 Treatment Response Procedure Tolerated Well Pain Scale: 0-10 Numeric Is Patient Pain Free? Yes WC - Visit Discharge Discharge Condition Stable Ambulatory Status Ambulatory Transportation Private Auto Assessment/Plan Assessment/Plan (1) Peripheral vascular disease of lower extremity with ulceration: CODE(S): I73.9 - Peripheral vascular disease, unspecified; L97.909 - Non-pressure chronic ulcer of unspecified part of unspecified lower leg with unspecified severity (2) Nonhealing ulcer of left lower extremity with fat layer exposed: CODE(S): L97.922 - Non-pressure chronic ulcer of unspecified part of left lower leg with fat layer exposed PLAN: Wash leg with antibacterial soap and apply Aquacel extra moistened with Adaptic over top,, double layer Tubigrip Every day Cultures obtained from wound We will schedule patient for arterial brachial and vascular studies Follow-up in a week (3) Edema of left lower leg: CODE(S): R60.0 - Localized edema (4) 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
[2021-03-24 08:52] VITALS: BP 136/87; PULSE 80; RESP 16; TEMP 36.5; BMI 33.3
--- NOTE | 2021-03-24 12:07 | PN.PCM_ITS ---
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 She states that the end of it it had a small pinhole when she was discharged then when she got home it blew open and she had pus and blood come out for a long time and now it has been open since November of this last year. She feels it is getting bigger. She was seen in her primary care and put on oral antibiotics and given silver sorb gel to put on the wound that has not helped close at all either. Patient has history of vitiligo and cellulitis osteoarthritis hypertension and oeoarthritis . . Progress of Wound: The wound is slightly smaller improving. Patient was denied skin substitute through her insurance. Cultures were negative with no anaerobes either. Subjective Subjective Patient is doing well with no concerns Objective Data Objective Data Continue wound care daily you continue the same treatment follow-up in 1 week Patient is still waiting to be scheduled for her arterial brachial and ultrasound Vital Signs: Vital Signs Temp Pulse Resp BP 97.7 F L 80 16 136/87 H 03/24/21 08:52 03/24/21 08:52 03/24/21 08:52 03/24/21 08:52 Oxygen Delivery Method Room Air Weight: 200 lb Body Mass Index (BMI) 33.3 Lab / Micro Data Attestation: I reviewed the patient's lab results. Micro: Microbiology 03/17/21 10:15 Wound Abcess - Leg, Left Gram Stain - Final 03/17/21 10:15 Wound Abcess - Leg, Left Wound Culture - Final No growth aerobically. 03/17/21 10:15 Wound Abcess - Leg, Left Anaerobic Culture - Final No growth in 5 days. Physical Exam Narrative Patient is a 60-year-old female comfortably resting in chair, alert and orient x3. Patient reports continued improvement in the pain and redness in her left lower extremity. Development of any new symptoms in the past 24 hours. Denies denies chest pain, shortness of breath, palpitations, hemoptysis, sputum production, fever, chills, N/V/D. Const alert, oriented x3 and no apparent distress HEENT normocephalic, head/scalp atraumatic, hearing grossly normal bilaterally and moist oral mucous membranes Eyes PERRL, EOMs intact bilaterally and conjunctivae normal Neck no lymphadenopathy, supple and no JVD Resp normal respiratory effort, no retractions, no use of accessory muscles and clear to auscultation bilaterally Cardio regular rate, regular rhythm, no murmurs and no JVD GI normal to inspection, nondistended, normoactive bowel sounds, soft to palpation and non-tender Extremity Extremity Narrative: Left lower extremity does have some redness about the mid sultana, which has improved from admission. Left leg does not appear swollen when compared to the right. Right lower extremity is unremarkable. Skin Skin Narrative: See extremity. General Skin Exam: other Varicosities Trauma: other Ulcer Neuro CN's II-XII intact bilaterally Psych affect normal Debridement Note Debridement Note Wound debrided: Left lower leg sultana area ulcer from cellulitis. Type of Debridement: Excisional debridement Anesthesia Used: 5% Lidocaine Gel Depth: Down to and including healthy tissue Percentage of wound debrided: 100 Instrument Used: 7mm curette Severity: Fat Layer Exposed Amount of bleeding with debridement: Mild Bleeding Controlled with: Compression and gauze Patient tolerated procedure: Patient tolerated procedure well Post-Debridement Measurements and Additional Note: Post-Debridement Measurements/Treatment - Nurse 1 - General Ulcer Assessment Start: 03/17/21 09:22 Freq: Status: Active Protocol: .LOWEXT Activity Type Activity Date Activity User E-Sign Co-Sign Detail Recorded Client Recorded Date Recorded By Document 03/17/21 09:24 [facility] [id number] 03/17/21 09:45 [facility] Document 03/24/21 08:52 [facility] [id number] 03/24/21 08:55 [facility] 03/17/21 03/24/21 09:24 08:52 - Today's Visit Information Type of service Initial Visit 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 ) Arrival Mode Ambulatory Ambulatory Transfer Assistance None None Patient Identification Verified (Name & Yes Yes ) Patient Requires Transmission-Based No No Precautions Height and Weight Height 5 ft 5 in Weight 200 lb Weight in Pounds 200.0 lbs Weight Measurement Method Estimated by Patient Body Mass Index (BMI) 33.3 33.3 BMI Classification Obese Obese BSA - Carlos 1.98 Vital Signs Temperature (97.8 F-99.1 F) 96.5 F L 97.7 F L Temperature Source Temporal Temporal Pulse Rate (60-100) 85 80 Pulse Location Monitor Monitor Respiratory Rate (12-18) 16 16 Respiratory rate source Observation Observation Oxygen Delivery Method Room Air Room Air Blood Pressure (90/60-120/80) 141/97 H 136/87 H Blood Pressure Mean (mm Hg) 111 103 Source Monitor Monitor Position Sitting Sitting Blood Pressure Location Right Arm Left Arm Have you changed medications since your No last visit? Any new allergies or adverse reactions No Had a fall/change in ADL's that may No increase risk of falls Signs or symptoms of abuse and/or No neglect since last visit Have you been in the hospital since your No last visit? Has dressing in place as prescribed Yes Has compression in place as prescribed Yes Has offloadiing in place as prescribed N/A Experienced any changes in pain level or No management History Since Last Visit- (Skip if this is Patient's initial visit) Left Footwear Regular Shoe Regular Shoe Right Footwear Regular Shoe Regular Shoe Pain Scale: 0-10 Numeric Is Patient Pain Free? Yes Lower Extremity Assessment/ Foot Assessment/ Toe Nail Assessment Right -Posterior Tibial Palpable No -Posterior Tibial Doppler Monophasic -Dorsalis Pedis Palpable No -Dorsalis Pedis Doppler Monophasic -Hair Growth on Legs Yes -Hair Growth on Toes No -Temperature of Extremity Cool -Other Deformity No -Prior Foot Ulcer No -Charcot Joint No -Prior Amputation No -Thick Yes -Discolored Yes -Deformed No -Improper Length & Hygeine No Left -Posterior Tibial Palpable No -Posterior Tibial Doppler Monophasic -Dorsalis Pedis Palpable Yes -Dorsalis Pedis Doppler Multiphasic -Extremity Color Pale -Hair Growth on Legs Yes -Hair Growth on Toes No -Temperature of Extremity Cool -Other Deformity No -Prior Foot Ulcer No -Charcot Joint No -Prior Amputation No -Thick Yes -Discolored Yes -Deformed No -Improper Length & Hygeine No Neuropathy Assessment Feet - Top Side and Bottom <Entered> (a) Communication Assessment Preferred language Singaporean Marketing Mgr Required No Able to Read Yes Able to Write Yes Communication Tools None Right Hearing Abillity Normal Left Hearing Abillity Normal Visual Assistive Devices None Teaching Assessment Preferences Verbal,Written, Audio/Visual, Demonstration Barriers to Learning None Readiness To Learn Excellent Willingness to Engage in Self Management High Activies Readiness to Engage in Self Management High Activities Anxiety Level Calm Cooperation Cooperative Perception Coherent Interest in Health Problem Asks Questions Education Importance Acknowledges Need Does Patient Smoke tobacco or other No substances Smoking Status Former smoker Is Patient Diabetic No Functional Assessment Recent Decline in Ability to Perform Denies Any Declines Culture/Scientology/Promotions Producer Cultural/Scientology Needs that may affect No Treatment Plan Teaching: Wound Center *Welcome to the Wound Center -Person Taught Patient -Teaching Method Discussion -Response to teaching Verbalize understanding Welcome to the W[facility] Center [place]an (a) 1 - + WC - Nurse 1 - General Ulcer Measurement Start: 03/17/21 09:22 Freq: Status: Active Protocol: Activity Type Activity Date Activity User E-Sign Co-Sign Detail Recorded Client Recorded Date Recorded By Document 03/17/21 09:24 [facility] [id number] 03/17/21 09:45 [facility] Document 03/24/21 08:52 [facility] [id number] 03/24/21 08:55 [facility] 03/17/21 03/24/21 09:24 08:52 Wound Center Nurse 1 #1- L SULTANA -Combined with other wound No No -Current Size (cm) - Length 1.8 1.6 -Current Size (cm) - Width 1.1 1.5 -Current Size (cm) - Depth 0.1 0.2 -Total Square Cm 1.98 2.40 -Date of Last Picture (Recall this 03/17/21 field) -Photo Taken Yes No -Epithelialization None Present Small 1-33% -Tunneling No No -Undermining/Tunneling No No -Circular Undermining No No -Exudate Amt Medium Medium -Exudate Type Serosanguineous Serosanguineous -Wound Margin Distinct, Distinct, Outline Outline Attached Attached -Granulation Amt Small (1-33%) Medium (34-66%) -Granulation Quality Red Red -Slough/Fibrin Yes Yes -Necrosis Amt Large (67-100%) Medium (34-66%) -Necrotic Tissue Type Adherent Slough Adherent Slough -Texture (Tejal-wound Skin Appearance) Assessed, Assessed, Scarring Scarring -Moisture (Tejal-wound Skin Appearance) Assessed Assessed -Color (Tejla-wound Skin Appearance) Assessed Assessed -Temperature (Tejal-wound Skin No Abnormality No Abnormality Appearance) (Pt Warm) (Pt Warm) -Tenderness on Palpation (Tejal-wound No No Skin Appearance) -Ulcer Cleansing Rinsed/ Rinsed/ Irrigated with Irrigated with Saline Saline -Foul Odor after Cleansing No No -Anesthetic Used 5% Lidocaine 5% Lidocaine Gel Gel Lower Limb Edema Present Yes Yes Right Calf (cm) 37.6 Right Ankle (cm) 21 Left Calf (cm) 40.3 41 Left Ankle (cm) 20.5 23.6 - Nurse 2 - General Ulcer CM Notes Start: 03/17/21 09:22 Freq: Status: Active Protocol: Activity Type Activity Date Activity User E-Sign Co-Sign Detail Recorded Client Recorded Date Recorded By Document 03/17/21 10:10 MW [id number] 03/17/21 10:17 MW Document 03/24/21 09:05 MW [id number] 03/24/21 09:07 MW 03/17/21 03/24/21 10:10 09:05 Wound Center Nurse 2 #1- L SULTANA -Time 10:11 09:06 -Correct Patient Yes Yes -Correct Side, Site, Position Yes Yes -Correct Procedure Yes Yes -Procedure Performed Yes Yes -Type of Procedure Debridement Debridement -Clinical Debridement Subcutaneous Subcutaneous -Tissue Removed Subcutaneous Subcutaneous -Post Debridement (cm) - Length 1.9 1.5 -Post Debridement (cm) - Width 1.4 1.0 -Post Debridement (cm) - Depth 0.3 0.2 -Total Square (Post) (cm) 2.66 1.50 -Area of Debridement (cm) - Length 1.9 1.5 -Area of Debridement (cm) - Width 1.4 1.0 -Total Square (Area) (cm) 2.66 1.50 -Tunneling No No -Undermining/Tunneling No No -Circular Undermining No No -Wound/Ulcer Outcome Not Healed Not Healed -Ulcer Cleansing Rinsed/ Rinsed/ Irrigated with Irrigated with Saline Saline -Foul Odor after Cleansing No No -Bioengineered Tissue No No -Bleeding Controlled with Pressure Pressure -Offloading No No -Treatment Response Procedure Procedure Tolerated Well Tolerated Well -Debridement - Subq, 1st 20sq cm Yes Yes Pain Scale: 0-10 Numeric Is Patient Pain Free? Yes Yes - Nurse 3 - General Ulcer D/C NN Start: 12/15/21 09:22 Freq: Status: Active Protocol: Activity Type Activity Date Activity User E-Sign Co-Sign Detail Recorded Client Recorded Date Recorded By Document 03/17/21 10:30 [facility] [id number] 03/17/21 10:31 [facility] Document 03/24/21 09:19 [facility] [id number] 03/24/21 09:20 [facility] 03/17/21 03/24/21 10:30 09:19 Wound Care Nurse 3 #1- L SULTANA -Ulcer Cleansing Rinsed/ Rinsed/ Irrigated with Irrigated with Saline Saline -Foul Odor after Cleansing No No -Primary Dressing Applied Aquacel Extra, Aquacel Extra, NonAdherent NonAdherent Contact Layer Contact Layer -Other Dressing DRSG 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 Yes Yes WC - Visit Discharge Discharge Condition Stable Stable Ambulatory Status Ambulatory Ambulatory Transportation Private Auto Private Auto Assessment/Plan Assessment/Plan (1) Peripheral vascular disease of lower extremity with ulceration: CODE(S): I73.9 - Peripheral vascular disease, unspecified; L97.909 - Non- pressure chronic ulcer of unspecified part of unspecified lower leg with unspecified severity (2) Nonhealing ulcer of left lower extremity with fat layer exposed: CODE(S): L97.922 - Non-pressure chronic ulcer of unspecified part of left lower leg with fat layer exposed PLAN: Wash leg with antibacterial soap and apply Aquacel extra moistened with Adaptic over top,, double layer Tubigrip Every day Cultures obtained from wound were negative We will schedule patient for arterial brachial and vascular studies pending insurance Follow-up in a week (3) Edema of left lower leg: CODE(S): R60.0 - Localized edema (4) 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
[2021-03-31 09:39] VITALS: BP 120/76; PULSE 85; RESP 18; TEMP 36.3; BMI 33.3
--- NOTE | 2021-03-31 12:20 | PCM.WC.PN ---
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 She states that the end of it it had a small pinhole when she was discharged then when she got home it blew open and she had pus and blood come out for a long time and now it has been open since November of this last year. She feels it is getting bigger. She was seen in her primary care and put on oral antibiotics and given silver sorb gel to put on the wound that has not helped close at all either. Patient has history of vitiligo and cellulitis osteoarthritis hypertension and oeoarthritis . . Progress of Wound: The wound is slightly smaller improving. Patient was denied skin substitute through her insurance. Cultures were negative with no anaerobes either. Patient is scheduled for her arterial and brachial studies and ultrasounds on April 08 Subjective Subjective Patient has no concerns at this time Objective Data Objective Data Wound is slightly smaller and more shallow will change her over to Promogran to see if that helps finisher closing it up. Vital Signs: Vital Signs Temp Pulse Resp BP 97.4 F L 85 18 120/76 03/31/21 09:39 03/31/21 09:39 03/31/21 09:39 03/31/21 09:39 Oxygen Delivery Method Room Air Weight: 200 lb Body Mass Index (BMI) 33.3 Lab / Micro Data Attestation: I reviewed the patient's lab results. Micro: Microbiology 03/17/21 10:15 Wound Abcess - Leg, Left Gram Stain - Final 03/17/21 10:15 Wound Abcess - Leg, Left Wound Culture - Final No growth aerobically. 03/17/21 10:15 Wound Abcess - Leg, Left Anaerobic Culture - Final No growth in 5 days. Physical Exam Const oriented x3 General Appearance: cooperative Exam Limitations: no limitations HEENT normocephalic Head and Scalp: normal to inspection Face and Sinus: normal facial exam Nose: external nose normal General Ear: hearing grossly impaired External Ear: external ears normal Mouth: oral and palatal mucosa normal Eyes PERRL General Eye: normal appearance of both eyes Neck full ROM General: normal visual inspection Resp normal respiratory effort Effort and Inspection: able to speak in complete sentences Auscultation: clear to auscultation bilaterally Cardio regular rate and regular rhythm Palpation: normal PMI Rate: regular rate Rhythm: regular rhythm GI Auscultation: normoactive bowel sounds Palpation: soft and no hepatosplenomegaly external exam normal Back/Spine Cervical Spine: cervical ROM normal Thoracic Spine / Upper Back: normal to inspection Lumbar Spine / Lower Back: normal to inspection Extremity normal to inspection General Extremity: normal exam except as noted Skin no rashes or lesions noted Neuro oriented x3 Psych Appearance: grossly normal Speech: normal speech Thought Content: normal thought content Judgement: judgement good Debridement Note Debridement Note Wound debrided: Left sultana wound Type of Debridement: Excisional debridement Anesthesia Used: 5% Lidocaine Gel Depth: Down to and including healthy tissue Percentage of wound debrided: 100 Instrument Used: 5mm curette Tissue Removed: Fibrin some slough Severity: Fat Layer Exposed Amount of bleeding with debridement: Mild Bleeding Controlled with: Pressure Post-Debridement Measurements and Additional Note: Post-Debridement Measurements/Treatment - Nurse 1 - General Ulcer Assessment Start: 03/17/21 09:22 Freq: Status: Active Protocol: SKYE Activity Type Activity Date Activity User E-Sign Co-Sign Detail Recorded Client Recorded Date Recorded By Document 03/17/21 09:24 [facility] [id number] 03/17/21 09:45 [facility] Document 03/24/21 08:52 [facility] [id number] 03/24/21 08:55 [facility] Document 03/31/21 09:39 [facility] [id number] 03/31/21 09:41 [facility] 03/17/21 03/24/21 03/31/21 09:24 08:52 09:39 - Today's Visit Information Type of service Initial Visit Follow-up Visit Follow-up Visit (Physician/SHIP LOADER (Physician/SHIP LOADER ) ) Arrival Mode Ambulatory Ambulatory Ambulatory Transfer Assistance None None Accompanied by self Patient Identification Verified (Name & Yes Yes Yes ) Patient Requires Transmission-Based No No Precautions Height and Weight Height 5 ft 5 in Weight 200 lb Weight in Pounds 200.0 lbs Weight Measurement Method Estimated by Patient Body Mass Index (BMI) 33.3 33.3 33.3 BMI Classification Obese Obese Obese BSA - Carlos 1.98 Vital Signs Temperature (97.8 F-99.1 F) 96.5 F L 97.7 F L 97.4 F L Temperature Source Temporal Temporal Temporal Pulse Rate (60-100) 85 80 85 Pulse Location Monitor Monitor Monitor Respiratory Rate (12-18) 16 16 18 Respiratory rate source Observation Observation Observation Oxygen Delivery Method Room Air Room Air Room Air Blood Pressure (90/60-120/80) 141/97 H 136/87 H 120/76 Blood Pressure Mean (mm Hg) 111 103 90 Source Monitor Monitor Monitor Position Sitting Sitting Sitting Blood Pressure Location Right Arm Left Arm Left Arm Have you changed medications since your No last visit? Any new allergies or adverse reactions No Had a fall/change in ADL's that may No increase risk of falls Signs or symptoms of abuse and/or No neglect since last visit Have you been in the hospital since your No last visit? Has dressing in place as prescribed Yes Yes Has compression in place as prescribed Yes Yes Has offloadiing in place as prescribed N/A Yes Experienced any changes in pain level or No Yes management History Since Last Visit- (Skip if this is Patient's initial visit) Left Footwear Regular Shoe Regular Shoe Right Footwear Regular Shoe Regular Shoe Pain Scale: 0-10 Numeric Is Patient Pain Free? Yes Lower Extremity Assessment/ Foot Assessment/ Toe Nail Assessment Right -Posterior Tibial Palpable No -Posterior Tibial Doppler Monophasic -Dorsalis Pedis Palpable No -Dorsalis Pedis Doppler Monophasic -Hair Growth on Legs Yes -Hair Growth on Toes No -Temperature of Extremity Cool -Other Deformity No -Prior Foot Ulcer No -Charcot Joint No -Prior Amputation No -Thick Yes -Discolored Yes -Deformed No -Improper Length & Hygeine No Left -Posterior Tibial Palpable No -Posterior Tibial Doppler Monophasic -Dorsalis Pedis Palpable Yes -Dorsalis Pedis Doppler Multiphasic -Extremity Color Pale -Hair Growth on Legs Yes -Hair Growth on Toes No -Temperature of Extremity Cool -Other Deformity No -Prior Foot Ulcer No -Charcot Joint No -Prior Amputation No -Thick Yes -Discolored Yes -Deformed No -Improper Length & Hygeine No Neuropathy Assessment Feet - Top Side and Bottom <Entered> (a) Communication Assessment Preferred language [place] Environmental Health Sanitarian Required No Able to Read Yes Able to Write Yes Communication Tools None Right Hearing Abillity Normal Left Hearing Abillity Normal Visual Assistive Devices None Teaching Assessment Preferences Verbal,Written, Audio/Visual, Demonstration Barriers to Learning None Readiness To Learn Excellent Willingness to Engage in Self Management High Activies Readiness to Engage in Self Management High Activities Anxiety Level Calm Cooperation Cooperative Perception Coherent Interest in Health Problem Asks Questions Education Importance Acknowledges Need Does Patient Smoke tobacco or other No substances Smoking Status Former smoker Is Patient Diabetic No Functional Assessment Recent Decline in Ability to Perform Denies Any Declines 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/Tenriism Needs that may affect No Treatment Plan Teaching: Wound Center *Welcome to the Wound Center -Person Taught Patient -Teaching Method Discussion -Response to teaching Verbalize understanding Welcome to the Wound Care Center [place]ian (a) 1 - + WC - Nurse 1 - General Ulcer Measurement Start: 03/17/21 09:22 Freq: Status: Active Protocol: Activity Type Activity Date Activity User E-Sign Co-Sign Detail Recorded Client Recorded Date Recorded By Document 03/17/21 09:24 [facility] [id number] 03/17/21 09:45 [facility] Document 03/24/21 08:52 [facility] [id number] 03/24/21 08:55 [facility] Document 03/31/21 09:39 [facility] [id number] 03/31/21 09:41 [facility] 03/17/21 03/24/21 03/31/21 09:24 08:52 09:39 Wound Center Nurse 1 #1- L SULTANA -Combined with other wound No No -Current Size (cm) - Length 1.8 1.6 1.7 -Current Size (cm) - Width 1.1 1.5 0.9 -Current Size (cm) - Depth 0.1 0.2 0.2 -Total Square Cm 1.98 2.40 1.53 -Date of Last Picture (Recall this 03/17/21 field) -Photo Taken Yes No -Epithelialization None Present Small 1-33% -Tunneling No No -Undermining/Tunneling No No -Circular Undermining No No -Exudate Amt Medium Medium Small -Exudate Type Serosanguineous Serosanguineous Serosanguineous -Wound Margin Distinct, Distinct, Flat & Intact Outline Outline Attached Attached -Granulation Amt Small (1-33%) Medium (34-66%) Small (1-33%) -Granulation Quality Red Red Pale,[place] -Slough/Fibrin Yes Yes -Necrosis Amt Large (67-100%) Medium (34-66%) Large (67-100%) -Necrotic Tissue Type Adherent Slough Adherent Slough Adherent Slough -Texture (Tejal-wound Skin Appearance) Assessed, Assessed, Assessed Scarring Scarring -Moisture (Tejal-wound Skin Appearance) Assessed Assessed Assessed -Color (Tejal-wound Skin Appearance) Assessed Assessed Assessed -Temperature (Tejal-wound Skin No Abnormality No Abnormality No Abnormality Appearance) (Pt Warm) (Pt Warm) (Pt Warm) -Tenderness on Palpation (Tejal-wound No No No Skin Appearance) -Ulcer Cleansing Rinsed/ Rinsed/ Rinsed/ Irrigated with Irrigated with Irrigated with Saline Saline Saline -Foul Odor after Cleansing No No No -Anesthetic Used 5% Lidocaine 5% Lidocaine 4% Lidocaine Gel Gel Solution Lower Limb Edema Present Yes Yes Yes Right Calf (cm) 37.6 Right Ankle (cm) 21 Left Calf (cm) 40.3 41 41 Left Ankle (cm) 20.5 23.6 23.6 WC - Nurse 2 - General Ulcer CM Notes Start: 03/17/21 09:22 Freq: Status: Active Protocol: Activity Type Activity Date Activity User E-Sign Co-Sign Detail Recorded Client Recorded Date Recorded By Document 03/17/21 10:10 [facility] [id number] 03/17/21 10:17 MW Document 03/24/21 09:05 MW [id number] 03/24/21 09:07 MW Document 03/31/21 10:25 MW [id number] 03/31/21 10:27 MW 03/17/21 03/24/21 03/31/21 10:10 09:05 10:25 Wound Center Nurse 2 #1- L SULTANA -Time 10:11 09:06 10:27 -Correct Patient Yes Yes Yes -Correct Side, Site, Position Yes Yes Yes -Correct Procedure Yes Yes Yes -Procedure Performed Yes Yes Yes -Type of Procedure Debridement Debridement Debridement -Clinical Debridement Subcutaneous Subcutaneous Subcutaneous -Tissue Removed Subcutaneous Subcutaneous Subcutaneous -Post Debridement (cm) - Length 1.9 1.5 1.6 -Post Debridement (cm) - Width 1.4 1.0 0.7 -Post Debridement (cm) - Depth 0.3 0.2 0.2 -Total Square (Post) (cm) 2.66 1.50 1.12 -Area of Debridement (cm) - Length 1.9 1.5 1.6 -Area of Debridement (cm) - Width 1.4 1.0 0.7 -Total Square (Area) (cm) 2.66 1.50 1.12 -Tunneling No No No -Undermining/Tunneling No No No -Circular Undermining No No No -Wound/Ulcer Outcome Not Healed Not Healed Not Healed -Ulcer Cleansing Rinsed/ Rinsed/ Rinsed/ Irrigated with Irrigated with Irrigated with Saline Saline Saline -Foul Odor after Cleansing No No No -Bioengineered Tissue No No No -Bleeding Controlled with Pressure Pressure Pressure -Offloading No No No -Treatment Response Procedure Procedure Procedure Tolerated Well Tolerated Well Tolerated Well -Debridement - Subq, 1st 20sq cm Yes Yes Yes Pain Scale: 0-10 Numeric Is Patient Pain Free? Yes Yes Yes WC - Nurse 3 - General Ulcer D/C NN Start: 03/17/21 09:22 Freq: Status: Active Protocol: Activity Type Activity Date Activity User E-Sign Co-Sign Detail Recorded Client Recorded Date Recorded By Document 03/17/21 10:30 [facility] [id number] 03/17/21 10:31 [facility] Document 03/24/21 09:19 [facility] [id number] 03/24/21 09:20 [facility] Document 03/31/21 10:36 [facility] [id number] 03/31/21 10:37 [facility] Document 03/31/21 11:12 [facility] [id number] 03/31/21 11:13 DL 03/17/21 03/24/21 03/31/21 10:30 09:19 10:36 Wound Care Nurse 3 #1- L SULTANA -Ulcer Cleansing Rinsed/ Rinsed/ Rinsed/ Irrigated with Irrigated with Irrigated with Saline Saline Saline -Foul Odor after Cleansing No No No -Primary Dressing Applied Aquacel Extra, Aquacel Extra, Promogran NonAdherent NonAdherent Contact Layer Contact Layer -Other Dressing DRSG PER [place] [facility] SPECIALIST adaptic -Primary Dressing Covered/Secured with Dry Gauze & Dry Gauze & Dry Gauze,Dry Roll Gauze, Roll Gauze, Gauze & Roll Secured with Secured with Gauze,Secured Tape Tape with Tape -Other Covering -Aquacel Extra 1 1 -Promogran 1 Left -Tubular Bandage Double Layer -Size of Tubigrip Used Size E -Size E ($) 2 -Stockings Yes -Other APPLIED OWN pt tubigrip TUBI Treatment Response Procedure Procedure Tolerated Well Tolerated Well Pain Scale: 0-10 Numeric Is Patient Pain Free? Yes Yes WC - Visit Discharge Discharge Condition Stable Stable Stable Ambulatory Status Ambulatory Ambulatory Ambulatory Transportation Private Auto Private Auto Private Auto Medication Reconcilliation completed & No provided to patient/care provider Clinical Summary of Care Provided Yes 03/31/21 11:12 Wound Care Nurse 3 #1- L SULTANA -Ulcer Cleansing Soap and Water -Foul Odor after Cleansing No -Primary Dressing Applied Aquacel Extra, NonAdherent Contact Layer -Other Dressing -Primary Dressing Covered/Secured with Dry Gauze & Roll Gauze, Secured with Tape -Other Covering tubigrip -Aquacel Extra 1 -Promogran Left -Tubular Bandage -Size of Tubigrip Used -Size E ($) -Stockings -Other Treatment Response Procedure Tolerated Well Pain Scale: 0-10 Numeric Is Patient Pain Free? Yes WC - Visit Discharge Discharge Condition Stable Ambulatory Status Ambulatory Transportation Private Auto Medication Reconcilliation completed & provided to patient/care provider Clinical Summary of Care Provided Assessment/Plan Assessment/Plan (1) Peripheral vascular disease of lower extremity with ulceration: CODE(S): I73.9 - Peripheral vascular disease, unspecified; L97.909 - Non-pressure chronic ulcer of unspecified part of unspecified lower leg with unspecified severity (2) Nonhealing ulcer of left lower extremity with fat layer exposed: CODE(S): L97.922 - Non-pressure chronic ulcer of unspecified part of left lower leg with fat layer exposed PLAN: Wash leg with antibacterial soap and apply Promogran moistened with Adaptic over top,, double layer Tubigrip Every day Cultures obtained from wound were negative Keep scheduled appointment for arterial brachial and vascular studies Follow-up 2 weeks (3) Edema of left lower leg: CODE(S): R60.0 - Localized edema (4) 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
== END 2021-04-02 23:59 ==
LOC: WC 09:45
PROVIDERS: PCP Internal Medicine; Visit Provider Nurse Practitioner
DX: I83.228 Varicose veins of left lower extremity with both ulcer of other part of lower extremity and inflammation (principal); L97.822 Non-pressure chronic ulcer of other part of left lower leg with fat layer exposed; I73.9 Peripheral vascular disease, unspecified; R60.0 Localized edema; D64.9 Anemia, unspecified; G51.0 Bell's palsy; I10 Essential (primary) hypertension; M19.90 Unspecified osteoarthritis, unspecified site; Z87.891 Personal history of nicotine dependence
CPT/HCPCS: 11042; 87070; 87075; 87205; 99203; G0463

== ENCOUNTER 2021-04-28 09:00 | Outpatient (RCR) | payer BC, SELFPAY ==
[2021-04-14 11:42] VITALS: BP 135/73; PULSE 74; TEMP 36.3
--- NOTE | 2021-04-14 13:10 | PCM.WC.PN ---
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 She states that the end of it it had a small pinhole when she was discharged then when she got home it blew open and she had pus and blood come out for a long time and now it has been open since November of this last year. She feels it is getting bigger. She was seen in her primary care and put on oral antibiotics and given silver sorb gel to put on the wound that has not helped close at all either. Patient has history of vitiligo and cellulitis osteoarthritis hypertension and oeoarthritis . . Progress of Wound: Wound is measuring smaller and doing well we will continue with Promogran and Adaptic. No sign of infection noted Subjective Subjective Patient is happy with results Objective Data Objective Data Measuring smaller on wound no sign of infection doing well we will continue with Promogran and Adaptic Vital Signs: Vital Signs Temp Pulse BP 97.3 F L 74 135/73 H 04/14/21 11:42 04/14/21 11:42 04/14/21 11:42 Lab / Micro Data Attestation: I reviewed the patient's lab results. Physical Exam Const oriented x3 General Appearance: cooperative Exam Limitations: no limitations HEENT normocephalic Head and Scalp: normal to inspection Face and Sinus: normal facial exam Nose: external nose normal General Ear: hearing grossly impaired External Ear: external ears normal Mouth: oral and palatal mucosa normal Eyes PERRL General Eye: normal appearance of both eyes Neck full ROM General: normal visual inspection Resp normal respiratory effort Effort and Inspection: able to speak in complete sentences Auscultation: clear to auscultation bilaterally Cardio regular rate and regular rhythm Palpation: normal PMI Rate: regular rate Rhythm: regular rhythm GI Auscultation: normoactive bowel sounds Palpation: soft and no hepatosplenomegaly external exam normal Back/Spine Cervical Spine: cervical ROM normal Thoracic Spine / Upper Back: normal to inspection Lumbar Spine / Lower Back: normal to inspection Extremity normal to inspection General Extremity: normal exam except as noted Skin no rashes or lesions noted Neuro oriented x3 Psych Appearance: grossly normal Speech: normal speech Thought Content: normal thought content Judgement: judgement good Debridement Note Debridement Note Wound debrided: Left sultana Type of Debridement: Excisional debridement Anesthesia Used: 5% Lidocaine Gel Depth: in the subcutaneous layer Percentage of wound debrided: 100 Instrument Used: 5mm curette Tissue Removed: Fibrin Severity: Fat Layer Exposed Amount of bleeding with debridement: Mild Bleeding Controlled with: Compression and gauze Patient tolerated procedure: Patient tolerated procedure well Post-Debridement Measurements and Additional Note: Post-Debridement Measurements/Treatment - Nurse 1 - General Ulcer Assessment Start: 04/14/21 11:41 Freq: Status: Active Protocol: SKYE Activity Type Activity Date Activity User E-Sign Co-Sign Detail Recorded Client Recorded Date Recorded By Document 04/14/21 11:42 ANGELA [id number] 04/14/21 11:44 ANGELA 04/14/21 11:42 WC - Today's Visit Information Type of service 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 Any new allergies or adverse reactions No Had a fall/change in ADL's that may No increase risk of falls Signs or symptoms of abuse and/or No neglect since last visit Have you been in the hospital since your No last visit? Has dressing in place as prescribed Yes Has compression in place as prescribed Yes Has offloadiing in place as prescribed N/A Experienced any changes in pain level or No management Left Footwear Regular Shoe Right Footwear Regular Shoe Pain Scale: 0-10 Numeric Is Patient Pain Free? Yes [facility] Nurse 1 - General Ulcer Measurement Start: 04/14/21 11:41 Freq: Status: Active Protocol: Activity Type Activity Date Activity User E-Sign Co-Sign Detail Recorded Client Recorded Date Recorded By Document 04/14/21 11:42 ANGELA [id number] 04/14/21 11:44 ANGELA 04/14/21 11:42 Wound Center Nurse 1 #1- L SULTANA -Combined with other wound No -Current Size (cm) - Length 1.6 -Current Size (cm) - Width 0.8 -Current Size (cm) - Depth 0.1 -Total Square Cm 1.28 -Photo Taken No -Epithelialization None Present -Tunneling No -Undermining/Tunneling No -Circular Undermining No -Change in Wound Grade/Stage No -Exudate Amt Medium -Exudate Type Serosanguineous -Wound Margin Distinct, Outline Attached -Granulation Amt Medium (34-66%) -Granulation Quality [place],Red -Slough/Fibrin No -Necrosis Amt None Present (0 %) -Structure Exposed N/A -Texture (Tejal-wound Skin Appearance) No Abnormality, Assessed -Moisture (Tejal-wound Skin Appearance) No Abnormality, Assessed -Color (Tejal-wound Skin Appearance) No Abnormality, Assessed -Temperature (Teajl-wound Skin No Abnormality Appearance) (Pt Warm) -Tenderness on Palpation (Tejal-wound No Skin Appearance) -Ulcer Cleansing Rinsed/ Irrigated with Saline -Foul Odor after Cleansing No -Anesthetic Used 4% Lidocaine Solution Point of measurement (cm from the medial 39 instep) Point of Measurement (cm from the medial 23 instep) WC - Nurse 2 - General Ulcer CM Notes Start: 04/14/21 11:41 Freq: Status: Active Protocol: Activity Type Activity Date Activity User E-Sign Co-Sign Detail Recorded Client Recorded Date Recorded By Document 04/14/21 11:42 MW [id number] 04/14/21 11:46 MW 04/14/21 11:42 Wound Center Nurse 2 #1- L SULTANA -Time 11:45 -Correct Patient Yes -Correct Side, Site, Position Yes -Correct Procedure Yes -Procedure Performed Yes -Type of Procedure Debridement -Clinical Debridement Subcutaneous -Tissue Removed Subcutaneous -Post Debridement (cm) - Length 0.8 -Post Debridement (cm) - Width 0.6 -Post Debridement (cm) - Depth 0.1 -Total Square (Post) (cm) 0.48 -Area of Debridement (cm) - Length 0.8 -Area of Debridement (cm) - Width 0.6 -Total Square (Area) (cm) 0.48 -Tunneling No -Undermining/Tunneling No -Circular Undermining No -Wound/Ulcer Outcome Not Healed -Ulcer Cleansing Rinsed/ Irrigated with Saline -Foul Odor after Cleansing No -Bioengineered Tissue No -Bleeding Controlled with Pressure -Offloading No -Treatment Response Procedure Tolerated Well -Debridement - Subq, 1st 20sq cm Yes Pain Scale: 0-10 Numeric Is Patient Pain Free? Yes - Nurse 3 - General Ulcer D/C NN Start: 04/14/21 11:41 Freq: Status: Active Protocol: Activity Type Activity Date Activity User E-Sign Co-Sign Detail Recorded Client Recorded Date Recorded By Document 04/14/21 12:09 [place] [id number] 04/14/21 12:10 [place] 04/14/21 12:09 Wound Care Nurse 3 #1- L SULTANA -Ulcer Cleansing Rinsed/ Irrigated with Saline -Primary Dressing Applied Promogran -Other Dressing adaptic -Primary Dressing Covered/Secured with Dry Gauze & Roll Gauze, Secured with Tape -Promogran 1 Pain Scale: 0-10 Numeric Is Patient Pain Free? Yes - Visit Discharge Discharge Condition Stable Ambulatory Status Ambulatory Transportation Private Auto Medication Reconcilliation completed & No provided to patient/care provider Clinical Summary of Care Provided Yes Assessment/Plan Assessment/Plan (1) Peripheral vascular disease of lower extremity with ulceration: CODE(S): I73.9 - Peripheral vascular disease, unspecified; L97.909 - Non-pressure chronic ulcer of unspecified part of unspecified lower leg with unspecified severity (2) Nonhealing ulcer of left lower extremity with fat layer exposed: CODE(S): L97.922 - Non-pressure chronic ulcer of unspecified part of left lower leg with fat layer exposed PLAN: Wash leg with antibacterial soap and apply Promogran moistened with Adaptic over top,, double layer Tubigrip Every day Cultures obtained from wound were negative Were referred to Dr. 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 PLAN: Went over the arterial brachial studies and the ultrasounds showed where all the connectors were clogged we will be referring her now to Dr. Brenner for further treatment that will enhance her healing.
[2021-04-21 11:41] VITALS: BP 123/86; PULSE 85; RESP 16; TEMP 36.2
--- NOTE | 2021-04-21 13:26 | PCM.WC.PN ---
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 She states that the end of it it had a small pinhole when she was discharged then when she got home it blew open and she had pus and blood come out for a long time and now it has been open since November of this last year. She feels it is getting bigger. She was seen in her primary care and put on oral antibiotics and given silver sorb gel to put on the wound that has not helped close at all either. Patient has history of vitiligo and cellulitis osteoarthritis hypertension and oeoarthritis . . Progress of Wound: Wound is measuring smaller and doing well we will continue with Promogran and Adaptic. No sign of infection noted Subjective Subjective Patient is pleased with progress Objective Data Objective Data Wound is healing well definitely needs to see Dr. Brenner she has some issue areas in her calf and saphenous area. We will continue with compression stockings they are doing well Vital Signs: Vital Signs Temp Pulse Resp BP 97.2 F L 85 16 123/86 H 04/21/21 11:41 04/21/21 11:41 04/21/21 11:41 04/21/21 11:41 Oxygen Delivery Method Room Air Lab / Micro Data Attestation: I reviewed the patient's lab results. Physical Exam Const oriented x3 General Appearance: cooperative Exam Limitations: no limitations HEENT normocephalic Head and Scalp: normal to inspection Face and Sinus: normal facial exam Nose: external nose normal General Ear: hearing grossly impaired External Ear: external ears normal Mouth: oral and palatal mucosa normal Eyes PERRL General Eye: normal appearance of both eyes Neck full ROM General: normal visual inspection Resp normal respiratory effort Effort and Inspection: able to speak in complete sentences Auscultation: clear to auscultation bilaterally Cardio regular rate and regular rhythm Palpation: normal PMI Rate: regular rate Rhythm: regular rhythm GI Auscultation: normoactive bowel sounds Palpation: soft and no hepatosplenomegaly external exam normal Back/Spine Cervical Spine: cervical ROM normal Thoracic Spine / Upper Back: normal to inspection Lumbar Spine / Lower Back: normal to inspection Extremity normal to inspection General Extremity: normal exam except as noted Skin no rashes or lesions noted Neuro oriented x3 Psych Appearance: grossly normal Speech: normal speech Thought Content: normal thought content Judgement: judgement good Debridement Note Debridement Note Wound debrided: Left sultana Type of Debridement: Excisional debridement Anesthesia Used: 5% Lidocaine Gel Depth: in the subcutaneous layer Percentage of wound debrided: 100 Instrument Used: 5mm curette Tissue Removed: Fibrin Severity: Fat Layer Exposed Amount of bleeding with debridement: Mild Bleeding Controlled with: Compression and gauze Patient tolerated procedure: Patient tolerated procedure well Post-Debridement Measurements and Additional Note: Post-Debridement Measurements/Treatment - Nurse 1 - General Ulcer Assessment Start: 04/14/21 11:41 Freq: Status: Active Protocol: SKYE Activity Type Activity Date Activity User E-Sign Co-Sign Detail Recorded Client Recorded Date Recorded By Document 04/14/21 11:42 AR [id number] 04/14/21 11:44 AR Document 04/21/21 11:41 [facility] [id number] 04/21/21 11:45 [facility] 04/14/21 04/21/21 11:42 11:41 - Today's Visit Information Type of service Follow-up Visit 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 ) ) Arrival Mode Ambulatory Ambulatory Transfer Assistance None Patient Identification Verified (Name & Yes ) Patient Requires Transmission-Based No Precautions Vital Signs Temperature (97.8 F-99.1 F) 97.3 F L 97.2 F L Temperature Source Temporal Temporal Pulse Rate (60-100) 74 85 Pulse Location Monitor Monitor Respiratory Rate (12-18) 16 Respiratory rate source Observation Oxygen Delivery Method Room Air Blood Pressure (90/60-120/80) 135/73 H 123/86 H Blood Pressure Mean (mm Hg) 93 98 Source Monitor Monitor Position Sitting Blood Pressure Location Left Arm History Since Last Visit- (Skip if this is Patient's initial visit) Have you changed medications since your No No last visit? Any new allergies or adverse reactions No No Had a fall/change in ADL's that may No No increase risk of falls Signs or symptoms of abuse and/or No No neglect since last visit Have you been in the hospital since your No No last visit? Has dressing in place as prescribed Yes Yes Has compression in place as prescribed Yes Yes Has offloadiing in place as prescribed N/A N/A Experienced any changes in pain level or No No management Left Footwear Regular Shoe Regular Shoe Right Footwear Regular Shoe Regular Shoe Pain Scale: 0-10 Numeric Is Patient Pain Free? Yes Yes WC - Nurse 1 - General Ulcer Measurement Start: 04/14/21 11:41 Freq: Status: Active Protocol: Activity Type Activity Date Activity User E-Sign Co-Sign Detail Recorded Client Recorded Date Recorded By Document 04/14/21 11:42 AR [id number] 04/14/21 11:44 [place] Document 04/21/21 11:41 [facility] [id number] 04/21/21 11:45 [facility] 04/14/21 04/21/21 11:42 11:41 Wound Center Nurse 1 #1- L SULTANA -Combined with other wound No No -Current Size (cm) - Length 1.6 1.4 -Current Size (cm) - Width 0.8 1 -Current Size (cm) - Depth 0.1 0.1 -Total Square Cm 1.28 1.4 -Photo Taken No No -Epithelialization None Present Small 1-33% -Tunneling No No -Undermining/Tunneling No No -Circular Undermining No No -Change in Wound Grade/Stage No -Exudate Amt Medium Medium -Exudate Type Serosanguineous Serosanguineous -Wound Margin Distinct, Distinct, Outline Outline Attached Attached -Granulation Amt Medium (34-66%) Small (1-33%) -Granulation Quality [place],Red Red -Slough/Fibrin No Yes -Necrosis Amt None Present (0 Large (67-100%) %) -Necrotic Tissue Type Adherent Slough -Structure Exposed N/A -Texture (Tejal-wound Skin Appearance) No Abnormality, Assessed, Assessed Scarring -Moisture (Tejal-wound Skin Appearance) No Abnormality, Assessed Assessed -Color (Tejal-wound Skin Appearance) No Abnormality, Assessed Assessed -Temperature (Tejal-wound Skin No Abnormality No Abnormality Appearance) (Pt Warm) (Pt Warm) -Tenderness on Palpation (Tejal-wound No No Skin Appearance) -Ulcer Cleansing Rinsed/ Rinsed/ Irrigated with Irrigated with Saline Saline -Foul Odor after Cleansing No No -Anesthetic Used 4% Lidocaine 5% Lidocaine Solution Gel Lower Limb Edema Present Yes Left Calf (cm) 39.5 Point of measurement (cm from the medial 39 instep) Left Ankle (cm) 23.5 Point of Measurement (cm from the medial 23 instep) WC - Nurse 2 - General Ulcer CM Notes Start: 04/14/21 11:41 Freq: Status: Active Protocol: Activity Type Activity Date Activity User E-Sign Co-Sign Detail Recorded Client Recorded Date Recorded By Document 04/14/21 11:42 MW [id number] 04/14/21 11:46 MW Document 04/21/21 11:58 MW [id number] 04/21/21 12:00 MW 04/14/21 04/21/21 11:42 11:58 Wound Center Nurse 2 #1- L SULTANA -Time 11:45 11:59 -Correct Patient Yes Yes -Correct Side, Site, Position Yes Yes -Correct Procedure Yes Yes -Procedure Performed Yes Yes -Type of Procedure Debridement Debridement -Clinical Debridement Subcutaneous Subcutaneous -Tissue Removed Subcutaneous Subcutaneous -Post Debridement (cm) - Length 0.8 1.5 -Post Debridement (cm) - Width 0.6 0.9 -Post Debridement (cm) - Depth 0.1 0.2 -Total Square (Post) (cm) 0.48 1.35 -Area of Debridement (cm) - Length 0.8 1.5 -Area of Debridement (cm) - Width 0.6 0.9 -Total Square (Area) (cm) 0.48 1.35 -Tunneling No No -Undermining/Tunneling No No -Circular Undermining No No -Wound/Ulcer Outcome Not Healed Not Healed -Ulcer Cleansing Rinsed/ Rinsed/ Irrigated with Irrigated with Saline Saline -Foul Odor after Cleansing No No -Bioengineered Tissue No No -Bleeding Controlled with Pressure Pressure -Offloading No No -Treatment Response Procedure Procedure Tolerated Well Tolerated Well -Debridement - Subq, 1st 20sq cm Yes Yes Pain Scale: 0-10 Numeric Is Patient Pain Free? Yes Yes WC - Nurse 3 - General Ulcer D/C NN Start: 04/14/21 11:41 Freq: Status: Active Protocol: Activity Type Activity Date Activity User E-Sign Co-Sign Detail Recorded Client Recorded Date Recorded By Document 04/14/21 12:09 MT [id number] 04/14/21 12:10 MT Document 04/21/21 12:11 AR [id number] 04/21/21 12:13 [place] 04/14/21 04/21/21 12:09 12:11 Wound Care Nurse 3 #1- L SULTANA -Ulcer Cleansing Rinsed/ Rinsed/ Irrigated with Irrigated with Saline Saline -Foul Odor after Cleansing No -Negative Pressure Wound Therapy N/A -Primary Dressing Applied Promogran Promogran -Other Dressing adaptic -Primary Dressing Covered/Secured with Dry Gauze & Dry Gauze, Roll Gauze, Secured with Secured with Tape Tape -Promogran 1 1 Pain Scale: 0-10 Numeric Is Patient Pain Free? Yes Yes WC - Visit Discharge Discharge Condition Stable Stable Ambulatory Status Ambulatory Ambulatory Transportation Private Auto Private Auto Medication Reconcilliation completed & No No provided to patient/care provider Clinical Summary of Care Provided Yes Yes Assessment/Plan Assessment/Plan (1) Peripheral vascular disease of lower extremity with ulceration: CODE(S): I73.9 - Peripheral vascular disease, unspecified; L97.909 - Non-pressure chronic ulcer of unspecified part of unspecified lower leg with unspecified severity (2) Nonhealing ulcer of left lower extremity with fat layer exposed: CODE(S): L97.922 - Non-pressure chronic ulcer of unspecified part of left lower leg with fat layer exposed PLAN: Wash leg with antibacterial soap and apply Promogran moistened with Adaptic over top,, double layer Tubigrip Every day Cultures obtained from wound were negative Were referred to Dr. 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 PLAN: Went over the arterial brachial studies and the ultrasounds showed where all the connectors were clogged we will be referring her now to Dr. Brenner for further treatment that will enhance her healing.
[2021-04-28 08:45] VITALS: BP 126/79; PULSE 75; RESP 18; TEMP 36.1
--- NOTE | 2021-04-28 09:23 | PN.PCM_ITS ---
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 She states that the end of it it had a small pinhole when she was discharged then when she got home it blew open and she had pus and blood come out for a long time and now it has been open since November of this last year. She feels it is getting bigger. She was seen in her primary care and put on oral antibiotics and given silver sorb gel to put on the wound that has not helped close at all either. Patient has history of vitiligo and cellulitis osteoarthritis hypertension and oeoarthritis . . Progress of Wound: Wound is measuring smaller and doing well we will continue with Promogran and Adaptic. No sign of infection noted Subjective Subjective Patient states she has an appointment with Dr. Brenner May 19 for evaluation and treatment Happy with the wound care its getting smaller Objective Data Objective Data Wound is measuring smaller and no sign of infection we will continue using Promogran Vital Signs: Vital Signs Temp Pulse Resp BP 97 F L 75 18 126/79 H 04/28/21 08:45 04/28/21 08:45 04/28/21 08:45 04/28/21 08:45 Oxygen Delivery Method Room Air Physical Exam Const oriented x3 General Appearance: cooperative Exam Limitations: no limitations HEENT normocephalic Head and Scalp: normal to inspection Face and Sinus: normal facial exam Nose: external nose normal General Ear: hearing grossly impaired External Ear: external ears normal Mouth: oral and palatal mucosa normal Eyes PERRL General Eye: normal appearance of both eyes Neck full ROM General: normal visual inspection Resp normal respiratory effort Effort and Inspection: able to speak in complete sentences Auscultation: clear to auscultation bilaterally Cardio regular rate and regular rhythm Palpation: normal PMI Rate: regular rate Rhythm: regular rhythm GI Auscultation: normoactive bowel sounds Palpation: soft and no hepatosplenomegaly external exam normal Back/Spine Cervical Spine: cervical ROM normal Thoracic Spine / Upper Back: normal to inspection Lumbar Spine / Lower Back: normal to inspection Extremity normal to inspection General Extremity: normal exam except as noted Skin no rashes or lesions noted Neuro oriented x3 Psych Appearance: grossly normal Speech: normal speech Thought Content: normal thought content Judgement: judgement good Debridement Note Debridement Note Wound debrided: Left sultana Laterality: Left Type of Debridement: Excisional debridement Anesthesia Used: 5% Lidocaine Gel Depth: Down to and including healthy tissue Percentage of wound debrided: 100 Instrument Used: 3mm curette Severity: Fat Layer Exposed Amount of bleeding with debridement: Mild Bleeding Controlled with: Compression and gauze Patient tolerated procedure: Patient tolerated procedure well Post-Debridement Measurements and Additional Note: Post-Debridement Measurements/Treatment - Nurse 1 - General Ulcer Assessment Start: 04/14/21 11:41 Freq: Status: Active Protocol: SKYE Activity Type Activity Date Activity User E-Sign Co-Sign Detail Recorded Client Recorded Date Recorded By Document 04/14/21 11:42 AK [id number] 04/14/21 11:44 AK Document 04/21/21 11:41 [facility] [id number] 04/21/21 11:45 [facility] Document 04/28/21 08:45 AK [id number] 04/28/21 08:51 AK 04/14/21 04/21/21 04/28/21 11:42 11:41 08:45 - Today's Visit Information Type of service Follow-up Visit Follow-up Visit Follow-up Visit (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 (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 (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 ) ) ) Arrival Mode Ambulatory Ambulatory Ambulatory Transfer Assistance None Accompanied by self Patient Identification Verified (Name & Yes Yes ) Patient Requires Transmission-Based No Precautions Vital Signs Temperature (97.8 F-99.1 F) 97.3 F L 97.2 F L 97 F L Temperature Source Temporal Temporal Temporal Pulse Rate (60-100) 74 85 75 Pulse Location Monitor Monitor Monitor Respiratory Rate (12-18) 16 18 Respiratory rate source Observation Observation Oxygen Delivery Method Room Air Room Air Blood Pressure (90/60-120/80) 135/73 H 123/86 H 126/79 H Blood Pressure Mean (mm Hg) 93 98 94 Source Monitor Monitor Monitor Position Sitting Sitting Blood Pressure Location Left Arm Left Arm History Since Last Visit- (Skip if this is Patient's initial visit) Have you changed medications since your No No last visit? Any new allergies or adverse reactions No No Had a fall/change in ADL's that may No No increase risk of falls Signs or symptoms of abuse and/or No No neglect since last visit Have you been in the hospital since your No No last visit? Has dressing in place as prescribed Yes Yes Yes Has compression in place as prescribed Yes Yes Yes Has offloadiing in place as prescribed N/A N/A N/A Experienced any changes in pain level or No No No management Left Footwear Regular Shoe Regular Shoe Regular Shoe Right Footwear Regular Shoe Regular Shoe Regular Shoe Pain Scale: 0-10 Numeric Is Patient Pain Free? Yes Yes Yes WC - Nurse 1 - General Ulcer Measurement Start: 04/14/21 11:41 Freq: Status: Active Protocol: Activity Type Activity Date Activity User E-Sign Co-Sign Detail Recorded Client Recorded Date Recorded By Document 04/14/21 11:42 PR [id number] 04/14/21 11:44 PR Document 04/21/21 11:41 [facility] [id number] 04/21/21 11:45 [facility] Document 04/28/21 08:45 AK [id number] 04/28/21 08:51 AK 04/14/21 04/21/21 04/28/21 11:42 11:41 08:45 Wound Center Nurse 1 #1- L SULTANA -Combined with other wound No No -Current Size (cm) - Length 1.6 1.4 1.5 -Current Size (cm) - Width 0.8 1 1.0 -Current Size (cm) - Depth 0.1 0.1 0.2 -Total Square Cm 1.28 1.4 1.50 -Photo Taken No No -Epithelialization None Present Small 1-33% -Tunneling No No -Undermining/Tunneling No No -Circular Undermining No No -Change in Wound Grade/Stage No -Exudate Amt Medium Medium None Present -Exudate Type Serosanguineous Serosanguineous -Wound Margin Distinct, Distinct, Flat & Intact Outline Outline Attached Attached -Granulation Amt Medium (34-66%) Small (1-33%) Small (1-33%) -Granulation Quality [place],Red Red Pale,[place] -Slough/Fibrin No Yes -Necrosis Amt None Present (0 Large (67-100%) Large (67-100%) %) -Necrotic Tissue Type Adherent Slough Adherent Slough -Structure Exposed N/A -Texture (Tejal-wound Skin Appearance) No Abnormality, Assessed, Assessed Assessed Scarring -Moisture (Tejal-wound Skin Appearance) No Abnormality, Assessed Assessed Assessed -Color (Tejal-wound Skin Appearance) No Abnormality, Assessed Assessed Assessed -Temperature (Tejal-wound Skin No Abnormality No Abnormality No Abnormality Appearance) (Pt Warm) (Pt Warm) (Pt Warm) -Tenderness on Palpation (Tejal-wound No No No Skin Appearance) -Ulcer Cleansing Rinsed/ Rinsed/ Rinsed/ Irrigated with Irrigated with Irrigated with Saline Saline Saline -Foul Odor after Cleansing No No No -Anesthetic Used 4% Lidocaine 5% Lidocaine 5% Lidocaine Solution Gel Gel Lower Limb Edema Present Yes Yes Left Calf (cm) 39.5 38.5 Point of measurement (cm from the medial 39 instep) Left Ankle (cm) 23.5 23.5 Point of Measurement (cm from the medial 23 instep) WC - Nurse 2 - General Ulcer CM Notes Start: 04/14/21 11:41 Freq: Status: Active Protocol: Activity Type Activity Date Activity User E-Sign Co-Sign Detail Recorded Client Recorded Date Recorded By Document 04/14/21 11:42 MW [id number] 04/14/21 11:46 MW Document 04/21/21 11:58 MW [id number] 04/21/21 12:00 MW Document 04/28/21 08:58 MW [id number] 04/28/21 08:59 MW 04/14/21 04/21/21 04/28/21 11:42 11:58 08:58 Wound Center Nurse 2 #1- L SULTANA -Time 11:45 11:59 08:58 -Correct Patient Yes Yes Yes -Correct Side, Site, Position Yes Yes Yes -Correct Procedure Yes Yes Yes -Procedure Performed Yes Yes Yes -Type of Procedure Debridement Debridement Debridement -Clinical Debridement Subcutaneous Subcutaneous Subcutaneous -Tissue Removed Subcutaneous Subcutaneous Subcutaneous -Post Debridement (cm) - Length 0.8 1.5 1.3 -Post Debridement (cm) - Width 0.6 0.9 0.6 -Post Debridement (cm) - Depth 0.1 0.2 0.2 -Total Square (Post) (cm) 0.48 1.35 0.78 -Area of Debridement (cm) - Length 0.8 1.5 1.3 -Area of Debridement (cm) - Width 0.6 0.9 0.6 -Total Square (Area) (cm) 0.48 1.35 0.78 -Tunneling No No No -Undermining/Tunneling No No No -Circular Undermining No No No -Wound/Ulcer Outcome Not Healed Not Healed Not Healed -Ulcer Cleansing Rinsed/ Rinsed/ Rinsed/ Irrigated with Irrigated with Irrigated with Saline Saline Saline -Foul Odor after Cleansing No No No -Bioengineered Tissue No No No -Bleeding Controlled with Pressure Pressure Pressure -Offloading No No No -Treatment Response Procedure Procedure Procedure Tolerated Well Tolerated Well Tolerated Well -Debridement - Subq, 1st 20sq cm Yes Yes Yes Pain Scale: 0-10 Numeric Is Patient Pain Free? Yes Yes Yes - Nurse 3 - General Ulcer D/C NN Start: 04/14/21 11:41 Freq: Status: Active Protocol: Activity Type Activity Date Activity User E-Sign Co-Sign Detail Recorded Client Recorded Date Recorded By Document 04/14/21 12:09 AK [id number] 04/14/21 12:10 AK Document 04/21/21 12:11 PR [id number] 04/21/21 12:13 PR Document 04/28/21 09:01 AK [id number] 04/28/21 09:05 AK 04/14/21 04/21/21 04/28/21 12:09 12:11 09:01 Wound Care Nurse 3 #1- L SULTANA -Ulcer Cleansing Rinsed/ Rinsed/ Irrigated with Irrigated with Saline Saline -Foul Odor after Cleansing No -Negative Pressure Wound Therapy N/A -Primary Dressing Applied Promogran Promogran Promogran -Other Dressing adaptic adaptic -Primary Dressing Covered/Secured with Dry Gauze & Dry Gauze, Dry Gauze, Roll Gauze, Secured with Secured with Secured with Tape Tape Tape -Promogran 1 1 1 Pain Scale: 0-10 Numeric Is Patient Pain Free? Yes Yes Yes - Visit Discharge Discharge Condition Stable Stable Stable Ambulatory Status Ambulatory Ambulatory Ambulatory Transportation Private Auto Private Auto Private Auto Medication Reconcilliation completed & No No No provided to patient/care provider Clinical Summary of Care Provided Yes Yes Yes Assessment/Plan Assessment/Plan (1) Peripheral vascular disease of lower extremity with ulceration: CODE(S): I73.9 - Peripheral vascular disease, unspecified; L97.909 - Non- pressure chronic ulcer of unspecified part of unspecified lower leg with unspecified severity (2) Nonhealing ulcer of left lower extremity with fat layer exposed: CODE(S): L97.922 - Non-pressure chronic ulcer of unspecified part of left lower leg with fat layer exposed PLAN: Wash leg with antibacterial soap and apply Promogran moistened with Adaptic over top,, double layer Tubigrip Every day Cultures obtained from wound were negative Dr. 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 PLAN: Went over the arterial brachial studies and the ultrasounds showed where all the connectors were clogged , referring her now to Dr. Brenner for further treatment that will enhance her healing.
== END 2021-05-03 23:59 ==
LOC: WC 09:00
PROVIDERS: PCP Internal Medicine; Visit Provider Nurse Practitioner
DX: I83.228 Varicose veins of left lower extremity with both ulcer of other part of lower extremity and inflammation (principal); L97.822 Non-pressure chronic ulcer of other part of left lower leg with fat layer exposed; I73.9 Peripheral vascular disease, unspecified; L03.116 Cellulitis of left lower limb; R60.0 Localized edema
CPT/HCPCS: 11042

== ENCOUNTER 2021-05-19 08:15 | Outpatient (RCR) | payer BC, SELFPAY ==
[2021-05-04 00:47] VITALS: BP 126/79; PULSE 75; RESP 18; TEMP 36.1
[2021-05-05 08:02] VITALS: BP 150/92; PULSE 83; RESP 16; TEMP 35.9
--- NOTE | 2021-05-05 09:48 | PCM.WC.PN ---
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 She states that the end of it it had a small pinhole when she was discharged then when she got home it blew open and she had pus and blood come out for a long time and now it has been open since November of this last year. She feels it is getting bigger. She was seen in her primary care and put on oral antibiotics and given silver sorb gel to put on the wound that has not helped close at all either. Patient has history of vitiligo and cellulitis osteoarthritis hypertension and oeoarthritis . . Progress of Wound: Becoming more superficial but her tendons are still exposed over the bone. Subjective Subjective Patient states has a appointment with Dr. Brenner in 2 weeks Objective Data Objective Data Healing nicely we will continue with same treatment. Vital Signs: Vital Signs Temp Pulse Resp BP 96.7 F L 83 16 150/92 H 05/05/21 08:02 05/05/21 08:02 05/05/21 08:02 05/05/21 08:02 Oxygen Delivery Method Room Air Lab / Micro Data Attestation: I reviewed the patient's lab results. Physical Exam Const oriented x3 General Appearance: cooperative Exam Limitations: no limitations HEENT normocephalic Head and Scalp: normal to inspection Face and Sinus: normal facial exam Nose: external nose normal General Ear: hearing grossly impaired External Ear: external ears normal Mouth: oral and palatal mucosa normal Eyes PERRL General Eye: normal appearance of both eyes Neck full ROM General: normal visual inspection Resp normal respiratory effort Effort and Inspection: able to speak in complete sentences Auscultation: clear to auscultation bilaterally Cardio regular rate and regular rhythm Palpation: normal PMI Rate: regular rate Rhythm: regular rhythm GI Auscultation: normoactive bowel sounds Palpation: soft and no hepatosplenomegaly external exam normal Back/Spine Cervical Spine: cervical ROM normal Thoracic Spine / Upper Back: normal to inspection Lumbar Spine / Lower Back: normal to inspection Extremity normal to inspection General Extremity: normal exam except as noted Skin no rashes or lesions noted Neuro oriented x3 Psych Appearance: grossly normal Speech: normal speech Thought Content: normal thought content Judgement: judgement good Debridement Note Debridement Note Wound debrided: Left sultana trauma Type of Debridement: Excisional debridement Anesthesia Used: 5% Lidocaine Gel Depth: Down to and including healthy tissue Percentage of wound debrided: 100 Instrument Used: 3mm curette Severity: Limited To Skin Breakdown Amount of bleeding with debridement: Mild Bleeding Controlled with: Pressure Patient tolerated procedure: Patient tolerated procedure well Post-Debridement Measurements and Additional Note: Post-Debridement Measurements/Treatment - Nurse 1 - General Ulcer Assessment Start: 05/05/21 08:02 Freq: Status: Active Protocol: SKYE Activity Type Activity Date Activity User E-Sign Co-Sign Detail Recorded Client Recorded Date Recorded By Document 05/05/21 08:02 [facility] [id number] 05/05/21 08:07 [facility] 05/05/21 08:02 WC - Today's Visit Information Type of service 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 ) Arrival Mode Ambulatory Transfer Assistance None Patient Identification Verified (Name & Yes ) Patient Requires Transmission-Based No Precautions Vital Signs Temperature (97.8 F-99.1 F) 96.7 F L Temperature Source Temporal Pulse Rate (60-100) 83 Pulse Location Monitor Respiratory Rate (12-18) 16 Respiratory rate source Observation Oxygen Delivery Method Room Air Blood Pressure (90/60-120/80) 150/92 H Blood Pressure Mean (mm Hg) 111 Source Monitor Position Sitting Blood Pressure Location Right Arm History Since Last Visit- (Skip if this is Patient's initial visit) Have you changed medications since your No last visit? Any new allergies or adverse reactions No Had a fall/change in ADL's that may No increase risk of falls Signs or symptoms of abuse and/or No neglect since last visit Have you been in the hospital since your No last visit? Has dressing in place as prescribed Yes Has compression in place as prescribed Yes Has offloadiing in place as prescribed N/A Experienced any changes in pain level or No management Left Footwear Regular Shoe Right Footwear Regular Shoe Pain Scale: 0-10 Numeric Is Patient Pain Free? Yes - Nurse 1 - General Ulcer Measurement Start: 05/05/21 08:02 Freq: Status: Active Protocol: Activity Type Activity Date Activity User E-Sign Co-Sign Detail Recorded Client Recorded Date Recorded By Document 05/05/21 08:02 [facility] [id number] 05/05/21 08:07 [facility] 05/05/21 08:02 Wound Center Nurse 1 #1- L SULTANA -Combined with other wound No -Current Size (cm) - Length 1.1 -Current Size (cm) - Width 0.7 -Current Size (cm) - Depth 0.2 -Total Square Cm 0.77 -Date of Last Picture (Recall this 05/05/21 field) -Photo Taken Yes -Epithelialization None Present -Tunneling No -Undermining/Tunneling No -Circular Undermining No -Exudate Amt Medium -Exudate Type Serous -Wound Margin Distinct, Outline Attached -Granulation Amt Small (1-33%) -Granulation Quality Red -Slough/Fibrin Yes -Necrosis Amt Large (67-100%) -Necrotic Tissue Type Adherent Slough -Texture (Tejal-wound Skin Appearance) Assessed, Scarring -Moisture (Tejal-wound Skin Appearance) Assessed -Color (Tejal-wound Skin Appearance) Assessed -Temperature (Tejal-wound Skin No Abnormality Appearance) (Pt Warm) -Tenderness on Palpation (Tejal-wound No Skin Appearance) -Ulcer Cleansing Rinsed/ Irrigated with Saline -Foul Odor after Cleansing No -Anesthetic Used 5% Lidocaine Gel Lower Limb Edema Present Yes Left Calf (cm) 40 Left Ankle (cm) 23.3 WC - Nurse 2 - General Ulcer CM Notes Start: 05/05/21 08:02 Freq: Status: Active Protocol: Activity Type Activity Date Activity User E-Sign Co-Sign Detail Recorded Client Recorded Date Recorded By Document 05/05/21 08:27 MW [id number] 05/05/21 08:28 MW 05/05/21 08:27 Wound Center Nurse 2 #1- L SULTANA -Time 08:28 -Correct Patient Yes -Correct Side, Site, Position Yes -Correct Procedure Yes -Procedure Performed Yes -Type of Procedure Debridement -Clinical Debridement Subcutaneous -Tissue Removed Subcutaneous -Post Debridement (cm) - Length 1.0 -Post Debridement (cm) - Width 0.5 -Post Debridement (cm) - Depth 0.2 -Total Square (Post) (cm) 0.50 -Area of Debridement (cm) - Length 1.0 -Area of Debridement (cm) - Width 0.5 -Total Square (Area) (cm) 0.50 -Tunneling No -Undermining/Tunneling No -Circular Undermining No -Wound/Ulcer Outcome Not Healed -Ulcer Cleansing Rinsed/ Irrigated with Saline -Foul Odor after Cleansing No -Bioengineered Tissue No -Bleeding Controlled with Pressure -Offloading No -Treatment Response Procedure Tolerated Well -Debridement - Subq, 1st 20sq cm Yes Pain Scale: 0-10 Numeric Is Patient Pain Free? Yes WC - Nurse 3 - General Ulcer D/C NN Start: 05/05/21 08:02 Freq: Status: Active Protocol: Activity Type Activity Date Activity User E-Sign Co-Sign Detail Recorded Client Recorded Date Recorded By Document 05/05/21 08:36 ANGELA [id number] 05/05/21 08:37 ANGELA 05/05/21 08:36 Wound Care Nurse 3 #1- L SULTANA -Ulcer Cleansing Rinsed/ Irrigated with Saline -Foul Odor after Cleansing No -Negative Pressure Wound Therapy N/A -Primary Dressing Applied NonAdherent Contact Layer, Promogran -Primary Dressing Covered/Secured with Dry Gauze, Secured with Tape -Promogran 0 Left -Other own tubi Pain Scale: 0-10 Numeric Is Patient Pain Free? Yes WC - Visit Discharge Discharge Condition Stable Ambulatory Status Ambulatory Transportation Private Auto Medication Reconcilliation completed & Yes provided to patient/care provider Clinical Summary of Care Provided Yes Assessment/Plan Assessment/Plan (1) Peripheral vascular disease of lower extremity with ulceration: CODE(S): I73.9 - Peripheral vascular disease, unspecified; L97.909 - Non-pressure chronic ulcer of unspecified part of unspecified lower leg with unspecified severity (2) Nonhealing ulcer of left lower extremity with fat layer exposed: CODE(S): L97.922 - Non-pressure chronic ulcer of unspecified part of left lower leg with fat layer exposed PLAN: Wash leg with antibacterial soap and apply Promogran moistened with Adaptic over top,, double layer Tubigrip Every day Cultures obtained from wound were negative Dr. 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 PLAN: Went over the arterial brachial studies and the ultrasounds showed where all the connectors were clogged , referring her now to Dr. Brenner for further treatment that will enhance her healing.
[2021-05-19 07:58] VITALS: BP 128/80; PULSE 73; RESP 18; TEMP 36.2
--- NOTE | 2021-05-19 09:08 | PCM.WC.PN ---
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 She states that the end of it it had a small pinhole when she was discharged then when she got home it blew open and she had pus and blood come out for a long time and now it has been open since November of this last year. She feels it is getting bigger. She was seen in her primary care and put on oral antibiotics and given silver sorb gel to put on the wound that has not helped close at all either. Patient has history of vitiligo and cellulitis osteoarthritis hypertension and oeoarthritis . . Progress of Wound: Becoming more superficial but her tendons are still exposed over the bone. Measuring smaller. She also has a Dr. Brenner appointment today. Subjective Subjective No concerns healing well Objective Data Objective Data No sign of infection measuring smaller. Patient denies any pain. Vital Signs: Vital Signs Temp Pulse Resp BP 97.1 F L 73 18 128/80 H 05/19/21 07:58 05/19/21 07:58 05/19/21 07:58 05/19/21 07:58 Oxygen Delivery Method Room Air Lab / Micro Data Attestation: I reviewed the patient's lab results. Physical Exam Narrative Patient is a 60-year-old female comfortably resting in chair, alert and orient x3. Patient reports continued improvement in the pain and redness in her left lower extremity. Development of any new symptoms in the past 24 hours. Denies denies chest pain, shortness of breath, palpitations, hemoptysis, sputum production, fever, chills, N/V/D. Debridement Note Debridement Note Wound debrided: Left sultana Type of Debridement: Excisional debridement Anesthesia Used: 5% Lidocaine Gel Depth: in the subcutaneous layer Percentage of wound debrided: 100 Instrument Used: 3mm curette Tissue Removed: Fibrin Severity: Fat Layer Exposed Amount of bleeding with debridement: None Bleeding Controlled with: Compression and gauze Patient tolerated procedure: Patient tolerated procedure well Post-Debridement Measurements and Additional Note: Post-Debridement Measurements/Treatment WC - Nurse 1 - General Ulcer Assessment Start: 05/05/21 08:02 Freq: Status: Active Protocol: SKYE Activity Type Activity Date Activity User E-Sign Co-Sign Detail Recorded Client Recorded Date Recorded By Document 05/05/21 08:02 [facility] [id number] 05/05/21 08:07 [facility] Document 05/19/21 07:[address] [id number] 05/19/21 08:06 PL 05/05/21 05/19/21 08:02 07:58 - Today's Visit Information Type of service Follow-up Visit Follow-up Visit (Physician/EDUCATION RESEARCH ANALYST (Physician/EDUCATION RESEARCH ANALYST ) ) Arrival Mode Ambulatory Ambulatory Transfer Assistance None None Patient Identification Verified (Name & Yes Yes ) Patient Requires Transmission-Based No No Precautions Vital Signs Temperature (97.8 F-99.1 F) 96.7 F L 97.1 F L Temperature Source Temporal Temporal Pulse Rate (60-100) 83 73 Pulse Location Monitor Respiratory Rate (12-18) 16 18 Respiratory rate source Observation Oxygen Delivery Method Room Air Blood Pressure (90/60-120/80) 150/92 H 128/80 H Blood Pressure Mean (mm Hg) 111 96 Source Monitor Position Sitting Blood Pressure Location Right Arm History Since Last Visit- (Skip if this is Patient's initial visit) Have you changed medications since your No No last visit? Any new allergies or adverse reactions No No Had a fall/change in ADL's that may No No increase risk of falls Signs or symptoms of abuse and/or No No neglect since last visit Have you been in the hospital since your No No last visit? Has dressing in place as prescribed Yes Yes Has compression in place as prescribed Yes Yes Has offloadiing in place as prescribed N/A N/A Experienced any changes in pain level or No No management Left Footwear Regular Shoe Right Footwear Regular Shoe Pain Scale: 0-10 Numeric Is Patient Pain Free? Yes Yes - Nurse 1 - General Ulcer Measurement Start: 05/05/21 08:02 Freq: Status: Active Protocol: Activity Type Activity Date Activity User E-Sign Co-Sign Detail Recorded Client Recorded Date Recorded By Document 05/05/21 08:02 [facility] [id number] 05/05/21 08:07 [facility] Document 05/19/21 07:[address] [id number] 05/19/21 08:06 PL 05/05/21 05/19/21 08:02 07:58 Wound Center Nurse 1 #1- L SULTANA -Combined with other wound No No -Combined with (Name of Wound-Exactly 1.0 as it is documented) -Current Size (cm) - Length 1.1 1.0 -Current Size (cm) - Width 0.7 0.5 -Current Size (cm) - Depth 0.2 0.2 -Total Square Cm 0.77 0.50 -Date of Last Picture (Recall this 05/05/21 field) -Photo Taken Yes No -Epithelialization None Present None Present -Tunneling No No -Undermining/Tunneling No No -Circular Undermining No No -Classification - Thickness Partial Thickness -Exudate Amt Medium Medium -Exudate Type Serous Serosanguineous -Wound Margin Distinct, Thickened Outline Attached -Granulation Amt Small (1-33%) None Present (0 %) -Granulation Quality Red -Slough/Fibrin Yes Yes -Necrosis Amt Large (67-100%) Large (67-100%) -Necrotic Tissue Type Adherent Slough Adherent Slough -Texture (Tejal-wound Skin Appearance) Assessed, No Abnormality Scarring -Moisture (Tejal-wound Skin Appearance) Assessed No Abnormality -Color (Tejal-wound Skin Appearance) Assessed No Abnormality -Temperature (Tejal-wound Skin No Abnormality No Abnormality Appearance) (Pt Warm) (Pt Warm) -Tenderness on Palpation (Tejal-wound No No Skin Appearance) -Ulcer Cleansing Rinsed/ Rinsed/ Irrigated with Irrigated with Saline Saline -Foul Odor after Cleansing No -Anesthetic Used 5% Lidocaine 5% Lidocaine Gel Gel Lower Limb Edema Present Yes Left Calf (cm) 40 Left Ankle (cm) 23.3 WC - Nurse 2 - General Ulcer CM Notes Start: 05/05/21 08:02 Freq: Status: Active Protocol: Activity Type Activity Date Activity User E-Sign Co-Sign Detail Recorded Client Recorded Date Recorded By Document 05/05/21 08:27 MW [id number] 05/05/21 08:28 MW Document 05/19/21 08:32 MW [id number] 05/19/21 08:33 MW 05/05/21 05/19/21 08:27 08:32 Wound Center Nurse 2 #1- L SULTANA -Time 08:28 08:32 -Correct Patient Yes Yes -Correct Side, Site, Position Yes Yes -Correct Procedure Yes Yes -Procedure Performed Yes Yes -Type of Procedure Debridement Debridement -Clinical Debridement Subcutaneous Subcutaneous -Tissue Removed Subcutaneous Subcutaneous -Post Debridement (cm) - Length 1.0 1.0 -Post Debridement (cm) - Width 0.5 0.3 -Post Debridement (cm) - Depth 0.2 0.2 -Total Square (Post) (cm) 0.50 0.30 -Area of Debridement (cm) - Length 1.0 1.0 -Area of Debridement (cm) - Width 0.5 0.3 -Total Square (Area) (cm) 0.50 0.30 -Tunneling No No -Undermining/Tunneling No No -Circular Undermining No No -Wound/Ulcer Outcome Not Healed Not Healed -Ulcer Cleansing Rinsed/ Rinsed/ Irrigated with Irrigated with Saline Saline -Foul Odor after Cleansing No No -Bioengineered Tissue No No -Bleeding Controlled with Pressure Pressure -Offloading No No -Treatment Response Procedure Procedure Tolerated Well Tolerated Well -Debridement - Subq, 1st 20sq cm Yes Yes Pain Scale: 0-10 Numeric Is Patient Pain Free? Yes Yes - Nurse 3 - General Ulcer D/C NN Start: 05/05/21 08:02 Freq: Status: Active Protocol: Activity Type Activity Date Activity User E-Sign Co-Sign Detail Recorded Client Recorded Date Recorded By Document 05/05/21 08:36 AK [id number] 05/05/21 08:37 AK Document 05/19/21 08:33 MW [id number] 05/19/21 08:38 MW 05/05/21 05/19/21 08:36 08:33 Wound Care Nurse 3 #1- L SULTANA -Ulcer Cleansing Rinsed/ Rinsed/ Irrigated with Irrigated with Saline Saline -Foul Odor after Cleansing No No -Negative Pressure Wound Therapy N/A N/A -Primary Dressing Applied NonAdherent Contact Layer, Promogran -Primary Dressing Covered/Secured with Dry Gauze, Dry Gauze, Secured with Secured with Tape Tape -Promogran 0 Left -Lotion applied to leg before No compression wrap -Other own tubi tubigrip Treatment Response Procedure Tolerated Well Pain Scale: 0-10 Numeric Is Patient Pain Free? Yes Yes Teaching: Wound Center Dressing Your Wound -Person Taught Patient -Teaching Method Discussion, Demonstration -Response to teaching Verbalize understanding WC - Visit Discharge Discharge Condition Stable Stable Ambulatory Status Ambulatory Ambulatory Transportation Private Auto Private Auto Accompanied by self Medication Reconcilliation completed & Yes No provided to patient/care provider Clinical Summary of Care Provided Yes Yes Assessment/Plan Assessment/Plan (1) Peripheral vascular disease of lower extremity with ulceration: CODE(S): I73.9 - Peripheral vascular disease, unspecified; L97.909 - Non-pressure chronic ulcer of unspecified part of unspecified lower leg with unspecified severity (2) Nonhealing ulcer of left lower extremity with fat layer exposed: CODE(S): L97.922 - Non-pressure chronic ulcer of unspecified part of left lower leg with fat layer exposed PLAN: Wash leg with antibacterial soap and apply Promogran moistened with Adaptic over top,, double layer Tubigrip Every day Cultures obtained from wound were negative Dr. 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 PLAN: Went over the arterial brachial studies and the ultrasounds showed where all the connectors were clogged , referring her now to Dr. Brenner for further treatment that will enhance her healing.
== END 2021-05-31 23:59 | disposition home or self-care (01) ==
LOC: WC 08:15
PROVIDERS: PCP Internal Medicine; Visit Provider Nurse Practitioner
DX: L97.922 Non-pressure chronic ulcer of unspecified part of left lower leg with fat layer exposed (principal); L97.822 Non-pressure chronic ulcer of other part of left lower leg with fat layer exposed; I83.228 Varicose veins of left lower extremity with both ulcer of other part of lower extremity and inflammation; I73.9 Peripheral vascular disease, unspecified; R60.0 Localized edema
CPT/HCPCS: 11042

== ENCOUNTER 2021-06-09 15:21 | Outpatient (RCR) | payer BC, SELFPAY ==
[2021-06-01 00:36] VITALS: BP 128/80; PULSE 73; RESP 18; TEMP 36.2
[2021-06-09 08:20] VITALS: BP 140/89; PULSE 84; RESP 16; TEMP 35.3
--- NOTE | 2021-06-09 08:53 | PCM.WC.PN ---
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 She states that the end of it it had a small pinhole when she was discharged then when she got home it blew open and she had pus and blood come out for a long time and now it has been open since November of this last year. She feels it is getting bigger. She was seen in her primary care and put on oral antibiotics and given silver sorb gel to put on the wound that has not helped close at all either. Patient has history of vitiligo and cellulitis osteoarthritis hypertension and oeoarthritis . . Progress of Wound: The wound is smaller but is taking forever to heal. Patient has finished any antibiotic therapy and no sign of infection just still there. Her appointment with Dr. Brenner is not till in couple of weeks from today. We are going to add Xeroform in the dressing also on top of the Promogran to see if that helps heal her faster. Subjective Subjective Patient has no real complaints Objective Data Objective Data Wound measures smaller but is not closing as fast as I think it should be we will add in the Xeroform dressing on top of the Promogran and see if that helps and continue compression Vital Signs: Vital Signs Temp Pulse Resp BP 95.6 F L 84 16 140/89 H 06/09/21 08:20 06/09/21 08:20 06/09/21 08:20 06/09/21 08:20 Oxygen Delivery Method Room Air Physical Exam Narrative Patient is a 60-year-old female comfortably resting in chair, alert and orient x3. Patient reports continued improvement in the pain and redness in her left lower extremity. Development of any new symptoms in the past 24 hours. Denies denies chest pain, shortness of breath, palpitations, hemoptysis, sputum production, fever, chills, N/V/D. Debridement Note Debridement Note Wound debrided: Left sultana wound from blistering from peripheral vascular disease Type of Debridement: Excisional debridement Anesthesia Used: 5% Lidocaine Gel Depth: Down to and including healthy tissue Percentage of wound debrided: 100 Instrument Used: 3mm curette Tissue Removed: Fibroid Severity: Limited To Skin Breakdown Amount of bleeding with debridement: Mild Bleeding Controlled with: Compression and gauze Patient tolerated procedure: Patient tolerated procedure well Post-Debridement Measurements and Additional Note: Post-Debridement Measurements/Treatment - Nurse 1 - General Ulcer Assessment Start: 06/09/21 08:20 Freq: Status: Active Protocol: SKYE Activity Type Activity Date Activity User E-Sign Co-Sign Detail Recorded Client Recorded Date Recorded By Document 06/09/21 08:20 ANGELA [id number] 06/09/21 08:21 AK 06/09/21 08:20 WC - Today's Visit Information Type of service Follow-up Visit (Physician/CONTINUOUS CONVEYOR SCREEN DRIER ) Arrival Mode Ambulatory Transfer Assistance None Patient Identification Verified (Name & Yes ) Patient Requires Transmission-Based No Precautions Vital Signs Temperature (97.8 F-99.1 F) 95.6 F L Temperature Source Temporal Pulse Rate (60-100) 84 Pulse Location Monitor Respiratory Rate (12-18) 16 Respiratory rate source Observation Oxygen Delivery Method Room Air Blood Pressure (90/60-120/80) 140/89 H Blood Pressure Mean (mm Hg) 106 Source Monitor Position Sitting Blood Pressure Location Left Arm History Since Last Visit- (Skip if this is Patient's initial visit) Have you changed medications since your No last visit? Any new allergies or adverse reactions No Had a fall/change in ADL's that may No increase risk of falls Signs or symptoms of abuse and/or No neglect since last visit Have you been in the hospital since your No last visit? Has dressing in place as prescribed Yes Has compression in place as prescribed Yes Has offloadiing in place as prescribed N/A Experienced any changes in pain level or No management Left Footwear Regular Shoe Right Footwear Regular Shoe Pain Scale: 0-10 Numeric Is Patient Pain Free? Yes - Nurse 1 - General Ulcer Measurement Start: 06/09/21 08:20 Freq: Status: Active Protocol: Activity Type Activity Date Activity User E-Sign Co-Sign Detail Recorded Client Recorded Date Recorded By Document 06/09/21 08:20 ANGELA [id number] 06/09/21 08:21 ANGELA 06/09/21 08:20 Wound Center Nurse 1 #1- L SULTANA -Combined with other wound No -Current Size (cm) - Length 0.8 -Current Size (cm) - Width 0.5 -Current Size (cm) - Depth 0.2 -Total Square Cm 0.40 -Date of Last Picture (Recall this 06/09/21 field) -Photo Taken Yes -Epithelialization None Present -Tunneling No -Undermining/Tunneling No -Circular Undermining No -Exudate Amt Medium -Exudate Type Serosanguineous -Wound Margin Distinct, Outline Attached -Granulation Amt Small (1-33%) -Granulation Quality Red -Slough/Fibrin Yes -Necrosis Amt Medium (34-66%) -Necrotic Tissue Type Adherent Slough -Texture (Tejal-wound Skin Appearance) Assessed, Scarring -Moisture (Tejal-wound Skin Appearance) Assessed -Color (Tejal-wound Skin Appearance) Assessed -Temperature (Tejal-wound Skin No Abnormality Appearance) (Pt Warm) -Tenderness on Palpation (Tejal-wound No Skin Appearance) -Ulcer Cleansing Rinsed/ Irrigated with Saline -Foul Odor after Cleansing No -Anesthetic Used 5% Lidocaine Gel Lower Limb Edema Present Yes Right Calf (cm) 38 Right Ankle (cm) 23.2 WC - Nurse 2 - General Ulcer CM Notes Start: 06/09/21 08:20 Freq: Status: Active Protocol: Activity Type Activity Date Activity User E-Sign Co-Sign Detail Recorded Client Recorded Date Recorded By Document 06/09/21 08:28 MW [id number] 06/09/21 08:29 MW 06/09/21 08:28 Wound Center Nurse 2 #1- L SULTANA -Time 08:28 -Correct Patient Yes -Correct Side, Site, Position Yes -Correct Procedure Yes -Procedure Performed Yes -Type of Procedure Debridement -Clinical Debridement Subcutaneous -Tissue Removed Subcutaneous -Post Debridement (cm) - Length 0.6 -Post Debridement (cm) - Width 0.3 -Post Debridement (cm) - Depth 0.1 -Total Square (Post) (cm) 0.18 -Area of Debridement (cm) - Length 0.6 -Area of Debridement (cm) - Width 0.3 -Total Square (Area) (cm) 0.18 -Tunneling No -Undermining/Tunneling No -Circular Undermining No -Wound/Ulcer Outcome Not Healed -Ulcer Cleansing Rinsed/ Irrigated with Saline -Foul Odor after Cleansing No -Bioengineered Tissue No -Bleeding Controlled with Pressure -Offloading No -Treatment Response Procedure Tolerated Well -Debridement - Subq, 1st 20sq cm Yes Pain Scale: 0-10 Numeric Is Patient Pain Free? Yes - Nurse 3 - General Ulcer D/C NN Start: 06/09/21 08:20 Freq: Status: Active Protocol: Activity Type Activity Date Activity User E-Sign Co-Sign Detail Recorded Client Recorded Date Recorded By Document 06/09/21 08:29 MW [id number] 06/09/21 08:30 MW Edit Result 06/09/21 08:29 MW (1) [id number] 06/09/21 08:36 MW (1) Left - Lotion applied to leg before => No compression wrap - Tubular Bandage => Double Layer - Size of Tubigrip Used => Size E - Size E ($) => 2 - Stockings => No 06/09/21 08:29 Wound Care Nurse 3 #1- L SULTANA -Ulcer Cleansing Rinsed/ Irrigated with Saline -Foul Odor after Cleansing No -Negative Pressure Wound Therapy N/A -Primary Dressing Applied Promogran -Other Dressing xeroform -Primary Dressing Covered/Secured with Dry Gauze & Roll Gauze, Secured with Tape -Promogran 1 Left -Lotion applied to leg before No compression wrap -Tubular Bandage Double Layer -Size of Tubigrip Used Size E -Size E ($) 2 -Stockings No Treatment Response Procedure Tolerated Well Pain Scale: 0-10 Numeric Is Patient Pain Free? Yes Teaching: Wound Center Dressing Your Wound -Person Taught Patient -Teaching Method Discussion, Demonstration -Response to teaching Verbalize understanding WC - Visit Discharge Discharge Condition Stable Ambulatory Status Ambulatory Transportation Private Auto Accompanied by self Medication Reconcilliation completed & No provided to patient/care provider Clinical Summary of Care Provided Yes Assessment/Plan Assessment/Plan (1) Peripheral vascular disease of lower extremity with ulceration: CODE(S): I73.9 - Peripheral vascular disease, unspecified; L97.909 - Non-pressure chronic ulcer of unspecified part of unspecified lower leg with unspecified severity (2) Nonhealing ulcer of left lower extremity with fat layer exposed: CODE(S): L97.922 - Non-pressure chronic ulcer of unspecified part of left lower leg with fat layer exposed PLAN: Wash leg with antibacterial soap and apply Promogran moistened with Xeroform over top,, double layer Tubigrip Every day Dr. 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 PLAN: Went over the arterial brachial studies and the ultrasounds showed where all the connectors were clogged , referring her now to Dr. Brenner for further treatment that will enhance her healing.
== END 2021-07-01 23:59 | disposition home or self-care (01) ==
LOC: WC 15:21
PROVIDERS: PCP Internal Medicine; Visit Provider Nurse Practitioner
DX: L03.116 Cellulitis of left lower limb (principal); L97.922 Non-pressure chronic ulcer of unspecified part of left lower leg with fat layer exposed; L97.822 Non-pressure chronic ulcer of other part of left lower leg with fat layer exposed; I83.228 Varicose veins of left lower extremity with both ulcer of other part of lower extremity and inflammation; I73.9 Peripheral vascular disease, unspecified; L03.115 Cellulitis of right lower limb; R60.0 Localized edema
CPT/HCPCS: 11042

== ENCOUNTER → 2021-12-31 | Outpatient (CLI) | payer BC, SELFPAY ==
[2021-12-31 15:11] LABS: Absolute Lymphocyte Count 1.43 X10^3/uL (0.83-4.51); Basophil# 0.04 X10^3/uL; Basophil% 0.5 % (0-1); Eosinophil# 0.14 X10^3/uL; Eosinophils% 1.7 % (0-5); Hematocrit 40.9 % (37-47); Hemoglobin 13.6 g/dL (12.0-15.0); Lymphocyte # 1.43 X10^3/ul (0.83-4.51); Lymphocyte % 17.5 % (19-41); Mean Corp Hgb Conc 33.3 g/dL (32-36); Mean Corpuscular Hgb 30.8 pg (27.0-32.0); Mean Corpuscular Volume 92.7 fL (81-99); Mean Platelet Vol. 9.8 fl (6.2-12.0); Monocyte# 0.56 X10^3/uL; Monocyte% 6.9 % (0-10); NRBC Flagged by Analyzer 0 % (0-5); Neutrophil # 5.96 X10^3/uL (2.7-7.7); Neutrophil % 72.9 % (47-70); Platelet Count 277 K/mm3 (150-450); RBC Distribution Width CV 13.4 % (11.6-14.6); RBC Distribution Width SD 45.8 fl (35.1-43.9); Red Blood Count 4.41 M/mm3 (4.2-5.4); White Blood Count 8.2 K/mm3 (4.4-11.0)
[2021-12-31 16:31] LABS: ALB/GLOB Ratio 1.1 RATIO (0.9-2.4); AST(SGOT) 16 U/L (15-37); Alanine Aminotransfer ALT/SGPT 27 U/L (13-56); Albumin, Serum 3.6 g/dL (3.2-5.0); Alkaline Phosphatase 123 U/L (45-117); Anion Gap 7 (5-15); BUN 23 mg/dL (7-18); BUN/Creat Ratio 24.1 RATIO (10-20); Chloride 107 mmol/L (98-107); Cholesterol 198 mg/dL (200); Creatinine, Serum 0.96 mg/dL (0.55-1.02); EST Glomerular Filtration Rate 63 mL/min (>60); Est Glom Filt Rate - Afr Amer 77 mL/min (>60); Globulin 3.4 g/dL (2.2-4.2); Glucose 102 mg/dL (74-106); High Density Lipoprotein 43 mg/dL; Potassium 4.1 mmol/L (3.5-5.1); Sodium Level 143 mmol/L (136-145); Triglycerides 440 mg/dL; Very Low Density Lipoprotein 88 mg/dL (5-40)
== END | disposition home or self-care (01) ==
LOC: BIMLAB 12:25
PROVIDERS: PCP Internal Medicine; Referring Provider Internal Medicine; Visit Provider Internal Medicine
DX: I10 Essential (primary) hypertension (principal)
CPT/HCPCS: 36415; 80053; 80061; 85025

== ENCOUNTER 2022-01-10 15:27 | Observation (INO) | payer BC, SELFPAY ==
[2022-01-10] VITALS (8 sets, daily range): BP systolic 114–156; BP diastolic 66–92; PULSE 77–105; RESP 16–20; TEMP 36.2–37.1; O2SAT 96–99; BMI 36.2; BMI 35.9
--- NOTE | 2022-01-10 15:31 | EKG12_ITS ---
Test Reason : CarlosK Blood Pressure : / mmHG Vent. Rate : 079 BPM Atrial Rate : 079 BPM P-R Int : 156 ms QRS Dur : 092 ms QT Int : 372 ms P-R-T Axes : 052 -06 044 degrees QTc Int : 426 ms Normal sinus rhythm Normal ECG Confirmed by ZACKARY PEÑA, LUCY ([id number]), visual effects editor NELLA MOLINA ([id number]) on 01/11/2022 9:23:06 AM Referred By: Perico Confirmed By:LUCY RAYMUNDO MD
--- NOTE | 2022-01-10 15:50 | RAD_ITS ---
EXAM: XR CHEST, 1 VIEW CLINICAL INDICATION: chest pain TECHNIQUE: Frontal view of the chest. This report was created using [employer] report generation technology. COMPARISON: 04/24/2020 FINDINGS: LUNGS AND PLEURAL SPACES: There is scarring within the lung bases. No pneumothorax. No effusion. HEART: Unremarkable. Cardiac silhouette not enlarged. MEDIASTINUM: Central airways and mediastinal contour are unremarkable. BONES/JOINTS: Unremarkable. SOFT TISSUES: Unremarkable. RAD/Chest 1 View (Portable) IMPRESSION: Minimal bibasilar scar. There is no acute pulmonary abnormality. Electronically Signed: Doroteo Salmon MD at 16:56 EDT ,
[2022-01-10 16:00] LABS: Absolute Lymphocyte Count 1.73 X10^3/uL (0.83-4.51); Absolute Neutrophil Count 5.8 X10^3/uL (2.0-7.7); Basophil# 0.04 X10^3/uL; Basophil% 0.5 % (0-1); Eosinophil# 0.17 X10^3/uL; Hematocrit 40.1 % (37-47); Hemoglobin 12.9 g/dL (12.0-15.0); Lymphocyte # 1.73 X10^3/ul (0.83-4.51); Lymphocyte % 20.6 % (19-41); Mean Corp Hgb Conc 32.2 g/dL (32-36); Mean Corpuscular Volume 93.3 fL (81-99); Mean Platelet Vol. 9.2 fl (6.2-12.0); Monocyte# 0.57 X10^3/uL; Monocyte% 6.8 % (0-10); NRBC Flagged by Analyzer 0 % (0-5); Neutrophil # 5.84 X10^3/uL (2.7-7.7); Neutrophil % 69.6 % (47-70); Platelet Count 252 K/mm3 (150-450); RBC Distribution Width CV 13.2 % (11.6-14.6); RBC Distribution Width SD 45.1 fl (35.1-43.9); White Blood Count 8.4 K/mm3 (4.4-11.0)
--- NOTE | 2022-01-10 16:14 | EDS_ITS ---
HPI History of Present Illness Chief Complaint: Shortness of Breath Detail of Chief Complaint: Chest pain Informant: patient Onset/Context/Timing Onset: Days Activity at onset: gradual Timing: Waxes and wanes Quality: Positive for Heaviness and Pressure Location: Left Parasternal Current Severity: Mild Maximum Severity: Moderate Worsened By: Exertion Relieved By: Rest Narrative Narrative: Patient present secondary to chest pressure with shortness of breath that started 2 days ago. Patient states with exertion the pressure and breathing will get worse and will slightly improve when she stops to rest. She has not been pain-free in the past 48 hours. She has a family history of cardiac disease in both of her parents. She has never had a stress test or heart cath. [facility] Medical History Abscess of finger of right hand Acute osteomyelitis of metacarpal bone of right hand Anemia Arthritis Hahn's palsy Bilateral lower extremity edema Carpal tunnel syndrome Cat bite Cellulitis of left lower leg Cellulitis of right index finger Dermatitis Elevated BUN Fatigue Finger osteomyelitis, right Former smoker Frequent headaches Health care maintenance HTN (hypertension) Hyperlipidemia Hypertension Knee pain NECK AND BACK PAIN Open wound of right index finger due to cat bite Osteoarthritis Septic arthritis of hand, right Shortness of breath Sinusitis Ulcer of left lower extremity with fat layer exposed Venous insufficiency of both lower extremities Vitiligo Home Medications oxybutynin chloride 5 mg tablet 5 mg PO QHS bladder #90 tabs 08/05/20 [Rx Last Taken 12/01/20] clobetasol 0.05 % topical cream tube topical DAILY 12/21/20 [History Last Taken Unknown] lisinopril 10 mg tablet 10 mg PO DAILY bp #90 tabs 02/10/21 [Rx Last Taken Unknown] C-Zn-K.ginseng-melanie [id number] 75 mg tablet (Immune Support Complex) 2 tab PO DAILY 03/17/21 [History Last Taken Unknown] triamterene 37.5 mg-hydrochlorothiazide 25 mg tablet 1 tab PO DAILY bp #90 tabs 12/10/21 [Rx Last Taken Unknown] amlodipine 10 mg tablet 10 mg PO DAILY bp #90 tabs 12/29/21 [Rx Last Taken Unknown] fenofibrate 54 mg tablet 54 mg PO DAILY #30 tabs 01/02/22 [Rx Last Taken Unknown] Allergy/AdvReac Type Severity Reaction Status Date / Time Sulfa (Sulfonamide Allergy Mild unknown Verified 01/10/22 15:27 Antibiotics) hydrocodone [From Vicodin] Allergy Vomiting Verified 01/10/22 15:27 Family History Mother Heart disease Hypertension Father Heart disease Hypertension Other Arthritis CVA (cerebral vascular accident) Cancer High cholesterol Surgical History History of History of tonsillectomy History of total left knee replacement History of total left knee replacement History of total right knee replacement S/P S/P tonsillectomy Total vaginal hysterectomy, bilateral salpingectomy, uterosa Social History Smoking Status: Former smoker Tobacco: How many years used: 20 how long ago did patient quit smokin alcohol intake: never details: social substance use type: does not use and painkillers caffeine: Yes what type of physical activity do you participate in: none seatbelt use: always do you feel safe at home: Yes additional social history: - Phu Childs Does not take aspirin Does take Ibuprofen as needed ROS ROS ED Constitutional Constitutional ED: Denies chills or fever(s) Eyes Eyes: Denies change in vision or discharge from eye(s) ENT ENT ED: Denies discharge from eye(s), rhinorrhea or sore throat Cardiovascular Cardiovascular: Reports chest pain; Denies palpitations Respiratory/Chest Respiratory/Chest: Reports dyspnea; Denies cough Gastrointestinal Gastrointestinal: Denies abdominal pain, diarrhea, nausea or vomiting Genitourinary Genitourinary ED: Denies dysuria Musculoskeletal Musculoskeletal: Reports back pain; Denies extremity pain Integumentary Denies Abrasions or rash Neurologic Neurologic: Denies headache(s) or weakness Allergic/Immunologic Allergic/Immunologic ED: Denies lip swelling or urticaria EXAM Physical Exam Const Vital Signs: 01/10/22 15:27 01/10/22 16:19 01/10/22 16:25 Temperature 98.7 F 98.7 F Temperature Source Temporal Temporal Pulse Rate 87 87 Respiratory Rate 16 16 Blood Pressure 156/89 H 156/89 H Blood Pressure Mean 111 111 Pulse Ox 98 98 Oxygen Delivery Method Room Air Room Air Room Air Positive well nourished and well developed General Appearance ED: well developed HEENT Reports normocephalic and head/scalp atraumatic Eyes PERRL and EOMs intact bilaterally Neck supple Chest Wall inspection of chest normal Chest Narrative: Minimal chest wall tenderness to palpation. No crepitus. Resp normal respiratory effort and clear to auscultation bilaterally Cardio regular rate and regular rhythm GI normal to inspection, nondistended, normoactive bowel sounds Palpation: soft Back/Spine no CVA tenderness Extremity normal to inspection Neuro oriented x3 and no sensory deficits noted Sensorium / Orientation: alert Motor Exam: strength 5/5 throughout Psych mental status grossly normal Skin no rashes or lesions noted Heart Score History: Moderately Suspicious ECG: Normal Age: >45 - <65 years Risk Factors: >/= 3 Risk Factors or History of CAD Troponin: </= Normal Limit Score: 4 MDM MDM MDM Narrative Medical decision making narrative: Patient was given aspirin on arrival. EKG, chest x-ray, lab work obtained. Patient observed on equipment monitor phototypesetting throughout her ED stay. Lab Data Attestation: I reviewed the patient's lab results. Labs: Laboratory Results - last 24 hr 01/10/22 01/10/22 01/10/22 15:43 15:43 16:19 WBC 8.4 RBC 4.30 Hgb 12.9 Hct 40.1 MCV 93.3 MCH 30.0 MCHC 32.2 RDW Std Deviation 45.1 H RDW Coeff of Jules 13.2 Plt Count 252 MPV 9.2 Immature Gran % (Auto) 0.500 Neut % (Auto) 69.6 Lymph % (Auto) 20.6 [place] % (Auto) 6.8 Eos % (Auto) 2.0 Baso % (Auto) 0.5 Absolute Neuts (auto) 5.8 Absolute Lymphs (auto) 1.73 Nucleated RBC % 0 D-Dimer Quant (PE/DVT) 0.70 H* Sodium 143 Potassium 4.1 Chloride 110 H Carbon Dioxide 27.0 Anion Gap 6 BUN 17 Creatinine 0.70 Estim Creat Clear Calc 76.90 Est GFR (MDRD) Af Amer 110 Est GFR (MDRD) Non-Af 91 BUN/Creatinine Ratio 24.3 H Glucose 91 Calcium 9.1 Troponin I High Sens 7 01/10/22 17:54 WBC RBC Hgb Hct MCV MCH MCHC RDW Std Deviation RDW Coeff of Jules Plt Count MPV Immature Gran % (Auto) Neut % (Auto) Lymph % (Auto) [place] % (Auto) Eos % (Auto) Baso % (Auto) Absolute Neuts (auto) Absolute Lymphs (auto) Nucleated RBC % D-Dimer Quant (PE/DVT) Sodium Potassium Chloride Carbon Dioxide Anion Gap BUN Creatinine Estim Creat Clear Calc Est GFR (MDRD) Af Amer Est GFR (MDRD) Non-Af BUN/Creatinine Ratio Glucose Calcium Troponin I High Sens 6 Radiography Chest X-Ray - ED: 1 View, Read by ED Physician, Chronic Changes and No Infiltrates Diagnostic Testing: Clinical Impression(s) from Imaging Studies Chest X-Ray 01/10/22 15:50 IMPRESSION: Minimal bibasilar scar. There is no acute pulmonary abnormality. Electronically Signed: Doroteo Salmon MD at 16:56 EDT , Chest CTA 01/10/22 17:10 IMPRESSION: No acute findings in the visualized arteries of the chest. Electronically Signed: Doroteo Salmon MD at 18:38 EDT , EKG Initial EKG: Attestation: I personally reviewed and interpreted this EKG as follows: Interpretation: Sinus Rhythm (Sinus at 79 with no acute ischemia.) Treatment and Re-Evaluation Narrative: EKG per my interpretation reveals no acute ischemia. Chest x-ray per my interpretation reveals no acute findings. Radiology interpretation is reviewed. CBC unremarkable. Chemistry studies normal. D-dimer elevated at 0.70. Initial troponin is 7 with 2-hour repeat 6. CTA of the chest is obtained secondary to her elevated D-dimer. This reveals no evidence of PE. Well patient does have 2 normal troponins at this time, her story is concerning. She has a history of hypertension, high cholesterol, as well as family history of heart disease. Her pain has been exertional in nature with some improvement at rest, but continuing to worsen over the past 2 days. I did recommend observation for stress test in the morning. Patient will agree to this and I will speak with hospitalist. Discharge Plan Triage Chief Complaint: Shortness of Breath ED Provider: Merry Pa Dx/Rx/DC Orders Clinical Impression: Chest pain Prescriptions: No Action oxybutynin chloride 5 mg tablet 5 mg PO QHS Qty: 90 2RF lisinopril 10 mg tablet 10 mg PO DAILY Qty: 90 2RF clobetasol 0.05 % cream topical DAILY amlodipine 10 mg tablet 10 mg PO DAILY Qty: 90 3RF Immune Support Complex 75 mg Tablet 2 tab PO DAILY triamterene-hydrochlorothiazid 37.5-25 mg tablet 1 tab PO DAILY Qty: 90 1RF fenofibrate 54 mg tablet 54 mg PO DAILY Qty: 30 2RF Primary Care Provider: Sapna Mcnair Referrals: Sapna Mcnair MD [Primary Care Provider] - Disposition Disposition: Acute Care Hospital [facility]
[2022-01-10 16:15] LABS: Anion Gap 6 (5-15); BUN 17 mg/dL (7-18); BUN/Creat Ratio 24.3 RATIO (10-20); Calcium,Total 9.1 mg/dL (8.5-10.1); Chloride 110 mmol/L (98-107); EST Glomerular Filtration Rate 91 mL/min (>60); Est Glom Filt Rate - Afr Amer 110 mL/min (>60); Glucose 91 mg/dL (74-106); Potassium 4.1 mmol/L (3.5-5.1); Sodium Level 143 mmol/L (136-145); Troponin-I HS 7 pg/mL (3.0-54.0)
[2022-01-10] MEDS: Aspirin 81 MG TAB.CHEW 324 MG PO (16:31)
--- NOTE | 2022-01-10 17:10 | CT_ITS ---
EXAM: CT ANGIOGRAPHY CHEST WITHOUT AND WITH INTRAVENOUS CONTRAST CLINICAL INDICATION: chest pain TECHNIQUE: Helically acquired angiography images were obtained of the chest without and with intravenous contrast. This CT exam was performed using one or more of the following dose reduction techniques: automated exposure control, adjustment of the mA and/or kV according to patient size, and/or use of iterative reconstruction technique. This report was created using [employer] report generation technology. MIP reconstructed images were created and reviewed. CONTRAST: 100ML OF ISOVUE 370 COMPARISON: None. FINDINGS: PULMONARY ARTERIES: Unremarkable. Normal in caliber. No evidence of pulmonary embolism. AORTA: Unremarkable. Normal in caliber. No evidence of dissection. GREAT VESSELS OF AORTIC ARCH: Unremarkable. Normal in caliber. No evidence of dissection. LUNGS AND PLEURAL SPACES: There is minimal scar or atelectasis in both lung bases. There is no focal consolidation or effusion. No mass. No pneumothorax. HEART: Unremarkable. Heart size is normal. No pericardial effusion. No signs of right heart strain, ratio of right ventricle to left ventricle measures less than 1. MEDIASTINUM: Unremarkable. No mediastinal or hilar adenopathy. Esophagus is unremarkable. No hiatal hernia. THYROID: Unremarkable. No thyroid lesions. BONES/JOINTS: Unremarkable. No suspicious lytic or blastic abnormality. CT/CTA Chest W/WO Contrast IMPRESSION: No acute findings in the visualized arteries of the chest. Electronically Signed: Doroteo Salmon MD at 18:38 EDT ,
[2022-01-10 18:28] LABS: Troponin-I HS 6 pg/mL (3.0-54.0)
--- NOTE | 2022-01-10 19:54 | HP.PCM_ITS ---
HPI - General General Date of Admission: 01/10/22 Date of Service: 01/10/22 Chief Complaint: Chest pain HPI Narrative ELIAS CARY, is a 61 F who presents to the emergency room with chief complaint of chest pain. Patient had onset of chest pain symptoms beginning this weekend that were made worse with exertion. She describes it as a left upper chest tightness that radiates to her back and has been getting worse since Monday. Patient has no significant history of coronary artery disease however she does have a diagnosis of hypertension which is controlled by her primary care physician. Initial work-up in the emergency room was negative for troponins x2 as well as a negative CT angiogram of chest and chest x-ray. Due to current ongoing pain symptoms patient will be admitted for observation and ruled out for coronary artery disease with a stress test scheduled in the morning. [facility] Medical History Abscess of finger of right hand Acute osteomyelitis of metacarpal bone of right hand Anemia Arthritis Hahn's palsy Bilateral lower extremity edema Carpal tunnel syndrome Cat bite Cellulitis of left lower leg Cellulitis of right index finger Dermatitis Elevated BUN Fatigue Finger osteomyelitis, right Former smoker Frequent headaches Health care maintenance HTN (hypertension) Hyperlipidemia Hypertension Knee pain NECK AND BACK PAIN Open wound of right index finger due to cat bite Osteoarthritis Septic arthritis of hand, right Shortness of breath Sinusitis Ulcer of left lower extremity with fat layer exposed Venous insufficiency of both lower extremities Vitiligo Home Medications oxybutynin chloride 5 mg tablet 5 mg PO QHS bladder #90 tabs 08/05/20 [Rx Last Taken 12/01/20] clobetasol 0.05 % topical cream 1 tube topical PRN PRN Itching 12/21/20 [History Last Taken Unknown] lisinopril 10 mg tablet 10 mg PO DAILY bp #90 tabs 02/10/21 [Rx Last Taken Unknown] triamterene 37.5 mg-hydrochlorothiazide 25 mg tablet 1 tab PO DAILY bp #90 tabs 12/10/21 [Rx Last Taken Unknown] amlodipine 10 mg tablet 10 mg PO DAILY bp #90 tabs 12/29/21 [Rx Last Taken Unknown] Allergy/AdvReac Type Severity Reaction Status Date / Time Sulfa (Sulfonamide Allergy Mild unknown Verified 01/10/22 15:27 Antibiotics) hydrocodone [From Vicodin] Allergy Vomiting Verified 01/10/22 15:27 Family History Mother Heart disease Hypertension Father Heart disease Hypertension Other Arthritis CVA (cerebral vascular accident) Cancer High cholesterol Surgical History History of History of tonsillectomy History of total left knee replacement History of total left knee replacement History of total right knee replacement S/P S/P tonsillectomy Total vaginal hysterectomy, bilateral salpingectomy, uterosa Social History Smoking Status: Former smoker Tobacco: How many years used: 20 how long ago did patient quit smokin alcohol intake: never details: social substance use type: does not use and painkillers caffeine: Yes what type of physical activity do you participate in: none seatbelt use: always do you feel safe at home: Yes additional social history: - Phu Childs Does not take aspirin Does take Ibuprofen as needed ROS Constitutional Constitutional: Denies chills or fever(s) Eyes Eyes: Denies change in vision ENT HEENT: Denies abnormal hearing Cardiovascular Cardiovascular: Reports chest pain Respiratory/Chest Respiratory/Chest: Denies cough Gastrointestinal Gastrointestinal: Denies abdominal pain Musculoskeletal Musculoskeletal: Denies back pain Integumentary Integumentary: Denies wounds Neurologic Neurologic: Denies abnormal speech Psychiatric Psychiatric: Denies anxiety Vital Signs Vital Signs Vital Signs: 01/10/22 15:27 01/10/22 16:19 01/10/22 16:25 Temperature 98.7 F 98.7 F Temperature Source Temporal Temporal Pulse Rate 87 87 Respiratory Rate 16 16 Respiratory Effort Respiratory Depth Respiratory Pattern Blood Pressure 156/89 H 156/89 H Blood Pressure Mean 111 111 Pulse Ox 98 98 Oxygen Delivery Method Room Air Room Air Room Air 01/10/22 19:28 01/10/22 19:30 01/10/22 19:48 Temperature 97.2 F L Temperature Source Temporal Pulse Rate 98 105 H Respiratory Rate 20 H 17 Respiratory Effort Normal Non-Labored Respiratory Depth Normal Respiratory Pattern Normal Blood Pressure 124/73 H 114/66 Blood Pressure Mean 90 82 Pulse Ox 97 99 Oxygen Delivery Method Room Air Room Air Room Air Weight Weight: 218 lb Body Mass Index (BMI) 36.2 Physical Exam Const oriented x3, no apparent distress and well nourished HEENT normocephalic and head/scalp atraumatic Eyes PERRL Neck no lymphadenopathy Lymph Lymphatic: no lymphadenopathy noted Resp normal respiratory effort, normal air movement and clear to auscultation bilaterally Cardio regular rate, regular rhythm, S1 normal heart sound, S2 normal heart sound and no murmurs GI normal to inspection, nondistended, normoactive bowel sounds Extremity normal capillary refill Skin General Skin Exam: no breakdown Neuro CN's II-XII intact bilaterally Psych thought process normal, cooperative and affect normal Results Lab / Micro Data Result Diagrams: 01/10/22 15:43 01/10/22 15:43 Labs: Laboratory Results - last 24 hr 01/10/22 15:43: WBC 8.4, RBC 4.30, Hgb 12.9, Hct 40.1, MCV 93.3, MCH 30.0, MCHC 32.2, RDW Std Deviation 45.1 H, RDW Coeff of Jules 13.2, Plt Count 252, MPV 9.2, Immature Gran % (Auto) 0.500, Neut % (Auto) 69.6, Lymph % (Auto) 20.6, [place] % (Auto) 6.8, Eos % (Auto) 2.0, Baso % (Auto) 0.5, Absolute Neuts (auto) 5.8, Absolute Lymphs (auto) 1.73, Nucleated RBC % 0 01/10/22 15:43: Sodium 143, Potassium 4.1, Chloride 110 H, Carbon Dioxide 27.0, Anion Gap 6, BUN 17, Creatinine 0.70, Estim Creat Clear Calc 76.90, Est GFR (MDRD) Af Amer 110, Est GFR (MDRD) Non-Af 91, BUN/Creatinine Ratio 24.3 H, Glucose 91, Calcium 9.1, Troponin I High Sens 7 01/10/22 16:19: D-Dimer Quant (PE/DVT) 0.70 H* 01/10/22 17:54: Troponin I High Sens 6 Radiology Impression Chest X-Ray 01/10/22 15:50 IMPRESSION: Minimal bibasilar scar. There is no acute pulmonary abnormality. Electronically Signed: Doroteo Salmon MD at 16:56 EDT , Chest CTA 01/10/22 17:10 IMPRESSION: No acute findings in the visualized arteries of the chest. Electronically Signed: Doroteo Salmon MD at 18:38 EDT , Assessment & Plan Assessment/Plan (1) Chest pain: (2) Hyperlipidemia: (3) HTN (hypertension): QUALIFIERS: Hypertension type: primary hypertension Qualified Code(s): I10 - Essential (primary) hypertension PLAN: Plan 1. Chest pain?admit patient for observation and progressive care unit. Will order nuclear exercise stress test for a.m. Continue cycling troponin we will add as needed nitroglycerin tabs as well as oxygen as needed per routine protocol, baby aspirin daily 2. Hyperlipidemia?patient was started on antihyperlipidemic therapy recently we will continue that 3. Hypertension controlled continue home medications 4. DVT prophylaxis?low molecular weight heparin Charges/Coding Visit Charges OBSV E&M: 42857 Initial observation care L2
--- NOTE | 2022-01-10 20:48 | EKG12_ITS ---
Test Reason : ADMIT EKG Blood Pressure : / mmHG Vent. Rate : 076 BPM Atrial Rate : 076 BPM P-R Int : 168 ms QRS Dur : 094 ms QT Int : 374 ms P-R-T Axes : 048 -18 026 degrees QTc Int : 420 ms Normal sinus rhythm Normal ECG When compared with ECG of 10-JAN-2022 15:36, MANUAL COMPARISON REQUIRED, DATA IS UNCONFIRMED Confirmed by ZACKARY PEÑA, LUCY ([id number]), telegraph editor NELLA MOLINA ([id number]) on 01/11/2022 1:48:44 PM Referred By: Confirmed By:LUCY RAYMUNDO MD
[2022-01-10] MEDS: Oxybutynin 5 MG Tablet PO (21:37)
[2022-01-11] VITALS (11 sets, daily range): BP systolic 117–132; BP diastolic 68–84; PULSE 66–89; RESP 15–18; TEMP 36.3–37.1; O2SAT 92–95
--- NOTE | 2022-01-11 05:55 | EKG12_ITS ---
Test Reason : AM EKG Blood Pressure : / mmHG Vent. Rate : 071 BPM Atrial Rate : 071 BPM P-R Int : 152 ms QRS Dur : 090 ms QT Int : 394 ms P-R-T Axes : 045 -13 026 degrees QTc Int : 428 ms Normal sinus rhythm Normal ECG When compared with ECG of 10-JAN-2022 21:22, MANUAL COMPARISON REQUIRED, DATA IS UNCONFIRMED Confirmed by ZACKARY PEÑA, LUCY ([id number]), technical writer and editor NELLA MOLINA ([id number]) on 01/11/2022 1:47:32 PM Referred By: FAINA Confirmed By:LUCY RAYMUNDO MD
[2022-01-11 06:36] LABS: Absolute Lymphocyte Count 1.42 X10^3/uL (0.83-4.51); Absolute Neutrophil Count 4.8 X10^3/uL (2.0-7.7); Basophil# 0.04 X10^3/uL; Basophil% 0.6 % (0-1); Eosinophil# 0.24 X10^3/uL; Eosinophils% 3.4 % (0-5); Hematocrit 38.8 % (37-47); Hemoglobin 12.3 g/dL (12.0-15.0); Lymphocyte # 1.42 X10^3/ul (0.83-4.51); Lymphocyte % 19.9 % (19-41); Mean Corp Hgb Conc 31.7 g/dL (32-36); Mean Corpuscular Hgb 29.1 pg (27.0-32.0); Mean Corpuscular Volume 91.9 fL (81-99); Mean Platelet Vol. 9.1 fl (6.2-12.0); Monocyte# 0.55 X10^3/uL; Monocyte% 7.7 % (0-10); NRBC Flagged by Analyzer 0 % (0-5); Neutrophil # 4.84 X10^3/uL (2.7-7.7); Platelet Count 242 K/mm3 (150-450); RBC Distribution Width CV 13.2 % (11.6-14.6); RBC Distribution Width SD 44.8 fl (35.1-43.9); Red Blood Count 4.22 M/mm3 (4.2-5.4); White Blood Count 7.1 K/mm3 (4.4-11.0)
[2022-01-11] MEDS: Lisinopril 10 MG Tablet PO (06:41)
[2022-01-11] MEDS: amLODIPine 10 MG Tablet PO (06:41)
[2022-01-11 07:04] LABS: Anion Gap 6 (5-15); BUN 18 mg/dL (7-18); Calcium,Total 8.7 mg/dL (8.5-10.1); Chloride 111 mmol/L (98-107); Creatinine, Serum 0.69 mg/dL (0.55-1.02); EST Glomerular Filtration Rate 92 mL/min (>60); Est Glom Filt Rate - Afr Amer 111 mL/min (>60); Estimated Creatinine Clearance 78.02 ml/min; Glucose 95 mg/dL (74-106); Magnesium 2.3 mg/dL (1.6-2.6); Potassium 4.1 mmol/L (3.5-5.1); Sodium Level 143 mmol/L (136-145)
[2022-01-11] MEDS: Triamterene 37.5MG/Hctz 25MG Capsule 1 CAP PO (10:52)
[2022-01-11] MEDS: Nitroglycerin (INPATIENT USE) 0.4 MG TAB.SUBL SL ×2 (11:00→19:28)
--- NOTE | 2022-01-11 12:33 | EKG12_ITS ---
Test Reason : Blood Pressure : / mmHG Vent. Rate : 079 BPM Atrial Rate : 079 BPM P-R Int : 164 ms QRS Dur : 090 ms QT Int : 372 ms P-R-T Axes : 046 -26 030 degrees QTc Int : 426 ms Normal sinus rhythm Normal ECG When compared with ECG of 11-JAN-2022 05:55, MANUAL COMPARISON REQUIRED, DATA IS UNCONFIRMED Confirmed by ZACKARY PEÑA, LUCY ([id number]), health editor FRANCESCO NSAH ([id number]) on 01/12/2022 2:16:50 PM Referred By: Confirmed By:LUCY RAYMUNDO MD
[2022-01-11 13:07] LABS: Troponin-I HS 6 pg/mL (3.0-54.0)
--- NOTE | 2022-01-11 13:23 | STRESSREP ---
Stress Test Report Exercise myocardial perfusion stress test. 61-year-old lady with a history of chest pain. Stress protocol: Resting EKG demonstrates normal sinus rhythm with a rate of 77 bpm normal intervals are noted resting blood pressure is 132/88 mmHg. The patient exercised according to the regular Horacio protocol for a total duration of 3 minutes. The maximum heart rate attained was 139 bpm which was 86% of max impacted heart rate the maximum workload was 4.6 metabolic equivalents. At rest there were no ST or T wave changes noted suggest ischemia and at peak exercise upsloping ST changes were present which did not denote any ischemia. The patient complained of chest discomfort which has been constant at 6/10 for the last 2 to 3 days associated with moderate shortness of breath. The peak blood pressure was 180/90 mmHg. Myocardial perfusion protocol. 11.8 mCi of technetium 99m sestamibi was injected at rest. The patient exercised according to regular Horacio protocol for 3 minutes and at peak exercise 33.5 mCi of technetium 99m sestamibi was injected stress images were obtained stress and rest images were reconstructed in comparing the short axis vertical long and horizontal long axis. Gated images were also obtained. Perfusion SPECT analysis: Review of the stress images demonstrate normal uptake of tracer noted in all areas of the myocardium. The resting images similarly demonstrate normal uptake of tracer noted in all areas of the myocardium. No areas of reversibility are noted to suggest ischemia and no previous infarct is noted. Gated SPECT analysis: The gated ejection fraction is 79%. Conclusion: Normal exercise myocardial perfusion stress test at a low to moderate workload. Preserved ejection fraction.
--- NOTE | 2022-01-11 16:59 | PCM.PN.HOSP ---
Subjective Subjective DOS 01/11/22 CC: Chest pain Pt reports she had worsened chest pain when she was undergoing stress test with increased SOB. It improved with rest but was still present though SOB improved. Continued CP treated with nitroglycerin and improved. Repeat trop and EKG wnl and stress unremarkable but given chest pain characteristic and that it has been on going, cardiology consulted for potential cath. Denies bowel or bladder complaints, no headache or changes in vision, appetite fair, no present nausea Objective Data Objective Data Vital Signs: Vital Signs Temp Pulse Resp BP Pulse Ox O2 Del Method 97.5 F L 76 15 126/74 H 94 Room Air 01/11/22 15:00 01/11/22 15:00 01/11/22 15:00 01/11/22 15:00 01/11/22 15:00 01/11/22 15:00 Oxygen Delivery Method Room Air Weight: 97.9 kg Body Mass Index (BMI) 35.9 Lab / Micro Data Result Diagrams: 01/11/22 06:24 01/11/22 06:24 Labs: Laboratory Results - last 24 hr 01/10/22 17:54: Troponin I High Sens 6 01/11/22 06:24: WBC 7.1, RBC 4.22, Hgb 12.3, Hct 38.8, MCV 91.9, MCH 29.1, MCHC 31.7 L, RDW Std Deviation 44.8 H, RDW Coeff of Jules 13.2, Plt Count 242, MPV 9.1, Immature Gran % (Auto) 0.400, Neut % (Auto) 68.0, Lymph % (Auto) 19.9, [place] % (Auto) 7.7, Eos % (Auto) 3.4, Baso % (Auto) 0.6, Absolute Neuts (auto) 4.8, Absolute Lymphs (auto) 1.42, Nucleated RBC % 0 01/11/22 06:24: Sodium 143, Potassium 4.1, Chloride 111 H, Carbon Dioxide 26.0, Anion Gap 6, BUN 18, Creatinine 0.69, Estim Creat Clear Calc 78.02, Est GFR (MDRD) Af Amer 111, Est GFR (MDRD) Non-Af 92, BUN/Creatinine Ratio 26.0 H, Glucose 95, Calcium 8.7, Magnesium 2.3 01/11/22 12:45: Troponin I High Sens 6 Radiography Diagnostic Testing: Radiology Impression Chest CTA 01/10/22 17:10 IMPRESSION: No acute findings in the visualized arteries of the chest. Electronically Signed: Doroteo Salmon MD at 18:38 EDT , Physical Exam Const alert and no apparent distress Constitutional Narrative: Oriented HEENT normocephalic and head/scalp atraumatic Eyes Eyes Narrative: EOM grossly intact, anicteric Neck supple Resp normal respiratory effort and clear to auscultation bilaterally Cardio regular rate and regular rhythm GI soft to palpation, non-tender and non-distended Extremity Extremity Narrative: No edema appreciated Neuro moves all extremities Neuro Narrative: No overt focal deficits appreciated Psych Psych Narrative: Cooperative Assessment & Plan Assessment/Plan (1) Chest pain: PLAN: Plan 1. Chest pain Trop negative and EKG with no significant ST changes but pt had repeat chest pain that was substernal and had worsened during stress and was relieved with nitro Stress was negative but given character of chest pain and description as well as heart score of 4, cardiology consulted for possible cath/further workup Pt on asa, statin, nitro prn Lipid panel updated 12/31/21 Glucose 90's, will not check A1c at this time. 2. HTN- on lisinopril and amlodipine 3. HPL- atorvastatin 4. DVTppx LMWH Rita Jalloh MD Charges/Coding Visit Charges OBSV E&M: 32812 Subsequent observation care L2
--- NOTE | 2022-01-11 18:25 | CON.PCM.CA_ITS ---
Assessment & Plan Assessment/Plan (1) Chest pain: PLAN: She continues to have chest discomfort which is somewhat atypical. However this appears to be rather bothersome and on the basis of the above may be helpful to definitively exclude obstructive coronary disease. We will therefore suggest proceeding with a left heart catheterization. The risk benefits alternatives have been explained to her she understands and agrees to proceed. HPI Consult Data Date of Consult: 01/11/22 HPI Narrative HPI Narrative: ELIAS CARY, is a 61 F who presents emergency room with chest discomfort which she says has been going on for the last 2 to 3 days. She describes this as being in the upper back and radiating towards her back which has been worse since Monday. She has a history of hypertension for which she has been on medications. In the emergency room her EKG was unremarkable troponins were negative she underwent a CT scan of her chest as well as a chest x-ray all of which were normal. This morning she underwent stress testing which was normal but at a low workload. She complained of chest discomfort throughout the stress test. Cardiology was called to see her because of concern that she may have coronary artery disease. At this particular time she still complains of mild chest discomfort. She has had no dizziness or diaphoresis no near syncope or syncope. [facility] Medical History Abscess of finger of right hand Acute osteomyelitis of metacarpal bone of right hand Anemia Arthritis Hahn's palsy Bilateral lower extremity edema Carpal tunnel syndrome Cat bite Cellulitis of left lower leg Cellulitis of right index finger Dermatitis Elevated BUN Fatigue Finger osteomyelitis, right Former smoker Frequent headaches Health care maintenance HTN (hypertension) Hyperlipidemia Hypertension Knee pain NECK AND BACK PAIN Open wound of right index finger due to cat bite Osteoarthritis Septic arthritis of hand, right Shortness of breath Sinusitis Ulcer of left lower extremity with fat layer exposed Venous insufficiency of both lower extremities Vitiligo Home Medications oxybutynin chloride 5 mg tablet 5 mg PO QHS bladder #90 tabs 08/05/20 [Rx Last Taken 01/09/22] lisinopril 10 mg tablet 10 mg PO DAILY bp #90 tabs 02/10/21 [Rx Last Taken 01/10/22 05:00] triamterene 37.5 mg-hydrochlorothiazide 25 mg tablet 1 tab PO DAILY bp #90 tabs 12/10/21 [Rx Last Taken 01/10/22 05:00] amlodipine 10 mg tablet 10 mg PO DAILY bp #90 tabs 12/29/21 [Rx Last Taken 01/10/22 05:00] fenofibrate 54 mg tablet 54 mg PO DAILY cholesterol 01/10/22 [History Last Taken Unknown] ibuprofen 200 mg tablet 200 - 800 mg PO BID PRN PRN Pain 01/10/22 [History Last Taken 01/10/22 11:00] Allergy/AdvReac Type Severity Reaction Status Date / Time Sulfa (Sulfonamide Allergy Mild unknown Verified 01/10/22 15:27 Antibiotics) hydrocodone [From Vicodin] Allergy Vomiting Verified 01/10/22 15:27 Family History Mother Heart disease Hypertension Father Heart disease Hypertension Other Arthritis CVA (cerebral vascular accident) Cancer High cholesterol Surgical History History of History of tonsillectomy History of total left knee replacement History of total left knee replacement History of total right knee replacement S/P S/P tonsillectomy Total vaginal hysterectomy, bilateral salpingectomy, uterosa Social History Smoking Status: Former smoker Tobacco: How many years used: 20 how long ago did patient quit smokin alcohol intake: never details: social substance use type: does not use and painkillers caffeine: Yes what type of physical activity do you participate in: none seatbelt use: always do you feel safe at home: Yes additional social history: - Phu Childs Does not take aspirin Does take Ibuprofen as needed ROS Constitutional Constitutional: Denies fever(s) or weight loss Eyes Eyes: Reports systems reviewed and no addt'l complaints, except as documented ENT HEENT: Reports systems reviewed and no addt'l complaints, except as documented Cardiovascular Cardiovascular: Reports chest pain at rest and chest pain with activity; Denies dyspnea at rest, dyspnea on exertion, edema, palpitations or paroxysmal nocturnal dyspnea Respiratory/Chest Respiratory/Chest: Denies dyspnea on exertion, productive cough, shortness of breath at rest or shortness of breath with exertion Gastrointestinal Gastrointestinal: Denies change in bowel habits, nausea, vomiting or weight changes Genitourinary Genitourinary: Denies difficulty urinating Musculoskeletal Musculoskeletal: Denies joint stiffness or muscle weakness Integumentary Integumentary: Denies lesions Neurologic Neurologic: Denies dizziness or syncope Psychiatric Psychiatric: Denies anxiety Endocrine Endocrinology: Denies excessive sweating or fatigue Hematologic/Lymphatic Hematologic/Lymphatic: Denies anemia Allergic/Immunologic Allergic/Immunologic: Denies seasonal rhinorrhea Physical Exam Const alert, oriented x3 and no apparent distress General Appearance: cooperative HEENT hearing grossly normal bilaterally Head and Scalp: atraumatic Eyes EOMs intact bilaterally Neck General: normal visual inspection Chest inspection of chest normal and palpation of chest normal Resp normal respiratory effort Auscultation: clear to auscultation bilaterally Cardio regular rate, regular rhythm, S1 normal heart sound and S2 normal heart sound Jugular Venous Distention: JVD GI normal to inspection, nondistended, normoactive bowel sounds Extremity normal capillary refill and no pedal edema Peripheral Pulses: Yes pulses 2+ throughout and femoral pulses present Skin no rashes or lesions noted Neuro oriented x3 and CN's II-XII intact bilaterally Psych Appearance: grossly normal and appropriate Risk Stratification Risk Stratification Applicable: Yes Age >/= 65: No >/= 3 CAD Risk Factors (HTN, HLD, DM, family hx of CAD, or current smoker): No Aspirin Use in the Past 7 Days: No Severe Angina (>/= episodes in 24 hours): Yes EKG ST Changes >/= 0.5mm: No Positive Cardiac Marker: No MIRIAM Risk Stratification Score: 1 MIRIAM % Risk: 5% Risk Objective Data Vital Signs: Vital Signs Temp Pulse Resp BP Pulse Ox O2 Del Method 97.5 F L 76 15 126/74 H 94 Room Air 01/11/22 15:00 01/11/22 15:00 01/11/22 15:00 01/11/22 15:00 01/11/22 15:00 01/11/22 15:00 Oxygen Delivery Method Room Air Weight: 215 lb 13.321 oz Body Mass Index (BMI) 35.9 Lab / Micro Data Result Diagrams: 01/11/22 06:24 01/11/22 06:24 Labs: Laboratory Results - last 24 hr 01/10/22 17:54: Troponin I High Sens 6 01/11/22 06:24: WBC 7.1, RBC 4.22, Hgb 12.3, Hct 38.8, MCV 91.9, MCH 29.1, MCHC 31.7 L, RDW Std Deviation 44.8 H, RDW Coeff of Jules 13.2, Plt Count 242, MPV 9.1, Immature Gran % (Auto) 0.400, Neut % (Auto) 68.0, Lymph % (Auto) 19.9, [place] % (Auto) 7.7, Eos % (Auto) 3.4, Baso % (Auto) 0.6, Absolute Neuts (auto) 4.8, Absolute Lymphs (auto) 1.42, Nucleated RBC % 0 01/11/22 06:24: Sodium 143, Potassium 4.1, Chloride 111 H, Carbon Dioxide 26.0, Anion Gap 6, BUN 18, Creatinine 0.69, Estim Creat Clear Calc 78.02, Est GFR (MDRD) Af Amer 111, Est GFR (MDRD) Non-Af 92, BUN/Creatinine Ratio 26.0 H, Glucose 95, Calcium 8.7, Magnesium 2.3 01/11/22 12:45: Troponin I High Sens 6 Cardiology Labs/Tests 01/11/22 06:24: WBC 7.1, RBC 4.22, Hgb 12.3, Hct 38.8, MCV 91.9, MCH 29.1, MCHC 31.7 L, Plt Count 242, MPV 9.1, Immature Gran % (Auto) 0.400, Neut % (Auto) 68.0, Lymph % (Auto) 19.9, [place] % (Auto) 7.7, Eos % (Auto) 3.4, Baso % (Auto) 0.6, Absolute Neuts (auto) 4.8, Nucleated RBC % 0 01/11/22 06:24: Sodium 143, Potassium 4.1, Chloride 111 H, Carbon Dioxide 26.0, Anion Gap 6, BUN 18, Creatinine 0.69, Est GFR (MDRD) Af Amer 111, Est GFR (MDRD) Non-Af 92, BUN/Creatinine Ratio 26.0 H, Glucose 95, Calcium 8.7, Magnesium 2.3 Rhythm: EKG: ECHO: Stress Test: Cardiac Cath: PCI: CT Surgery: Holter monitor: EPS: PPM: CXR: Chest CT Scan: Radiography Diagnostic Testing: Radiology Impression Chest CTA 01/10/22 17:10 IMPRESSION: No acute findings in the visualized arteries of the chest. Electronically Signed: Doroteo Salmon MD at 18:38 EDT ,
[2022-01-11] MEDS: Oxybutynin 5 MG Tablet PO (21:50)
[2022-01-11] MEDS: Atorvastatin Calcium 80 MG Tablet PO (21:50)
[2022-01-12] VITALS (11 sets, daily range): BP systolic 112–127; BP diastolic 67–89; PULSE 68–90; RESP 18; TEMP 35.9–36.6; O2SAT 91–95
[2022-01-12 06:50] LABS: Absolute Lymphocyte Count 1.26 X10^3/uL (0.83-4.51); Absolute Neutrophil Count 4.5 X10^3/uL (2.0-7.7); Basophil# 0.04 X10^3/uL; Basophil% 0.6 % (0-1); Eosinophil# 0.18 X10^3/uL; Eosinophils% 2.8 % (0-5); Hematocrit 41.1 % (37-47); Hemoglobin 12.9 g/dL (12.0-15.0); Lymphocyte # 1.26 X10^3/ul (0.83-4.51); Lymphocyte % 19.4 % (19-41); Mean Corp Hgb Conc 31.4 g/dL (32-36); Mean Corpuscular Hgb 29.1 pg (27.0-32.0); Mean Corpuscular Volume 92.6 fL (81-99); Mean Platelet Vol. 9.3 fl (6.2-12.0); Monocyte# 0.51 X10^3/uL; Monocyte% 7.8 % (0-10); NRBC Flagged by Analyzer 0 % (0-5); Neutrophil # 4.48 X10^3/uL (2.7-7.7); Neutrophil % 68.8 % (47-70); Platelet Count 250 K/mm3 (150-450); RBC Distribution Width CV 13.4 % (11.6-14.6); RBC Distribution Width SD 45.5 fl (35.1-43.9); Red Blood Count 4.44 M/mm3 (4.2-5.4); White Blood Count 6.5 K/mm3 (4.4-11.0)
[2022-01-12 06:57] LABS: International Normalized Ratio 0.9; Prothrombin Time (Protime)PT. 12.1 SECONDS (11.7-14.9)
[2022-01-12 07:16] LABS: AST(SGOT) 19 U/L (15-37); Alanine Aminotransfer ALT/SGPT 28 U/L (13-56); Albumin, Serum 3.4 g/dL (3.2-5.0); Alkaline Phosphatase 112 U/L (45-117); Anion Gap 5 (5-15); BUN 17 mg/dL (7-18); BUN/Creat Ratio 22.2 RATIO (10-20); Calcium,Total 8.8 mg/dL (8.5-10.1); Chloride 106 mmol/L (98-107); Creatinine, Serum 0.76 mg/dL (0.55-1.02); EST Glomerular Filtration Rate 82 mL/min (>60); Est Glom Filt Rate - Afr Amer 99 mL/min (>60); Estimated Creatinine Clearance 70.83 ml/min; Globulin 3.4 g/dL (2.2-4.2); Glucose 109 mg/dL (74-106); Potassium 4.5 mmol/L (3.5-5.1); Protein, Total 6.8 g/dL (6.4-8.2); Sodium Level 139 mmol/L (136-145)
[2022-01-12] MEDS: Aspirin 81 MG TAB.CHEW PO (07:31)
[2022-01-12] MEDS: Lisinopril 10 MG Tablet PO (07:31)
[2022-01-12] MEDS: amLODIPine 10 MG Tablet PO (07:32)
--- NOTE | 2022-01-12 07:44 | PCM.PN.HOSP ---
Subjective Subjective DOS 01/12/22 CC: chest pain Reports chest pressure again this AM that is worse, hasn't been moving around so unclear if that exacerbates it. No sob, no swelling. Slight AM cough which is chronic for her. Ate well yesterday, no n/v. No other complaints today. Will have heart cath this AM Objective Data Objective Data Vital Signs: Vital Signs Temp Pulse Resp BP Pulse Ox O2 Del Method 97.8 F 69 18 126/67 H 93 Room Air 01/12/22 06:58 01/12/22 06:58 01/12/22 06:58 01/12/22 06:58 01/12/22 06:58 01/12/22 07:37 Oxygen Delivery Method Room Air Weight: 97.9 kg Body Mass Index (BMI) 35.9 Lab / Micro Data Result Diagrams: 01/12/22 06:30 01/12/22 06:30 Labs: Laboratory Results - last 24 hr 01/11/22 12:45: Troponin I High Sens 6 01/12/22 06:30: WBC 6.5, RBC 4.44, Hgb 12.9, Hct 41.1, MCV 92.6, MCH 29.1, MCHC 31.4 L, RDW Std Deviation 45.5 H, RDW Coeff of Jules 13.4, Plt Count 250, MPV 9.3, Immature Gran % (Auto) 0.600, Neut % (Auto) 68.8, Lymph % (Auto) 19.4, [place] % (Auto) 7.8, Eos % (Auto) 2.8, Baso % (Auto) 0.6, Absolute Neuts (auto) 4.5, Absolute Lymphs (auto) 1.26, Nucleated RBC % 0 01/12/22 06:30: Sodium 139, Potassium 4.5, Chloride 106, Carbon Dioxide 28.0, Anion Gap 5, BUN 17, Creatinine 0.76, Estim Creat Clear Calc 70.83, Est GFR (MDRD) Af Amer 99, Est GFR (MDRD) Non-Af 82, BUN/Creatinine Ratio 22.2 H, Glucose 109 H, Calcium 8.8, Total Bilirubin 0.50, AST 19, ALT 28, Alkaline Phosphatase 112, Total Protein 6.8, Albumin 3.4, Globulin 3.4, Albumin/Globulin Ratio 1.0 01/12/22 06:30: PT 12.1, INR 0.9 Physical Exam Const alert and no apparent distress Constitutional Narrative: Oriented HEENT normocephalic and head/scalp atraumatic Eyes Eyes Narrative: EOM grossly intact, anicteric Neck supple Resp normal respiratory effort and clear to auscultation bilaterally Cardio regular rate and regular rhythm GI soft to palpation, non-tender and non-distended Extremity Extremity Narrative: No edema appreciated Neuro moves all extremities Neuro Narrative: No overt focal deficits appreciated Psych cooperative Assessment & Plan Assessment/Plan (1) Chest pain: PLAN: Plan 1. Chest pain Trop negative and EKG with no significant ST changes but pt had repeat chest pain that was substernal and had worsened during stress and was relieved with nitro- continutes to have CP this AM Stress was negative but given character of chest pain and description as well as heart score of 4, cardiology consulted Heart cath this AM Pt on asa, statin, nitro prn Lipid panel updated 12/31/21 Glucose 90's, will not check A1c at this time. 2. HTN- on lisinopril and amlodipine 3. HPL- atorvastatin 4. DVTppx LMWH Rita Jalloh MD Charges/Coding Visit Charges Inpatient E&M: 83179 Subs Hosp L2
--- NOTE | 2022-01-12 08:10 | CASEMGMT ---
According to the [place] website, the following are in-network tertiary facilities: [facility], [place], [facility], [facility], [facility], [facility], [facility], and . Fatoumata SORIANO CM
--- NOTE | 2022-01-12 08:49 | PCM.PN.CARD ---
Subjective Subjective Patient seen and evaluated. Appears to be doing quite well. Underwent cardiac catheterization today Objective Data Vital Signs: Vital Signs Temp Pulse Resp BP Pulse Ox O2 Del Method 97.8 F 69 18 126/67 H 93 Room Air 01/12/22 06:58 01/12/22 06:58 01/12/22 06:58 01/12/22 06:58 01/12/22 06:58 01/12/22 07:37 Oxygen Delivery Method Room Air Weight: 215 lb 13.321 oz Body Mass Index (BMI) 35.9 Lab / Micro Data Result Diagrams: 01/12/22 06:30 01/12/22 06:30 Labs: Laboratory Results - last 24 hr 01/11/22 12:45: Troponin I High Sens 6 01/12/22 06:30: WBC 6.5, RBC 4.44, Hgb 12.9, Hct 41.1, MCV 92.6, MCH 29.1, MCHC 31.4 L, RDW Std Deviation 45.5 H, RDW Coeff of Jules 13.4, Plt Count 250, MPV 9.3, Immature Gran % (Auto) 0.600, Neut % (Auto) 68.8, Lymph % (Auto) 19.4, [place] % (Auto) 7.8, Eos % (Auto) 2.8, Baso % (Auto) 0.6, Absolute Neuts (auto) 4.5, Absolute Lymphs (auto) 1.26, Nucleated RBC % 0 01/12/22 06:30: Sodium 139, Potassium 4.5, Chloride 106, Carbon Dioxide 28.0, Anion Gap 5, BUN 17, Creatinine 0.76, Estim Creat Clear Calc 70.83, Est GFR (MDRD) Af Amer 99, Est GFR (MDRD) Non-Af 82, BUN/Creatinine Ratio 22.2 H, Glucose 109 H, Calcium 8.8, Total Bilirubin 0.50, AST 19, ALT 28, Alkaline Phosphatase 112, Total Protein 6.8, Albumin 3.4, Globulin 3.4, Albumin/Globulin Ratio 1.0 01/12/22 06:30: PT 12.1, INR 0.9 Cardiology Labs/Tests 01/12/22 06:30: WBC 6.5, RBC 4.44, Hgb 12.9, Hct 41.1, MCV 92.6, MCH 29.1, MCHC 31.4 L, Plt Count 250, MPV 9.3, Immature Gran % (Auto) 0.600, Neut % (Auto) 68.8, Lymph % (Auto) 19.4, [place] % (Auto) 7.8, Eos % (Auto) 2.8, Baso % (Auto) 0.6, Absolute Neuts (auto) 4.5, Nucleated RBC % 0 01/12/22 06:30: Sodium 139, Potassium 4.5, Chloride 106, Carbon Dioxide 28.0, Anion Gap 5, BUN 17, Creatinine 0.76, Est GFR (MDRD) Af Amer 99, Est GFR (MDRD) Non-Af 82, BUN/Creatinine Ratio 22.2 H, Glucose 109 H, Calcium 8.8, Total Bilirubin 0.50 01/12/22 06:30: PT 12.1, INR 0.9 Rhythm: EKG: ECHO: Stress Test: Cardiac Cath: PCI: CT Surgery: Holter monitor: EPS: PPM: CXR: Chest CT Scan: Physical Exam Const alert and no apparent distress Constitutional Narrative: Oriented HEENT normocephalic and head/scalp atraumatic Eyes Eyes Narrative: EOM grossly intact, anicteric Neck supple Resp normal respiratory effort and clear to auscultation bilaterally Cardio regular rate and regular rhythm GI soft to palpation, non-tender and non-distended Extremity Extremity Narrative: No edema appreciated Neuro moves all extremities Neuro Narrative: No overt focal deficits appreciated Psych cooperative Assessment & Plan Assessment/Plan (1) Chest pain: PLAN: She continues to have chest discomfort which is somewhat atypical. However this appears to be rather bothersome and on the basis of the above may be helpful to definitively exclude obstructive coronary disease. The cardiac catheterization performed today demonstrated normal coronary arteries with normal preserved left ventricular systolic function. At this juncture it appears that her chest pain is noncoronary in origin. I would recommend medical therapy.
--- NOTE | 2022-01-12 08:53 | CL.D_ITS ---
Patient Name: ELIAS CARY Study Date: 01/12/2022 Performing: Kofi Denise MD Ht: 65 inches 165.1 cm : 1960 Wt: 216.1 lbs 97.9 kg Age: 61 Gender: female BSA: 2.04 PROCEDURE(S) PERFORMED [id number])LHC/COR/LV CLINICAL PROFILE AND INDICATIONS Indications: Suspected CAD Heart Failure: None Stress/Imaging Date: 01/11/22Stress Test with SPECT MPI: Negative CAD Presentations: Symptom unlikely to be ischemic. CONCLUSIONS Normal coronary arteries Normal LV size, wall motion,and systolic function RECOMMENDATIONS Medical therapy DESCRIPTION OF PROCEDURE The patient arrived to the procedure lab. The risks and benefits of the procedure as well as a full description of our services here and current unavailability of surgical backup were fully explained to the patient and/or their significant other prior to the catheterization. The Timeout was completed, verifying the correct patient and procedure. The patient's procedural site was prepped and draped in the usual fashion. Local anesthetic was given subcutaneously to right radial region with Lidocaine 2%. Using a modified Seldinger technique, arterial access was obtained via the right radial artery, a 6Fr sheath was inserted. Left Coronary Artery selective angiography was performed in multiple views using a 5 Fr. 4.0 Springer catheter. Right Coronary Artery selective angiography was then performed in multiple views using a 5 Fr. 4.0 Springer catheter. Left Ventriculography was performed in VOGT projection using a 5 Fr. Pigtail catheter. LV to AO pullback pressures were then recorded.The arterial sheath was pulled and a TR Band was applied for hemostasis CORONARY ANGIOGRAPHY DOMINANCE: Left Dominant LEFT HEART ASSESSMENT Left Ventricular Ejection Fraction: by LV Gram 65 % Normal LV wall motion Normal Left Ventricular systolic function Normal Left Ventricular systolic function LEFT MAIN: Angiographically normal LEFT ANTERIOR DESCENDING ARTERY: Angiographically normal CIRCUMFLEX ARTERY: Angiographically normal RIGHT CORONARY ARTERY: Angiographically normal COMPLICATIONS No Complications PROCEDURE MEDICATIONS Versed 1 mg IV Fentanyl 50 mcg IV Versed 1 mg IV Oxygen: 2 L/min via nasal cannula Heparin given IA 01/12/2022 08:21:47 Verapamil 2.5mg, Ntg 100mcgs, 3000 units of Heparin given IA 01/12/2022 08:21:47 SUMMARY OF HEMODYNAMIC DATA Time AIR REST ECG 07:49:47 AO 106/76 (88) SA 08:24:39 LV 114/6, 13 08:28:44 LV 112/4, 9 08:28:51 LV 114/3, 9 08:29:38 LV 104/4, 11 08:29:45 LVp 105/3, 14 08:29:49 AOp 111/61 (82) 08:29:54 Signed By Kofi Denise MD On 01/12/2022 08:52:58 Kofi Denise MD
[2022-01-12] MEDS: 0.9% Normal Saline 1,000 ML 75 ML IV (09:28)
[2022-01-12] MEDS: Triamterene 37.5MG/Hctz 25MG Capsule 1 CAP PO (09:29)
--- NOTE | 2022-01-12 11:47 | DCINST_ITS ---
Discharge Instructions Diet Discharge Diet: No restrictions Activity Discharge Activity: Return to Normal Activity Return to work on:: 01/14/22 Follow Up Care Test Results: Test results from this visit will be discussed in further detail at your follow- up appointment, if applicable. Discharge Plan Admission Admit Date/Time: 01/10/22 19:59 Primary Reason for Your Visit: Chest pain Attending Provider: Rita Jalloh Primary Care Provider: Sapna Mcnair Consulting Providers: [place] ; Kofi Denise Instructions Patient Instructions: ED Chest Pain, Noncardiac Additional Instructions / Restrictions: 1. You were admitted for chest pain but evaluation of your heart did not show that the pain was heart related 2. You are prescribed anti inflammatory medication which was sent to your pharmacy on file. Take this as needed for up to 1 week and follow up with your primary care physician -Please call your primary care provider's office upon discharge to schedule a hospital follow up within 1 week. -For any concerning signs or symptoms please call 911 or proceed to the nearest emergency department Discharge Orders/Prescriptions Prescriptions: Continued oxybutynin chloride 5 mg tablet 5 mg PO QHS Qty: 90 2RF lisinopril 10 mg tablet 10 mg PO DAILY Qty: 90 2RF amlodipine 10 mg tablet 10 mg PO DAILY Qty: 90 3RF fenofibrate 54 mg tablet 54 mg PO DAILY triamterene-hydrochlorothiazid 37.5-25 mg tablet 1 tab PO DAILY Qty: 90 1RF Changed ibuprofen 800 mg tablet 800 mg PO TID PRN (Reason: pain) Qty: 20 0RF Referrals / Follow Up: Sapna Mcnair MD [Primary Care Provider] - In 1 Week Disposition Disposition (needs filled in before D/C Order can be placed): Home, Self Care
--- NOTE | 2022-01-12 13:54 | PHA.DC.MC ---
Pharmacy Service has performed discharge medication reconciliation and counseling for this patient. 1. IBUPROFEN 800MG PO TID PRN PAIN The patient's discharge medication list was reviewed for discrepancies and discrepancies were resolved. Home Medications oxybutynin chloride 5 mg tablet 5 mg PO QHS bladder #90 tabs 08/05/20 lisinopril 10 mg tablet 10 mg PO DAILY bp #90 tabs 02/10/21 triamterene 37.5 mg-hydrochlorothiazide 25 mg tablet 1 tab PO DAILY bp #90 tabs 12/10/21 amlodipine 10 mg tablet 10 mg PO DAILY bp #90 tabs 12/29/21 fenofibrate 54 mg tablet 54 mg PO DAILY cholesterol 01/10/22 ibuprofen 800 mg tablet 800 mg PO TID PRN pain #20 tabs 01/12/22 The patient was counseled on the following discharge medications and changes in medications for homegoing were reviewed. The Reason for Use, instructions for use, and potential side effects were reviewed for all new medications. The patient's questions regarding all of their medications were answered. The patient was able to verbally demonstrate an understanding of their discharge medications.
--- NOTE | 2022-01-12 17:53 | DS.PCM_ITS ---
Providers Date of Admission: 01/10/22 Date of Discharge: 01/12/22 Primary Care Physician: Dr. Sapna Mcnair MD Consultations 01/11/22 15:05 Consult: Cardiology Routine Consulting Provider: Kofi Denise Reason for Consult: Chest pain EMERGENT Consult: No MD Notified: Yes Date Notified: 01/11/22 Time Notified: 15:05 Method of Notification: Verbal Reason For Visit: CHEST PAIN Diagnosis Discharge Diagnosis (1) Chest pain: Status: Acute Code(s): R07.9 - Chest pain, unspecified Plan 1. Chest pain Trop negative and EKG with no significant ST changes but pt had repeat chest pain that was substernal and had worsened during stress and was relieved with nitro- continutes to have CP this AM Stress was negative but given character of chest pain and description as well as heart score of 4, cardiology consulted Heart cath this AM Pt on asa, statin, nitro prn Lipid panel updated 12/31/21 Glucose 90's, will not check A1c at this time. 2. HTN- on lisinopril and amlodipine 3. HPL- atorvastatin 4. DVTppx LMWH Rita Jalloh MD Medications at Discharge Home Medications oxybutynin chloride 5 mg tablet 5 mg PO QHS bladder #90 tabs 08/05/20 lisinopril 10 mg tablet 10 mg PO DAILY bp #90 tabs 02/10/21 triamterene 37.5 mg-hydrochlorothiazide 25 mg tablet 1 tab PO DAILY bp #90 tabs 12/10/21 amlodipine 10 mg tablet 10 mg PO DAILY bp #90 tabs 12/29/21 fenofibrate 54 mg tablet 54 mg PO DAILY cholesterol 01/10/22 ibuprofen 800 mg tablet 800 mg PO TID PRN pain #20 tabs 01/12/22 Hospital Course Procedures Cardiac catheterization and Stress test Summary of Care Provided Minutes Spent on Discharge: 25 Hospital Course: ELIAS CARY, is a 61 F w/ history of vitiligo, OA, and HTN who presented to the [facility] emergency room 01/10 with chief complaint of chest pain. Trop and EKG wnl.?Stress test was ordered which was unremarkable but pt had worsened chest pain during exercise with stress and had chest pressure that was relieved with nitro and given recurrent nature and nature of chest pain cardiology was consulted and [facility] preformed which was angiographically normal. Chest pain deemed non cardiac. Pt d/c'd home with anti inflammatory medication. Weight / BMI Weight Weight: 97.9 kg Body Mass Index (BMI) 35.9 ABG / Lab / Microbiology Data Result Diagrams: 01/12/22 06:30 01/12/22 06:30 Laboratory: Laboratory Results - last 24 hr 01/12/22 06:30: WBC 6.5, RBC 4.44, Hgb 12.9, Hct 41.1, MCV 92.6, MCH 29.1, MCHC 31.4 L, RDW Std Deviation 45.5 H, RDW Coeff of Jules 13.4, Plt Count 250, MPV 9.3, Immature Gran % (Auto) 0.600, Neut % (Auto) 68.8, Lymph % (Auto) 19.4, [place] % (Auto) 7.8, Eos % (Auto) 2.8, Baso % (Auto) 0.6, Absolute Neuts (auto) 4.5, Absolute Lymphs (auto) 1.26, Nucleated RBC % 0 01/12/22 06:30: Sodium 139, Potassium 4.5, Chloride 106, Carbon Dioxide 28.0, Anion Gap 5, BUN 17, Creatinine 0.76, Estim Creat Clear Calc 70.83, Est GFR (MDRD) Af Amer 99, Est GFR (MDRD) Non-Af 82, BUN/Creatinine Ratio 22.2 H, Glucose 109 H, Calcium 8.8, Total Bilirubin 0.50, AST 19, ALT 28, Alkaline Phosphatase 112, Total Protein 6.8, Albumin 3.4, Globulin 3.4, Albumin/Globulin Ratio 1.0 01/12/22 06:30: PT 12.1, INR 0.9 D/C Instructions Discharge Diet: No restrictions Return to work on: 01/14/22 Meaningful Use Info Meaningful Use Diagnoses (Choose all that apply): None applicable Discharge Plan Admission Admit Date/Time: 01/10/22 19:59 Primary Reason for Your Visit: Chest pain Attending Provider: Rita Jalloh Primary Care Provider: Sapna Mcnair Consulting Providers: [place] ; Kofi Denise Instructions Patient Instructions: ED Chest Pain, Noncardiac Additional Instructions / Restrictions: 1. You were admitted for chest pain but evaluation of your heart did not show that the pain was heart related 2. You are prescribed anti inflammatory medication which was sent to your pharmacy on file. Take this as needed for up to 1 week and follow up with your primary care physician -Please call your primary care provider's office upon discharge to schedule a hospital follow up within 1 week. -For any concerning signs or symptoms please call 911 or proceed to the nearest emergency department Discharge Orders/Prescriptions Prescriptions: Continued oxybutynin chloride 5 mg tablet 5 mg PO QHS Qty: 90 2RF lisinopril 10 mg tablet 10 mg PO DAILY Qty: 90 2RF amlodipine 10 mg tablet 10 mg PO DAILY Qty: 90 3RF fenofibrate 54 mg tablet 54 mg PO DAILY triamterene-hydrochlorothiazid 37.5-25 mg tablet 1 tab PO DAILY Qty: 90 1RF Changed ibuprofen 800 mg tablet 800 mg PO TID PRN (Reason: pain) Qty: 20 0RF Referrals / Follow Up: Sapna Mcnair MD [Primary Care Provider] - In 1 Week Disposition Disposition (needs filled in before D/C Order can be placed): Home, Self Care Charges/Coding Visit Charges OBSV E&M: 81076 Observation care discharge
== END 2022-01-12 11:56 | disposition home or self-care (01) ==
LOC: ED 19:25 → PCU 20:15
PROVIDERS: Admitting Provider Family Medicine; Emergency Provider Emergency Medicine; PCP Internal Medicine; Visit Provider Internal Medicine
DX: R07.89 Other chest pain (principal); I10 Essential (primary) hypertension; E78.5 Hyperlipidemia, unspecified; R06.02 Shortness of breath; Z87.891 Personal history of nicotine dependence; Z82.49 Family history of ischemic heart disease and other diseases of the circulatory system; M19.90 Unspecified osteoarthritis, unspecified site; Z79.899 Other long term (current) drug therapy
CPT/HCPCS: 36415; 71045; 71275; 78452; 80048; 80053; 83735; 84484; 85025; 85379; 85610; 93005; 93017; 93458; 96360; 96361; 99152; 99153; 99218; 99285; A9500; J7030; J7040; Q9967; A4216; C1769; C1894; G0378

== ENCOUNTER → 2023-01-06 | Outpatient (CLI) | payer BC, SELFPAY ==
[2023-01-06 16:19] LABS: Absolute Lymphocyte Count 1.32 X10^3/uL (0.83-4.51); Absolute Neutrophil Count 6.3 X10^3/uL (2.0-7.7); Basophil# 0.05 X10^3/uL; Basophil% 0.6 % (0-1); Eosinophil# 0.22 X10^3/uL; Eosinophils% 2.6 % (0-5); Hematocrit 43.2 % (37-47); Lymphocyte # 1.32 X10^3/ul (0.83-4.51); Lymphocyte % 15.5 % (19-41); Mean Corp Hgb Conc 32.4 g/dL (32-36); Mean Corpuscular Hgb 30.3 pg (27.0-32.0); Mean Corpuscular Volume 93.5 fL (81-99); Mean Platelet Vol. 9.7 fl (6.2-12.0); Monocyte# 0.59 X10^3/uL; Monocyte% 6.9 % (0-10); NRBC Flagged by Analyzer 0 % (0-5); Neutrophil # 6.32 X10^3/uL (2.7-7.7); Neutrophil % 74.2 % (47-70); Platelet Count 283 K/mm3 (150-450); RBC Distribution Width SD 44.2 fl (35.1-43.9); Red Blood Count 4.62 M/mm3 (4.2-5.4); White Blood Count 8.5 K/mm3 (4.4-11.0)
[2023-01-06 16:33] LABS: ALB/GLOB Ratio 1.3 RATIO (0.9-2.4); AST(SGOT) 12 U/L (15-37); Alanine Aminotransfer ALT/SGPT 28 U/L (13-56); Albumin, Serum 3.9 g/dL (3.2-5.0); Alkaline Phosphatase 130 U/L (45-117); Anion Gap 6 (5-15); BUN 20 mg/dL (7-18); BUN/Creat Ratio 23.4 RATIO (10-20); Chloride 106 mmol/L (98-107); Cholesterol 217 mg/dL (200); Creatinine, Serum 0.86 mg/dL (0.55-1.02); EST Glomerular Filtration Rate 72 mL/min (>60); Est Glom Filt Rate - Afr Amer 87 mL/min (>60); Glucose 104 mg/dL (74-106); High Density Lipoprotein 52 mg/dL; Potassium 3.9 mmol/L (3.5-5.1); Protein, Total 6.9 g/dL (6.4-8.2); Sodium Level 140 mmol/L (136-145); Triglycerides 234 mg/dL; Very Low Density Lipoprotein 47 mg/dL (5-40)
== END | disposition home or self-care (01) ==
LOC: BIMLAB 15:05
PROVIDERS: PCP Internal Medicine; Referring Provider Internal Medicine; Visit Provider Internal Medicine
DX: E78.5 Hyperlipidemia, unspecified (principal); I10 Essential (primary) hypertension
CPT/HCPCS: 36415; 80053; 80061; 85025

== ENCOUNTER 2023-02-20 17:27 | Emergency (ER) | payer BC, SELFPAY ==
[2023-02-20 17:27] VITALS: BP 171/112; PULSE 83; RESP 16; TEMP 36.6; O2SAT 98; BMI 36.0
--- NOTE | 2023-02-20 19:46 | EX.ED.DYSGE1 ---
HPI History of Present Illness Chief Complaint: Abscess Informant: patient Narrative Narrative: 62-year-old female presenting to the emergency room chief complaint of rectal bleeding. Patient states that earlier today she went to the bathroom to urinate and when she wiped there was blood coming from her rectal area. She denies any significant rectal pain. She denies any swelling. No vaginal bleeding. She is not on blood thinners. She has not had this problem before. She does not typically strain or sit for long periods of time. Patient does do a significant amount of heavy lifting at work and was at work for 10 hours plus today. [facility] Medical History (Updated 02/20/23 @ 19:47 by Litzy Aguilar) Abscess of finger of right hand Acute osteomyelitis of metacarpal bone of right hand Anemia Arthritis Hahn's palsy Bilateral lower extremity edema Carpal tunnel syndrome Cat bite Cellulitis of left lower leg Cellulitis of right index finger Dermatitis Elevated BUN Fatigue Finger osteomyelitis, right Former smoker Frequent headaches Health care maintenance Hemorrhoid HTN (hypertension) Hyperlipidemia Hypertension Knee pain Migraines NECK AND BACK PAIN OAB (overactive bladder) Open wound of right index finger due to cat bite Osteoarthritis Septic arthritis of hand, right Shortness of breath Sinusitis Ulcer of left lower extremity with fat layer exposed Venous insufficiency of both lower extremities Vitiligo Home Medications ibuprofen 800 mg tablet 800 mg PO TID PRN pain #20 tabs 01/12/22 [Rx Last Taken Unknown] amlodipine 10 mg tablet 10 mg PO DAILY bp #90 tabs 08/10/22 [Rx Last Taken Unknown] lisinopril 10 mg tablet 10 mg PO DAILY bp #90 tabs 08/10/22 [Rx Last Taken Unknown] oxybutynin chloride 5 mg tablet 5 mg PO QHS bladder #90 tabs 08/10/22 [Rx Last Taken Unknown] triamterene 37.5 mg-hydrochlorothiazide 25 mg tablet 1 tab PO DAILY bp #90 tabs 08/10/22 [Rx Last Taken Unknown] Allergy/AdvReac Type Severity Reaction Status Date / Time Sulfa (Sulfonamide Allergy Mild unknown Verified 02/20/23 17:29 Antibiotics) hydrocodone [From Vicodin] Allergy Vomiting Verified 02/20/23 17:29 Family History Mother Heart disease Hypertension Father Heart disease Hypertension Other Arthritis CVA (cerebral vascular accident) Cancer High cholesterol Surgical History History of History of tonsillectomy History of total left knee replacement History of total left knee replacement History of total right knee replacement S/P S/P tonsillectomy Total vaginal hysterectomy, bilateral salpingectomy, uterosa Social History Smoking Status: Former smoker Tobacco: How many years used: 20 how long ago did patient quit smokin alcohol intake: never details: social substance use type: does not use and painkillers caffeine: Yes what type of physical activity do you participate in: none seatbelt use: always do you feel safe at home: Yes additional social history: - Phu Childs Does not take aspirin Does take Ibuprofen as needed ROS ROS ED Constitutional Constitutional ED: Denies chills or weight loss Eyes Eyes: Denies change in vision or diplopia ENT ENT ED: Denies ear pain, rhinorrhea or sore throat Cardiovascular Cardiovascular: Denies chest pain, orthopnea, palpitations or racing heartbeat Respiratory/Chest Respiratory/Chest: Denies cough, dyspnea or orthopnea Gastrointestinal Gastrointestinal: Reports other Details: Rectal bleeding ; Denies abdominal pain, diarrhea, nausea or vomiting Genitourinary Genitourinary ED: Denies dysuria, hematuria or urinary frequency Musculoskeletal Musculoskeletal: Denies arthralgias or myalgias Integumentary Denies abscess or rash Neurologic Neurologic: Denies headache(s) or weakness Psychiatric Psychiatric: Denies anxiety, depression, suicidal ideation or suicidal thoughts Endocrine Endocrinology: Denies polydipsia, polyphagia or polyuria Allergic/Immunologic Allergic/Immunologic ED: Denies mouth swelling, tongue swelling or urticaria EXAM Physical Exam Const Vital Signs: 02/20/23 17:27 Temperature 97.8 F Temperature Source Temporal Pulse Rate 83 Respiratory Rate 16 Blood Pressure 171/112 H Blood Pressure Mean 131 Pulse Ox 98 Oxygen Delivery Method Room Air Positive well nourished and well developed General Appearance ED: well developed HEENT Reports normocephalic, head/scalp atraumatic and moist mucous membranes Eyes PERRL and EOMs intact bilaterally Neck no lymphadenopathy, supple and no JVD Resp normal respiratory effort and clear to auscultation bilaterally Cardio regular rate, regular rhythm and no murmurs GI normal to inspection, nondistended, normoactive bowel sounds and non-tender Palpation: soft Narrative: Patient has evidence of hemorrhoidal disease. There are several purple hemorrhoids with one hemorrhoid acutely bleeding. I do not appreciate anal fissure. There is no thrombosed hemorrhoid. I am able to get the bleeding to stop with pressure. Back/Spine no CVA tenderness and normal ROM Extremity normal to inspection General Extremety ED: Negative for edema General Extremity: Negative for edema Neuro oriented x3 and CN's II-XII intact bilaterally Sensorium / Orientation: alert Motor Exam: strength 5/5 throughout Psych mental status grossly normal Mood & Affect: Negative for depressed or tearful Skin no rashes or lesions noted and no wounds MDM MDM MDM Narrative Medical decision making narrative: Patient I discussed different types of hemorrhoids as well as long-term treatments. I would recommend at this time the patient avoid sitting and straining. I would recommend that for the night she lay down avoiding increased pressure on the rectum. She should follow-up with primary care if she continues to have symptoms or follow-up with surgery for gastroenterology. Differential includes thrombosed hemorrhoid, bleeding internal hemorrhoids, anal fissure, rectal abscess, diverticular disease. Discharge Plan Triage Chief Complaint: Abscess ED Provider: Puneet Subramanian Dx/Rx/DC Orders Clinical Impression: Bleeding hemorrhoids Instructions: Treating Hemorrhoids: Self-Care, ED Hemorrhoids Prescriptions: No Action amlodipine 10 mg tablet 10 mg PO DAILY Qty: 90 3RF lisinopril 10 mg tablet 10 mg PO DAILY Qty: 90 3RF triamterene-hydrochlorothiazid 37.5-25 mg tablet 1 tab PO DAILY Qty: 90 3RF oxybutynin chloride 5 mg tablet 5 mg PO QHS Qty: 90 2RF ibuprofen 800 mg tablet 800 mg PO TID PRN (Reason: pain) Qty: 20 0RF Primary Care Provider: Sapna Mcnair Referrals: Sapna Mcnair MD [Primary Care Provider] - As Needed Disposition Disposition: Home, Self Care
== END 2023-02-20 20:00 | disposition home or self-care (01) ==
LOC: ED 19:50
PROVIDERS: Emergency Provider Emergency Medicine; PCP Internal Medicine; Visit Provider Emergency Medicine
DX: K64.9 Unspecified hemorrhoids (principal); E78.5 Hyperlipidemia, unspecified; Z87.891 Personal history of nicotine dependence; I10 Essential (primary) hypertension
CPT/HCPCS: 99282

== ENCOUNTER → 2023-05-19 | Outpatient (CLI) | payer BC, SELFPAY ==
[2023-05-19 12:58] LABS: Anion Gap 5 (5-15); BUN 18 mg/dL (7-18); BUN/Creat Ratio 27.3 RATIO (10-20); Calcium,Total 8.9 mg/dL (8.5-10.1); Chloride 113 mmol/L (98-107); Creatinine, Serum 0.66 mg/dL (0.55-1.02); EST Glomerular Filtration Rate 96 mL/min (>60); Est Glom Filt Rate - Afr Amer 117 mL/min (>60); Glucose 131 mg/dL (74-106); Potassium 4.6 mmol/L (3.5-5.1); Sodium Level 144 mmol/L (136-145)
== END | disposition home or self-care (01) ==
LOC: BIMLAB 11:29
PROVIDERS: PCP Internal Medicine; Visit Provider Internal Medicine
DX: I10 Essential (primary) hypertension (principal)
CPT/HCPCS: 36415; 80048

== ENCOUNTER → 2023-10-17 | Outpatient (CLI) | payer BC, SELFPAY ==
[2023-10-17 10:45] LABS: Color, Urine Yellow (Yellow); Glucose, Dipstick Normal (Normal); Ketone-Dipstick Negative (Negative); Leukocyte Esterase-Dipstick 100 /ul (Negative); Nitrite-Dipstick Negative (Negative); Occult Blood-Urine 10 /ul (Negative); Protein-Dipstick 15 mg/dl (Negative); Urine Bilirubin Dipstick Negative (Negative); Urine Clarity Clear (Clear); Urine Urobilinogen Normal (Normal)
[2023-10-17 10:53] LABS: Bacteria 1+ /hpf (None Seen); Calcium Oxalate Crystals Ur 1+ /hpf (<or=2+); Mucous, Urine RARE /hpf (<or=2+); Red Blood Cells-Urine 0-5 SEEN /hpf (0-5); Squamous Epithelial Cells - UA 0-5 SEEN /hpf (5-10); White Blood Cells 5-10 SEEN /hpf (0-5)
== END | disposition home or self-care (01) ==
LOC: LABSPEC 10:32
PROVIDERS: PCP Internal Medicine; Referring Provider Nurse Practitioner Family; Visit Provider Nurse Practitioner Family
DX: R30.0 Dysuria (principal)
CPT/HCPCS: 81001; 87086; 87088

== ENCOUNTER → 2023-11-07 | Outpatient (CLI) | payer BC, SELFPAY ==
--- NOTE | 2023-11-07 15:52 | BI_ITS ---
MAMMOGRAPHY - BILATERAL SCREENING REASON FOR EXAM: Female, 63 years old. Routine annual screening examination. PERTINENT HISTORY: Mother with breast cancer. TECHNIQUE: Digital bilateral breast elaina (3D mammographic acquisition) in the CC and MLO projections. 2-D mediolateral oblique (MLO) and craniocaudad (CC) views of both breasts were obtained. CAD: Full Field Digital Mammography with Computer Added Detection was performed. COMPARISON: Comparison is made with prior outside examination degenerative 2009. FINDINGS: Breast Composition: The breasts are heterogeneously dense, which may obscure small masses. There is a 9.2 mm x 7 mm nodule in the slightly upper lateral aspect of the left breast. The patient will be recalled for additional views including 90 degree lateral and compression spot views. Stable benign-appearing bilateral axillary lymph nodes. No other significant abnormalities are identified. BI/SCRN MAMM (CAD)W/ELAINA BILAT IMPRESSION: Stable bilateral screening mammogram. Yearly follow-up mammogram recommended. (A) Recall Side: Left Breast ASSESSMENT CATEGORY: There is a 9.2 mm x 7 mm nodule in the slightly upper lateral aspect of the left breast as described. The patient will be recalled for additional views including 90 degree lateral and compression spot views. Approximately 10% of breast cancers are not detected by mammography. A normal mammogram should not delay biopsy of a clinically suspicious abnormality. [id number] Electronically Signed: Wu Silver MD at 8:38 EDT ,
--- NOTE | 2023-11-07 15:54 | BD_ITS ---
STUDY: DUAL ENERGY X-RAY ABSORPTIOMETRY / DXA REASON FOR EXAM: Female, 63 years old. Post Menopausal TECHNIQUE: Bone Mineral Density (BMD) measurements of lumbar spine and bilateral hips were obtained. COMPARISON: None. FINDINGS: Lumbar Spine (L1-L4): g/cm2 (0.879) / T-score (-1.5) / Z-score (0.1) Findings are suggestive of osteopenia with a low fracture risk. Left Femur Total: g/cm2 (0.696) / T-score (-2.0) / Z-score (-0.9) Left Femoral Neck: g/cm2 (0.406) / T-score (-4.0) / Z-score (-2.6) Right Femur Total: g/cm2 (0.729) / T-score (-1.7) / Z-score (-0.7) Right Femoral Neck: g/cm2 (0.472) / T-score (-3.4) / Z-score (-2.0) BD/Dexa Bone Density Study IMPRESSION: The patient is considered osteoporotic as outlined below according to World [place] Organization (WHO) criteria with a high fracture risk. Reference Information: The T-score is the number of standard deviations above or below the standard which is normal for young adults at their peak bone mineral density. The World Health Organization (WHO) interprets the T-scores as follows: Above -1 Normal bone density Between -1 and -2.5 Osteopenia Equal to / or below -2.5 Osteoporosis As a practical clinical guideline, osteopenia may be graded as follows: Mild -1 through -1.5 Moderate -1.6 through -2.0 Severe -2.1 through -2.4 The Z-score is the number of standard deviations above or below age-matched controls. A Z-score of less than -1.5 would be considered abnormal. References: 1. NIH Osteoporosis and Related Bone Diseases www osteo.org 2. International Society for Clinical Densitometry www iscd.org 3. National Osteoporosis Foundation www nof.org Electronically Signed: Wu Silver MD at 9:34 EDT ,
== END | disposition home or self-care (01) ==
PROVIDERS: PCP Internal Medicine; Referring Provider Internal Medicine; Visit Provider Internal Medicine
DX: Z12.31 Encounter for screening mammogram for malignant neoplasm of breast (principal); Z78.0 Asymptomatic menopausal state
CPT/HCPCS: 77063; 77067; 77080

== ENCOUNTER → 2023-11-14 | Outpatient (CLI) | payer BC, SELFPAY ==
--- NOTE | 2023-11-14 14:22 | BI_ITS ---
MAMMOGRAPHY - BILATERAL DIAGNOSTIC REASON FOR EXAM: Female, 63 years old. Abnormal screening mammogram. PERTINENT HISTORY: Mother with breast cancer. TECHNIQUE: 90 degree lateral and compression spot views of the left breast were obtained. CAD: Full Field Digital Mammography with Computer Added Detection was performed. COMPARISON: Comparison is made with prior mammogram dated November 07, 2023. FINDINGS: Breast Composition: The breasts are heterogeneously dense, which may obscure small masses. There is a 5.1 mm x 3.7 mm nodule in the slightly upper lateral aspect of the left breast correlation with ultrasound is recommended. No other significant abnormalities are identified. BI/DIAG MAMM W/CAD, BILAT IMPRESSION: Persistent nodule in the slightly upper lateral aspect of the left breast as described. Correlation with ultrasound is recommended. ASSESSMENT CATEGORY: BIRADS Category 0: Incomplete. Need additional imaging evaluation. A letter regarding these results will be sent to the patient by the facility within 30 days. Approximately 10% of breast cancers are not detected by mammography. A normal mammogram should not delay biopsy of a clinically suspicious abnormality. Electronically Signed: Wu Silver MD at 14:55 EDT ,
--- NOTE | 2023-11-14 14:24 | US_ITS ---
STUDY: ULTRASOUND BREAST - LEFT REASON FOR EXAM: Female, 63 years old. Abnormal screening mammogram. TECHNIQUE: Axial and longitudinal images of the LEFT breast were performed with a high resolution ultrasound transducer. # OF IMAGES: 6 COMPARISON: Comparison is made with prior mammogram dated November 14, 2023 and November 07, 2023. FINDINGS: LEFT Breast: The mammographic abnormality corresponds to a 7 mm x 8 mm x 4 mm cyst at the 2:00 position of the breast at 2 cm from the nipple. US/Breast Limited Unilateral IMPRESSION: The mammographic abnormality corresponds to a 7 mm x 8 mm x 4 mm cyst at the 2:00 position of the breast at 2 cm from the nipple. ASSESSMENT CATEGORY: BIRADS Category 2: Benign. A letter regarding these results will be sent to the patient by the facility within 30 days. Electronically Signed: Wu Silver MD at 15:37 EDT ,
== END | disposition home or self-care (01) ==
LOC: OPBI 14:17
PROVIDERS: PCP Internal Medicine; Referring Provider Internal Medicine; Visit Provider Internal Medicine
DX: N63.20 Unspecified lump in the left breast, unspecified quadrant (principal)
CPT/HCPCS: 76642; 77066

== ENCOUNTER → 2024-01-11 | Outpatient (CLI) | payer BC, SELFPAY ==
--- NOTE | 2024-01-11 14:00 | RAD_ITS ---
EXAM: XR LEFT SHOULDER COMPLETE, 4 VIEWS CLINICAL INDICATION: BILAT SHOULDER PAIN TECHNIQUE: 4 views of the left shoulder. COMPARISON: CTA chest same day. FINDINGS: BONES/JOINTS: Minimal hypertrophic changes at the inferior margin of the left acromioclavicular joint. No suspicious narrowing of the subacromial space. No acute fracture. No subluxation. Normal alignment. No sclerotic or destructive changes observed. SOFT TISSUES: Unremarkable. No soft tissue swelling or gas. No radiopaque foreign body. RAD/Shoulder min 2 Views IMPRESSION: No acute findings in the left shoulder. Electronically Signed: Sommer Aleajndro MD at 21:21 EDT ,
--- NOTE | 2024-01-11 18:10 | RAD_ITS ---
EXAM: XR RIGHT SHOULDER COMPLETE, 4 VIEWS CLINICAL INDICATION: Bilateral shoulder pain TECHNIQUE: 4 views of the right shoulder. COMPARISON: CTA today included most of the right shoulder. FINDINGS: BONES/JOINTS: Unremarkable. No acute fracture. No subluxation. Normal alignment. Preservation of the joint space. No sclerotic or destructive changes observed. SOFT TISSUES: Unremarkable. No soft tissue swelling or gas. No radiopaque foreign body. RAD/Shoulder min 2 Views IMPRESSION: Negative right shoulder x-rays. Electronically Signed: Sommer Alejandro MD at 21:27 EDT ,
[2024-01-11 18:40] LABS: Absolute Lymphocyte Count 1.97 X10^3/uL (0.83-4.51); Absolute Neutrophil Count 6.1 X10^3/uL (2.0-7.7); Basophil# 0.05 X10^3/uL; Basophil% 0.5 % (0-1); Eosinophil# 0.21 X10^3/uL; Eosinophils% 2.3 % (0-5); Hematocrit 43.1 % (37-47); Hemoglobin 13.8 g/dL (12.0-15.0); Lymphocyte # 1.97 X10^3/ul (0.83-4.51); Lymphocyte % 21.6 % (19-41); Mean Corpuscular Hgb 28.8 pg (27.0-32.0); Mean Platelet Vol. 8.9 fl (6.2-12.0); Monocyte# 0.75 X10^3/uL; Monocyte% 8.2 % (0-10); NRBC Flagged by Analyzer 0 % (0-5); Neutrophil # 6.12 X10^3/uL (2.7-7.7); Neutrophil % 67.1 % (47-70); Platelet Count 268 K/mm3 (150-450); RBC Distribution Width CV 13.4 % (11.6-14.6); Red Blood Count 4.79 M/mm3 (4.2-5.4); White Blood Count 9.1 K/mm3 (4.4-11.0)
[2024-01-11 19:09] LABS: ALB/GLOB Ratio 1.2 RATIO (0.9-2.4); AST(SGOT) 18 U/L (15-37); Alanine Aminotransfer ALT/SGPT 32 U/L (13-56); Albumin, Serum 3.9 g/dL (3.2-5.0); Alkaline Phosphatase 141 U/L (45-117); Anion Gap 5 (5-15); BUN 20 mg/dL (7-18); BUN/Creat Ratio 25.4 RATIO (10-20); Calcium,Total 9.4 mg/dL (8.5-10.1); Chloride 108 mmol/L (98-107); Cholesterol 235 mg/dL (200); Creatinine, Serum 0.79 mg/dL (0.55-1.02); EST Glomerular Filtration Rate 79 mL/min (>60); Est Glom Filt Rate - Afr Amer 95 mL/min (>60); Globulin 3.2 g/dL (2.2-4.2); Glucose 94 mg/dL (74-106); High Density Lipoprotein 57 mg/dL; Potassium 3.8 mmol/L (3.5-5.1); Protein, Total 7.1 g/dL (6.4-8.2); Sodium Level 141 mmol/L (136-145); Triglycerides 130 mg/dL; Very Low Density Lipoprotein 26 mg/dL (5-40)
[2024-01-11 19:52] LABS: PTHIN 95.8 pg/mL (18.4-80.1)
[2024-01-11 19:56] LABS: Vitamin D,25 Hydroxy 20.8 ng/mL
== END | disposition home or self-care (01) ==
PROVIDERS: PCP Internal Medicine; Referring Provider Internal Medicine; Visit Provider Internal Medicine
DX: M25.511 Pain in right shoulder (principal); M25.512 Pain in left shoulder; I10 Essential (primary) hypertension; M81.0 Age-related osteoporosis without current pathological fracture; Z13.21 Encounter for screening for nutritional disorder
CPT/HCPCS: 73030; 80053; 80061; 82306; 83970; 85025

== ENCOUNTER → 2024-03-14 | Outpatient (CLI) | payer BC, SELFPAY ==
--- NOTE | 2024-03-14 10:17 | RAD_ITS ---
HISTORY: Cough. TECHNIQUE: XR Chest 2 Views. COMPARISON: 01/10/2022. FINDINGS: CARDIOMEDIASTINAL BORDERS: Cardiac silhouette within normal limits in size. Mediastinal contour also unchanged with calcification of the aorta. LUNGS: Chronic hyperinflation with mild linear bibasilar scarring. PLEURA: No pleural effusion or pneumothorax seen. OSSEOUS STRUCTURES: Degenerative change. RAD/Chest PA and Lateral IMPRESSION: No acute cardiopulmonary process identified. Electronically Signed: Kirsty Parry MD at 10:50 EST ,
== END | disposition home or self-care (01) ==
PROVIDERS: PCP Internal Medicine; Referring Provider Physician Assistant Surgical; Visit Provider Physician Assistant Surgical
DX: R05.9 Cough, unspecified (principal); J06.9 Acute upper respiratory infection, unspecified
CPT/HCPCS: 71046

== ENCOUNTER 2024-07-31 20:58 | Emergency (ER) | payer BC, SELFPAY ==
[2024-07-31 21:00] VITALS: BP 139/86; PULSE 84; RESP 18; TEMP 36.6; O2SAT 93; BMI 35.9
--- NOTE | 2024-07-31 21:28 | EDS_ITS ---
HPI HPI - Fall History of Present Illness Chief Complaint: Fall Occured/Mechanism Occurred: Today Mechanism/Context: Yes trip Fall down steps #: 1-2 Pain/Injury Location: Left great toe, right knee Pain Location: lower extremity Quality of Pain: Dull, Throbbing and - (Stiffness) Worsened by: Movement, weightbearing, ambulation Relieved by: Nothing Associated Symptoms Associated Symptoms: Negative for Parasthesias, Weakness, Loss of function, Inability to ambulate, Loss of consciousness or Amnesia Narrative Narrative: Patient presents with a fall that occurred today. Patient states she was walking up some steps when she tripped. Patient hit her foot on one of the steps. Patient fell forward and landed on her knees. Patient states the pain in her right knee is worse than her left. Patient states her pain is worse over the left great toe. Patient describes it as dull, throbbing, and stiff. Patient states her pain is worse with movement and weightbearing. Patient denies any paresthesias or weakness. Patient also admits to some mild pain in her right posterior hip. Patient denies any other injuries. [facility] Medical History Vertigo Elevated parathyroid hormone Bilateral shoulder pain Osteoporosis Encounter for vitamin deficiency screening Tinnitus Hemorrhoid Migraines OAB (overactive bladder) Hyperlipidemia Vitiligo Venous insufficiency of both lower extremities Bilateral lower extremity edema Sinusitis Ulcer of left lower extremity with fat layer exposed Elevated BUN Cellulitis of left lower leg Health care maintenance Dermatitis Frequent headaches Carpal tunnel syndrome Anemia Septic arthritis of hand, right Finger osteomyelitis, right Acute osteomyelitis of metacarpal bone of right hand Abscess of finger of right hand Cellulitis of right index finger Open wound of right index finger due to cat bite Cat bite HTN (hypertension) Former smoker NECK AND BACK PAIN Knee pain Fatigue Shortness of breath Arthritis Hahn's palsy Osteoarthritis Hypertension Home Medications ?Medication ?Instructions ?Recorded ?Last Taken ?Type ibuprofen 800 mg tablet 800 mg PO TID PRN pain #20 t abs 01/12/22 Unknown Rx lisinopril 10 mg tablet 10 mg PO DAILY bp #90 tabs 0 08/10/22 Unknown Rx amlodipine 10 mg tablet See Rx Instructions .Route 1 04/14/23 Unknown Rx .COMPLEX #90 tabs oxybutynin chloride 5 mg tablet 5 mg PO QHS bladder #9 0 tabs 02/13/24 Unknown Rx Allergy/AdvReac Type Severity Reaction Status Date / Time Sulfa (Sulfonamide Allergy Mild unknown Verified 07/31/24 20:59 Antibiotics) hydrocodone (From Vicodin) Allergy Vomiting Verified 07/31/24 20:59 Family History Mother Heart disease Hypertension Father Heart disease Hypertension Other Arthritis CVA (cerebral vascular accident) Cancer High cholesterol Surgical History History of total left knee replacement History of total right knee replacement History of total left knee replacement Total vaginal hysterectomy, bilateral salpingectomy, uterosa History of tonsillectomy History of S/P S/P tonsillectomy Social History Smoking Status: Former smoker Tobacco: How many years used: 20 how long ago did patient quit smokin alcohol intake: never details: social substance use type: does not use and painkillers caffeine: Yes what type of physical activity do you participate in: none seatbelt use: always do you feel safe at home: Yes additional social history: - Phu Childs Does not take aspirin Does take Ibuprofen as needed ROS ROS ED Constitutional Constitutional ED: Denies chills or fever(s) Eyes Eyes: Denies blurry vision or change in vision ENT ENT ED: Denies rhinorrhea or sore throat Cardiovascular Cardiovascular: Denies chest pain or palpitations Respiratory/Chest Respiratory/Chest: Denies cough or dyspnea Gastrointestinal Gastrointestinal: Denies nausea or vomiting Genitourinary Genitourinary ED: Denies dysuria or hematuria Musculoskeletal Musculoskeletal: Denies back pain or neck pain Integumentary Denies abscess or rash Neurologic Neurologic: Denies headache(s) or weakness Allergic/Immunologic Allergic/Immunologic ED: Denies mouth swelling or urticaria EXAM Physical Exam Const Vital Signs: 07/31/24 21:00 07/31/24 21:13 Temperature 97.8 F Temperature Source Temporal Pulse Rate 84 Respiratory Rate 18 Respiratory Effort Normal Blood Pressure 139/86 H Blood Pressure Mean 103 Pulse Ox 93 Oxygen Delivery Method Room Air Positive well nourished and well developed Constitutional Narrative: BMI is 36.0 General Appearance ED: well developed and NAD HEENT Reports normocephalic atraumatic Neck full ROM and supple Extremity Extremity Narrative: There is tenderness, edema, and ecchymosis over the proximal phalanx of the left great toe. There is no deformity noted. Range of motion was limited in all motions of the left great toe secondary to pain. Sensation was intact to light touch in all digits. Pedal pulses are equal bilaterally. Capillary refill is less than 2 seconds in all digits. Strength is 5/5 bilaterally in the lower extremities. There is also tenderness of the anterior aspect of the right knee. There is some edema and ecchymosis over this area. There is no deformity. Range of motion is slightly limited in flexion of the right knee secondary to pain. Extensor mechanism is intact. There is minimal tenderness over the posterior aspect of the right hip. There is full range of motion. There is no deformity noted. Neuro oriented x3, CN's II-XII intact bilaterally, moves all extremities, no focal motor deficits and no sensory deficits noted Medardo Coma Scale: document GCS findings Spontaneous Obeys Commands Oriented 15 Sensorium / Orientation: alert Motor Exam: strength 5/5 throughout Psych mental status grossly normal and thought process normal MDM MDM MDM Narrative Medical decision making narrative: Differential diagnosis includes fracture, sprain, and contusion. X-rays of the left foot will be obtained to assess for fracture. X-rays of the right knee will be obtained to assess for fracture. Radiography Diagnostic Testing: X-rays of the right knee were obtained. There are 4 views. On my independent interpretation, there is no acute fracture or dislocation noted. Radiologist also interpreted the x-rays and agrees. X-rays of the left foot were obtained. There are 3 views. On my independent interpretation, there is a small fracture of the medial aspect of the base of the first proximal phalanx. There are no other fractures noted. Radiologist also interpreted the x-rays and agrees. Treatment and Re-Evaluation Narrative: Patient was advised of her findings. Patient was given a postoperative shoe. Patient was instructed to ice and elevate her left foot and right knee. Patient was instructed to follow-up with her primary care physician in 5 to 7 days. Patient understood and was agreeable with the plan. All questions were answered. Discharge Plan Triage Chief Complaint: Fall ED Provider: Guillermo Franco Dx/Rx/DC Orders Clinical Impression: Closed fracture of left great toe, Contusion of right knee, initial encounter, Fall Prescriptions: No Action lisinopril 10 mg tablet 10 mg PO DAILY Qty: 90 3RF ibuprofen 800 mg tablet 800 mg PO TID PRN (Reason: pain) Qty: 20 0RF amlodipine 10 mg tablet See Rx Instructions .ROUTE .COMPLEX Qty: 90 1RF Dose Instruction: Take 1 tablet by mouth once daily for blood pressure Rx Instructions: Take 1 tablet by mouth once daily for blood pressure oxybutynin chloride 5 mg tablet 5 mg PO QHS Qty: 90 1RF Primary Care Provider: Sapna Mcnair Referrals: Sapna Mcnair MD [Primary Care Provider] - Print Language: Tamazight Disposition Disposition: Home, Self Care
--- NOTE | 2024-07-31 22:15 | RAD_ITS ---
EXAM: Left foot CLINICAL HISTORY: Foot injury, foot pain TECHNIQUE: Three views FINDINGS: Small plantar and posterior calcaneal enthesophytes. Acute slightly distracted oblique fracture of the tibial aspect of the base of the 1st proximal phalanx. Moderate midfoot arthrosis. Normal soft tissues. RAD/Foot min 3 Views IMPRESSION: Acute slightly distracted oblique fracture of the tibial aspect of the base of the 1st proximal phalanx. Moderate midfoot arthrosis. Reading Location: [id number]
--- NOTE | 2024-07-31 22:15 | RAD_ITS ---
PROCEDURE: KNEE 4 OR MORE VIEWS 07/31/2024 REASON FOR EXAM: INJURY/PAIN TECHNIQUE: 4 views of the right knee COMPARISON: 12/2020 FINDINGS: Bones: No acute fracture. Joints: Total knee arthroplasty in satisfactory alignment. Effusion: No effusion. Soft tissues: Soft tissues are unremarkable. Other: RAD/Knee 4 or More Views IMPRESSION: TOTAL KNEE REPLACEMENT No acute fracture or dislocation. Reading Location: [id number]
[2024-07-31 23:47] VITALS: BP 129/74; PULSE 74; RESP 16; TEMP 36.7; O2SAT 96
== END 2024-07-31 23:48 | disposition home or self-care (01) ==
PROVIDERS: Emergency Provider Emergency Medicine; PCP Internal Medicine; Visit Provider Emergency Medicine
DX: S92.402A Displaced unspecified fracture of left great toe, initial encounter for closed fracture (principal); S80.01XA Contusion of right knee, initial encounter; Z87.891 Personal history of nicotine dependence; I10 Essential (primary) hypertension; W10.9XXA Fall (on) (from) unspecified stairs and steps, initial encounter; E78.5 Hyperlipidemia, unspecified; M25.551 Pain in right hip
CPT/HCPCS: 73564; 73630; 99283